=== PATIENT | female | born 1995 | race Caucasian/White ===

== ENCOUNTER 2022-10-02 16:08 | Outpatient (RCR) | payer OTHER, SELFPAY ==
[2022-10-02 16:40] LABS: HCG Quantitative 113 mIU/mL
== END 2022-11-05 16:03 | disposition home or self-care (01) ==
LOC: LAB 16:08
PROVIDERS: PCP Obstetrics & Gynecology; Visit Provider Obstetrics & Gynecology
DX: O03.9 Complete or unspecified spontaneous abortion without complication (principal)
CPT/HCPCS: 36415; 84702

== ENCOUNTER 2023-02-27 09:31 | Outpatient (OUT) | payer OTHER, SELFPAY ==
--- NOTE | 2023-02-27 09:33 | US_ITS ---
[address] [address] Patient Name: JAYDEN BRIONES MRN: [id number] date: 1995 Sex: F Assigned Patient Location: Current Patient Location: Accession/Order Number: [id number] Exam Date: 02/27/2023 09:32 Report Date: 02/27/2023 15:40 At the request of: SARAN ALVAREZ Procedure: US OB transvaginal EXAMINATION: US OB transvaginal HISTORY: MISSED MENSES COMPARISON: No relevant comparison available. FINDINGS: GESTATIONAL SAC: Present and normal appearing. YOLK SAC: Present and normal appearing. POLE: Present and normal appearing. CARDIAC: Present. UTERUS: Normal size and appearance. OVARIES: Right: Corpus lutein cyst. Left: Normal. CERVIX: 5.9 cm in length and closed. CUL-DE-SAC: Normal. OTHER: None. AGE BY LMP: 8 weeks 5 days ANJU BY LMP: 10/04/2023 AGE BY US CRL: 9 weeks 0 days ANJU BY US CRL: 10/02/2023 US/US OB transvaginal IMPRESSION: 1. Single live intrauterine . Electronically authenticated by: JOHNNIE RESTREPO Date: 02/27/2023 15:40
== END 2023-02-27 09:32 | disposition home or self-care (01) ==
LOC: US 09:31
PROVIDERS: PCP Obstetrics & Gynecology; Visit Provider Obstetrics & Gynecology
DX: Z34.91 Encounter for supervision of normal pregnancy, unspecified, first trimester (principal); N92.6 Irregular menstruation, unspecified; Z3A.09 9 weeks gestation of pregnancy
CPT/HCPCS: 76817

== ENCOUNTER 2023-03-09 16:21 | Outpatient (OUT) | payer OTHER, SELFPAY ==
[2023-03-09 16:51] LABS: Basophils Absolute Auto 0.1 10^3/uL (0.0-0.1); Basophils Percent Auto 0.4 % (0.2-2.0); Eosinophils Absolute Auto 0.2 10^3/uL (0.0-0.7); Eosinophils Percent Auto 1.6 % (0.9-7.0); Hematocrit 37.6 % (36.0-48.0); Immature Granulocytes Abs Auto 0.04 10^3/uL (0.00-0.03); Immature Granulocytes Pct Auto 0.3 % (0.0-0.5); Lymphocytes Absolute Auto 2.9 10^3/uL (1.2-3.8); Lymphocytes Percent Auto 21.5 % (20.5-60.0); Mean Corpuscular HGB Conc 34.6 g/dL (29.9-35.2); Mean Corpuscular Hemoglobin 31.6 pg (26.7-34.0); Mean Corpuscular Volume 91.3 fL (81.0-99.0); Mean Platelet Volume 10.1 fL (9.5-13.5); Monocytes Absolute Auto 0.8 10^3/uL (0.3-0.8); Monocytes Percent Auto 5.9 % (1.7-12.0); Neutrophils Absolute Auto 9.4 10^3/uL (1.4-6.5); Neutrophils Percent Auto 70.3 % (43.0-75.0); Platelet Count 253 10^3/uL (150-450); Red Blood Count 4.12 10^6/uL (4.20-5.40); Red Cell Distribution Width 12.5 % (11.0-15.0); White Blood Count 13.3 10^3/uL (4.0-11.0)
[2023-03-09 17:48] LABS: Thyroid Stimulating Hormone 0.621 uIU/mL (0.358-3.740)
[2023-03-09 18:42] LABS: Estimated Average Glucose 100 mg/dL; Glycohemoglobin A1C 5.1 % (4.5-6.2)
[2023-03-11 06:11] LABS: HBsAg Screen Negative (Negative); HCV Ab Non Reactive (Non Reactive); HIV Ab/p24 Ag Screen Non Reactive (Non Reactive); Rubella Antibodies, IgG 1.33 index (Immune >0.99)
[2023-03-11 12:09] LABS: Rapid Plasma Reagin, Quant Non Reactive titer (NonRea<1:1)
== END 2023-03-09 16:22 | disposition home or self-care (01) ==
LOC: LAB 16:21
PROVIDERS: PCP Obstetrics & Gynecology; Visit Provider Obstetrics & Gynecology
DX: N92.6 Irregular menstruation, unspecified (principal)
CPT/HCPCS: 36415; 83036; 84443; 85025; 86592; 86762; 86803; 86850; 86900; 86901; 87086; 87340; 87389

== ENCOUNTER 2023-04-28 20:03 | Outpatient (REF) | payer OTHER, SELFPAY ==
[2023-05-05 10:10] LABS: Age Gdln ACOG Testing Note (.); IGP, rfx Aptima HPV ASCU Note (.)
== END 2023-04-28 20:04 | disposition home or self-care (01) ==
LOC: LAB 20:03
PROVIDERS: PCP Obstetrics & Gynecology; Visit Provider Obstetrics & Gynecology
DX: Z01.419 Encounter for gynecological examination (general) (routine) without abnormal findings (principal)
CPT/HCPCS: G0145

== ENCOUNTER 2023-05-01 13:57 | Outpatient (OUT) | payer OTHER, SELFPAY ==
--- OUTSIDE RECORDS SUMMARY | 2023-05-01 13:59 | XMS_ITS | CCD ---
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 Role Phone Kalyan Haynes Unavailable Inoa Farida Unavailable KIM ., DR NOONAN Admitting Unavailable KIM ., DR NOONAN Attending Unavailable KMI ., DR NOONAN Consulting Unavailable GIRVIN, DR BIGGS Primary Care Unavailable HAY ., DR KING Admitting Unavailable HAY ., DR KING Attending Unavailable HAY ., DR KING Consulting Unavailable GIRMIREYA, DR BIGGS Primary Care Unavailable KIM ., DR NOONAN Admitting Unavailable GIRVIN, DR BIGGS Primary Care Unavailable KIM ., DR NOONAN Attending Unavailable KIM ., DR NOONAN Consulting Unavailable KIM ., DR NOONAN Attending Unavailable KIM ., DR NOONAN Consulting Unavailable GIRMIREYA, DR BIGGS Primary Care Unavailable KIM ., DR NOONAN Admitting Unavailable KIM ., DR NOONAN Attending Unavailable KIM ., DR NOONAN Consulting Unavailable ERIKA, DR BIGGS Primary Care Unavailable KIM ., DR NOONAN Admitting Unavailable KIM ., DR NOONAN Admitting Unavailable PRINTER, DR BIGGS Consulting Unavailable KIM ., DR NOONAN Attending Unavailable GIRVIN, DR BIGGS Primary Care Unavailable KIM ., DR NOONAN Consulting Unavailable REQUEST, NONE LISTED Consulting Unavaila ble KIM ., DR NOONAN Admitting Unavailable KIM ., DR NOONAN Attending Unavailable ERIKA, DR BIGGS Primary Care Unavailable KIM ., DR NOONAN Consulting Unavailable ZIEBER, DR JOHNNIE Wood Consulting Unavailable MITCHEL, NONE LISTED Consulting Unavaila ble KIM ., DR NOONAN Admitting Unavailable KIM ., DR NOONAN Consulting Unavailable KIM ., DR NOONAN Attending Unavailable GIRVIN, DR BIGGS Primary Care Unavailable KIM, SARAN Attending Unavailable SANJANA RAMIREZ Attending Unavailable SARAN ALVAREZ Attending Unavailable Allergies Allergy Classification Reported Allergen(s) Allergy Type Date of Onset Reaction(s) Facility (3 sources) Amoxicillin Drug Allergy rash [facility] Other (1 source) Amoxicillin Drug Allergy 03-08-2020 [facility] Repository Medications Current Medications Medication Drug Class(es) Dates Sig (Normalized) Sig (Original) Docusate (3 sources) Colace Active Iron (3 sources) Iron Active polysaccharide iron complex 150 mg oral capsule (3 sources) Start: 03-24-2017 take 1 capsule by mouth every twenty-four hours Ferrex 150 150 MG 1 capsule Orally Once a day Mar, Active Pre-Tyler (3 sources) Pre-Tyler Active Completed/Discontinued Medications Medication Drug Class(es) Dates Sig (Normalized) Sig (Original) Calcium (3 sources) Phosphate Binder, Calcium Calciu m + D Not-Taking Problems Active Problems Problem Classification Problem Date Documented Da te Episodic/Chronic Deficiency and other anemia (3 sources) Anemia due to blood loss; Translations: [Iron deficiency anemia secondary to blood loss (chronic)] Chronic Menstrual disorders (5 sources) Irregular menstruation, unspecified; Translations: [IRREGULAR MENSTRUATION UNSPECIFIED] Onset: 09-10-2022 Chronic Other and delivery including normal (1 source) Encounter for supervision of normal , unspecified, first trimester; Translations: [ENC SUP NORMAL PREG UNS FIRST TRI] Onset: 09-25-2022 Episodic Residual codes; unclassified (1 source) 9 weeks gestation of ; Translations: [9 WEEKS GESTATION OF ] Onset: 09-25-2022 Episodic Past or Other Problems Problem Classification Problem Date Documented Da te Episodic/Chronic Hemorrhage during ; abruptio placenta; placenta previa (3 sources) Hemorrhage in early , unspecified; Translations: [HEMORRHAGE EARLY UNS] Onset: 03-01-2022 Episodic Immunizations and screening for infectious disease (1 source) Contact with and (suspected) exposure to other viral communicable diseases; Translations: [Contact with and (suspected) exposure to other viral communicable diseases Z20.828] Onset: 02-14-2021 Resolved: 02-14-2021 Episodic Other nervous system disorders (3 sources) Loss of taste; Translations: [Parageusia] Episodic Other nervous system disorders (1 source) Parageusia; Translations: [Loss of taste R43.2] Onset: 02-14-2021 Resolved: 02-14-2021 Episodic Other upper respiratory infections (1 source) Acute upper respiratory infection, unspecified; Translations: [Viral upper respiratory illness J06.9] Onset: 02-14-2021 Resolved: 02-14-2021 Episodic Residual codes; unclassified (1 source) Pain, unspecified; Translations: [Body aches R52] Onset: 02-14-2021 Resolved: 02-14-2021 Episodic Spontaneous (4 sources) Complete or unspecified spontaneous without complication; Translations: [COMPLETE/UNS SPONT AB W/O COMP] Onset: 05-13-2022 Episodic Results Test Name Value Interpretation Reference Range Facil ity US PREG TVon 09-11-2022 US PREG TV EXAMINATION: US PREG TV HISTORY: viability COMPARISON: Ultrasound procedure transvaginal 09/04/2022 FINDINGS: GESTATIONAL SAC: Present YOLK SAC: Present POLE: Present CARDIAC: Absent UTERUS: Normal size and appearance. OVARIES: Right: Normal. Left: Normal. CERVIX: 5.7 cm in length and closed. CUL-DE-SAC: Normal. OTHER: None. AGE BY LMP: 9 weeks 4 days ANJU BY LMP: 04/12/2023 AGE BY US CRL: 6 weeks 3 days ANJU BY US CRL: 05/04/2022 IMPRESSION: 1. Early intrauterine with no detectable heartbeat or growth since prior study 7 days ago. Electronically authenticated by: JOHNNIE RESTREPO Date: 2022-09-11 15:59 Normal [facility] US PREG TVon 09-04-2022 US PREG TV EXAMINATION: US PREG TV HISTORY: Missed period COMPARISON: 10/02/2020 FINDINGS: [place] intrauterine gestation Gestational sac: 2.26 cm, 6 weeks 6 days CRL: 4.9 mm, 6 weeks 1 day Yolk sac: 5.1 mm cardiac activity: Not visualized Cervix: Closed, 4.2 cm The uterus is normal, anteverted, anteflexed The ovaries are normal in appearance. Right corpus luteal cyst Clinical age: 8 weeks 4 days Clinical ANJU: 04/12/2023 Ultrasound age: 6 weeks 1 day Ultrasound ANJU: 04/29/2023 IMPRESSION: [place] intrauterine gestation. No cardiac activity, possibly related to early gestation. Continued surveillance recommended Electronically authenticated by: KALYAN BACK Date: 2022-09-04 17:37 Normal [facility] PREG QUANT HCGon 05-13-2022 HCG QUANT 6 mIU/mL Normal [facility] Comment on above: Performed By: #### P REGQNT #### [facility] [address] [place] [address] Dr. Arash Frazier HCG RANGE SEE BELOW Normal [facility] Comment on above: Result Comment: 5-50 0.2-1 WEEK 50-500 1-2 WEEKS 100-5,000 2-3 WEEKS 500-10,000 3-4 WEEKS 1,000-50,000 4-5 WEEKS 10,000-100,000 5-6 WEEKS 15,000-200,000 6-8 WEEKS 10,000-100,000 2-3 MONTHS Performed By: #### P REGQNT #### [facility] [address] [place] [address] Dr. Arash Frazier PREG QUANT HCGon 05-02-2022 HCG QUANT 23 mIU/mL Normal [facility] Comment on above: Performed By: #### P REGQNT #### [facility] [address] [place] [address] Dr. Arash Frazier HCG RANGE SEE BELOW Normal [facility] Comment on above: Result Comment: 5-50 0.2-1 WEEK 50-500 1-2 WEEKS 100-5,000 2-3 WEEKS 500-10,000 3-4 WEEKS 1,000-50,000 4-5 WEEKS 10,000-100,000 5-6 WEEKS 15,000-200,000 6-8 WEEKS 10,000-100,000 2-3 MONTHS Performed By: #### P REGQNT #### [facility] [address] [place] [address] Dr. Arash Frazier PREG QUANT HCGon 04-21-2022 HCG QUANT 85 mIU/mL Normal [facility] Comment on above: Performed By: #### P REGQNT #### [facility] [address] [place] [address] Dr. Arash Frazier HCG RANGE SEE BELOW Normal [facility] Comment on above: Result Comment: 5-50 0.2-1 WEEK 50-500 1-2 WEEKS 100-5,000 2-3 WEEKS 500-10,000 3-4 WEEKS 1,000-50,000 4-5 WEEKS 10,000-100,000 5-6 WEEKS 15,000-200,000 6-8 WEEKS 10,000-100,000 2-3 MONTHS Performed By: #### P REGQNT #### [facility] [address] [place] [address] Dr. Arash Frazier PREG QUANT HCGon 04-14-2022 HCG QUANT 197 mIU/mL Normal [facility] Comment on above: Performed By: #### P REGQNT #### [facility] [address] [place] [address] Dr. Arash Frazier HCG RANGE SEE BELOW Normal [facility] Comment on above: Result Comment: 5-50 0.2-1 WEEK 50-500 1-2 WEEKS 100-5,000 2-3 WEEKS 500-10,000 3-4 WEEKS 1,000-50,000 4-5 WEEKS 10,000-100,000 5-6 WEEKS 15,000-200,000 6-8 WEEKS 10,000-100,000 2-3 MONTHS Performed By: #### P REGQNT #### [facility] [address] [place] [address] Dr. Arash Frazier PREG QUANT HCGon 04-08-2022 HCG QUANT 269 mIU/mL Normal [facility] Comment on above: Performed By: #### P REGQNT #### [facility] [address] [place] [address] Dr. Arash Frazier HCG RANGE SEE BELOW Normal [facility] Comment on above: Result Comment: 5-50 0.2-1 WEEK 50-500 1-2 WEEKS 100-5,000 2-3 WEEKS 500-10,000 3-4 WEEKS 1,000-50,000 4-5 WEEKS 10,000-100,000 5-6 WEEKS 15,000-200,000 6-8 WEEKS 10,000-100,000 2-3 MONTHS Performed By: #### P REGQNT #### [facility] [address] [place] [address] Dr. Arash Frazier PREG QUANT HCGon 03-31-2022 HCG QUANT 192 mIU/mL Normal [facility] Comment on above: Performed By: #### P REGQNT #### [facility] [address] [place] [address] Dr. Arash Frazier HCG RANGE SEE BELOW Normal [facility] Comment on above: Result Comment: 5-50 0.2-1 WEEK 50-500 1-2 WEEKS 100-5,000 2-3 WEEKS 500-10,000 3-4 WEEKS 1,000-50,000 4-5 WEEKS 10,000-100,000 5-6 WEEKS 15,000-200,000 6-8 WEEKS 10,000-100,000 2-3 MONTHS Performed By: #### P REGQNT #### [facility] [address] [place] [address] Dr. Arash Frazier PREG QUANT HCGon 03-25-2022 HCG QUANT 115 mIU/mL Normal [facility] Comment on above: Performed By: #### P REGQNT #### [facility] [address] [place] [address] Dr. Arash Frazier HCG RANGE SEE BELOW Normal [facility] Comment on above: Result Comment: 5-50 0.2-1 WEEK 50-500 1-2 WEEKS 100-5,000 2-3 WEEKS 500-10,000 3-4 WEEKS 1,000-50,000 4-5 WEEKS 10,000-100,000 5-6 WEEKS 15,000-200,000 6-8 WEEKS 10,000-100,000 2-3 MONTHS Performed By: #### P REGQNT #### [facility] [address] [place] [address] Dr. Arash Frazier PREG QUANT HCGon 03-18-2022 HCG QUANT 41 mIU/mL Normal [facility] Comment on above: Performed By: #### P REGQNT #### [facility] [address] [place] [address] Dr. Arash Frazier HCG RANGE SEE BELOW Normal [facility] Comment on above: Result Comment: 5-50 0.2-1 WEEK 50-500 1-2 WEEKS 100-5,000 2-3 WEEKS 500-10,000 3-4 WEEKS 1,000-50,000 4-5 WEEKS 10,000-100,000 5-6 WEEKS 15,000-200,000 6-8 WEEKS 10,000-100,000 2-3 MONTHS Performed By: #### P REGQNT #### [facility] [address] [place] [address] Dr. Arash Frazier TYPE AND SCREENon 03-18-2022 TYPE AND SCREEN Negative Normal [facility] Comment on above: Performed By: #### P REGQNT #### [facility] [address] [place] [address] Dr. Arash Frazier CBC AUTO DIFFon 03-01-2022 BASO # 0.1 103/ul Normal 0.0-0.1 [facility] Comment on above: Performed By: #### C BC #### [facility] [address] [place] [address] Dr. Arash Frazier Basophils/100 WBC (Bld) 0.8 % Normal 0.2-2.0 [facility] Comment on above: Performed By: #### C BC #### [facility] [address] [place] [address] Dr. Arash Frazier EO # 0.2 103/ul Normal 0.0-0.7 [facility] Comment on above: Performed By: #### C BC #### [facility] [address] [place] [address] Dr. Arash Frazier Eosinophils/100 WBC (Bld) 2.0 % Normal 0.9-7.0 [facility] Comment on above: Performed By: #### C BC #### [facility] [address] [place] [address] Dr. Arash Frazier Erythrocyte distribution width (RBC) [Ratio] 13.0 % Normal 11.0-15.0 [facility] Comment on above: Performed By: #### C BC #### [facility] [address] [place] [address] Dr. Arash Frazier Hematocrit (Bld) [Volume fraction] 39.6 % Normal 36.0-48.0 [facility] Comment on above: Performed By: #### C BC #### [facility] [address] [place] [address] Dr. Arash Frazier Hemoglobin (Bld) [Mass/Vol] 12.9 g/dL Normal 12.0-16.0 [facility] Comment on above: Performed By: #### C BC #### [facility] [address] [place] [address] Dr. Arash Frazier IG # 0.03 10e3/ul Normal 0.00-0.03 [facility] Comment on above: Performed By: #### C BC #### [facility] [address] [place] [address] Dr. Arash Frazier IG % 0.3 % Normal 0.0-0.5 [facility] Comment on above: Performed By: #### C BC #### [facility] [address] [place] [address] Dr. Arash Frazier LYMPH # 2.4 103/ul Normal 1.2-3.8 [facility] Comment on above: Performed By: #### C BC #### [facility] [address] [place] [address] Dr. Arash Frazier Lymphocytes/100 WBC (Bld) 20.5 % Normal 20.5-60.0 [facility] Comment on above: Performed By: #### C BC #### [facility] [address] [place] [address] Dr. Arash Frazier MANUAL DIFF REQ NO Normal [facility] Comment on above: Performed By: #### C BC #### [facility] [address] [place] [address] Dr. Arash Frazier MCH (RBC) [Entitic mass] 29.5 pg Normal 26.7-34.0 [facility] Comment on above: Performed By: #### C BC #### [facility] [address] [place] [address] Dr. Arash Frazier MCHC (RBC) [Mass/Vol] 32.6 g/dL Normal 29.9-35.2 [facility] Comment on above: Performed By: #### C BC #### [facility] [address] [address] [address] Arash Frazier MCV (RBC) [Entitic vol] 90.6 fL Normal 81.0-99.0 [facility] Comment on above: Performed By: #### C BC #### [facility] [address] [address] [address] Arash Frazier MONO # 0.7 103/ul Normal 0.3-0.8 [facility] Comment on above: Performed By: #### C BC #### [facility] [address] [place] [address] Dr. Arash Frazier Monocytes/100 WBC (Bld) 5.9 % Normal 1.7-12.0 [facility] Comment on above: Performed By: #### C BC #### [facility] [address] [place] [address] Dr. Arash Frazier NEUT # 8.2 103/ul Critically high 1.4-6.5 [facility] Comment on above: Performed By: #### C BC #### [facility] [address] [place] [address] Dr. Arash Frazier Neutrophils/100 WBC (Bld) 70.5 % Normal 43.0-75.0 [facility] Comment on above: Performed By: #### C BC #### [facility] [address] [place] [address] Dr. Arash Frazier Platelet mean volume (Bld) [Entitic vol] 10.1 fL Normal 9.5-13.5 [facility] Comment on above: Performed By: #### C BC #### [facility] [address] [place] [address] Dr. Arash Frazier PLT 217 103/ul Normal 150-450 [facility] Comment on above: Performed By: #### C BC #### [facility] [address] [place] [address] Dr. Arash Frazier RBC 4.37 106/ul Normal 4.20-5.40 [facility] Comment on above: Performed By: #### C BC #### [facility] [address] [place] [address] Dr. Arash Frazier WBC 11.7 103/ul Critically high 4.0-11.0 [facility] Comment on above: Performed By: #### C BC #### [facility] [address] [place] [address] Dr. Arash Frazier PREG QUANT HCGon 03-01-2022 HCG QUANT 19 mIU/mL Normal [facility] Comment on above: Performed By: #### P REGQNT #### [facility] [address] [place] [address] Dr. Arash Frazier HCG RANGE SEE BELOW Normal [facility] Comment on above: Result Comment: 5-50 0.2-1 WEEK 50-500 1-2 WEEKS 100-5,000 2-3 WEEKS 500-10,000 3-4 WEEKS 1,000-50,000 4-5 WEEKS 10,000-100,000 5-6 WEEKS 15,000-200,000 6-8 WEEKS 10,000-100,000 2-3 MONTHS Performed By: #### P REGQNT #### [facility] [address] [place] [address] Dr. Arash Frazier PROF 14(COMP METB)on 022 Albumin [Mass/Vol] 3.8 g/dL Normal 3.4-5.0 [facility] Comment on above: Performed By: #### C MP #### [facility] [address] [place] [address] Dr. Arash Frazier Albumin/Globulin [Mass ratio] 1.0 {ratio} Normal [facility] Comment on above: Performed By: #### C MP #### [facility] [address] [place] [address] Dr. Arash Frazier ALP [Catalytic activity/Vol] 69 U/L Normal 46-116 [facility] Comment on above: Performed By: #### C MP #### [facility] [address] [place] [address] Dr. Arash Frazier ALT [Catalytic activity/Vol] 21 U/L Normal 14-59 [facility] Comment on above: Performed By: #### C MP #### [facility] [address] [place] [address] Dr. Arash Frazier Anion gap [Moles/Vol] 11.6 mmol/L Normal [facility] Comment on above: Performed By: #### C MP #### [facility] [address] [address] [address] Arash Frazier AST [Catalytic activity/Vol] 13 U/L Critically low 15-37 [facility] Comment on above: Performed By: #### C MP #### [facility] [address] [address] [address] Arash Frazier Bilirubin [Mass/Vol] 0.2 mg/dL Normal 0.2-1.0 [facility] Comment on above: Performed By: #### C MP #### [facility] [address] [address] [address] Arash Frzaier Calcium [Mass/Vol] 8.8 mg/dL Normal 8.5-10.1 [facility] Comment on above: Performed By: #### C MP #### [facility] [address] [address] [address] Arash Frazier Chloride [Moles/Vol] 106 mmol/L Normal 98-107 [facility] Comment on above: Performed By: #### C MP #### [facility] [address] [address] [address] Arash Frazier CO2 [Moles/Vol] 28.7 mmol/L Normal 21.0-32.0 [facility] Comment on above: Performed By: #### C MP #### [facility] [address] [address] [address] Arash Frazier Creatinine [Mass/Vol] 0.75 mg/dL Normal 0.55-1.02 [facility] Comment on above: Performed By: #### C MP #### [facility] [address] [address] [address] Arash Frazier EGFR-AF NEPALESE >60 Normal >=60 [facility] Comment on above: Performed By: #### C MP #### [facility] [address] [address] [address] Arash Frazier EGFR-NON AF NEPALESE >60 Normal >=60 [facility] Comment on above: Performed By: #### C MP #### [facility] [address] [address] [address] Arash Frazier Globulin (S) [Mass/Vol] 3.7 g/dL Normal [facility] Comment on above: Performed By: #### C MP #### [facility] [address] [address] [address] Arash Frazier Glucose [Mass/Vol] 102 mg/dL Normal 74-106 [facility] Comment on above: Performed By: #### C MP #### [facility] [address] [address] [address] Arash Frazier Potassium [Moles/Vol] 4.3 mmol/L Normal 3.5-5.1 [facility] Comment on above: Performed By: #### C MP #### [facility] [address] [address] [address] Arash Frazier Protein [Mass/Vol] 7.5 g/dL Normal 6.4-8.2 [facility] Comment on above: Performed By: #### C MP #### [facility] [address] [address] [address] Arash Frazier Sodium [Moles/Vol] 142 mmol/L Normal 136-145 [facility] Comment on above: Performed By: #### C MP #### [facility] [address] [address] [address] Arash Frazier Urea nitrogen [Mass/Vol] 12.0 mg/dL Normal 7.0-18.0 [facility] Comment on above: Performed By: #### C MP #### [facility] [address] [address] [address] Arash Frazier Urea nitrogen/Creatinine [Mass ratio] 16.0 mg/mg Normal [facility] Comment on above: Performed By: #### C MP #### [facility] [address] [address] [address] Arash Frazier PROTIMEon 03-01-2022 INR Coag (PPP) [Relative time] 0.95 {INR} Normal [facility] Comment on above: Performed By: #### P TT, PT #### [facility] [address] [place], [place] [address] Dr. Arash Frazier INR GUIDELINES SEE BELOW Normal [facility] Comment on above: Result Comment: MABLE RED INR: 2.0 - 3.0 CONDITIONS NOT LISTED BELOW 2.5 - 3.5 FOR PROSTHETIC HEART VALVE REPLACEMENT 2.5 - 3.5 RECURRENT THROMBOSIS Performed By: #### P TT, PT #### [facility] [address] [address] [address] Arash Frazier PT Coag (PPP) [Time] 10.3 s Normal 9.0-11.6 [facility] Comment on above: Performed By: #### P TT, PT #### [facility] [address] [address] [address] Arash Frazier PTTon 03-01-2022 aPTT Coag (Bld) [Time] 29.9 s Normal 22.3-36.2 [facility] Comment on above: Performed By: #### P TT, PT #### [facility] [address] [address] [address] Arash Frazier Vital Signs Date Time Vital Sign Value Performing Clinician Osbaldo anton 02-14-2021 13:30-0400 Body height 172.72 cm Farida Iona Other [facility] Other Encounters Encounter Date Encounter Type Care Provider Facility Start: 04-28-2023 End: 04-28-2023 ambulatory SARAN ALVAREZ Not Available Start: 04-13-2023 End: 04-13-2023 ambulatory SANJANA RAMIREZ Not Available Start: 03-31-2023 End: 03-31-2023 ambulatory SARAN ALVAREZ Not Available Start: 09-11-2022 End: 09-12-[address] SARAN ALVAREZ . Facility: Start: 09-04-2022 End: 09-05-[address] SARAN ALVAREZ . Facility: Start: 05-13-2022 End: 06-03-[address] SARAN ALVAREZ . Facility: Start: 04-08-2022 End: 05-04-[address] SARAN ALVAREZ . Facility:[facility] Start: 03-31-2022 End: 04-01-[address] SARAN ALVAREZ . Facility:[facility] Start: 03-25-2022 End: 03-26-[address] SARAN ALVAREZ . Facility:[facility] Start: 03-18-2022 End: 03-19-[address] SARAN ALVAREZ . Facility:[facility] Start: 03-01-2022 End: 03-01-[address] FERNANDO FINK . Facility:[facility] Start: 02-18-2021 Telephone encounter Kalyan Haynes [facility] Start: 02-14-2021 (URG) Urgent Care Visit Farida rogers [facility] Start: 02-14-2021 Telephone encounter Kalyan Haynes [facility] Payers Date Payer Category Payer Unknown [id number] 1995 Unknown [id number] 2.16.84 0.1.702901.3.579.2.593 1997 Unknown [id number] 2.16.84 0.1.023990.3.579.2.593 1997 Unknown [id number] 2.16.84 0.1.483524.3.579.2.593 1997 Unknown [id number] 2.16.84 0.1.175561.3.579.2.593 1997 Unknown [id number] 2.16.84 0.1.867780.3.579.2.593 1997 Unknown [id number] 2.16.84 0.1.238649.3.579.2.593 1997 Unknown [id number] 2.16.84 0.1.228549.3.579.2.593 1997 Unknown [id number] 2..840 .1.976584.3.579.2.1259 1997 Unknown [id number] 2.16.840 .1.747852.3.579.2.1259 1997 Unknown [id number] 2.16.840 .1.546121.3.579.2.1259 1959 Unknown [id number] 2. 16.840.1.787977.19 Social History Date Type Detail Facility Unknown if ever smoked [facility] Other Sex Assigned At Sex Assigned At Bir th [facility] Other Evaluation note 02-14-2021 Note Date & Type Note Facility 02-14-2021 Evaluation note Encounter Date Diagnosis Assessment Notes Feb, Body aches (ICD-10 - R52) Feb, Loss of taste (ICD-10 - R43.2) [facility] Other Evaluation note 02-14-2021 Note Date & Type Note Facility 02-14-2021 Evaluation note Encounter Date Diagnosis Assessment Notes Feb, Contact with and (suspected) exposure to other viral communicable diseases (ICD-10 - Z20.828) Feb, Viral upper respiratory illness (ICD-10 - J06.9) Drink plenty fluids, get plenty of rest. Follow-up with your family physician to consider a PCR Covid test. Tylenol Motrin for aches pains or fevers. Feb, Other Additional time spent conducting pre-visit phone call, screening for symptoms, instructions on social distancing, application and removal of PPE, and cleaning of examination room, equipment and supplies was preformed. Patient education given for testing methodology and results. Patient care instructions given in writting by [facility] document. [facility] Other History general Narrative - Reported 08-18-2016 Note Date & Type Note Facility 08-18-2016 History general N arrative - Reported Type Medical History Varicella Vaccine 2010 Surgical History lt wrist pin [facility] Surgical History rt ankle fixation [facility] Surgical History removed external fixator 10/2016 Surgical History removed pin from left wrist 10/03 017 Surgical History wisdom teeth extract Hospitalization History see above [facility] Other Evaluation note Note Date & Type Note Facility Evaluation note No Information [facility] [employer] Other Summary Purpose Family History No Family History Records FoundNo Family History Records Found Advance Directives No Advanced Directives Records FoundNo Advanced Directives Records Found Additional Source Comments REASON FOR VISIT (unrecogniz ed section and content) clinical/testing request#15 DUT[place] SE[place], HEADACHE, NASAL CONGESTION, LOSS TASTE AND SMELL, BODYACHES, SORE THROATclinical INFORMATION SOURCE (unrecogn ized section and content) DATE CREATED AUTHOR 10/11/2022 [facility] DATE CREATED AUTHOR AUTHOR'S ORGANIZ ATION 04/30/2023 [facility] [employer] FOR RECORDS PERTAINING TO PATIENTS WHO ARE OR HAVE BEEN ENROLLED IN A CHEMICAL DEPENDENCY/SUBSTANCEABUSE PROGRAM, SOME INFORMATION MAY BE OMITTED. This clinical summary was aggregated from multiple sources. Caution should be exercised in using it in the provision of clinical care. This summary normalizes information from multiple sources, and as a consequence, information in this document may materially change the coding, format and clinical context of patient data. In addition, data may be omitted in some cases. CLINICAL DECISIONS SHOULD BE BASED ON THE PRIMARY CLINICAL RECORDS. [facility] [employer] [facility]. provides no warranty or guarantee of the accuracy or completeness of information in this document.
[2023-05-03 02:08] LABS: AFP Value 31.2 ng/mL (.); Gest. Age on Collection Date 17.7 weeks (.); Insulin Dep Diabetes No (.); OSBR Risk 1 IN 10000 (.); Results Report (.)
== END 2023-05-01 13:58 | disposition home or self-care (01) ==
LOC: LAB 13:57
PROVIDERS: PCP Obstetrics & Gynecology; Visit Provider Obstetrics & Gynecology
DX: Z34.92 Encounter for supervision of normal pregnancy, unspecified, second trimester (principal)
CPT/HCPCS: 36415; 82105

== ENCOUNTER 2023-05-19 09:22 | Outpatient (OUT) | payer OTHER, SELFPAY ==
--- NOTE | 2023-05-19 09:25 | US_ITS ---
[address] [address] Patient Name: JAYDEN BRIONES MRN: [id number] date: 1995 Sex: F Assigned Patient Location: US Current Patient Location: US Accession/Order Number: [id number] Exam Date: 05/19/2023 09:30 Report Date: 05/19/2023 12:03 At the request of: SARAN ALVAREZ Procedure: US OB anatomy EXAMINATION: US OB anatomy, US OB cervical length HISTORY: screening, , for anatomic survey Z36.89 COMPARISON: No relevant comparison available. TECHNIQUE: Transabdominal sonographic examination was performed for obstetrical and evaluation. FINDINGS: Number: 1 Heart Rate: 152.5 bpm H.B. /min Amniotic Fluid Volume: Subjectively normal Placental Location: Anterior. Grade 0. Placental edge 4.2 cm from the internal os. Areas of anechoic echogenicity measuring up to 5.9 cm, venous lakes favored Cervix Length: 5.1 cm, closed Normal anatomy: Lateral ventricles, cerebellum, posterior fossa, nose, lips, orbits, four-chamber heart, RVOT, LVOT, diaphragm, stomach, kidneys, abdominal cord insertion, bladder, umbilical arteries, three-vessel cord, extremities Suboptimal visualization: Spine Other: Nuchal cord noted. BIOMETRY: BPD: 4.7 cm 20 weeks 2 days , 49% HC: 17.1 cm 19 weeks 5 days, 18% AC: 16.4 cm 21 weeks 3 days, 81% FL: 3.4 cm 20 weeks 6 days , 61% EFW:391.9 grams; 14 ounces, 83% FL/AC: 20.9 FL/BPD: 72.9 HC/AC: 1.0 GESTATIONAL AGE: Age by EDC: 20 weeks 2 days Age by current US: 20 weeks 4 days ANJU by current US: 10/02/2023 ANJU by EDC: 10/04/2023 US/US OB anatomy IMPRESSION: Suboptimal visualization of the spine Nuchal cord Closed cervix measuring 5.1 cm in length *Reference: [employer] Practice Guideline for the performance of Obstetric Ultrasound Examinations, February 01, 2007. Electronically authenticated by: KALYAN BACK Date: 05/19/2023 12:03
--- NOTE | 2023-05-19 09:25 | US_ITS ---
[address] [address] Patient Name: JAYDEN BRIONES MRN: [id number] date: 1995 Sex: F Assigned Patient Location: US Current Patient Location: US Accession/Order Number: [id number] Exam Date: 05/19/2023 09:30 Report Date: 05/19/2023 12:03 At the request of: SARAN ALVAREZ Procedure: US OB cervical length EXAMINATION: US OB anatomy, US OB cervical length HISTORY: screening, , for anatomic survey Z36.89 COMPARISON: No relevant comparison available. TECHNIQUE: Transabdominal sonographic examination was performed for obstetrical and evaluation. FINDINGS: Number: 1 Heart Rate: 152.5 bpm H.B. /min Amniotic Fluid Volume: Subjectively normal Placental Location: Anterior. Grade 0. Placental edge 4.2 cm from the internal os. Areas of anechoic echogenicity measuring up to 5.9 cm, venous lakes favored Cervix Length: 5.1 cm, closed Normal anatomy: Lateral ventricles, cerebellum, posterior fossa, nose, lips, orbits, four-chamber heart, RVOT, LVOT, diaphragm, stomach, kidneys, abdominal cord insertion, bladder, umbilical arteries, three-vessel cord, extremities Suboptimal visualization: Spine Other: Nuchal cord noted. BIOMETRY: BPD: 4.7 cm 20 weeks 2 days , 49% HC: 17.1 cm 19 weeks 5 days, 18% AC: 16.4 cm 21 weeks 3 days, 81% FL: 3.4 cm 20 weeks 6 days , 61% EFW:391.9 grams; 14 ounces, 83% FL/AC: 20.9 FL/BPD: 72.9 HC/AC: 1.0 GESTATIONAL AGE: Age by EDC: 20 weeks 2 days Age by current US: 20 weeks 4 days ANJU by current US: 10/02/2023 ANJU by EDC: 10/04/2023 US/US OB cervical length IMPRESSION: Suboptimal visualization of the spine Nuchal cord Closed cervix measuring 5.1 cm in length *Reference: [employer] Practice Guideline for the performance of Obstetric Ultrasound Examinations, February 01, 2007. Electronically authenticated by: KALYAN BACK Date: 05/19/2023 12:03
--- OUTSIDE RECORDS SUMMARY | 2023-05-19 09:31 | XMS_ITS | CCD ---
Author Name Unknown Address [address] [place] [address] Organization [facility] Care Team Providers Care Property Assessment Monitor Name Role Phone Kalyan Haynes Unavailable Iona Farida Unavailable KIM ., DR NOONAN Admitting Unavailable KIM ., DR NOONAN Attending Unavailable KIM ., DR NOONAN Consulting Unavailable GIRMIREYA, DR BIGGS Primary Care Unavailable HAY ., [...] Unavailable KIM ., DR NOONAN Admitting Unavailable SAMMAMISH, DR BIGGS Consulting Unavailable KIM ., DR NOONAN Attending Unavailable GIRVIN, DR BIGGS Primary Care Unavailable KIM ., DR NOONAN Consulting Unavailable REQUEST, NONE LISTED Consulting Unavaila ble KIM ., DR NOONAN Admitting Unavailable KIM ., DR NOONAN Attending Unavailable GIRMIREYA, DR BIGGS Primary Care Unavailable KIM ., DR NOONAN Consulting Unavailable ZIEBER, DR JOHNNIE Wood Consulting Unavailable MITCHEL, NONE LISTED Consulting Unavaila ble KIM ., DR NOONAN Admitting Unavailable KIM ., DR NOONAN Consulting Unavailable KIM ., DR NOONAN Attending Unavailable GIRVIN, DR BIGGS Primary Care Unavailable KIM, SARAN Attending Unavailable JAMES, SANJANA Attending Unavailable SARAN ALVAREZ Attending Unavailable Allergies Allergy Classification Reported Allergen(s) Allergy Type Date of Onset Reaction(s) Facility (3 sources) Amoxicillin Drug Allergy rash [facility] Other (1 source) Amoxicillin Drug Allergy 03-08-2020 [facility] Repository Medications Current Medications Medication Drug [...] RESTREPO Date: 2022-09-11 15:59 Normal [facility] US PREG TVon 09-04-2022 US PREG [...] KALYAN BACK Date: 2022-09-04 17:37 Normal [facility] PREG QUANT HCGon 05-13-2022 HCG QUANT 6 mIU/mL Normal [facility] Comment on above: Performed By: #### P REGQNT #### [facility] [address] [place] [address] Dr. Arash Frazier HCG RANGE SEE BELOW Normal [facility] Comment on above: Result Comment: 5-50 0.2-1 WEEK 50-500 1-2 WEEKS 100-5,000 2-3 WEEKS 500-10,000 3-4 WEEKS 1,000-50,000 4-5 WEEKS 10,000-100,000 5-6 WEEKS 15,000-200,000 6-8 WEEKS 10,000-100,000 2-3 MONTHS Performed By: #### P REGQNT #### [facility] [address] [place] [address] Dr. Arash Frazier PREG QUANT HCGon 05-02-2022 HCG QUANT 23 mIU/mL Normal [facility] Comment on above: Performed By: #### P REGQNT #### [facility] [address] [place] [address] Dr. Arash Frazier HCG RANGE SEE BELOW Normal [facility] Comment on above: Result Comment: 5-50 0.2-1 WEEK 50-500 1-2 WEEKS 100-5,000 2-3 WEEKS 500-10,000 3-4 WEEKS 1,000-50,000 4-5 WEEKS 10,000-100,000 5-6 WEEKS 15,000-200,000 6-8 WEEKS 10,000-100,000 2-3 MONTHS Performed By: #### P REGQNT #### [facility] [address] [place] [address] Dr. Arash Frazier PREG QUANT HCGon 04-21-2022 HCG QUANT 85 mIU/mL Normal [facility] Comment on above: Performed By: #### P REGQNT #### [facility] [address] [place] [address] Dr. Arash Frazier HCG RANGE SEE BELOW Normal [facility] Comment on above: Result Comment: 5-50 0.2-1 WEEK 50-500 1-2 WEEKS 100-5,000 2-3 WEEKS 500-10,000 3-4 WEEKS 1,000-50,000 4-5 WEEKS 10,000-100,000 5-6 WEEKS 15,000-200,000 6-8 WEEKS 10,000-100,000 2-3 MONTHS Performed By: #### P REGQNT #### [facility] [address] [place] [address] Dr. Arash Frazier PREG QUANT HCGon 04-14-2022 HCG QUANT 197 mIU/mL Normal [facility] Comment on above: Performed By: #### P REGQNT #### [facility] [address] [place] [address] Dr. Arash Frazier HCG RANGE SEE BELOW Normal [facility] Comment on above: Result Comment: 5-50 0.2-1 WEEK 50-500 1-2 WEEKS 100-5,000 2-3 WEEKS 500-10,000 3-4 WEEKS 1,000-50,000 4-5 WEEKS 10,000-100,000 5-6 WEEKS 15,000-200,000 6-8 WEEKS 10,000-100,000 2-3 MONTHS Performed By: #### P REGQNT #### [facility] [address] [place] [address] Dr. Arash Frazier PREG QUANT HCGon 04-08-2022 HCG QUANT 269 mIU/mL Normal [facility] Comment on above: Performed By: #### P REGQNT #### [facility] [address] [place] [address] Dr. Arash Frazier HCG RANGE SEE BELOW Normal [facility] Comment on above: Result Comment: 5-50 0.2-1 WEEK 50-500 1-2 WEEKS 100-5,000 2-3 WEEKS 500-10,000 3-4 WEEKS 1,000-50,000 4-5 WEEKS 10,000-100,000 5-6 WEEKS 15,000-200,000 6-8 WEEKS 10,000-100,000 2-3 MONTHS Performed By: #### P REGQNT #### [facility] [address] [place] [address] Dr. Arash Frazier PREG QUANT HCGon 03-31-2022 HCG QUANT 192 mIU/mL Normal [facility] Comment on above: Performed By: #### P REGQNT #### [facility] [address] [place] [address] Dr. Arash Frazier HCG RANGE SEE BELOW Normal [facility] Comment on above: Result Comment: 5-50 0.2-1 WEEK 50-500 1-2 WEEKS 100-5,000 2-3 WEEKS 500-10,000 3-4 WEEKS 1,000-50,000 4-5 WEEKS 10,000-100,000 5-6 WEEKS 15,000-200,000 6-8 WEEKS 10,000-100,000 2-3 MONTHS Performed By: #### P REGQNT #### [facility] [address] [place] [address] Dr. Arash Frazier PREG QUANT HCGon 03-25-2022 HCG QUANT 115 mIU/mL Normal [facility] Comment on above: Performed By: #### P REGQNT #### [facility] [address] [place] [address] Dr. Arash Frazier HCG RANGE SEE BELOW Normal [facility] Comment on above: Result Comment: 5-50 0.2-1 WEEK 50-500 1-2 WEEKS 100-5,000 2-3 WEEKS 500-10,000 3-4 WEEKS 1,000-50,000 4-5 WEEKS 10,000-100,000 5-6 WEEKS 15,000-200,000 6-8 WEEKS 10,000-100,000 2-3 MONTHS Performed By: #### P REGQNT #### [facility] [address] [place] [address] Dr. Arash Frazier PREG QUANT HCGon 03-18-2022 HCG QUANT 41 mIU/mL Normal [facility] Comment on above: Performed By: #### P REGQNT #### [facility] [address] [place] [address] Dr. Arash Frazier HCG RANGE SEE BELOW Normal [facility] Comment on above: Result Comment: 5-50 0.2-1 WEEK 50-500 1-2 WEEKS 100-5,000 2-3 WEEKS 500-10,000 3-4 WEEKS 1,000-50,000 4-5 WEEKS 10,000-100,000 5-6 WEEKS 15,000-200,000 6-8 WEEKS 10,000-100,000 2-3 MONTHS Performed By: #### P REGQNT #### [facility] [address] [place] [address] Dr. Arash Frazier TYPE AND SCREENon 03-18-2022 TYPE AND SCREEN Negative Normal [facility] Comment on above: Performed By: #### P REGQNT #### [facility] [address] [place] [address] Dr. Arash Frazier CBC AUTO DIFFon 03-01-2022 BASO # 0.1 103/ul Normal 0.0-0.1 [facility] Comment on above: Performed By: #### C BC #### [facility] [address] [place] [address] Dr. Arash Frazier Basophils/100 WBC (Bld) 0.8 % Normal 0.2-2.0 [facility] Comment on above: Performed By: #### C BC #### [facility] [address] [place] [address] Dr. Arash Frazier EO # 0.2 103/ul Normal 0.0-0.7 [facility] Comment on above: Performed By: #### C BC #### [facility] [address] [place] [address] Dr. Arash Frazier Eosinophils/100 WBC (Bld) 2.0 % Normal 0.9-7.0 [facility] Comment on above: Performed By: #### C BC #### [facility] [address] [place] [address] Dr. Arash Frazier Erythrocyte distribution width (RBC) [Ratio] 13.0 % Normal 11.0-15.0 [facility] Comment on above: Performed By: #### C BC #### [facility] [address] [place] [address] Dr. Arash Frazier Hematocrit (Bld) [Volume fraction] 39.6 % Normal 36.0-48.0 [facility] Comment on above: Performed By: #### C BC #### [facility] [address] [place] [address] Dr. Arash Frazier Hemoglobin (Bld) [Mass/Vol] 12.9 g/dL Normal 12.0-16.0 [facility] Comment on above: Performed By: #### C BC #### [facility] [address] [place] [address] Dr. Arash Frazier IG # 0.03 10e3/ul Normal 0.00-0.03 [facility] Comment on above: Performed By: #### C BC #### [facility] [address] [place] [address] Dr. Arash Frazier IG % 0.3 % Normal 0.0-0.5 [facility] Comment on above: Performed By: #### C BC #### [facility] [address] [place] [address] Dr. Arash Frazier LYMPH # 2.4 103/ul Normal 1.2-3.8 [facility] Comment on above: Performed By: #### C BC #### [facility] [address] [place] [address] Dr. Arash Frazier Lymphocytes/100 WBC (Bld) 20.5 % Normal 20.5-60.0 [facility] Comment on above: Performed By: #### C BC #### [facility] [address] [place] [address] Dr. Arash Frazier MANUAL DIFF REQ NO Normal [facility] Comment on above: Performed By: #### C BC #### [facility] [address] [place] [address] Dr. Arash Frazier MCH (RBC) [Entitic mass] 29.5 pg Normal 26.7-34.0 [facility] Comment on above: Performed By: #### C BC #### [facility] [address] [place] [address] Dr. Arash Frazier MCHC (RBC) [Mass/Vol] 32.6 g/dL Normal 29.9-35.2 [facility] Comment on above: Performed By: #### C BC #### [facility] [id number] Arash Frazier MCV (RBC) [Entitic vol] 90.6 fL Normal 81.0-99.0 [facility] Comment on above: Performed By: #### C BC #### [facility] [address] [address] [address] Arash Frazier MONO # 0.7 103/ul Normal 0.3-0.8 [facility] Comment on above: Performed By: #### C BC #### [facility] [address] [address] [address] Arash Frazier Monocytes/100 WBC (Bld) 5.9 % Normal 1.7-12.0 [facility] Comment on above: Performed By: #### C BC #### [facility] [address] [place] [address] Dr. Arash Frazier NEUT # 8.2 103/ul Critically high 1.4-6.5 [facility] Comment on above: Performed By: #### C BC #### [facility] [address] [place] [address] Dr. Arash Frazier Neutrophils/100 WBC (Bld) 70.5 % Normal 43.0-75.0 [facility] Comment on above: Performed By: #### C BC #### [facility] [address] [place] [address] Dr. Arash Frazier Platelet mean volume (Bld) [Entitic vol] 10.1 fL Normal 9.5-13.5 [facility] Comment on above: Performed By: #### C BC #### [facility] [address] [place] [address] Dr. Arash Frazier PLT 217 103/ul Normal 150-450 [facility] Comment on above: Performed By: #### C BC #### [facility] [address] [place] [address] Dr. Arash Frazier RBC 4.37 106/ul Normal 4.20-5.40 [facility] Comment on above: Performed By: #### C BC #### [facility] [address] [place] [address] Dr. Arash Frazier WBC 11.7 103/ul Critically high 4.0-11.0 [facility] Comment on above: Performed By: #### C BC #### [facility] [address] [place] [address] Dr. Arash Frazier PREG QUANT HCGon 03-01-2022 HCG QUANT 19 mIU/mL Normal [facility] Comment on above: Performed By: #### P REGQNT #### [facility] [address] [place] [address] Dr. Arash Frazier HCG RANGE SEE BELOW Normal [facility] Comment on above: Result Comment: 5-50 0.2-1 WEEK 50-500 1-2 WEEKS 100-5,000 2-3 WEEKS 500-10,000 3-4 WEEKS 1,000-50,000 4-5 WEEKS 10,000-100,000 5-6 WEEKS 15,000-200,000 6-8 WEEKS 10,000-100,000 2-3 MONTHS Performed By: #### P REGQNT #### [facility] [address] [place] [address] Dr. Arash Frazier PROF 14(COMP METB)on 022 Albumin [Mass/Vol] 3.8 g/dL Normal 3.4-5.0 [facility] Comment on above: Performed By: #### C MP #### [facility] [address] [place] [address] Dr. Arash Frazier Albumin/Globulin [Mass ratio] 1.0 {ratio} Normal [facility] Comment on above: Performed By: #### C MP #### [facility] [address] [place] [address] Dr. Arash Frazier ALP [Catalytic activity/Vol] 69 U/L Normal 46-116 [facility] Comment on above: Performed By: #### C MP #### [facility] [address] [place] [address] Dr. Arash Frazier ALT [Catalytic activity/Vol] 21 U/L Normal 14-59 [facility] Comment on above: Performed By: #### C MP #### [facility] [address] [place] [address] Dr. Arash Frazier Anion gap [Moles/Vol] 11.6 mmol/L Normal [facility] Comment on above: Performed By: #### C MP #### [facility] [address] [address] [address] Arash Frazier AST [Catalytic activity/Vol] 13 U/L Critically low 15-37 [facility] Comment on above: Performed By: #### C MP #### [facility] [address] [address] [address] Arash Frazier Bilirubin [Mass/Vol] 0.2 mg/dL Normal 0.2-1.0 [facility] Comment on above: Performed By: #### C MP #### [facility] [address] [address] [address] Arash Frazier Calcium [Mass/Vol] 8.8 mg/dL Normal 8.5-10.1 [facility] Comment on above: Performed By: #### C MP #### [facility] [address] [address] [address] Arash Frazier Chloride [Moles/Vol] 106 mmol/L Normal 98-107 [facility] Comment on above: Performed By: #### C MP #### [facility] [address] [address] [address] Arash Frazier CO2 [Moles/Vol] 28.7 mmol/L Normal 21.0-32.0 [facility] Comment on above: Performed By: #### C MP #### [facility] [address] [address] [address] Arash Frazier Creatinine [Mass/Vol] 0.75 mg/dL Normal 0.55-1.02 [facility] Comment on above: Performed By: #### C MP #### [facility] [address] [address] [address] Arash Frazier EGFR-AF LUXEMBOURGER >60 Normal >=60 [facility] Comment on above: Performed By: #### C MP #### [facility] [address] [address] [address] Arash Frazier EGFR-NON AF LUXEMBOURGER >60 Normal >=60 [facility] Comment on above: Performed By: #### C MP #### [facility] [address] [address] [address] Arash Frazier Globulin (S) [Mass/Vol] 3.7 g/dL Normal [facility] Comment on above: Performed By: #### C MP #### [facility] [address] [address] [address] Arash Frazier Glucose [Mass/Vol] 102 mg/dL Normal 74-106 [facility] Comment on above: Performed By: #### C MP #### [facility] [address] [address] [address] Arash Frazier Potassium [Moles/Vol] 4.3 mmol/L Normal 3.5-5.1 [facility] Comment on above: Performed By: #### C MP #### [facility] [address] [address] [address] Arash Frazier Protein [Mass/Vol] 7.5 g/dL Normal 6.4-8.2 [facility] Comment on above: Performed By: #### C MP #### [facility] [address] [address] [address] Arash Frazier Sodium [Moles/Vol] 142 mmol/L Normal 136-145 [facility] Comment on above: Performed By: #### C MP #### [facility] [address] [address] [address] Arash Frazier Urea nitrogen [Mass/Vol] 12.0 mg/dL Normal 7.0-18.0 [facility] Comment on above: Performed By: #### C MP #### [facility] [address] [address] [address] Arash Frazier Urea nitrogen/Creatinine [Mass ratio] 16.0 mg/mg Normal [facility] Comment on above: Performed By: #### C MP #### [facility] [address] [address] [address] Arash Frazier PROTIMEon 03-01-2022 INR Coag (PPP) [Relative time] 0.95 {INR} Normal [facility] Comment on above: Performed By: #### P TT, PT #### [facility] [address] [place], [place] [address] Dr. Arash Frazier INR GUIDELINES SEE BELOW Normal [facility] Comment on above: Result Comment: MABLE RED INR: 2.0 - 3.0 CONDITIONS NOT LISTED BELOW 2.5 - 3.5 FOR PROSTHETIC HEART VALVE REPLACEMENT 2.5 - 3.5 RECURRENT THROMBOSIS Performed By: #### P TT, PT #### [facility] [address] [address] [address] Arash Frazier PT Coag (PPP) [Time] 10.3 s Normal 9.0-11.6 [facility] Comment on above: Performed By: #### P TT, PT #### [facility] [address] [address] [address] Aarsh Frazier PTTon 03-01-2022 aPTT Coag (Bld) [Time] 29.9 s Normal 22.3-36.2 [facility] Comment on above: Performed By: #### P TT, PT #### [facility] [address] [address] [address] Arash Frazier Vital Signs Date Time Vital Sign Value Performing Clinician Osbaldo anton 02-14-2021 13:30-0400 Body height 172.72 cm Farida Iona Other [facility] Other Encounters Encounter Date Encounter Type Care [...] Facility:H1 Start: 02-18-2021 Telephone encounter Kalyan Haynes [facility] Start: 02-14-2021 (URG) Urgent Care Visit Farida rogers [facility] Ur[facility] Start: 02-14-2021 Telephone encounter Kalyan Haynes [facility] Payers Date Payer Category Payer Unknown [id number] 2.16.84 [id number] 1997 Unknown [id number] 2.16.84 [id number] 1997 Unknown [id number] 2.16.84 [id number] 1997 Unknown [id number] 2.16.84 [id number] 1997 Unknown [id number] 2.16.84 [id number] 1997 Unknown [id number] 2.16.84 [id number] 1997 Unknown [id number] 2.16.84 [id number] 1997 Unknown [id number] 2.16.84 [id number] 1997 Unknown [id number] 2..840 .[id number] 1997 Unknown [id number] 2.16.840 .[id number] 1997 Unknown [id number] 2.16.840 .[id number] 1959 Unknown [id number] 2. [id number] Social History Date Type Detail Facility Unknown if ever smoked [facility] Other Sex Assigned At Sex Assigned At Bir th [facility] Other Evaluation note 02-14-2021 Note Date & Type Note Facility 02-14-2021 Evaluation note Encounter Date Diagnosis Assessment Notes Feb, Body aches (ICD-10 - R52) Feb, Loss of taste (ICD-10 - R43.2) [facility] Other Evaluation note 02-14-2021 Note Date & [...] care instructions given in writting by [facility] Care At Home document. [facility] Other History general Narrative - Reported 08-18-2016 [...] wisdom teeth extract Hospitalization History see above [facility] Other Evaluation note Note Date & Type Note Facility Evaluation note No Information [facility] [employer] Other Summary Purpose Family History No Family [...] DATE CREATED AUTHOR AUTHOR'S ORGANIZ ATION 04/30/2023 [facility] FOR RECORDS PERTAINING TO PATIENTS WHO ARE [...] BE BASED ON THE PRIMARY CLINICAL RECORDS. [facility] [employer] [facility]. provides no warranty or guarantee of the accuracy or completeness of information in this document.
== END 2023-05-19 09:23 | disposition home or self-care (01) ==
LOC: US 09:22
PROVIDERS: PCP Obstetrics & Gynecology; Visit Provider Obstetrics & Gynecology
DX: Z36.89 Encounter for other specified antenatal screening (principal); Z3A.20 20 weeks gestation of pregnancy
CPT/HCPCS: 76805; 76817

== ENCOUNTER 2023-06-22 10:49 | Outpatient (OUT) | payer OTHER, SELFPAY ==
--- NOTE | 2023-06-22 10:53 | US_ITS ---
The [address] [address] Patient Name: JAYDEN BRIONES MRN: [id number] date: 1995 Sex: F Assigned Patient Location: LAB Current Patient Location: Accession/Order Number: [id number] Exam Date: 06/22/2023 11:00 Report Date: 06/22/2023 12:14 At the request of: SARAN ALVAREZ Procedure: US OB incomplete anatomy EXAM: US OB incomplete anatomy HISTORY: encounter for follow up ultrasound of anatomy Z36.2 COMPARISON: Ultrasound OB anatomy 05/19/2023 TECHNIQUE: Transabdominal ultrasound FINDINGS: Presentation: Cephalic Heart rate: 150 bpm Anatomy: spine; no appreciable abnormality. GA: 25 weeks 1 day ANJU: 10/04/2023 US/US OB incomplete anatomy IMPRESSION: 1. Single live intrauterine . 2. Slightly limited evaluation of spine due to positioning, however evaluation is felt to be adequate with no appreciable abnormality. Electronically authenticated by: JOHNNIE RESTREPO Date: 06/22/2023 12:14
--- OUTSIDE RECORDS SUMMARY | 2023-06-22 10:53 | XMS_ITS | CCD ---
Author Name Unknown Address [address] [place] [address] Organization [facility] Care Team Providers Care Director Of Training Name Role Phone Kalyan Haynes Unavailable Iona [...] Unavailable KIM ., DR NOONAN Consulting Unavailable GIRVIN, DR BIGGS Primary Care Unavailable KIM ., DR NOONAN Admitting Unavailable KIM ., DR NOONAN Attending Unavailable KIM ., DR NOONAN Consulting Unavailable ERIKA, DR BIGGS Primary Care Unavailable KIM ., DR NOONAN Admitting Unavailable KIM ., DR NOONAN Admitting Unavailable [place], DR BIGGS Consulting Unavailable KIM ., DR [...] Unavailable GIRVIN, DR BIGGS Primary Care Unavailable SANJANA RAMIREZ Attending Unavailable KIM, SARAN Attending Unavailable SANJANA RAMIREZ Attending Unavailable SARAN ALVAREZ Attending Unavailable Allergies Allergy Classification Reported Allergen(s) Allergy Type Date of Onset Reaction(s) Facility (3 sources) Amoxicillin Drug Allergy rash [facility] Other (1 source) Amoxicillin Drug Allergy 03-08-2020 [facility] Repository Medications Current Medications Medication Drug Class(es) Dates Sig (Normalized) Sig (Original) Docusate (3 sources) Colace Active Iron (3 sources) Iron Active polysaccharide iron complex 150 mg oral capsule (3 sources) Start: 03-24-2017 take 1 capsule by mouth every twenty-four hours Ferrex 150 150 MG 1 capsule Orally Once a day Mar, Active Pre- (3 sources) Pre-Tyler Active Completed/Discontinued Medications Medication [...] by: JOHNNIE RESTREPO Date: 2022-09-11 15:59 Normal [facility] US PREG TVon 09-04-2022 US PREG [...] KALYAN BACK Date: 2022-09-04 17:37 Normal [facility] PREG QUANT HCGon 05-13-2022 HCG QUANT 6 mIU/mL Normal [facility] Comment on above: Performed By: #### P REGQNT #### [facility] Laboratory [address] [place] [address] Dr. Arash Frazier HCG RANGE SEE BELOW Normal [facility] Comment on above: Result Comment: 5-50 0.2-1 WEEK 50-500 1-2 WEEKS 100-5,000 2-3 WEEKS 500-10,000 3-4 WEEKS 1,000-50,000 4-5 WEEKS 10,000-100,000 5-6 WEEKS 15,000-200,000 6-8 WEEKS 10,000-100,000 2-3 MONTHS Performed By: #### P REGQNT #### [facility] Laboratory [address] [place] [address] Dr. Arash Frazier PREG QUANT HCGon 05-02-2022 HCG QUANT 23 mIU/mL Normal [facility] Comment on above: Performed By: #### P REGQNT #### [facility] Laboratory [address] [place] [address] Dr. Arash Frazier HCG RANGE SEE BELOW Normal [facility] Comment on above: Result Comment: 5-50 0.2-1 WEEK 50-500 1-2 WEEKS 100-5,000 2-3 WEEKS 500-10,000 3-4 WEEKS 1,000-50,000 4-5 WEEKS 10,000-100,000 5-6 WEEKS 15,000-200,000 6-8 WEEKS 10,000-100,000 2-3 MONTHS Performed By: #### P REGQNT #### [facility] Laboratory [address] [place] [address] Dr. Arash Frazier PREG QUANT HCGon 04-21-2022 HCG QUANT 85 mIU/mL Normal [facility] Comment on above: Performed By: #### P REGQNT #### [facility] Laboratory [address] [place] [address] Dr. Arash Frazier HCG RANGE SEE BELOW Normal [facility] Comment on above: Result Comment: 5-50 0.2-1 WEEK 50-500 1-2 WEEKS 100-5,000 2-3 WEEKS 500-10,000 3-4 WEEKS 1,000-50,000 4-5 WEEKS 10,000-100,000 5-6 WEEKS 15,000-200,000 6-8 WEEKS 10,000-100,000 2-3 MONTHS Performed By: #### P REGQNT #### [facility] Laboratory [address] [place] [address] Dr. Arash Frazier PREG QUANT HCGon 04-14-2022 HCG QUANT 197 mIU/mL Normal [facility] Comment on above: Performed By: #### P REGQNT #### [facility] Laboratory [address] [place] [address] Dr. Arash Frazier HCG RANGE SEE BELOW Normal [facility] Comment on above: Result Comment: 5-50 0.2-1 WEEK 50-500 1-2 WEEKS 100-5,000 2-3 WEEKS 500-10,000 3-4 WEEKS 1,000-50,000 4-5 WEEKS 10,000-100,000 5-6 WEEKS 15,000-200,000 6-8 WEEKS 10,000-100,000 2-3 MONTHS Performed By: #### P REGQNT #### [facility] [address] [place] [address] Dr. Arash Frazier PREG QUANT HCGon 04-08-2022 HCG QUANT 269 mIU/mL Normal [facility] Comment on above: Performed By: #### P REGQNT #### [facility] Laboratory [address] [place] [address] Dr. Arash Frazier HCG RANGE SEE BELOW Normal [facility] Comment on above: Result Comment: 5-50 0.2-1 WEEK 50-500 1-2 WEEKS 100-5,000 2-3 WEEKS 500-10,000 3-4 WEEKS 1,000-50,000 4-5 WEEKS 10,000-100,000 5-6 WEEKS 15,000-200,000 6-8 WEEKS 10,000-100,000 2-3 MONTHS Performed By: #### P REGQNT #### [facility] Laboratory [address] [place], [place] [id number] Dr. Arash Frazier PREG QUANT HCGon 03-31-2022 HCG QUANT 192 mIU/mL Normal [facility] Comment on above: Performed By: #### P REGQNT #### [facility] Laboratory [address] [place] [address] Dr. Arash Frazier HCG RANGE SEE BELOW Normal [facility] Comment on above: Result Comment: 5-50 0.2-1 WEEK 50-500 1-2 WEEKS 100-5,000 2-3 WEEKS 500-10,000 3-4 WEEKS 1,000-50,000 4-5 WEEKS 10,000-100,000 5-6 WEEKS 15,000-200,000 6-8 WEEKS 10,000-100,000 2-3 MONTHS Performed By: #### P REGQNT #### [facility] Laboratory [address] [place] [address] Dr. Arash Frazier PREG QUANT HCGon 03-25-2022 HCG QUANT 115 mIU/mL Normal [facility] Comment on above: Performed By: #### P REGQNT #### [facility] Laboratory [address] [place] [address] Dr. Arash Frazier HCG RANGE SEE BELOW Normal [facility] Comment on above: Result Comment: 5-50 0.2-1 WEEK 50-500 1-2 WEEKS 100-5,000 2-3 WEEKS 500-10,000 3-4 WEEKS 1,000-50,000 4-5 WEEKS 10,000-100,000 5-6 WEEKS 15,000-200,000 6-8 WEEKS 10,000-100,000 2-3 MONTHS Performed By: #### P REGQNT #### [facility] [address] [place] [address] Dr. Arash Frazier PREG QUANT HCGon 03-18-2022 HCG QUANT 41 mIU/mL Normal [facility] Comment on above: Performed By: #### P REGQNT #### [facility] Laboratory [address] [place] [address] Dr. Arash Frazier HCG RANGE SEE BELOW Normal [facility] Comment on above: Result Comment: 5-50 0.2-1 WEEK 50-500 1-2 WEEKS 100-5,000 2-3 WEEKS 500-10,000 3-4 WEEKS 1,000-50,000 4-5 WEEKS 10,000-100,000 5-6 WEEKS 15,000-200,000 6-8 WEEKS 10,000-100,000 2-3 MONTHS Performed By: #### P REGQNT #### [facility] Laboratory [address] [place] [address] Dr. Arash Frazier TYPE AND SCREENon 03-18-2022 TYPE AND SCREEN Negative Normal [facility] Comment on above: Performed By: #### P REGQNT #### [facility] Laboratory [address] [place] [address] Dr. Arash Frazier CBC AUTO DIFFon 03-01-2022 BASO # 0.1 103/ul Normal 0.0-0.1 [facility] Comment on above: Performed By: #### C BC #### [facility] Laboratory [address] [place] [address] Dr. Arash Frazier Basophils/100 WBC (Bld) 0.8 % Normal 0.2-2.0 [facility] Comment on above: Performed By: #### C BC #### [facility] [address] [place] [address] Dr. Arash Frazier EO # 0.2 103/ul Normal 0.0-0.7 [facility] Comment on above: Performed By: #### C BC #### [facility] [address] [place] [address] Dr. Arash Frazier Eosinophils/100 WBC (Bld) 2.0 % Normal 0.9-7.0 [facility] Comment on above: Performed By: #### C BC #### [facility] [address] [place] [address] Dr. Arash Frazier Erythrocyte distribution width (RBC) [Ratio] 13.0 % Normal 11.0-15.0 [facility] Comment on above: Performed By: #### C BC #### [facility] [address] [place] [address] Dr. Arash Frazier Hematocrit (Bld) [Volume fraction] 39.6 % Normal 36.0-48.0 [facility] Comment on above: Performed By: #### C BC #### [facility] Laboratory [address] [place] [address] Dr. Arash Frazier Hemoglobin (Bld) [Mass/Vol] 12.9 g/dL Normal 12.0-16.0 [facility] Comment on above: Performed By: #### C BC #### [facility] Laboratory [address] [place] [address] Dr. Arash Frazier IG # 0.03 10e3/ul Normal 0.00-0.03 [facility] Comment on above: Performed By: #### C BC #### [facility] Laboratory [address] [place] [address] Dr. Arash Frazier IG % 0.3 % Normal 0.0-0.5 [facility] Comment on above: Performed By: #### C BC #### [facility] Laboratory [address] [place] [address] Dr. Arash Frazier LYMPH # 2.4 103/ul Normal 1.2-3.8 [facility] Comment on above: Performed By: #### C BC #### [facility] Laboratory [address] [place] [address] Dr. Arash Frazier Lymphocytes/100 WBC (Bld) 20.5 % Normal 20.5-60.0 [facility] Comment on above: Performed By: #### C BC #### [facility] Laboratory [address] [place] [address] Dr. Arash Frazier MANUAL DIFF REQ NO Normal [facility] Comment on above: Performed By: #### C BC #### [facility] Laboratory [address] [place] [address] Dr. Arash Frazier MCH (RBC) [Entitic mass] 29.5 pg Normal 26.7-34.0 [facility] Comment on above: Performed By: #### C BC #### [facility] Laboratory [address] [place] [address] Dr. Arash Frazier MCHC (RBC) [Mass/Vol] 32.6 g/dL Normal 29.9-35.2 [facility] Comment on above: Performed By: #### C BC #### [facility] Laboratory [address] [address] [address] Arash Frazier MCV (RBC) [Entitic vol] 90.6 fL Normal 81.0-99.0 [facility] Comment on above: Performed By: #### C BC #### [facility] [address] [address] [address] Arash Frazier MONO # 0.7 103/ul Normal 0.3-0.8 [facility] Comment on above: Performed By: #### C BC #### [facility] [address] [address] [address] Arash Frazier Monocytes/100 WBC (Bld) 5.9 % Normal 1.7-12.0 [facility] Comment on above: Performed By: #### C BC #### [facility] Laboratory [address] [place] [address] Dr. Arash Frazier NEUT # 8.2 103/ul Critically high 1.4-6.5 [facility] Comment on above: Performed By: #### C BC #### [facility] [address] [place] [address] Dr. Arash Frazier Neutrophils/100 WBC (Bld) 70.5 % Normal 43.0-75.0 [facility] Comment on above: Performed By: #### C BC #### [facility] [address] [place] [address] Dr. Arash Frazier Platelet mean volume (Bld) [Entitic vol] 10.1 fL Normal 9.5-13.5 [facility] Comment on above: Performed By: #### C BC #### [facility] [address] [place] [address] Dr. Arash Frazier PLT 217 103/ul Normal 150-450 [facility] Comment on above: Performed By: #### C BC #### [facility] Laboratory [address] [place] [address] Dr. Arash Frazier RBC 4.37 106/ul Normal 4.20-5.40 [facility] Comment on above: Performed By: #### C BC #### [facility] Laboratory [address] [place], [place] [id number] Dr. Arash Frazier WBC 11.7 103/ul Critically high 4.0-11.0 [facility] Comment on above: Performed By: #### C BC #### [facility] Laboratory [address] [place] [address] Dr. Arash Frazier PREG QUANT HCGon 03-01-2022 HCG QUANT 19 mIU/mL Normal [facility] Comment on above: Performed By: #### P REGQNT #### [facility] Laboratory [address] [place] [address] Dr. Arash Frazier HCG RANGE SEE BELOW Normal [facility] Comment on above: Result Comment: 5-50 0.2-1 WEEK 50-500 1-2 WEEKS 100-5,000 2-3 WEEKS 500-10,000 3-4 WEEKS 1,000-50,000 4-5 WEEKS 10,000-100,000 5-6 WEEKS 15,000-200,000 6-8 WEEKS 10,000-100,000 2-3 MONTHS Performed By: #### P REGQNT #### [facility] Laboratory [address] [place] [address] Dr. Arash Frazier PROF 14(COMP METB)on 022 Albumin [Mass/Vol] 3.8 g/dL Normal 3.4-5.0 [facility] Comment on above: Performed By: #### C MP #### [facility] Laboratory [address] [place] [address] Dr. Arash Frazier Albumin/Globulin [Mass ratio] 1.0 {ratio} Normal [facility] Comment on above: Performed By: #### C MP #### [facility] Laboratory [address] [place] [address] Dr. Arash Frazier ALP [Catalytic activity/Vol] 69 U/L Normal 46-116 [facility] Comment on above: Performed By: #### C MP #### [facility] Laboratory [address] [place] [address] Dr. Arash Frazier ALT [Catalytic activity/Vol] 21 U/L Normal 14-59 [facility] Comment on above: Performed By: #### C MP #### [facility] Laboratory [address] [address] [address] Arash Frazier Anion gap [Moles/Vol] 11.6 mmol/L Normal [facility] Comment on above: Performed By: #### C MP #### [facility] Laboratory [address] [address] [address] Arash Frazier AST [Catalytic activity/Vol] 13 U/L Critically low 15-37 [facility] Comment on above: Performed By: #### C MP #### [facility] Laboratory [address] [address] [address] Arash Frazier Bilirubin [Mass/Vol] 0.2 mg/dL Normal 0.2-1.0 [facility] Comment on above: Performed By: #### C MP #### [facility] [address] [address] [address] Arash Frazier Calcium [Mass/Vol] 8.8 mg/dL Normal 8.5-10.1 [facility] Comment on above: Performed By: #### C MP #### [facility] Laboratory [address] [place] [address] Dr. Arash Frazier Chloride [Moles/Vol] 106 mmol/L Normal 98-107 [facility] Comment on above: Performed By: #### C MP #### [facility] [address] [address] [address] Arash Frazier CO2 [Moles/Vol] 28.7 mmol/L Normal 21.0-32.0 [facility] Comment on above: Performed By: #### C MP #### [facility] [address] [address] [address] Arash Frazier Creatinine [Mass/Vol] 0.75 mg/dL Normal 0.55-1.02 [facility] Comment on above: Performed By: #### C MP #### [facility] Laboratory [address] [address] [address] Arash Frazier EGFR-AF JAMAICAN >60 Normal >=60 [facility] Comment on above: Performed By: #### C MP #### [facility] [address] [address] [address] Arash Frazier EGFR-NON AF J[place]ICAN >60 Normal >=60 [facility] Comment on above: Performed By: #### C MP #### [facility] [address] [address] [address] Arash Frazier Globulin (S) [Mass/Vol] 3.7 g/dL Normal [facility] Comment on above: Performed By: #### C MP #### [facility] [address] [address] [address] Arash Frazier Glucose [Mass/Vol] 102 mg/dL Normal 74-106 [facility] Comment on above: Performed By: #### C MP #### [facility] [address] [address] [address] Arash Frazier Potassium [Moles/Vol] 4.3 mmol/L Normal 3.5-5.1 [facility] Comment on above: Performed By: #### C MP #### [facility] Laboratory [address] [place] [address] Dr. Arash Frazier Protein [Mass/Vol] 7.5 g/dL Normal 6.4-8.2 [facility] Comment on above: Performed By: #### C MP #### [facility] [address] [address] [address] Arash Frazier Sodium [Moles/Vol] 142 mmol/L Normal 136-145 [facility] Comment on above: Performed By: #### C MP #### [facility] [address] [address] [address] Arash Frazier Urea nitrogen [Mass/Vol] 12.0 mg/dL Normal 7.0-18.0 [facility] Comment on above: Performed By: #### C MP #### [facility] [address] [address] [address] Arash Frazier Urea nitrogen/Creatinine [Mass ratio] 16.0 mg/mg Normal [facility] Comment on above: Performed By: #### C MP #### [facility] [address] [address] [address] Arash Frazier PROTIMEon 03-01-2022 INR Coag (PPP) [Relative time] 0.95 {INR} Normal [facility] Comment on above: Performed By: #### P TT, PT #### [facility] Laboratory [address] [address] [address] Arash Frazier INR GUIDELINES SEE BELOW Normal [facility] Comment on above: Result Comment: MABLE RED INR: 2.0 - 3.0 CONDITIONS NOT LISTED BELOW 2.5 - 3.5 FOR PROSTHETIC HEART VALVE REPLACEMENT 2.5 - 3.5 RECURRENT THROMBOSIS Performed By: #### P TT, PT #### [facility] [address] [address] [address] Arash Frazier PT Coag (PPP) [Time] 10.3 s Normal 9.0-11.6 [facility] Comment on above: Performed By: #### P TT, PT #### [facility] Laboratory [address] [place] [address] Dr. Arash Frazier PTTon 03-01-2022 aPTT Coag (Bld) [Time] 29.9 s Normal 22.3-36.2 [facility] Comment on above: Performed By: #### P TT, PT #### [facility] Laboratory [address] [place] [address] Dr. Arash Frazier Vital Signs Date Time Vital Sign Value Performing Clinician Osbaldo anton 02-14-2021 13:30-0400 Body height 172.72 cm Farida Monson Other [facility] Other Encounters Encounter Date Encounter Type Care Provider Facility Start: 05-26-2023 End: 05-26-2023 ambulatory SANJANA RAMIREZ Not Available Start: 04-28-2023 End: 04-28-2023 ambulatory SARAN ALVAREZ Not Available Start: 04-13-2023 End: 04-13-2023 ambulatory SANJANA RAMIREZ Not Available Start: 03-31-2023 End: 03-31-2023 ambulatory SARAN ALVAREZ Not Available Start: 09-11-2022 End: 09-12-[address] SARAN ALVAREZ . Facility: Start: 09-04-2022 End: 09-05-[address] SARAN ALVAREZ . Facility:[facility] Start: 05-13-2022 End: 06-03-[address] SARAN ALVAREZ . Facility:[facility] Start: 04-08-2022 End: 05-04-[address] SARAN ALVAREZ . Facility:[facility] Start: 03-31-2022 End: 04-01-[address] SARAN ALVAREZ . Facility:[facility] Start: 03-25-2022 End: 03-26-[address] SARAN ALVAREZ . Facility:[facility] Start: 03-18-2022 End: 03-19-[address] SARAN ALVAREZ . Facility:[facility] Start: 03-01-2022 End: 03-01-[address] FERNANDO FINK . Facility:[facility] Start: 02-18-2021 Telephone encounter Kalyan Haynes [facility] Start: 02-14-2021 (URG) Urgent Care Visit Farida rogers [facility] Start: 02-14-2021 Telephone encounter Kalyan Haynes [facility] Payers Date Payer Category Payer Unknown [id number] 2.16.84 [id number] 1997 Unknown [id number] 2.16.84 [id number] 1997 Unknown [id number] 2.16.84 [id number] 1997 Unknown [id number] 2.16.84 [id number] 1997 Unknown [id number] 2.16.84 [id number] 1997 Unknown [id number] 2.16.84 [id number] 1997 Unknown [id number] 2.16.84 [id number] 1997 Unknown [id number] 2.16.84 [id number] 1997 Unknown [id number] 2.16.84 [id number] 1997 Unknown [id number] 2.16.840 .[id number] 1997 Unknown [id number] 2.16.840 .[id number] 1997 Unknown [id number] 2.16.840 .[id number] 1959 Unknown [id number] 2. [id number] Social History Date Type Detail Facility Unknown if ever smoked [facility] Other Sex Assigned At Sex Assigned At Bir th [facility] Other Evaluation note 02-14-2021 Note Date & Type Note Facility 02-14-2021 Evaluation note Encounter Date Diagnosis Assessment Notes Feb, Body aches (ICD-10 - R52) Feb, Loss of taste (ICD-10 - R43.2) [facility] Other Evaluation note 02-14-2021 Note Date & [...] Patient care instructions given in writting by [facility] Care At Home document. [facility] [facility] [facility] [employer] Other History general Narrative - Reported 08-18-2016 Note Date & Type Note Facility 08-18-2016 History general N arrative - Reported Type Medical History Varicella Vaccine 2011 Surgical History lt wrist pin [facility] Surgical History removed external fixator 10/2016 Surgical History removed pin from left wrist 10/03 017 Surgical History wisdom teeth extract Hospitalization History see above [facility] [employer] Other Evaluation note Note Date & Type Note Facility Evaluation note No Information [facility] [employer] Other Summary Purpose Family History No Family [...] pital DATE CREATED AUTHOR AUTHOR'S ORGANIZ ATION 05/27/2023 [facility] EPIC FOR RECORDS PERTAINING [...] BE BASED ON THE PRIMARY CLINICAL RECORDS. [facility]. provides no warranty or guarantee of the accuracy or completeness of information in this document.
== END 2023-06-22 10:50 | disposition home or self-care (01) ==
LOC: US 10:49
PROVIDERS: PCP Obstetrics & Gynecology; Visit Provider Obstetrics & Gynecology
DX: Z36.2 Encounter for other antenatal screening follow-up (principal); Z13.1 Encounter for screening for diabetes mellitus; Z3A.25 25 weeks gestation of pregnancy
CPT/HCPCS: 36415; 76815; 82950; 85025

== ENCOUNTER 2023-06-22 10:58 | Outpatient (OUT) | payer OTHER, SELFPAY ==
[2023-06-22 12:09] LABS: Glucose 1 Hour 97 mg/dL (<130)
[2023-06-22 12:26] LABS: Basophils Absolute Auto 0.1 10^3/uL (0.0-0.1); Basophils Percent Auto 0.7 % (0.2-2.0); Eosinophils Absolute Auto 0.4 10^3/uL (0.0-0.7); Eosinophils Percent Auto 3.4 % (0.9-7.0); Hematocrit 35.7 % (36.0-48.0); Hemoglobin 11.5 g/dL (12.0-16.0); Immature Granulocytes Abs Auto 0.05 10^3/uL (0.00-0.03); Immature Granulocytes Pct Auto 0.5 % (0.0-0.5); Lymphocytes Absolute Auto 2.1 10^3/uL (1.2-3.8); Mean Corpuscular HGB Conc 32.2 g/dL (29.9-35.2); Mean Corpuscular Hemoglobin 31.6 pg (26.7-34.0); Mean Corpuscular Volume 98.1 fL (81.0-99.0); Mean Platelet Volume 10.1 fL (9.5-13.5); Monocytes Absolute Auto 0.8 10^3/uL (0.3-0.8); Monocytes Percent Auto 7.5 % (1.7-12.0); Neutrophils Absolute Auto 6.8 10^3/uL (1.4-6.5); Neutrophils Percent Auto 66.9 % (43.0-75.0); Platelet Count 222 10^3/uL (150-450); Red Blood Count 3.64 10^6/uL (4.20-5.40); Red Cell Distribution Width 13.4 % (11.0-15.0); White Blood Count 10.2 10^3/uL (4.0-11.0)
== END 2023-06-22 10:59 | disposition home or self-care (01) ==
PROVIDERS: PCP Obstetrics & Gynecology; Visit Provider Physician Assistant
DX: Z13.1 Encounter for screening for diabetes mellitus (principal)
CPT/HCPCS: 36415; 82950; 85025

== ENCOUNTER 2023-08-03 07:28 | Outpatient (RCR) | payer OTHER, SELFPAY ==
[2023-08-03] MEDS: RHO(D) IMMUNE GLOBULIN 1,500 UNIT SYRINGE 1500 UNIT IM (15:01)
[2023-08-03 15:12] VITALS: BP 151/86; PULSE 69; TEMP 35.7; O2SAT 98
--- NOTE | 2023-08-03 15:14 | PC.NURSE ---
1455: Pt. to [facility] amb for Rhogam injection. Seated in recliner.Blood type verified. VSS. Relays having injection in past without c/o. Pt. medicated with Rhogam 1500IU IM to left GM. Trace bleeding to site, bandaid applied. 1510: Pt. without c/o. No new bleeding from injection site. D/c'd amb. to home.
== END 2023-09-01 10:39 | disposition home or self-care (01) ==
LOC: LAB 07:28
PROVIDERS: PCP Obstetrics & Gynecology; Visit Provider Obstetrics & Gynecology
DX: O26.893 Other specified pregnancy related conditions, third trimester (principal); Z67.91 Unspecified blood type, Rh negative; Z3A.00 Weeks of gestation of pregnancy not specified
CPT/HCPCS: 36415; 86850; 86900; 86901; 96372; J2790

== ENCOUNTER 2023-08-04 09:34 | Outpatient (REF) | payer OTHER, SELFPAY | END 2023-08-04 09:35 | disposition home or self-care (01) | LOC: LAB 09:34 | PROVIDERS: Visit Provider Obstetrics & Gynecology | DX: O47.03 False labor before 37 completed weeks of gestation, third trimester (principal); Z3A.31 31 weeks gestation of pregnancy; D22.5 Melanocytic nevi of trunk; D22.4 Melanocytic nevi of scalp and neck | CPT/HCPCS: 88305 ==

== ENCOUNTER 2023-08-04 12:34 | Observation (INO) | payer OTHER, SELFPAY ==
[2023-08-04 12:50] VITALS: BP 136/71; PULSE 83
[2023-08-04 13:17] LABS: Bilirubin Urine NEGATIVE (NEGATIVE); Blood Urine NEGATIVE (NEGATIVE); Clarity Urine CLEAR (CLEAR); Color Urine YELLOW (YELLOW); Glucose Urine UA NEGATIVE (NEGATIVE); Ketones Urine NEGATIVE (NEGATIVE); Leukocyte Esterase Urine NEGATIVE (NEGATIVE); Nitrite Urine NEGATIVE (NEGATIVE); Protein Urine TRACE mg/dL (NEG/TRACE); Specific Gravity Urine 1.025 (1.005-1.025); Urobilinogen Urine 0.2 EU/dL (0.2-1.0); pH Urine 6.5 (5.0-9.0)
[2023-08-04 13:21] LABS: Urine Microscopic Indicated NO
--- NOTE | 2023-08-04 13:30 | US_ITS ---
[address] [address] Patient Name: JAYDEN BRIONES MRN: [id number] date: 1995 Sex: F Assigned Patient Location: [facility] Current Patient Location: Accession/Order Number: [id number] Exam Date: 08/04/2023 13:30 Report Date: 08/04/2023 14:17 At the request of: SARAN ALVAREZ Procedure: US OB cervical length Obstetrical ultrasound, limited CLINICAL: Jonnathan camara TECHNIQUE: Transvaginal obstetrical ultrasound was performed. FINDINGS: Comparison to 06/22/2023 There is a single living intrauterine fetus in vertex presentation and longitudinal lie, with heart rate of 173 beats per minute. The placenta is in location, without previa. Functional cervical length is 6.5 cm measured transvaginally. Small area of cervical funneling with funnel width of 1.2 cm and funnel length of approximately 0.9 cm. US/US OB cervical length IMPRESSION: 1. Single intrauterine fetus in vertex presentation with heart rate of 173 beats per minute. 2. Functional cervical length of 6.5 cm. Measured transvaginally Small area of cervical funneling with funnel width of 1.2 cm and funnel length of approximately 0.9 cm. Electronically authenticated by: JANICE QURESHI Date: 08/04/2023 14:17
== END 2023-08-04 14:02 | disposition home or self-care (01) ==
LOC: FBC 12:38
PROVIDERS: Admitting Provider Obstetrics & Gynecology; Visit Provider Obstetrics & Gynecology
DX: O47.03 False labor before 37 completed weeks of gestation, third trimester (principal); Z3A.31 31 weeks gestation of pregnancy
CPT/HCPCS: 59025; 76817; 81003; 88305; G0378; G0379

== ENCOUNTER 2023-09-01 11:59 | Observation (INO) | payer OTHER, SELFPAY ==
--- OUTSIDE RECORDS SUMMARY | 2023-09-01 12:16 | XMS_ITS | CCD ---
[facility] Team Providers Care Pet Ambassador Name Role Phone Klayan Haynes Unavailable Iona Farida Unavailable KIM ., [...] Unavailable KIM ., DR NOONAN Admitting Unavailable CARLISLE, DR BIGGS Consulting Unavailable KIM ., DR NOONAN Attending Unavailable GIRVIN, DR BIGGS Primary Care Unavailable KIM ., DR NOONAN Consulting Unavailable REQUEST, DR BILLS LISTED Consulting Unavaila ble KIM ., DR NOONAN Admitting Unavailable KIM ., DR NOONAN Attending Unavailable ERIKA, DR BIGGS Primary Care Unavailable KIM ., DR NOONAN Consulting Unavailable ZIEBER, DR JOHNNIE Wood Consulting Unavailable DR SANJU GRULLON LISTED Consulting Unavaila ble KIM ., DR NOONAN Admitting Unavailable KIM ., DR NOONAN Consulting Unavailable KIM ., DR NOONAN Attending Unavailable ERIKA, DR BIGGS Primary Care Unavailable Erika, DO Biggs Primary Care Provider Saran Alvarez Attending Provider Kim, Saran Admitting Unavailable Kim, Saran Attending Unavailable Kalyan Haynes Primary Care Unavailable JAMES, SANJANA Attending Unavailable KIM, SARAN Attending Unavailable JAMES, SANJANA Attending Unavailable KIM, SARAN Attending Unavailable KIM, SARAN Attending Unavailable JAMES, SANJANA Attending Unavailable KIM, SARAN Attending Unavailable JAMES, SANJANA Attending Unavailable KIM, SARAN Attending Unavailable Allergies Allergy Classification Reported Allergen(s) Allergy Type Date of Onset Reaction(s) Facility (3 sources) Amoxicillin Drug Allergy rash [facility] Other (1 source) Amoxicillin Drug Allergy 03-08-2020 [facility] Repository (1 source) Amoxicillin Drug Allergy 02-14-2021 [facility] Repository Medications Current Medications Medication Drug Class(es) [...] Name Value Interpretation Reference Range Facil ity Sy 08-04-2023 L Specimen: [id number] Received: 08/05/23 Status: MICHAEL Schaefer Num: [id number] Spec Type: Surgical Subm Dr: Saran Alvarez Tissues: A Skin-Other than Cyst, tag, debridement or plastic repair (RT POST NECK) B Skin-Other than Cyst, tag, debridement or plastic repair (RT BREAST 9:00) C Skin-Other than Cyst, tag, debridement or plastic repair (RT BREAST 8:00) D Skin-Other than Cyst, tag, debridement or plastic repair (RT FLANK) Procedures: HE/4, Gross/Micro L4/4 Age/ Patient Sex Location Account Attending Physician Mercy Briones 27/F [facility] [id number] Saran Alvarez SPEC NUM: [id number] RECD: 08/05/23 STATUS: MICHAEL SCHAEFER NUM: [id number] LOPEZ: 08/04/23- SUBM DR: Saran Alvarez ENTERED: 08/05/[address] [facility] [address]: Augustus,Lab SPEC TYPE: Surgical DEPT: ANTHONY ASCENCIO ORDERED: HE/4, Gross/Micro L4/4 ORDERED: HE/4, Gross/Micro L4/4 Pathological Diagnosis A, skin, right posterior neck, shave biopsy: -Benign compound melanocytic nevus with evidence of maturation, and the mildly superimposed seborrheic keratosis of the reticulated type, without obvious atypia -Incidental marked colonizations of dermatophyte spores at epidermal surface -Free margin is present in at least 1 adequately oriented fragment of section B, skin, right breast at the 9:00, shave biopsy: -Benign compound melanocytic nevus similar to part A specimen with associated maturation -All margins are negative in the plane of sections examined -No feature or evidence of fungal colonization C, skin, right breast at 8:00, shave biopsy: -Benign compound melanocytic nevus, similar to previous 2 parts, with associated maturation, but also with congenital features observed -The margins are adequate in at least 1 fragment of section without tangential embedment effect D, skin, right flank, shave biopsy: -Benign compound melanocytic nevus (mostly intradermal component) with evidence of maturation and congenital features, also are probably minimally transected at the base of the excision Specimen: [id number] Received: 08/05/23 Status: MICHAEL Schaefer Num: [id number] Spec Type: Surgical Subm Dr: Saran Alvarez Tissues: A Skin-Other than Cyst, tag, debridement or plastic repair (RT POST NECK) B Skin-Other than Cyst, tag, debridement or plastic repair (RT BREAST 9:00) C Skin-Other than Cyst, tag, debridement or plastic repair (RT BREAST 8:00) D Skin-Other than Cyst, tag, debridement or plastic repair (RT FLANK) Procedures: HE/4, Gross/Micro L4/4 Patient: Mercy Briones Nina [id number] (Continued) Specimen: [id number] Received: 08/05/23 (Continued) Signed (signature on file) Anabell Frazier MD 08/08/23 1834 Specimen: [id number] Received: 08/05/23 Status: MICHAEL Schaefer Num: [id number] Spec Type: Surgical Subm Dr: Saran Alvarez Tissues: A Skin-Other than Cyst, tag, debridement or plastic repair (RT POST NECK) B Skin-Other than Cyst, tag, debridement or plastic repair (RT BREAST 9:00) C Skin-Other than Cyst, tag, debridement or plastic repair (RT BREAST 8:00) D Skin-Other than Cyst, tag, debridement or plastic repair (RT FLANK) Procedures: HE/4, Gross/Micro L4/4 Patient: Mercy Briones [id number] (Continued) Specimen: [id number] Received: 08/05/23-044 (Continued) Clinical Information Skin moles removed Gross Description A, received in formalin with patient name and date of , labeled as right posterior neck lesion, is a nodular skin fragment with roughened surface measuring about 7 x 6 x 3 mm. Totally submitted in cassette A1 in bisection. B, received in formalin with patient name and date of , labeled as right breast at 9:00, is a nodular skin fragment measuring about 9 x 7 x 5 mm. A roughened bulging nodule of about 6 mm is present on the skin surface. Entirely submitted in cassette B1 in tri- sections. C, received in formalin with patient name and date of , labeled as right breast at 8:00, is 1 small nodular skin fragment with dark roughened surface, measuring about 5 x 3 x 2 mm. Totally submitted in cassette C1 in bisection. D, received in formalin with patient name and date of , labeled as right flank, is 1 nodular skin fragment with roughened surface measuring about 7 x 3.5 x 2 mm. Totally submitted in cassette D1 in bisection. CPT Codes 88 (more content not included)... Normal [facility] US PREG TVon 09-11-2022 US PREG TV [...] by: JOHNNIE RESTREPO Date: 2022-09-11 15:59 Normal [facility] US PREG TVon 09-04-2022 US PREG [...] KALYAN BACK Date: 2022-09-04 17:37 Normal [facility] PREG QUANT HCGon 05-13-2022 HCG QUANT 6 mIU/mL Normal [facility] Comment on above: Performed By: #### P REGQNT #### [facility] [address] [place] [address] Dr. Arash Frazier HCG RANGE SEE BELOW Normal [facility] Comment on above: Result Comment: 5-50 0.2-1 WEEK 50-500 1-2 WEEKS 100-5,000 2-3 WEEKS 500-10,000 3-4 WEEKS 1,000-50,000 4-5 WEEKS 10,000-100,000 5-6 WEEKS 15,000-200,000 6-8 WEEKS 10,000-100,000 2-3 MONTHS Performed By: #### P REGQNT #### [facility] [address] [place] [address] Dr. Arash Frazier PREG QUANT HCGon 05-02-2022 HCG QUANT 23 mIU/mL Normal [facility] Comment on above: Performed By: #### P REGQNT #### [facility] [address] [place] [address] Dr. Arash Frazier HCG RANGE SEE BELOW Normal [facility] Comment on above: Result Comment: 5-50 0.2-1 WEEK 50-500 1-2 WEEKS 100-5,000 2-3 WEEKS 500-10,000 3-4 WEEKS 1,000-50,000 4-5 WEEKS 10,000-100,000 5-6 WEEKS 15,000-200,000 6-8 WEEKS 10,000-100,000 2-3 MONTHS Performed By: #### P REGQNT #### [facility] [address] [place] [address] Dr. Arash Frazier PREG QUANT HCGon 04-21-2022 HCG QUANT 85 mIU/mL Normal [facility] Comment on above: Performed By: #### P REGQNT #### [facility] [address] [place] [address] Dr. Arash Frazier HCG RANGE SEE BELOW Normal [facility] Comment on above: Result Comment: 5-50 0.2-1 WEEK 50-500 1-2 WEEKS 100-5,000 2-3 WEEKS 500-10,000 3-4 WEEKS 1,000-50,000 4-5 WEEKS 10,000-100,000 5-6 WEEKS 15,000-200,000 6-8 WEEKS 10,000-100,000 2-3 MONTHS Performed By: #### P REGQNT #### [facility] [address] [place] [address] Dr. Arash Frazier PREG QUANT HCGon 04-14-2022 HCG QUANT 197 mIU/mL Normal [facility] Comment on above: Performed By: #### P REGQNT #### [facility] [address] [place] [address] Dr. Arash Frazier HCG RANGE SEE BELOW Normal [facility] Comment on above: Result Comment: 5-50 0.2-1 WEEK 50-500 1-2 WEEKS 100-5,000 2-3 WEEKS 500-10,000 3-4 WEEKS 1,000-50,000 4-5 WEEKS 10,000-100,000 5-6 WEEKS 15,000-200,000 6-8 WEEKS 10,000-100,000 2-3 MONTHS Performed By: #### P REGQNT #### [facility] [address] [place] [address] Dr. Arash Frazier PREG QUANT HCGon 04-08-2022 HCG QUANT 269 mIU/mL Normal [facility] Comment on above: Performed By: #### P REGQNT #### [facility] [address] [place] [address] Dr. Arash Frazier HCG RANGE SEE BELOW Normal [facility] Comment on above: Result Comment: 5-50 0.2-1 WEEK 50-500 1-2 WEEKS 100-5,000 2-3 WEEKS 500-10,000 3-4 WEEKS 1,000-50,000 4-5 WEEKS 10,000-100,000 5-6 WEEKS 15,000-200,000 6-8 WEEKS 10,000-100,000 2-3 MONTHS Performed By: #### P REGQNT #### [facility] [address] [place] [address] Dr. Arash Frazier PREG QUANT HCGon 03-31-2022 HCG QUANT 192 mIU/mL Normal [facility] Comment on above: Performed By: #### P REGQNT #### [facility] [address] [place] [address] Dr. Arash Frazier HCG RANGE SEE BELOW Normal [facility] Comment on above: Result Comment: 5-50 0.2-1 WEEK 50-500 1-2 WEEKS 100-5,000 2-3 WEEKS 500-10,000 3-4 WEEKS 1,000-50,000 4-5 WEEKS 10,000-100,000 5-6 WEEKS 15,000-200,000 6-8 WEEKS 10,000-100,000 2-3 MONTHS Performed By: #### P REGQNT #### [facility] [address] [place] [address] Dr. Arash Frazier PREG QUANT HCGon 03-25-2022 HCG QUANT 115 mIU/mL Normal [facility] Comment on above: Performed By: #### P REGQNT #### [facility] [address] [place] [address] Dr. Arash Frazier HCG RANGE SEE BELOW Normal [facility] Comment on above: Result Comment: 5-50 0.2-1 WEEK 50-500 1-2 WEEKS 100-5,000 2-3 WEEKS 500-10,000 3-4 WEEKS 1,000-50,000 4-5 WEEKS 10,000-100,000 5-6 WEEKS 15,000-200,000 6-8 WEEKS 10,000-100,000 2-3 MONTHS Performed By: #### P REGQNT #### [facility] [address] [place] [address] Dr. Arash Frazier PREG QUANT HCGon 03-18-2022 HCG QUANT 41 mIU/mL Normal [facility] Comment on above: Performed By: #### P REGQNT #### [facility] [address] [place] [address] Dr. Arash Frazier HCG RANGE SEE BELOW Normal [facility] Comment on above: Result Comment: 5-50 0.2-1 WEEK 50-500 1-2 WEEKS 100-5,000 2-3 WEEKS 500-10,000 3-4 WEEKS 1,000-50,000 4-5 WEEKS 10,000-100,000 5-6 WEEKS 15,000-200,000 6-8 WEEKS 10,000-100,000 2-3 MONTHS Performed By: #### P REGQNT #### [facility] [address] [place] [address] Dr. Arash Frazier TYPE AND SCREENon 03-18-2022 TYPE AND SCREEN Negative Normal [facility] Comment on above: Performed By: #### P REGQNT #### [facility] [address] [place] [address] Dr. Arash Frazier CBC AUTO DIFFon 03-01-2022 BASO # 0.1 103/ul Normal 0.0-0.1 [facility] Comment on above: Performed By: #### C BC #### [facility] [address] [place] [address] Dr. Arash Frazier Basophils/100 WBC (Bld) 0.8 % Normal 0.2-2.0 [facility] Comment on above: Performed By: #### C BC #### [facility] [address] [place] [address] Dr. Arash Frazier EO # 0.2 103/ul Normal 0.0-0.7 [facility] Comment on above: Performed By: #### C BC #### [facility] [address] [place] [address] Dr. Arash Frazier Eosinophils/100 WBC (Bld) 2.0 % Normal 0.9-7.0 [facility] Comment on above: Performed By: #### C BC #### [facility] [address] [place] [address] Dr. Arash Frazier Erythrocyte distribution width (RBC) [Ratio] 13.0 % Normal 11.0-15.0 [facility] Comment on above: Performed By: #### C BC #### [facility] [address] [place] [address] Dr. Arash Frazier Hematocrit (Bld) [Volume fraction] 39.6 % Normal 36.0-48.0 [facility] Comment on above: Performed By: #### C BC #### [facility] [address] [place] [address] Dr. Arash Frazier Hemoglobin (Bld) [Mass/Vol] 12.9 g/dL Normal 12.0-16.0 [facility] Comment on above: Performed By: #### C BC #### [facility] [address] [place] [address] Dr. Arash Frazier IG # 0.03 10e3/ul Normal 0.00-0.03 [facility] Comment on above: Performed By: #### C BC #### [facility] [address] [place] [address] Dr. Arash Frazier IG % 0.3 % Normal 0.0-0.5 [facility] Comment on above: Performed By: #### C BC #### [facility] [address] [place] [address] Dr. Arash Frazier LYMPH # 2.4 103/ul Normal 1.2-3.8 [facility] Comment on above: Performed By: #### C BC #### [facility] [address] [address] [address] Arash Frazier Lymphocytes/100 WBC (Bld) 20.5 % Normal 20.5-60.0 [facility] Comment on above: Performed By: #### C BC #### [facility] [address] [address] [address] Arash Frazier MANUAL DIFF REQ NO Normal [facility] Comment on above: Performed By: #### C BC #### [facility] [address] [place] [address] Dr. Arash Frazier MCH (RBC) [Entitic mass] 29.5 pg Normal 26.7-34.0 [facility] Comment on above: Performed By: #### C BC #### [facility] [address] [place] [address] Dr. Arash Frazier MCHC (RBC) [Mass/Vol] 32.6 g/dL Normal 29.9-35.2 [facility] Comment on above: Performed By: #### C BC #### [facility] [address] [place] [address] Dr. Arash Frazier MCV (RBC) [Entitic vol] 90.6 fL Normal 81.0-99.0 [facility] Comment on above: Performed By: #### C BC #### [facility] [address] [place] [address] Dr. Arash Frazier MONO # 0.7 103/ul Normal 0.3-0.8 [facility] Comment on above: Performed By: #### C BC #### [facility] [address] [place] [address] Dr. Arash Frazier Monocytes/100 WBC (Bld) 5.9 % Normal 1.7-12.0 [facility] Comment on above: Performed By: #### C BC #### [facility] [address] [place] [address] Dr. Arash Frazier NEUT # 8.2 103/ul Critically high 1.4-6.5 [facility] Comment on above: Performed By: #### C BC #### [facility] [address] [place] [address] Dr. Arash Frazier Neutrophils/100 WBC (Bld) 70.5 % Normal 43.0-75.0 [facility] Comment on above: Performed By: #### C BC #### [facility] [address] [place] [address] Dr. Arash Frazier Platelet mean volume (Bld) [Entitic vol] 10.1 fL Normal 9.5-13.5 [facility] Comment on above: Performed By: #### C BC #### [facility] [address] [place] [address] Dr. Arash Frazier PLT 217 103/ul Normal 150-450 [facility] Comment on above: Performed By: #### C BC #### [facility] [address] [place] [address] Dr. Arash Frazier RBC 4.37 106/ul Normal 4.20-5.40 [facility] Comment on above: Performed By: #### C BC #### [facility] [address] [place] [address] Dr. Arash Frazier WBC 11.7 103/ul Critically high 4.0-11.0 [facility] Comment on above: Performed By: #### C BC #### [facility] [address] [place] [address] Dr. Arash Frazier PREG QUANT HCGon 03-01-2022 HCG QUANT 19 mIU/mL Normal [facility] Comment on above: Performed By: #### P REGQNT #### [facility] [address] [place] [address] Dr. Arash Frazier HCG RANGE SEE BELOW Normal [facility] Comment on above: Result Comment: 5-50 0.2-1 WEEK 50-500 1-2 WEEKS 100-5,000 2-3 WEEKS 500-10,000 3-4 WEEKS 1,000-50,000 4-5 WEEKS 10,000-100,000 5-6 WEEKS 15,000-200,000 6-8 WEEKS 10,000-100,000 2-3 MONTHS Performed By: #### P REGQNT #### [facility] [address] [place] [address] Dr. Arash Frazier PROF 14(COMP METB)on 022 Albumin [Mass/Vol] 3.8 g/dL Normal 3.4-5.0 [facility] Comment on above: Performed By: #### C MP #### [facility] [address] [place] [address] Dr. Arash Frazier Albumin/Globulin [Mass ratio] 1.0 {ratio} Normal [facility] Comment on above: Performed By: #### C MP #### [facility] [address] [place] [address] Dr. Arash Frazier ALP [Catalytic activity/Vol] 69 U/L Normal 46-116 [facility] Comment on above: Performed By: #### C MP #### [facility] [address] [place] [address] Dr. Arash Frazier ALT [Catalytic activity/Vol] 21 U/L Normal 14-59 [facility] Comment on above: Performed By: #### C MP #### [facility] [address] [place] [address] Dr. Arash Frazier Anion gap [Moles/Vol] 11.6 mmol/L Normal [facility] Comment on above: Performed By: #### C MP #### [facility] [address] [place] [address] Dr. Arash Frazier AST [Catalytic activity/Vol] 13 U/L Critically low 15-37 [facility] Comment on above: Performed By: #### C MP #### [facility] [address] [place] [address] Dr. Arash Frazier Bilirubin [Mass/Vol] 0.2 mg/dL Normal 0.2-1.0 [facility] Comment on above: Performed By: #### C MP #### [facility] [address] [place] [address] Dr. Arash Frazier Calcium [Mass/Vol] 8.8 mg/dL Normal 8.5-10.1 [facility] Comment on above: Performed By: #### C MP #### [facility] [address] [place] [address] Dr. Arash Frazier Chloride [Moles/Vol] 106 mmol/L Normal 98-107 [facility] Comment on above: Performed By: #### C MP #### [facility] [address] [address] [address] Arash Frazier CO2 [Moles/Vol] 28.7 mmol/L Normal 21.0-32.0 [facility] Comment on above: Performed By: #### C MP #### [facility] [address] [address] [address] Arash Frazier Creatinine [Mass/Vol] 0.75 mg/dL Normal 0.55-1.02 [facility] Comment on above: Performed By: #### C MP #### [facility] [address] [place] [address] Dr. Arash Frazier EGFR-AF MAURITANIAN >60 Normal >=60 [facility] Comment on above: Performed By: #### C MP #### [facility] [address] [address] [address] Arash Frazier EGFR-NON AF MAURITANIAN >60 Normal >=60 [facility] Comment on above: Performed By: #### C MP #### [facility] [address] [place] [address] Dr. Arash Frazier Globulin (S) [Mass/Vol] 3.7 g/dL Normal [facility] Comment on above: Performed By: #### C MP #### [facility] [address] [place] [address] Dr. Arash Frazier Glucose [Mass/Vol] 102 mg/dL Normal 74-106 [facility] Comment on above: Performed By: #### C MP #### [facility] [address] [place] [address] Dr. Arash Frazier Potassium [Moles/Vol] 4.3 mmol/L Normal 3.5-5.1 [facility] Comment on above: Performed By: #### C MP #### [facility] [address] [place] [address] Dr. Arash Frazier Protein [Mass/Vol] 7.5 g/dL Normal 6.4-8.2 [facility] Comment on above: Performed By: #### C MP #### [facility] [address] [place] [address] Dr. Arash Frazier Sodium [Moles/Vol] 142 mmol/L Normal 136-145 [facility] Comment on above: Performed By: #### C MP #### [facility] [address] [place] [address] Dr. Arash Frazier Urea nitrogen [Mass/Vol] 12.0 mg/dL Normal 7.0-18.0 [facility] Comment on above: Performed By: #### C MP #### [facility] [address] [place] [address] Dr. Arash rFazier Urea nitrogen/Creatinine [Mass ratio] 16.0 mg/mg Normal [facility] Comment on above: Performed By: #### C MP #### [facility] [address] [place] [address] Dr. Arash Frazier PROTIMEon 03-01-2022 INR Coag (PPP) [Relative time] 0.95 {INR} Normal [facility] Comment on above: Performed By: #### P TT, PT #### [facility] [address] [place] [address] Dr. Arash Frazier INR GUIDELINES SEE BELOW Normal [facility] Comment on above: Result Comment: MABLE RED INR: 2.0 - 3.0 CONDITIONS NOT LISTED BELOW 2.5 - 3.5 FOR PROSTHETIC HEART VALVE REPLACEMENT 2.5 - 3.5 RECURRENT THROMBOSIS Performed By: #### P TT, PT #### [facility] [address] [place] [address] Dr. Arash Frazier PT Coag (PPP) [Time] 10.3 s Normal 9.0-11.6 [facility] Comment on above: Performed By: #### P TT, PT #### [facility] [address] [place] [address] Dr. Arash Frazier PTTon 03-01-2022 aPTT Coag (Bld) [Time] 29.9 s Normal 22.3-36.2 [facility] Comment on above: Performed By: #### P TT, PT #### [facility] [address] [address] [address] Arash Frazier Vital Signs Date Time Vital Sign Value Performing Clinician Osbaldo anton 02-14-2021 13:30-0400 Body height 172.72 cm Fariad Monson Other [facility] Other Encounters Encounter Date Encounter Type Care Provider Facility Start: 08-18-2023 End: 08-18-2023 ambulatory SANJANA JAMES Not Available Start: 08-11-2023 End: 08-11-2023 ambulatory SARAN KIM Not Available Start: 08-04-2023 End: 08-04-2023 ambulatory Saran Kim Facility:[facility] Start: 08-04-2023 End: 08-04-2023 Departed Referred DO Kalyan Haynes Work Phone: [facility] Start: 08-04-2023 End: 08-04-2023 ambulatory DO Kalyan Haynes Work Phone: [facility] Work Phone: Start: 07-22-2023 End: 07-22-2023 ambulatory SANJANA JAMES Not Available Start: 06-23-2023 End: 06-23-2023 ambulatory SARAN KIM Not Available Start: 05-26-2023 End: 05-26-2023 ambulatory SANJANA JAMES Not Available Start: 04-28-2023 End: 04-28-2023 ambulatory SARAN KIM Not Available Start: 04-13-2023 End: 04-13-2023 ambulatory SANJANA JAMES Not Available Start: 03-31-2023 End: 03-31-2023 ambulatory SARAN KIM Not Available Start: 09-11-2022 End: 09-12-2022 ambulatory [...] Facility:[facility] Start: 02-18-2021 Telephone encounter Kalyan Haynes [facility] Family Medicine [place] Start: 02-14-2021 (URG) Urgent Care Visit Farida rogers [facility] [place] Start: 02-14-2021 Telephone encounter Kalyan Haynes [facility] Payers Date Payer Category Payer Self-pay 2012 Private Health Insurance [facility] [id number] 1997 Unknown [id number] 2.16840.1.884693.3.579.2. 593 1997 Unknown [id number] 2.16840.1.866297.3.579.2 1997 Unknown [id number] 216840.1.949487.3.579.2 593 1997 Unknown [id number] 2.16840.1.838204.3.579.2. 59 1997 Unknown [id number] 2.16840.1.597048.3.579.2. 59 1997 Unknown [id number] 2.16840.1.747029.3.579.2. 59 1997 Unknown [id number] 2.16840.1.016398.3.579.2. 593 1997 Unknown [id number] 216840.1.356388.3.579.2 59 1997 Unknown [id number] 2.16.840.1.511927.3.579.2. 1258 1997 Unknown [id number] 2.16.840.1.669544.3.579.2. 1258 1997 Unknown [id number] 2.16.840.1.036134.3.579.2. 1258 1997 Unknown [id number] 2.16.840.1.176904.3.579.2. 1258 1997 Unknown [id number] 2.16.840.1.212943.3.579.2. 1258 1997 Unknown [id number] 2.16.840.1.410840.3.579.2. 1258 1997 Unknown [id number] 2.16.840.1.456715.3.579.2. 1258 1997 Unknown [id number] 2.16.840.1.487707.3.579.2. 1258 1997 Unknown [id number] 2.16.840.1.393122.3.579.2. 1258 1959 Unknown [id number] 2.16.840.1.341166.19 Unknown Laine [place] [id number] Unknown [id number] 2.16.840.1.477843.3.579.2. 531 Social History Date Type Detail Facility Unknown if ever smoked [facility] Other Sex Assigned At Sex Assigned At Bir th [facility] Other Start: 02-14-2021 Tobacco smoking status NHIS Never smoked tobacco (finding) [facility] Start: 1995 Sex Assigned At Female F [facility] Evaluation note 02-14-2021 Note Date & Type Note Facility 02-14-2021 Evaluation note Encounter Date Diagnosis Assessment Notes Feb, Body aches (ICD-10 - R52) Feb, Loss of taste (ICD-10 - R43.2) [facility] Other Evaluation note 02-14-2021 Note Date & [...] Patient care instructions given in writting by [facility] [place] [facility] document. [facility] Other History general Narrative - Reported 08-18-2016 Note Date & Type Note Facility 08-18-2016 History general N arrative - Reported Type Medical History Varicella Vaccine 2010 Surgical History lt wrist pin [facility] [employer] 7 Surgical History rt ankle fixation [facility] Surgical History removed external fixator 10/2016 Surgical History removed pin from left wrist 10/03 017 Surgical History wisdom teeth extract Hospitalization History see above [facility] Other Evaluation note Note Date & Type Note Facility Evaluation note No Information [facility] Other Evaluation note Note Date & Type Note Facility Evaluation note No assessment information availa [facility] Work Phone: Summary Purpose Family History No Family History Records Found Relationship Condition Age at Onset Recorded Date/T radha grandparent Unknown Diabetes mellitus Unknown grandparent Malignant neoplasm of breast Unknown Unknown Advance Directives No Advanced Directives Records FoundNo Advanced Directives Records FoundNo Advanced Directives Records Found Additional Source Comments REASON FOR VISIT (unrecogniz ed section and content) clinical/testing request#15 DUT[place] SEVEN, HEADACHE, NASAL CONGESTION, LOSS TASTE AND SMELL, BODYACHES, SORE THROATclinical INFORMATION SOURCE (unrecogn ized section and content) DATE CREATED AUTHOR 10/11/2022 [facility] DATE CREATED AUTHOR AUTHOR'S ORGANIZ ATION 08/08/2023 [facility] DATE CREATED AUTHOR AUTHOR'S ORGANIZ ATION 08/19/[address] [facility] [employer] Care Teams (unrecognized sec tion and content) Team Status: Active Member Role Status Dates Kalyan Haynes DO Primary Care Provider Active Team Status: Inactive Member Role Status Dates Kalyan Haynes DO Primary Care Provider Active S tart: August 04, 2023 End: August 04, 2023 Saran Alvarez Attending Provider Active Start: Ap 2023 End: August 04, 2023 Goals (unrecognized section and content) Goals may be documented in a n alternate section FOR RECORDS PERTAINING TO PATIENTS WHO ARE [...] BE BASED ON THE PRIMARY CLINICAL RECORDS. [employer] provides no warranty or guarantee of the accuracy or completeness of information in this document.
[2023-09-01 12:40] VITALS: BP 128/69; PULSE 91
[2023-09-01 12:52] LABS: Amnisure NEGATIVE (NEGATIVE)
[2023-09-01 15:24] VITALS: BP 128/57; PULSE 88
[2023-09-01 16:06] LABS: Amnisure NEGATIVE (NEGATIVE)
--- NOTE | 2023-09-01 16:35 | US_ITS ---
The [address] [address] Patient Name: JAYDEN BRIONES MRN: [id number] date: 1995 Sex: F Assigned Patient Location: [facility] Current Patient Location: Accession/Order Number: [id number] Exam Date: 09/01/2023 16:40 Report Date: 09/01/2023 17:59 At the request of: SARAN ALVAREZ Procedure: US OB amniotic fluid vol US PELVIS: OB Greater than 14 weeks HISTORY: 27 year old G 5 P 1 AB 3 female presents for US evaluation with concern for ruptured membranes. LMP: Not provided in the notes/history on order. TECHNIQUE: Ultrasound performed of the pelvis using static images with ewing scale, M-mode and color doppler. This exam is performed in the emergency room setting to evaluate viability. 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 COMPARISON: None. FINDINGS: Summary: Number of Fetuses: Singlefetus in cephalic position. Placenta: Anterior with an echoic area that measures 1.5 x 2.2 x 2.5 cm heart: 144 bpm. VARUN: Q1: 4.3 cm Q2: 3.6 cm Q3: 4.7 cm Q4: 5.4 cm Total VARUN: 18 cm. (Normal 8-18 cm)* Largest pocket: 5cm (less than 8 cm) US/US OB amniotic fluid vol IMPRESSION: 1. Viable [place] fetus IUP 2. Anterior placenta with a placental ramírez. 3. Total VARUN: 18 cm in the Normal range. Electronically authenticated by: NELI DEVI Date: 09/01/2023 17:59
== END 2023-09-01 17:30 | disposition home or self-care (01) ==
PROVIDERS: Admitting Provider Obstetrics & Gynecology; Visit Provider Obstetrics & Gynecology
DX: Z03.71 Encounter for suspected problem with amniotic cavity and membrane ruled out (principal); Z3A.35 35 weeks gestation of pregnancy
CPT/HCPCS: 76815; 84112; 86850; 86900; 86901; G0378; G0379

== ENCOUNTER 2023-09-08 20:41 | Outpatient (REF) | payer OTHER, SELFPAY ==
--- OUTSIDE RECORDS SUMMARY | 2023-09-08 20:51 | XMS_ITS | CCD ---
Author Organization [facility] Care Team Providers Care Mail Sorter Name Role Phone Kalyan Haynes Unavailable Iona [...] Unavailable KIM ., DR NOONAN Admitting Unavailable VIPER, DR BIGGS Consulting Unavailable KIM ., DR [...] Unavailable Erika, DO Biggs Primary Care Provider [phone] Saran Alvarez Attending Provider Kim, Saran Admitting Unavailable Kim, Saran Attending Unavailable Kalyan Haynes Primary Care Unavailable JAMES, SANJANA Attending Unavailable KIM, SARAN Attending Unavailable JAMES, SANJANA Attending Unavailable KIM, SARAN Attending Unavailable KIM, SARAN Attending Unavailable JAMES, SANJANA Attending Unavailable KIM, SARAN Attending Unavailable JAMES, SANJANA Attending Unavailable KIM, SARAN Attending Unavailable KIM, SARAN Attending Unavailable Allergies Allergy Classification Reported Allergen(s) Allergy Type Date of Onset Reaction(s) Facility (3 sources) Amoxicillin Drug Allergy rash [facility] [employer] Other (1 source) Amoxicillin Drug Allergy 03-08-2020 [facility] Repository (1 source) Amoxicillin Drug Allergy 02-14-2021 [facility] Repository Medications Current Medications Medication Drug Class(es) Dates Sig (Normalized) Sig (Original) Docusate (3 sources) Colace Active Iron (3 sources) Iron Active polysaccharide iron complex 150 mg oral capsule (3 sources) Start: 03-24-2017 take 1 capsule by mouth every twenty-four hours Ferrex 150 150 MG 1 capsule Orally Once a day Mar, Active Pre- (3 sources) Pre- Active Completed/Discontinued Medications Medication Drug Class(es) Dates [...] Range Facil ity Sy 08-04-2023 L Specimen: [id number] Received: 08/05/23 Status: MICHAEL Schaefer Num: [id number] Spec Type: Surgical Subm Dr: Saran Alvarez [...] Account Attending Physician Mercy Briones 27/F LABELL [id number] Saran Alvarez SPEC NUM: [id number] RECD: 08/05/23 STATUS: MICHAEL SCHAEFER NUM: [id number] LOPEZ: 08/04/23- SUBM DR: Saran Alvarez ENTERED: 08/05/23 [facility] DR: Moriarty,Lab SPEC TYPE: Surgical DEPT: ANTHONY ASCENCIO ORDERED: [...] at the base of the excision Specimen: [id number] Received: 08/05/23 Status: DEEPMary Schaefer Num: [id number] Spec Type: Surgical Subm Dr: Saran Alvarez Tissues: A Skin-Other than Cyst, tag, debridement or plastic repair (RT POST NECK) B Skin-Other than Cyst, tag, debridement or plastic repair (RT BREAST 9:00) C Skin-Other than Cyst, tag, debridement or plastic repair (RT BREAST 8:00) D Skin-Other than Cyst, tag, debridement or plastic repair (RT FLANK) Procedures: HE/4, Gross/Micro L4/4 Patient: Mercy Briones [id number] (Continued) Specimen: [id number] Received: 08/05/23 (Continued) Signed (signature on file) Anabell Frazier MD 08/08/23 1834 Specimen: [id number] Received: 08/05/23 Status: MICHAEL Schaefer Num: [id number] Spec Type: Surgical Subm Dr: Saran Alvarez Tissues: A Skin-Other than Cyst, tag, debridement or plastic repair (RT POST NECK) B Skin-Other than Cyst, tag, debridement or plastic repair (RT BREAST 9:00) C Skin-Other than Cyst, tag, debridement or plastic repair (RT BREAST 8:00) D Skin-Other than Cyst, tag, debridement or plastic repair (RT FLANK) Procedures: HE/4, Gross/Micro L4/4 Patient: Mercy Briones [id number] (Continued) Specimen: [id number] Received: 08/05/23-1351 (Continued) Clinical Information Skin moles removed Gross [...] CPT Codes 88 (more content not included)... [facility] US PREG TVon 09-11-2022 US PREG TV [...] JOHNNIE RESTREPO Date: 2022-09-11 15:59 Normal [facility] US PREG TVon 09-04-2022 US PREG TV [...] KALYAN BACK Date: 2022-09-04 17:37 Normal [facility] PREG QUANT HCGon 05-13-2022 HCG QUANT 6 mIU/mL Normal [facility] Comment on above: Performed By: #### P REGQNT #### [facility] [address] [place] [address] Dr. Arash Frazier HCG RANGE SEE BELOW Normal [facility] Comment on above: Result Comment: 5-50 0.2-1 WEEK 50-500 1-2 WEEKS 100-5,000 2-3 WEEKS 500-10,000 3-4 WEEKS 1,000-50,000 4-5 WEEKS 10,000-100,000 5-6 WEEKS 15,000-200,000 6-8 WEEKS 10,000-100,000 2-3 MONTHS Performed By: #### P REGQNT #### [facility] [address] [place] [address] Dr. Arash Frazier PREG QUANT HCGon 05-02-2022 HCG QUANT 23 mIU/mL Normal [facility] Comment on above: Performed By: #### P REGQNT #### [facility] [address] [place] [address] Dr. Arash Frazier HCG RANGE SEE BELOW Normal [facility] Comment on above: Result Comment: 5-50 0.2-1 WEEK 50-500 1-2 WEEKS 100-5,000 2-3 WEEKS 500-10,000 3-4 WEEKS 1,000-50,000 4-5 WEEKS 10,000-100,000 5-6 WEEKS 15,000-200,000 6-8 WEEKS 10,000-100,000 2-3 MONTHS Performed By: #### P REGQNT #### [facility] [address] [place] [address] Dr. Arash Frazier PREG QUANT HCGon 04-21-2022 HCG QUANT 85 mIU/mL Normal [facility] Comment on above: Performed By: #### P REGQNT #### [facility] [address] [place] [address] Dr. Arash Frazier HCG RANGE SEE BELOW Normal [facility] Comment on above: Result Comment: 5-50 0.2-1 WEEK 50-500 1-2 WEEKS 100-5,000 2-3 WEEKS 500-10,000 3-4 WEEKS 1,000-50,000 4-5 WEEKS 10,000-100,000 5-6 WEEKS 15,000-200,000 6-8 WEEKS 10,000-100,000 2-3 MONTHS Performed By: #### P REGQNT #### [facility] [address] [place] [address] Dr. Arash Frazire PREG QUANT HCGon 04-14-2022 HCG QUANT 197 mIU/mL Normal [facility] Comment on above: Performed By: #### P REGQNT #### [facility] [address] [place] [address] Dr. Arash Frazier HCG RANGE SEE BELOW Normal [facility] Comment on above: Result Comment: 5-50 0.2-1 WEEK 50-500 1-2 WEEKS 100-5,000 2-3 WEEKS 500-10,000 3-4 WEEKS 1,000-50,000 4-5 WEEKS 10,000-100,000 5-6 WEEKS 15,000-200,000 6-8 WEEKS 10,000-100,000 2-3 MONTHS Performed By: #### P REGQNT #### [facility] [address] [place] [address] Dr. Arash Frazier PREG QUANT HCGon 04-08-2022 HCG QUANT 269 mIU/mL Normal [facility] Comment on above: Performed By: #### P REGQNT #### [facility] [address] [place] [address] Dr. Arash Frazier HCG RANGE SEE BELOW Normal [facility] Comment on above: Result Comment: 5-50 0.2-1 WEEK 50-500 1-2 WEEKS 100-5,000 2-3 WEEKS 500-10,000 3-4 WEEKS 1,000-50,000 4-5 WEEKS 10,000-100,000 5-6 WEEKS 15,000-200,000 6-8 WEEKS 10,000-100,000 2-3 MONTHS Performed By: #### P REGQNT #### [facility] [address] [place] [address] Dr. Arash Frazier PREG QUANT HCGon 03-31-2022 HCG QUANT 192 mIU/mL Normal [facility] Comment on above: Performed By: #### P REGQNT #### [facility] [address] [place] [address] Dr. Arash Frazier HCG RANGE SEE BELOW Normal [facility] Comment on above: Result Comment: 5-50 0.2-1 WEEK 50-500 1-2 WEEKS 100-5,000 2-3 WEEKS 500-10,000 3-4 WEEKS 1,000-50,000 4-5 WEEKS 10,000-100,000 5-6 WEEKS 15,000-200,000 6-8 WEEKS 10,000-100,000 2-3 MONTHS Performed By: #### P REGQNT #### [facility] [address] [place] [address] Dr. Arash Frazier PREG QUANT HCGon 03-25-2022 HCG QUANT 115 mIU/mL Normal [facility] Comment on above: Performed By: #### P REGQNT #### [facility] [address] [place] [address] Dr. Arash Frazier HCG RANGE SEE BELOW Normal [facility] Comment on above: Result Comment: 5-50 0.2-1 WEEK 50-500 1-2 WEEKS 100-5,000 2-3 WEEKS 500-10,000 3-4 WEEKS 1,000-50,000 4-5 WEEKS 10,000-100,000 5-6 WEEKS 15,000-200,000 6-8 WEEKS 10,000-100,000 2-3 MONTHS Performed By: #### P REGQNT #### [facility] [address] [place] [address] Dr. Arash Frazier PREG QUANT HCGon 03-18-2022 HCG QUANT 41 mIU/mL Normal [facility] Comment on above: Performed By: #### P REGQNT #### [facility] [address] [place] [address] Dr. Arash Frazier HCG RANGE SEE BELOW Normal [facility] Comment on above: Result Comment: 5-50 0.2-1 WEEK 50-500 1-2 WEEKS 100-5,000 2-3 WEEKS 500-10,000 3-4 WEEKS 1,000-50,000 4-5 WEEKS 10,000-100,000 5-6 WEEKS 15,000-200,000 6-8 WEEKS 10,000-100,000 2-3 MONTHS Performed By: #### P REGQNT #### [facility] [address] [place] [address] Dr. Arash Frazier TYPE AND SCREENon 03-18-2022 TYPE AND SCREEN Negative Normal [facility] Comment on above: Performed By: #### P REGQNT #### [facility] [address] [place] [address] Dr. Arash Frazier CBC AUTO DIFFon 03-01-2022 BASO # 0.1 103/ul Normal 0.0-0.1 [facility] Comment on above: Performed By: #### C BC #### [facility] [address] [place] [address] Dr. Arash Frazier Basophils/100 WBC (Bld) 0.8 % Normal 0.2-2.0 [facility] Comment on above: Performed By: #### C BC #### [facility] [address] [place] [address] Dr. Arash Frazier EO # 0.2 103/ul Normal 0.0-0.7 [facility] Comment on above: Performed By: #### C BC #### [facility] [address] [place] [address] Dr. Arash Frazier Eosinophils/100 WBC (Bld) 2.0 % Normal 0.9-7.0 [facility] Comment on above: Performed By: #### C BC #### [facility] [address] [place] [address] Dr. Arash Frazier Erythrocyte distribution width (RBC) [Ratio] 13.0 % Normal 11.0-15.0 [facility] Comment on above: Performed By: #### C BC #### [facility] [address] [place] [address] Dr. Arash Frazier Hematocrit (Bld) [Volume fraction] 39.6 % Normal 36.0-48.0 [facility] Comment on above: Performed By: #### C BC #### [facility] [address] [place] [address] Dr. Arash Frazier Hemoglobin (Bld) [Mass/Vol] 12.9 g/dL Normal 12.0-16.0 [facility] Comment on above: Performed By: #### C BC #### [facility] [address] [place] [address] Dr. Arash Frazier IG # 0.03 10e3/ul Normal 0.00-0.03 [facility] Comment on above: Performed By: #### C BC #### [facility] [address] [place] [address] Dr. Arash Frazier IG % 0.3 % Normal 0.0-0.5 [facility] Comment on above: Performed By: #### C BC #### [facility] [address] [place] [address] Dr. Arash Frazier LYMPH # 2.4 103/ul Normal 1.2-3.8 [facility] Comment on above: Performed By: #### C BC #### [facility] [address] [place] [address] Dr. Arash Frazier Lymphocytes/100 WBC (Bld) 20.5 % Normal 20.5-60.0 [facility] Comment on above: Performed By: #### C BC #### [facility] [address] [place] [address] Dr. Arash Frazier MANUAL DIFF REQ NO Normal [facility] Comment on above: Performed By: #### C BC #### [facility] [address] [place] [address] Dr. Arash Frazier MCH (RBC) [Entitic mass] 29.5 pg Normal 26.7-34.0 [facility] Comment on above: Performed By: #### C BC #### [facility] [address] [place] [address] Dr. Arash Frazier MCHC (RBC) [Mass/Vol] 32.6 g/dL Normal 29.9-35.2 [facility] Comment on above: Performed By: #### C BC #### [facility] [address] [place] [address] Dr. Arash Frazier MCV (RBC) [Entitic vol] 90.6 fL Normal 81.0-99.0 [facility] Comment on above: Performed By: #### C BC #### [facility] [address] [place] [address] Dr. Arash Frazier MONO # 0.7 103/ul Normal 0.3-0.8 [facility] Comment on above: Performed By: #### C BC #### [facility] [address] [place] [address] Dr. Arash Frazier Monocytes/100 WBC (Bld) 5.9 % Normal 1.7-12.0 [facility] Comment on above: Performed By: #### C BC #### [facility] [address] [place] [address] Dr. Arash Frazier NEUT # 8.2 103/ul Critically high 1.4-6.5 [facility] Comment on above: Performed By: #### C BC #### [facility] [address] [place] [address] Dr. Arash Frazier Neutrophils/100 WBC (Bld) 70.5 % Normal 43.0-75.0 [facility] Comment on above: Performed By: #### C BC #### [facility] [address] [place] [address] Dr. Arash Frazier Platelet mean volume (Bld) [Entitic vol] 10.1 fL Normal 9.5-13.5 [facility] Comment on above: Performed By: #### C BC #### [facility] [address] [place] [address] Dr. Arash Frazier PLT 217 103/ul Normal 150-450 [facility] Comment on above: Performed By: #### C BC #### [facility] [address] [place] [address] Dr. Arash Frazier RBC 4.37 106/ul Normal 4.20-5.40 [facility] Comment on above: Performed By: #### C BC #### [facility] [address] [place] [address] Dr. Arash Frazier WBC 11.7 103/ul Critically high 4.0-11.0 [facility] Comment on above: Performed By: #### C BC #### [facility] [address] [place] [address] Dr. Arash Frazier PREG QUANT HCGon 03-01-2022 HCG QUANT 19 mIU/mL Normal [facility] Comment on above: Performed By: #### P REGQNT #### [facility] [address] [place] [address] Dr. Arash Frazier HCG RANGE SEE BELOW Normal [facility] Comment on above: Result Comment: 5-50 0.2-1 WEEK 50-500 1-2 WEEKS 100-5,000 2-3 WEEKS 500-10,000 3-4 WEEKS 1,000-50,000 4-5 WEEKS 10,000-100,000 5-6 WEEKS 15,000-200,000 6-8 WEEKS 10,000-100,000 2-3 MONTHS Performed By: #### P REGQNT #### [facility] [address] [place] [address] Dr. Arash Frazier PROF 14(COMP METB)on 022 Albumin [Mass/Vol] 3.8 g/dL Normal 3.4-5.0 [facility] Comment on above: Performed By: #### C MP #### [facility] [address] [place] [address] Dr. Arash Frazier Albumin/Globulin [Mass ratio] 1.0 {ratio} Normal [facility] Comment on above: Performed By: #### C MP #### [facility] [address] [place] [address] Dr. Arash Frazier ALP [Catalytic activity/Vol] 69 U/L Normal 46-116 [facility] Comment on above: Performed By: #### C MP #### [facility] [address] [place] [address] Dr. Arash Frazier ALT [Catalytic activity/Vol] 21 U/L Normal 14-59 [facility] Comment on above: Performed By: #### C MP #### [facility] [address] [place] [address] Dr. Arash Frazier Anion gap [Moles/Vol] 11.6 mmol/L Normal [facility] Comment on above: Performed By: #### C MP #### [facility] [address] [place] [address] Dr. Arash Frazier AST [Catalytic activity/Vol] 13 U/L Critically low 15-37 [facility] Comment on above: Performed By: #### C MP #### [facility] [address] [place] [address] Dr. Arash Frazier Bilirubin [Mass/Vol] 0.2 mg/dL Normal 0.2-1.0 [facility] Comment on above: Performed By: #### C MP #### [facility] [address] [place] [address] Dr. Arash Frazier Calcium [Mass/Vol] 8.8 mg/dL Normal 8.5-10.1 [facility] Comment on above: Performed By: #### C MP #### [facility] [address] [address] [address] Arash Frazier Chloride [Moles/Vol] 106 mmol/L Normal 98-107 [facility] Comment on above: Performed By: #### C MP #### [facility] [address] [address] [address] Arash Frazier CO2 [Moles/Vol] 28.7 mmol/L Normal 21.0-32.0 [facility] Comment on above: Performed By: #### C MP #### [facility] [address] [place] [address] Dr. Arash Frazier Creatinine [Mass/Vol] 0.75 mg/dL Normal 0.55-1.02 [facility] Comment on above: Performed By: #### C MP #### [facility] [address] [place] [address] Dr. Arash Frazier EGFR-AF TUNISIAN >60 Normal >=60 [facility] Comment on above: Performed By: #### C MP #### [facility] [address] [address] [address] Arash Frazier EGFR-NON AF TUNISIAN >60 Normal >=60 [facility] Comment on above: Performed By: #### C MP #### [facility] [address] [address] [address] Arash Frazier Globulin (S) [Mass/Vol] 3.7 g/dL Normal [facility] Comment on above: Performed By: #### C MP #### [facility] [address] [address] [address] Arash Frazier Glucose [Mass/Vol] 102 mg/dL Normal 74-106 [facility] Comment on above: Performed By: #### C MP #### [facility] [address] [address] [address] Arash Frazier Potassium [Moles/Vol] 4.3 mmol/L Normal 3.5-5.1 [facility] Comment on above: Performed By: #### C MP #### [facility] [address] [address] [address] Arash Frazier Protein [Mass/Vol] 7.5 g/dL Normal 6.4-8.2 [facility] Comment on above: Performed By: #### C MP #### [facility] [address] [place] [address] Dr. Arash Frazier Sodium [Moles/Vol] 142 mmol/L Normal 136-145 [facility] Comment on above: Performed By: #### C MP #### [facility] [address] [place] [address] Dr. Arash Frazier Urea nitrogen [Mass/Vol] 12.0 mg/dL Normal 7.0-18.0 [facility] Comment on above: Performed By: #### C MP #### [facility] [address] [place] [address] Dr. Arash Frazier Urea nitrogen/Creatinine [Mass ratio] 16.0 mg/mg Normal [facility] Comment on above: Performed By: #### C MP #### [facility] [address] [place] [address] Dr. Arash Frazier PROTIMEon 03-01-2022 INR Coag (PPP) [Relative time] 0.95 {INR} Normal [facility] Comment on above: Performed By: #### P TT, PT #### [facility] [address] [place] [address] Dr. Arash Frazier INR GUIDELINES SEE BELOW Normal [facility] Comment on above: Result Comment: MABLE RED INR: 2.0 - 3.0 CONDITIONS NOT LISTED BELOW 2.5 - 3.5 FOR PROSTHETIC HEART VALVE REPLACEMENT 2.5 - 3.5 RECURRENT THROMBOSIS Performed By: #### P TT, PT #### [facility] [address] [place] [address] Dr. Arash Frazier PT Coag (PPP) [Time] 10.3 s Normal 9.0-11.6 [facility] Comment on above: Performed By: #### P TT, PT #### [facility] [address] [place] [address] Dr. Arash Frazier PTTon 03-01-2022 aPTT Coag (Bld) [Time] 29.9 s Normal 22.3-36.2 [facility] Comment on above: Performed By: #### P TT, PT #### [facility] [address] [address] [address] Arash Frazier Vital Signs Date Time Vital Sign Value Performing Clinician Osbaldo anton 02-14-2021 13:30-0400 Body height 172.72 cm Farida Monson Other Cast[facility] O-CODES Other Encounters Encounter Date Encounter Type Care Provider Facility Start: 2023 End: 2023 ambulatory SARAN KIM Not Available Start: 08-18-2023 End: 08-18-2023 ambulatory SANJANA JAMES Not Available Start: 08-11-2023 End: 08-11-2023 ambulatory SARAN KIM Not Available Start: 08-04-2023 End: 08-04-2023 ambulatory Sarna Kim Facility:[facility] Start: 08-04-2023 End: 08-04-2023 Departed Referred DO Kalyan Haynes Work Phone: [facility] Start: 08-04-2023 End: 08-04-2023 ambulatory DO Kalyan Haynes Work Phone: [facility] Work Phone: Start: 07-22-2023 End: 07-22-2023 [...] End: 09-12-[address] SARAN ALVAREZ . Facility:[facility] Start: 09-04-2022 End: 09-05-[address] SARAN [...] Facility:[facility] Start: 02-18-2021 Telephone encounter Kalyan Haynes [facility] Start: 02-14-2021 (URG) Urgent Care Visit Farida rogers [facility] Start: 02-14-2021 Telephone encounter Kalyan Haynes [facility] Payers Date Payer Category Payer Self-pay 2012 Private Health Insurance [facility] [id number] 1997 Unknown [id number] 1997 Unknown [id number] [id number] 1997 Unknown [id number] 1997 Unknown [id number] 1997 Unknown [id number] 1997 Unknown [id number] [id number]. 1997 Unknown [id number] 1997 Unknown [id number] 2.16.840.1.677416.3.579.2. 593 1997 Unknown [id number] 2.16.840.1.609733.3.579.2. 9 1997 Unknown [id number] 2.16.840.1.503016.3.579.2. 1258 1997 Unknown [id number] 2.16.840.1.118769.3.579.2. 1258 1997 Unknown [id number] 2.16.840.1.293942.3.579.2. 1258 1997 Unknown [id number] 2.16.840.1.011962.3.579.2. 1258 1997 Unknown [id number] 2.16.840.1.513463.3.579.2. 1258 1997 Unknown [id number] 2.16.840.1.623920.3.579.2. 1258 1997 Unknown [id number] 2.16.840.1.678037.3.579.2. 1258 1997 Unknown [id number] 2.16.840.1.375602.3.579.2. 1258 1997 Unknown [id number] 2.16.840.1.528604.3.579.2. 9 1959 Unknown [id number] 2.16.840.1.169672.19 Unknown Laine BC/ [id number] Unknown [id number] Social History Date Type Detail Facility Unknown if ever smoked [facility] Other Sex Assigned At Sex Assigned At Bir th [facility] Other Start: 02-14-2021 Tobacco smoking status NHIS Never smoked tobacco (finding) [facility] Start: 1995 Sex Assigned At Female F [facility] Evaluation note 02-14-2021 Note Date & Type Note Facility 02-14-2021 Evaluation note Encounter Date Diagnosis Assessment Notes Feb, Body aches (ICD-10 - R52) Feb, Loss of taste (ICD-10 - R43.2) [facility] Other Evaluation note 02-14-2021 Note Date & [...] Patient care instructions given in writting by [facility] document. [facility] Other History general Narrative - Reported 08-18-2016 Note Date & Type Note Facility 08-18-2016 History general N arrative - Reported Type Medical History Varicella Vaccine 2010 Surgical History lt wrist pin [facility] Surgical History rt ankle fixation [facility] Surgical History removed external fixator 10/2016 Surgical History removed pin from left wrist 10/03 017 Surgical History wisdom teeth extract Hospitalization History see above [facility] Other Evaluation note Note Date & Type Note Facility Evaluation note No Information Prepared Response Other Evaluation note Note Date & Type Note Facility Evaluation note No assessment information availa [facility] Work Phone: Summary Purpose Family History No [...] DATE CREATED AUTHOR AUTHOR'S ORGANIZ ATION 08/08/2023 [facility] DATE CREATED AUTHOR AUTHOR'S ORGANIZ ATION 09/02/2023 [facility] EPIC Care Teams (unrecognized [...] BE BASED ON THE PRIMARY CLINICAL RECORDS. [facility] [employer] [facility]. provides no warranty or guarantee of the accuracy or completeness of information in this document.
== END 2023-09-08 20:42 | disposition home or self-care (01) ==
LOC: LAB 20:41
PROVIDERS: Visit Provider Obstetrics & Gynecology
DX: Z34.93 Encounter for supervision of normal pregnancy, unspecified, third trimester (principal)
CPT/HCPCS: 87081

== ENCOUNTER 2023-09-10 17:02 | Outpatient (OUT) | payer OTHER, SELFPAY ==
--- NOTE | 2023-09-10 17:04 | US_ITS ---
[address] [address] Patient Name: JAYDEN BRIONES MRN: [id number] date: 1995 Sex: F Assigned Patient Location: Current Patient Location: Accession/Order Number: [id number] Exam Date: 09/10/2023 17:07 Report Date: 09/11/2023 07:26 At the request of: SARAN ALVAREZ Procedure: US OB growth EXAMINATION: US OB growth HISTORY: Excessive growth affecting management of COMPARISON: Ultrasound OB anatomy 05/19/2023 FINDINGS: Heart Rate: 139.2 bpm Number: 1.0 Position: CEPHALIC Amniotic Fluid Volume: 23.9 cm (95th percentile is 24.9 cm). Maximum Vertical Pocket: 9.2 cm BIOMETRY: BPD: 8.9 cm cm; 36 weeks 0 days; 46% HC: 33.3 cmcm; 38 weeks 1 days ; 59% AC: 33.7 cm cm; 37 weeks 4 days; 86% FL: 7.0 cm cm; 36 weeks 1 days; 36% EFW: 3117.4 grams; 69% FL/AC: 20.9 FL/BPD: 79.2 HC/AC: 1.0 GESTATIONAL AGE: Age by EDC: 36 weeks 4 days ANJU by EDC: 10/04/2023 Age by US: 37 weeks 0 days ANJU by US: 10/01/2023 US/US OB growth IMPRESSION: 1. Single live intrauterine with growth detailed above. 2. Amniotic fluid volume approaches upper limits of normal. Electronically authenticated by: JOHNNIE RESTREPO Date: 09/11/2023 07:26
== END 2023-09-10 17:03 | disposition home or self-care (01) ==
LOC: US 17:02
PROVIDERS: Visit Provider Obstetrics & Gynecology
DX: O36.63X0 Maternal care for excessive fetal growth, third trimester, not applicable or unspecified (principal); Z3A.37 37 weeks gestation of pregnancy
CPT/HCPCS: 76816

== ENCOUNTER 2023-10-06 00:06 | Inpatient (IN) | payer OTHER, SELFPAY ==
[2023-10-06] VITALS (42 sets, daily range): BP systolic 107–161; BP diastolic 51–118; PULSE 74–111; TEMP 36.7–37
--- OUTSIDE RECORDS SUMMARY | 2023-10-06 00:10 | XMS_ITS | CCD ---
Author Organization [facility] CliniSyor Care Team Providers Care Intensive Care Unit Nurse Name Role Phone Kalyan Haynes Unavailable IonaFarida dailey Unavailable KIM ., DR NOONAN Admitting Unavailable [...] Unavailable KIM ., DR NOONAN Consulting Unavailable KMI ., DR NOONAN Attending Unavailable KIM ., DR NOONAN Consulting Unavailable GIRVIN, DR BIGGS Primary Care Unavailable KIM ., DR NOONAN Admitting Unavailable KIM ., DR NOONAN Attending Unavailable KIM ., DR NOONAN Consulting Unavailable GIRVIN, DR BIGGS Primary Care Unavailable KIM ., DR NOONAN Admitting Unavailable KIM ., DR NOONAN Admitting Unavailable [place], DR BIGGS Consulting Unavailable KIM ., DR [...] Unavailable Erika, DO Biggs Primary Care Provider Kim, Saran Attending Provider Kim, Saran Admitting Unavailable Kim, Saran Attending Unavailable Kalyan Haynes Primary Care Unavailable JAMES, SANJANA Attending Unavailable KIM, SARAN Attending Unavailable JAMES, SANJANA Attending Unavailable KIM, SARAN Attending Unavailable KIM, SARAN Attending Unavailable JAMES, SANJANA Attending Unavailable KIM, SARAN Attending Unavailable JAMES, SANJANA Attending Unavailable KIM, SARAN Attending Unavailable KIM, SARAN Attending Unavailable KIM, SARAN Attending Unavailable KIM, SARAN Attending Unavailable KIM, SARAN Attending Unavailable KIM, SARAN Attending Unavailable Allergies Allergy Classification Reported Allergen(s) Allergy Type Date of Onset Reaction(s) Facility (3 sources) Amoxicillin Drug Allergy [facility] [employer] Other (1 source) Amoxicillin Drug Allergy 03-08-2020 [facility] Repository (1 source) Amoxicillin Drug Allergy 02-14-2021 [facility] Repository Medications Current Medications Medication Drug Class(es) Dates Sig (Normalized) Sig (Original) Docusate (3 sources) Colace Active Iron (3 sources) Iron Active polysaccharide iron complex 150 mg oral capsule (3 sources) Start: 03-24-2017 take 1 capsule by mouth every twenty-four hours Ferrex 150 150 MG 1 capsule Orally Once a day Mar, Active Pre-Tyler (3 sources) Pre- Active Completed/Discontinued Medications Medication [...] Test Name Value Interpretation Reference Range Facil ollie Dan 08-04-2023 L Specimen: [id number] Received: 08/05/23 Status: MICHAEL Schaefer Num: [id number] Spec Type: Surgical Subm Dr: Saran Alvarez [...] Account Attending Physician Mercy Briones 27/F LABELL [id number] Saran Alvarez SPEC NUM: [id number] RECD: 08/05/23 STATUS: MICHAEL SCHAEFER NUM: [id number] LOPEZ: 08/04/23- SUBM DR: Saran Alvarez ENTERED: 08/05/23 [facility] DR: Augustus,Lab SPEC TYPE: Surgical DEPT: ANTHONY [...] at the base of the excision Specimen: [id number] Received: 08/05/23 Status: MICHAEL Schaefer Num: [id number] Spec Type: Surgical Subm : Saran Alvarez Tissues: A Skin-Other than Cyst, tag, debridement or plastic repair (RT POST NECK) B Skin-Other than Cyst, tag, debridement or plastic repair (RT BREAST 9:00) C Skin-Other than Cyst, tag, debridement or plastic repair (RT BREAST 8:00) D Skin-Other than Cyst, tag, debridement or plastic repair (RT FLANK) Procedures: GUNNAR/Niles, Juliocesar/Bennett L4/4 Patient: BrittanyMercy R [id number] (Continued) Specimen: [id number] Received: 08/05/23 (Continued) Signed (signature on file) Anabell Frazier MD 08/08/23 1834 Specimen: [id number] Received: 08/05/23 Status: MICHAEL Schaefer Num: [id number] Spec Type: Surgical Subm Dr: Saran Alvarez Tissues: A Skin-Other than Cyst, tag, debridement or plastic repair (RT POST NECK) B Skin-Other than Cyst, tag, debridement or plastic repair (RT BREAST 9:00) C Skin-Other than Cyst, tag, debridement or plastic repair (RT BREAST 8:00) D Skin-Other than Cyst, tag, debridement or plastic repair (RT FLANK) Procedures: HE/4, Gross/Micro L4/4 Patient: Mercy Briones Nina [id number] (Continued) Specimen: [id number] Received: 08/05/23-135 (Continued) Clinical Information Skin moles removed Gross [...] CPT Codes 88 (more content not included)... [facility] US PREG TVon 09-11-2022 US PREG [...] JOHNNIE RESTREPO Date: 2022-09-11 15:59 Normal [facility] US PREG TVon 09-04-2022 US PREG [...] KALYAN BACK Date: 2022-09-04 17:37 Normal [facility] PREG QUANT HCGon 05-13-2022 HCG QUANT 6 mIU/mL Normal [facility] Comment on above: Performed By: #### P REGQNT #### [facility] [address] [place] [address] Dr. Arash Frazier HCG RANGE SEE BELOW Normal [facility] Comment on above: Result Comment: 5-50 0.2-1 WEEK 50-500 1-2 WEEKS 100-5,000 2-3 WEEKS 500-10,000 3-4 WEEKS 1,000-50,000 4-5 WEEKS 10,000-100,000 5-6 WEEKS 15,000-200,000 6-8 WEEKS 10,000-100,000 2-3 MONTHS Performed By: #### P REGQNT #### [facility] [address] [place] [address] Dr. Arash Frazier PREG QUANT HCGon 05-02-2022 HCG QUANT 23 mIU/mL Normal [facility] Comment on above: Performed By: #### P REGQNT #### [facility] [address] [place] [address] Dr. Arash Frazier HCG RANGE SEE BELOW Normal [facility] Comment on above: Result Comment: 5-50 0.2-1 WEEK 50-500 1-2 WEEKS 100-5,000 2-3 WEEKS 500-10,000 3-4 WEEKS 1,000-50,000 4-5 WEEKS 10,000-100,000 5-6 WEEKS 15,000-200,000 6-8 WEEKS 10,000-100,000 2-3 MONTHS Performed By: #### P REGQNT #### [facility] [address] [place] [address] Dr. Arash Frazier PREG QUANT HCGon 04-21-2022 HCG QUANT 85 mIU/mL Normal [facility] Comment on above: Performed By: #### P REGQNT #### [facility] [address] [place] [address] Dr. Arash Frazier HCG RANGE SEE BELOW Normal [facility] Comment on above: Result Comment: 5-50 0.2-1 WEEK 50-500 1-2 WEEKS 100-5,000 2-3 WEEKS 500-10,000 3-4 WEEKS 1,000-50,000 4-5 WEEKS 10,000-100,000 5-6 WEEKS 15,000-200,000 6-8 WEEKS 10,000-100,000 2-3 MONTHS Performed By: #### P REGQNT #### [facility] [address] [place] [address] Dr. Arash Frazier PREG QUANT HCGon 04-14-2022 HCG QUANT 197 mIU/mL Normal [facility] Comment on above: Performed By: #### P REGQNT #### [facility] [address] [place] [address] Dr. Arash Frazier HCG RANGE SEE BELOW Normal [facility] Comment on above: Result Comment: 5-50 0.2-1 WEEK 50-500 1-2 WEEKS 100-5,000 2-3 WEEKS 500-10,000 3-4 WEEKS 1,000-50,000 4-5 WEEKS 10,000-100,000 5-6 WEEKS 15,000-200,000 6-8 WEEKS 10,000-100,000 2-3 MONTHS Performed By: #### P REGQNT #### [facility] [address] [place] [address] Dr. Arash Frazier PREG QUANT HCGon 04-08-2022 HCG QUANT 269 mIU/mL Normal [facility] Comment on above: Performed By: #### P REGQNT #### [facility] [address] [place] [address] Dr. Arash Frazier HCG RANGE SEE BELOW [facility] Comment on above: Result Comment: 5-50 0.2-1 WEEK 50-500 1-2 WEEKS 100-5,000 2-3 WEEKS 500-10,000 3-4 WEEKS 1,000-50,000 4-5 WEEKS 10,000-100,000 5-6 WEEKS 15,000-200,000 6-8 WEEKS 10,000-100,000 2-3 MONTHS Performed By: #### P REGQNT #### [facility] [address] [place] [address] Dr. Arash Frazier PREG QUANT HCGon 03-31-2022 HCG QUANT 192 mIU/mL Normal [facility] Comment on above: Performed By: #### P REGQNT #### [facility] [address] [place] [address] Dr. Arash Frazier HCG RANGE SEE BELOW Normal [facility] Comment on above: Result Comment: 5-50 0.2-1 WEEK 50-500 1-2 WEEKS 100-5,000 2-3 WEEKS 500-10,000 3-4 WEEKS 1,000-50,000 4-5 WEEKS 10,000-100,000 5-6 WEEKS 15,000-200,000 6-8 WEEKS 10,000-100,000 2-3 MONTHS Performed By: #### P REGQNT #### [facility] [address] [place] [address] Dr. Arash Frazier PREG QUANT HCGon 03-25-2022 HCG QUANT 115 mIU/mL Normal [facility] Comment on above: Performed By: #### P REGQNT #### [facility] [address] [place] [address] Dr. Arash Frazier HCG RANGE SEE BELOW Normal [facility] Comment on above: Result Comment: 5-50 0.2-1 WEEK 50-500 1-2 WEEKS 100-5,000 2-3 WEEKS 500-10,000 3-4 WEEKS 1,000-50,000 4-5 WEEKS 10,000-100,000 5-6 WEEKS 15,000-200,000 6-8 WEEKS 10,000-100,000 2-3 MONTHS Performed By: #### P REGQNT #### [facility] [address] [place] [address] Dr. Arash Frazier PREG QUANT HCGon 03-18-2022 HCG QUANT 41 mIU/mL Normal [facility] Comment on above: Performed By: #### P REGQNT #### [facility] [address] [place] [address] Dr. Arash Frazier HCG RANGE SEE BELOW Normal [facility] Comment on above: Result Comment: 5-50 0.2-1 WEEK 50-500 1-2 WEEKS 100-5,000 2-3 WEEKS 500-10,000 3-4 WEEKS 1,000-50,000 4-5 WEEKS 10,000-100,000 5-6 WEEKS 15,000-200,000 6-8 WEEKS 10,000-100,000 2-3 MONTHS Performed By: #### P REGQNT #### [facility] [address] [place] [address] Dr. Arash Frazier TYPE AND SCREENon 03-18-2022 TYPE AND SCREEN Negative Normal [facility] Comment on above: Performed By: #### P REGQNT #### [facility] [address] [place] [address] Dr. Arash Frazier CBC AUTO DIFFon 03-01-2022 BASO # 0.1 103/ul Normal 0.0-0.1 [facility] Comment on above: Performed By: #### C BC #### [facility] [address] [address] [address] Arash Frazier Basophils/100 WBC (Bld) 0.8 % Normal 0.2-2.0 [facility] Comment on above: Performed By: #### C BC #### [facility] [address] [place] [address] Dr. Arash Frazier EO # 0.2 103/ul Normal 0.0-0.7 [facility] Comment on above: Performed By: #### C BC #### [facility] [address] [place] [address] Dr. Arash Frazier Eosinophils/100 WBC (Bld) 2.0 % Normal 0.9-7.0 [facility] Comment on above: Performed By: #### C BC #### [facility] [address] [place] [address] Dr. Arash Frazier Erythrocyte distribution width (RBC) [Ratio] 13.0 % Normal 11.0-15.0 [facility] Comment on above: Performed By: #### C BC #### [facility] [address] [place] [address] Dr. Arash Frazier Hematocrit (Bld) [Volume fraction] 39.6 % Normal 36.0-48.0 [facility] Comment on above: Performed By: #### C BC #### [facility] [address] [place] [address] Dr. Arash Frazier Hemoglobin (Bld) [Mass/Vol] 12.9 g/dL Normal 12.0-16.0 [facility] Comment on above: Performed By: #### C BC #### [facility] [address] [place] [address] Dr. Arash Frazier IG # 0.03 10e3/ul Normal 0.00-0.03 [facility] Comment on above: Performed By: #### C BC #### [facility] [address] [place] [address] Dr. Arash Frazier IG % 0.3 % Normal 0.0-0.5 [facility] Comment on above: Performed By: #### C BC #### [facility] [address] [place] [address] Dr. Arash Frazier LYMPH # 2.4 103/ul Normal 1.2-3.8 [facility] Comment on above: Performed By: #### C BC #### [facility] [address] [place] [address] Dr. Arash Frazier Lymphocytes/100 WBC (Bld) 20.5 % Normal 20.5-60.0 [facility] Comment on above: Performed By: #### C BC #### [facility] [address] [place] [address] Dr. Arash Frazier MANUAL DIFF REQ NO Normal [facility] Comment on above: Performed By: #### C BC #### [facility] [address] [place] [address] Dr. Arash Frazier MCH (RBC) [Entitic mass] 29.5 pg Normal 26.7-34.0 [facility] Comment on above: Performed By: #### C BC #### [facility] [address] [place] [address] Dr. Arash Frazier MCHC (RBC) [Mass/Vol] 32.6 g/dL Normal 29.9-35.2 [facility] Comment on above: Performed By: #### C BC #### [facility] [address] [place] [address] Dr. Arash Frazier MCV (RBC) [Entitic vol] 90.6 fL Normal 81.0-99.0 [facility] Comment on above: Performed By: #### C BC #### [facility] [address] [place] [address] Dr. Arash Frazier MONO # 0.7 103/ul Normal 0.3-0.8 [facility] Comment on above: Performed By: #### C BC #### [facility] [address] [place] [address] Dr. Arash Frazier Monocytes/100 WBC (Bld) 5.9 % Normal 1.7-12.0 [facility] Comment on above: Performed By: #### C BC #### [facility] [address] [place] [address] Dr. Arash Frazier NEUT # 8.2 103/ul Critically high 1.4-6.5 [facility] Comment on above: Performed By: #### C BC #### [facility] [address] [place] [address] Dr. Arash Frazier Neutrophils/100 WBC (Bld) 70.5 % Normal 43.0-75.0 [facility] Comment on above: Performed By: #### C BC #### [facility] [address] [place] [address] Dr. Arash Frazier Platelet mean volume (Bld) [Entitic vol] 10.1 fL Normal 9.5-13.5 [facility] Comment on above: Performed By: #### C BC #### [facility] [address] [place] [address] Dr. Arash Frazier PLT 217 103/ul Normal 150-450 [facility] Comment on above: Performed By: #### C BC #### [facility] [address] [place] [address] Dr. Arash Frazier RBC 4.37 106/ul Normal 4.20-5.40 [facility] Comment on above: Performed By: #### C BC #### [facility] [address] [place] [address] Dr. Arash Frazier WBC 11.7 103/ul Critically high 4.0-11.0 [facility] Comment on above: Performed By: #### C BC #### [facility] [address] [place] [address] Dr. Arash Frazier PREG QUANT HCGon 03-01-2022 HCG QUANT 19 mIU/mL Normal [facility] Comment on above: Performed By: #### P REGQNT #### [facility] [address] [place] [address] Dr. Arash Frazier HCG RANGE SEE BELOW Normal [facility] Comment on above: Result Comment: 5-50 0.2-1 WEEK 50-500 1-2 WEEKS 100-5,000 2-3 WEEKS 500-10,000 3-4 WEEKS 1,000-50,000 4-5 WEEKS 10,000-100,000 5-6 WEEKS 15,000-200,000 6-8 WEEKS 10,000-100,000 2-3 MONTHS Performed By: #### P REGQNT #### [facility] [address] [place] [address] Dr. Arash Frazier PROF 14(COMP METB)on 022 Albumin [Mass/Vol] 3.8 g/dL Normal 3.4-5.0 [facility] Comment on above: Performed By: #### C MP #### [facility] [address] [place] [address] Dr. Arash Frazier Albumin/Globulin [Mass ratio] 1.0 {ratio} Normal [facility] Comment on above: Performed By: #### C MP #### [facility] [address] [place] [address] Dr. Arash Frazier ALP [Catalytic activity/Vol] 69 U/L Normal 46-116 [facility] Comment on above: Performed By: #### C MP #### [facility] [address] [place] [address] Dr. Arash Frazier ALT [Catalytic activity/Vol] 21 U/L Normal 14-59 [facility] Comment on above: Performed By: #### C MP #### [facility] [address] [place] [address] Dr. Arash Frazier Anion gap [Moles/Vol] 11.6 mmol/L Normal [facility] Comment on above: Performed By: #### C MP #### [facility] [address] [place] [address] Dr. Arash Frazier AST [Catalytic activity/Vol] 13 U/L Critically low 15-37 [facility] Comment on above: Performed By: #### C MP #### [facility] [address] [place] [address] Dr. Arash Frazier Bilirubin [Mass/Vol] 0.2 mg/dL Normal 0.2-1.0 [facility] Comment on above: Performed By: #### C MP #### [facility] [address] [place] [address] Dr. Arash Frazier Calcium [Mass/Vol] 8.8 mg/dL Normal 8.5-10.1 [facility] Comment on above: Performed By: #### C MP #### [facility] [address] [place] [address] Dr. Arash Frazier Chloride [Moles/Vol] 106 mmol/L Normal 98-107 [facility] Comment on above: Performed By: #### C MP #### [facility] [address] [address] [address] Arash Frazier CO2 [Moles/Vol] 28.7 mmol/L Normal 21.0-32.0 [facility] Comment on above: Performed By: #### C MP #### [facility] [address] [place] [address] Dr. Arash Frazier Creatinine [Mass/Vol] 0.75 mg/dL Normal 0.55-1.02 [facility] Comment on above: Performed By: #### C MP #### [facility] [address] [place] [address] Dr. Arash Frazier EGFR-AF CHINESE >60 Normal >=60 [facility] Comment on above: Performed By: #### C MP #### [facility] [address] [place] [address] Dr. Arash Frazier EGFR-NON AF CHINESE >60 Normal >=60 [facility] Comment on above: Performed By: #### C MP #### [facility] [address] [place] [address] Dr. Arash Frazier Globulin (S) [Mass/Vol] 3.7 g/dL Normal [facility] Comment on above: Performed By: #### C MP #### [facility] [address] [place] [address] Dr. Arash Frazier Glucose [Mass/Vol] 102 mg/dL Normal 74-106 [facility] Comment on above: Performed By: #### C MP #### [facility] [address] [place] [address] Dr. Arash Frazier Potassium [Moles/Vol] 4.3 mmol/L Normal 3.5-5.1 [facility] Comment on above: Performed By: #### C MP #### [facility] [address] [address] [address] Arash Frazier Protein [Mass/Vol] 7.5 g/dL Normal 6.4-8.2 [facility] Comment on above: Performed By: #### C MP #### [facility] [address] [place] [address] Dr. Arash Frazier Sodium [Moles/Vol] 142 mmol/L Normal 136-145 [facility] Comment on above: Performed By: #### C MP #### [facility] [address] [place] [address] Dr. Arash Frazier Urea nitrogen [Mass/Vol] 12.0 mg/dL Normal 7.0-18.0 [facility] Comment on above: Performed By: #### C MP #### [facility] [address] [place] [address] Dr. Arash Frazier Urea nitrogen/Creatinine [Mass ratio] 16.0 mg/mg Normal [facility] Comment on above: Performed By: #### C MP #### [facility] [address] [place] [address] Dr. Arash Frazier PROTIMEon 03-01-2022 INR Coag (PPP) [Relative time] 0.95 {INR} Normal [facility] Comment on above: Performed By: #### P TT, PT #### [facility] [address] [place] [address] Dr. Arash Frazier INR GUIDELINES SEE BELOW Normal [facility] Comment on above: Result Comment: MABLE RED INR: 2.0 - 3.0 CONDITIONS NOT LISTED BELOW 2.5 - 3.5 FOR PROSTHETIC HEART VALVE REPLACEMENT 2.5 - 3.5 RECURRENT THROMBOSIS Performed By: #### P TT, PT #### [facility] [address] [place] [address] Dr. Arash Frazier PT Coag (PPP) [Time] 10.3 s Normal 9.0-11.6 [facility] Comment on above: Performed By: #### P TT, PT #### [facility] [address] [place] [address] Dr. Arash Frazier PTTon 03-01-2022 aPTT Coag (Bld) [Time] 29.9 s Normal 22.3-36.2 [facility] Comment on above: Performed By: #### P TT, PT #### [facility] [address] [address] [address] Arash Frazier Vital Signs Date Time Vital Sign Value Performing Clinician Faci lity 02-14-2021 13:30-0400 Body height 172.72 cm Farida Monson Other [employer] Other Encounters Encounter Date Encounter Type Care Provider Facility Start: 09-30-2023 End: 09-30-2023 ambulatory SARAN KIM Not Available Start: 09-22-2023 End: 09-22-2023 ambulatory SARAN KIM Not Available Start: 09-15-2023 End: 09-15-2023 ambulatory SARAN KIM Not Available Start: 09-08-2023 End: 09-08-2023 ambulatory SARAN KIM Not Available Start: 2023 End: 2023 ambulatory SARAN KIM Not Available Start: 08-18-2023 End: 08-18-2023 ambulatory SANJANA JAMES Not Available Start: 08-11-2023 End: 08-11-2023 ambulatory SARAN KIM Not Available Start: 08-04-2023 End: 08-04-2023 ambulatory Saran Ikm Facility:[facility] Start: 08-04-2023 End: 08-04-2023 Departed Referred DO Kalyan Haynes Work Phone: [facility] Start: 08-04-2023 End: 08-04-2023 ambulatory DO Kalyan Haynes Work Phone: [facility] Work Phone: Start: 07-22-2023 End: 07-22-2023 [...] Facility:[facility] Start: 02-18-2021 Telephone encounter Kalyan Haynes [facility] Start: 02-14-2021 (URG) Urgent Care Visit Farida rogers [facility] Start: 02-14-2021 Telephone encounter Kalyan Haynes [facility] Payers Date Payer Category Payer Self-pay 2012 Private Health Insurance [facility] [id number] 1997 Unknown [id number] 06.19.840.1.365450.3.579.2. 593 1997 Unknown [id number] 06.19.840.1.239582.3.579.2. 593 1997 Unknown [id number] 06.19.840.1.441206.3.579.2. 593 1997 Unknown [id number] 2.16.840.1.046471.3.579.2. 593 1997 Unknown [id number] 2.16.840.1.339567.3.579.2. 593 1997 Unknown [id number] 2.16.840.1.065481.3.579.2. 593 1997 Unknown [id number] 2.16.840.1.973355.3.579.2. 59 1997 Unknown [id number] 2.16.840.1.770945.3.579.2. 59 1997 Unknown [id number] 2.16.840.1.438321.3.579.2. 1258 1997 Unknown [id number] 2.16.840.1.373637.3.579.2. 1258 1997 Unknown [id number] 2.16.840.1.072353.3.579.2. 1258 1997 Unknown [id number] 2.16.840.1.165152.3.579.2. 1258 1997 Unknown [id number] 2.16.840.1.712920.3.579.2. 1258 1997 Unknown [id number] 2.16.840.1.355290.3.579.2. 1258 1997 Unknown [id number] 2.16.840.1.239620.3.579.2. 1258 1997 Unknown [id number] 2.16.840.1.984443.3.579.2. 1258 1997 Unknown [id number] 2.16.840.1.634082.3.579.2. 1258 1997 Unknown [id number] 2.16.840.1.282933.3.579.2. 1258 1997 Unknown [id number] 2.16.840.1.953647.3.579.2. 1258 1997 Unknown [id number] 2.16.840.1.502268.3.579.2. 1259 1997 Unknown [id number] 2.16.840.1.081046.3.579.2. 9 1997 Unknown [id number] 2.16.840.1.340342.3.579.2. 1259 1959 Unknown [id number] 2.16.840.1.033313.19 Unknown Laine BC/BS [id number] Unknown [id number] Social History Date Type Detail Facility Unknown if ever smoked [facility] Other Sex Assigned At Sex Assigned At Bir th [facility] Other Start: 02-14-2021 Tobacco smoking status NHIS Never smoked tobacco (finding) [facility] Start: 1995 Sex Assigned At Female F [facility] Evaluation note 02-14-2021 Note Date & Type Note Facility 02-14-2021 Evaluation note Encounter Date Diagnosis Assessment Notes Feb, Body aches (ICD-10 - R52) Feb, Loss of taste (ICD-10 - R43.2) [facility] Other Evaluation note 02-14-2021 Note Date & [...] Patient care instructions given in writting by [facility] At Home document. [facility] Other History general Narrative - Reported 08-18-2016 Note Date & Type Note Facility 08-18-2016 History general N arrative - Reported Type Medical History Varicella Vaccine 2010 Surgical History lt wrist pin [facility] Surgical History rt ankle fixation [facility] Surgical History removed external fixator 10/2016 Surgical History removed pin from left wrist 10/03 017 Surgical History wisdom teeth extract Hospitalization History see above [facility] Other Evaluation note Note Date & Type Note Facility Evaluation note No Information [facility] Other Evaluation note Note Date & Type Note Facility Evaluation note No assessment information availa [facility] Work Phone: Summary Purpose Family History No [...] content) DATE CREATED AUTHOR 10/11/2022 [facility] DATE CREATED AUTHOR AUTHOR'S ORGANIZ ATION 08/08/2023 [facility] DATE CREATED AUTHOR AUTHOR'S ORGANIZ ATION 10/01/[address] [facility] EPIC Care Teams (unrecognized [...] BE BASED ON THE PRIMARY CLINICAL RECORDS. [facility] provides no warranty or guarantee of the accuracy or completeness of information in this document.
[2023-10-06] MEDS: 0.9 % SODIUM CHLORIDE 1,000 ML 125 ML IV (00:50)
[2023-10-06 01:08] LABS: Hematocrit 33.8 % (36.0-48.0); Mean Corpuscular HGB Conc 32.5 g/dL (29.9-35.2); Mean Corpuscular Hemoglobin 30.1 pg (26.7-34.0); Mean Corpuscular Volume 92.3 fL (81.0-99.0); Platelet Count 200 10^3/uL (150-450); Red Blood Count 3.66 10^6/uL (4.20-5.40); Red Cell Distribution Width 14.1 % (11.0-15.0); White Blood Count 11.6 10^3/uL (4.0-11.0)
[2023-10-06 01:10] LABS: Bilirubin Urine NEGATIVE (NEGATIVE); Blood Urine NEGATIVE (NEGATIVE); Clarity Urine CLEAR (CLEAR); Color Urine LT. YELLOW (YELLOW); Glucose Urine UA NEGATIVE (NEGATIVE); Ketones Urine NEGATIVE (NEGATIVE); Leukocyte Esterase Urine NEGATIVE (NEGATIVE); Nitrite Urine NEGATIVE (NEGATIVE); Protein Urine NEGATIVE (NEG/TRACE); Urobilinogen Urine 0.2 EU/dL (0.2-1.0); pH Urine 6.5 (5.0-9.0)
[2023-10-06 01:11] LABS: Urine Microscopic Indicated NO
[2023-10-06] MEDS: 0.9 % SODIUM CHLORIDE 1,000 ML 1000 ML IV (01:21)
[2023-10-06 01:24] LABS: Amphetamine Screen Urine NEGATIVE (NEGATIVE); Barbiturates Screen Urine NEGATIVE (NEGATIVE); Benzodiazepines Screen Urine NEGATIVE (NEGATIVE); Buprenorphine Screen Urine NEGATIVE (NEGATIVE); Cannabinoid Screen Urine NEGATIVE (NEGATIVE); Cocaine Screen Urine NEGATIVE (NEGATIVE); Methadone Screen Urine NEGATIVE (NEGATIVE); Methamphetamines Screen Urine NEGATIVE (NEGATIVE); Opiate Screen Urine NEGATIVE (NEGATIVE); Oxycodone Screen Urine NEGATIVE (NEGATIVE); Phencyclidine Screen Urine NEGATIVE (NEGATIVE); Tricyclic Antidepressant Urine NEGATIVE (NEGATIVE)
[2023-10-06] MEDS: ROPIVACAINE HCL/PF 400 MG/200 ML PREMIX 6 MG EPIDURAL (02:19)
--- NOTE | 2023-10-06 07:26 | PM.OBPRCVD ---
Procedure Intrapartal events: None Induction method: none Delivery augmentation: rupture of membranes Delivery monitor: external FHT and external uterine Route of delivery: Episiotomy Description: none L&D Laceration Description: periurethral - 1st degree Delivery repair: Vicryl Estimated blood loss (mL): 200 Anesthesia type: Epidural Disposition: floor Infant Delivery date: 10/06/23 Gender: female presentation: vertex Placental delivery description: Spontaneous and Normal Configuration cord description: 3 Vessels
[2023-10-06] MEDS: ACETAMINOPHEN 325 MG TABLET 650 MG PO (07:54)
[2023-10-06] MEDS: BENZOCAINE/MENTHOL 85 GRAM SPRAY BOTTLE 1 APPLIC TOPICAL (07:54)
[2023-10-06] MEDS: IBUPROFEN 600 MG TABLET PO ×2 (07:54→18:08)
[2023-10-06] MEDS: GLYCERIN/WITCH HAZEL PADS 1 PAD TOPICAL (07:54)
[2023-10-06] MEDS: OXYTOCIN/0.9 % SODIUM CHLORIDE 20 UNITS/1,000 ML PLAST..BAG 125 UNIT IV (08:02)
[2023-10-07 01:12] VITALS: TEMP 37.1
[2023-10-07 01:21] VITALS: BP 132/65; PULSE 93
[2023-10-07 05:31] LABS: Basophils Absolute Auto 0.1 10^3/uL (0.0-0.1); Basophils Percent Auto 0.6 % (0.2-2.0); Eosinophils Absolute Auto 0.2 10^3/uL (0.0-0.7); Eosinophils Percent Auto 1.4 % (0.9-7.0); Hematocrit 28.9 % (36.0-48.0); Hemoglobin 9.2 g/dL (12.0-16.0); Immature Granulocytes Abs Auto 0.11 10^3/uL (0.00-0.03); Immature Granulocytes Pct Auto 0.9 % (0.0-0.5); Lymphocytes Absolute Auto 3.2 10^3/uL (1.2-3.8); Lymphocytes Percent Auto 25.2 % (20.5-60.0); Mean Corpuscular HGB Conc 31.8 g/dL (29.9-35.2); Mean Corpuscular Hemoglobin 29.8 pg (26.7-34.0); Mean Corpuscular Volume 93.5 fL (81.0-99.0); Mean Platelet Volume 11.1 fL (9.5-13.5); Monocytes Percent Auto 7.6 % (1.7-12.0); Neutrophils Absolute Auto 8.1 10^3/uL (1.4-6.5); Neutrophils Percent Auto 64.3 % (43.0-75.0); Platelet Count 171 10^3/uL (150-450); Red Blood Count 3.09 10^6/uL (4.20-5.40); Red Cell Distribution Width 14.6 % (11.0-15.0); White Blood Count 12.6 10^3/uL (4.0-11.0)
--- NOTE | 2023-10-07 07:39 | P.OBPN_ITS ---
OB - PN: Subj Subjective Patient comments: no complaints and pain well controlled [place] status: doing well Exam Constitutional Vital Signs, click to edit/add: Last Vital Signs Temp 98.8 F 10/07/23 01:12 Pulse 93 H 10/07/23 01:21 Resp 18 10/07/23 01:12 BP 132/65 10/07/23 01:21 O2 Del Method Room Air 10/07/23 01:12 Documenting provider has reviewed patient's vital signs: yes Common normals: no apparent distress Respiratory Common normals: normal respiratory effort and clear to auscultation bilaterally Cardio Common normals: regular rate and regular rhythm GI Common normals: Normal to inspection, nondistended, normoactive bowel sounds present Extremity Common normals: no clubbing, cyanosis or edema and no calf tenderness Results Labs Labs: Short CBC 10/07/23 Range/Units 05:09 WBC 12.6 H (4.0-11.0) 10^3/uL Hgb 9.2 L (12.0-16.0) g/dL Hct 28.9 L (36.0-48.0) % Plt Count 171 (150-450) 10^3/uL OB - PN: A/P Plan - Vaginal Delivery day: 1 Plan: routine care, discharge home and follow up 6 weeks Time Spent with Patient Time: Total time spent is greater than 50% in coordination of care (as documented) at patient's floor/unit and/or counseling patient: Total time spent with greater than 50% in coordination of care (as documented) at patient's floor/unit and/or counseling patient: less than 15 minutes
[2023-10-07 08:00] VITALS: BP 137/69; PULSE 95
[2023-10-07] MEDS: IBUPROFEN 600 MG TABLET PO (08:11)
[2023-10-07] MEDS: DOCUSATE SODIUM 100 MG CAPSULE PO (08:11)
[2023-10-07 08:17] VITALS: TEMP 36.7
[2023-10-07] MEDS: RHO(D) IMMUNE GLOBULIN 1,500 UNIT SYRINGE 1500 UNIT IM (09:12)
== END 2023-10-07 12:50 | disposition home or self-care (01) | DRG 807 ==
PROVIDERS: Admitting Provider Obstetrics & Gynecology; Visit Provider Obstetrics & Gynecology
DX: O70.0 First degree perineal laceration during delivery (principal); Z37.0 Single live birth; O26.893 Other specified pregnancy related conditions, third trimester; Z67.41 Type O blood, Rh negative; Z3A.40 40 weeks gestation of pregnancy
CPT/HCPCS: 36415; 51702; 59050; 59410; 80307; 81003; 85025; 85027; 85461; 86850; 86900; 86901; 96372; 96374; J2790

== ENCOUNTER 2023-12-15 14:05 | Outpatient (OUT) | payer OTHER, SELFPAY ==
--- NOTE | 2023-12-15 | XR_ITS ---
The [address] [address] Patient Name: JAYDEN BRIONES MRN: [id number] date: 1995 Sex: F Assigned Patient Location: Current Patient Location: Accession/Order Number: [id number] Exam Date: 12/15/2023 14:05 Report Date: 12/17/2023 13:43 At the request of: EDWIGE WILSON Procedure: XR foot RT min 3V PROCEDURE: XR foot RT min 3V, XR ankle RT min 3V HISTORY: RIGHT FOOT PAIN COMPARISON: None. FINDINGS: BONES:Evidence of remote fracture and healing involving the medial malleolus and the calcaneus. No acute fracture, dislocation, bone lesion. No significant degenerative joint disease. SOFT TISSUES:No visible soft tissue swelling. EFFUSION:None visible. OTHER: Negative. XR/XR foot RT min 3V IMPRESSION: 1. Evidence of remote fractures and healing. 2. No suspicious findings to account for patient's symptoms. Electronically authenticated by: JOHNNIE RESTREPO Date: 12/17/2023 13:43
--- NOTE | 2023-12-15 | XR_ITS ---
The [address] [address] Patient Name: JAYDEN BRIONES MRN: [id number] date: 1995 Sex: F Assigned Patient Location: Current Patient Location: Accession/Order Number: [id number] Exam Date: 12/15/2023 14:05 Report Date: 12/17/2023 13:43 At the request of: EDWIGE WILSON Procedure: XR ankle RT min 3V PROCEDURE: XR foot RT min 3V, XR ankle RT min 3V HISTORY: RIGHT FOOT PAIN COMPARISON: None. FINDINGS: BONES:Evidence of remote fracture and healing involving the medial malleolus and the calcaneus. No acute fracture, dislocation, bone lesion. No significant degenerative joint disease. SOFT TISSUES:No visible soft tissue swelling. EFFUSION:None visible. OTHER: Negative. XR/XR ankle RT min 3V IMPRESSION: 1. Evidence of remote fractures and healing. 2. No suspicious findings to account for patient's symptoms. Electronically authenticated by: JOHNNIE RESTREPO Date: 12/17/2023 13:43
--- OUTSIDE RECORDS SUMMARY | 2023-12-15 14:19 | XMS_ITS | CCD ---
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 Role Phone Kalyan Haynes Unavailable IonaFarida Unavailable KIM ., DR NOONAN Admitting Unavailable [...] Unavailable KIM ., DR NOONAN Admitting Unavailable [place], DR BIGGS Consulting Unavailable KIM ., DR [...] Unavailable GIRMIREYA, DR BIGGS Primary Care Unavailable Ivy, DO Biggs Primary Care Provider [phone] Kim, Saran Attending Provider Kim, Saran Admitting Unavailable Kim, Saran Attending Unavailable Kalyan Haynes Primary Care Unavailable JAMES, SANJANA Attending Unavailable KIM, SARAN Attending Unavailable JAMES, SANJANA Attending Unavailable KIM, SARAN Attending Unavailable KIM, SARAN Attending Unavailable JAMES, SANJANA Attending Unavailable KIM, SARAN Attending Unavailable JAMES, SANJANA Attending Unavailable KIM, SARAN Attending Unavailable KIM, SARAN Attending Unavailable KIM, SRAAN Attending Unavailable KIM, SARAN Attending Unavailable KIM, SARAN Attending Unavailable KIM, SARAN Attending Unavailable KIM, SARAN Attending Unavailable Allergies Allergy Classification Reported Allergen(s) Allergy Type Date of Onset Reaction(s) Facility (3 sources) Amoxicillin Drug Allergy [facility] Other (1 source) Amoxicillin Drug Allergy 03-08-2020 [facility] Repository (1 source) Amoxicillin Drug Allergy 02-14-2021 [facility] Repository Medications Current Medications Medication Drug Class(es) [...] Range Facil ollie Dan 08-04-2023 L Specimen: [id number] Received: 08/05/23 Status: MICHAEL Schaefer Num: [id number] Spec Type: Surgical Subm Dr: Saran Alvarez [...] Sex Location Account Attending Physician Mercy Briones 27/ LABELL [id number] Saran Alvarez SPEC NUM: [id number] RECD: 08/05/23 STATUS: MICHAEL WADEKevin NUM: [id number] LOPEZ: 08/04/23- SUBM DR: Saran Alvarez ENTERED: 08/05/23 [facility] DR: Augustus,Lab SPEC TYPE: Surgical DEPT: ANTHONY [...] at the base of the excision Specimen: [id number] Received: 08/05/23 Status: MICHAEL Olive Num: [id number] Spec Type: Surgical Subm Dr: Saran Alvarez Tissues: A Skin-Other than Cyst, tag, debridement or plastic repair (RT POST NECK) B Skin-Other than Cyst, tag, debridement or plastic repair (RT BREAST 9:00) C Skin-Other than Cyst, tag, debridement or plastic repair (RT BREAST 8:00) D Skin-Other than Cyst, tag, debridement or plastic repair (RT FLANK) Procedures: GUNNAR/Niles, Juliocesar/Bennett L4/4 Patient: Mercy Briones [id number] (Continued) Specimen: [id number] Received: 08/05/23 (Continued) Signed (signature on file) Anabell Frazier MD 08/08/23 1834 Specimen: [id number] Received: 08/05/23 Status: MICHAEL Schaefer Num: [id number] Spec Type: Surgical Subm Dr: Saran Alvarez Tissues: A Skin-Other than Cyst, tag, debridement or plastic repair (RT POST NECK) B Skin-Other than Cyst, tag, debridement or plastic repair (RT BREAST 9:00) C Skin-Other than Cyst, tag, debridement or plastic repair (RT BREAST 8:00) D Skin-Other than Cyst, tag, debridement or plastic repair (RT FLANK) Procedures: HE/4, Gross/Micro L4/4 Patient: Mercy Briones [id number] (Continued) Specimen: [id number] Received: 08/05/23135 (Continued) Clinical Information Skin moles removed Gross [...] CPT Codes 88 (more content not included)... [facility] US PREG TVon 09-11-2022 US PREG [...] JOHNNIE RESTREPO Date: 2022-09-11 15:59 Normal [facility] US PREG TVon 09-04-2022 US PREG [...] KALYAN BACK Date: 2022-09-04 17:37 Normal [facility] PREG QUANT HCGon 05-13-2022 HCG QUANT 6 mIU/mL Normal [facility] Comment on above: Performed By: #### P REGQNT #### [facility] [address] [place] [address] Dr. Arash Frazier HCG RANGE SEE BELOW Normal [facility] Comment on above: Result Comment: 5-50 0.2-1 WEEK 50-500 1-2 WEEKS 100-5,000 2-3 WEEKS 500-10,000 3-4 WEEKS 1,000-50,000 4-5 WEEKS 10,000-100,000 5-6 WEEKS 15,000-200,000 6-8 WEEKS 10,000-100,000 2-3 MONTHS Performed By: #### P REGQNT #### [facility] [address] [place] [address] Dr. Arash Frazier PREG QUANT HCGon 05-02-2022 HCG QUANT 23 mIU/mL Normal [facility] Comment on above: Performed By: #### P REGQNT #### [facility] [address] [place] [address] Dr. Arash Frazier HCG RANGE SEE BELOW Normal [facility] Comment on above: Result Comment: 5-50 0.2-1 WEEK 50-500 1-2 WEEKS 100-5,000 2-3 WEEKS 500-10,000 3-4 WEEKS 1,000-50,000 4-5 WEEKS 10,000-100,000 5-6 WEEKS 15,000-200,000 6-8 WEEKS 10,000-100,000 2-3 MONTHS Performed By: #### P REGQNT #### [facility] [address] [place] [address] Dr. Arash Frazier PREG QUANT HCGon 04-21-2022 HCG QUANT 85 mIU/mL Normal [facility] Comment on above: Performed By: #### P REGQNT #### [facility] [address] [place] [address] Dr. Arash Frazier HCG RANGE SEE BELOW Normal [facility] Comment on above: Result Comment: 5-50 0.2-1 WEEK 50-500 1-2 WEEKS 100-5,000 2-3 WEEKS 500-10,000 3-4 WEEKS 1,000-50,000 4-5 WEEKS 10,000-100,000 5-6 WEEKS 15,000-200,000 6-8 WEEKS 10,000-100,000 2-3 MONTHS Performed By: #### P REGQNT #### [facility] [address] [place] [address] Dr. Arash Frazier PREG QUANT HCGon 04-14-2022 HCG QUANT 197 mIU/mL Normal [facility] Comment on above: Performed By: #### P REGQNT #### [facility] [address] [place] [address] Dr. Arash Frazier HCG RANGE SEE BELOW Normal [facility] Comment on above: Result Comment: 5-50 0.2-1 WEEK 50-500 1-2 WEEKS 100-5,000 2-3 WEEKS 500-10,000 3-4 WEEKS 1,000-50,000 4-5 WEEKS 10,000-100,000 5-6 WEEKS 15,000-200,000 6-8 WEEKS 10,000-100,000 2-3 MONTHS Performed By: #### P REGQNT #### [facility] [address] [place] [address] Dr. Arash Frazier PREG QUANT HCGon 04-08-2022 HCG QUANT 269 mIU/mL Normal [facility] Comment on above: Performed By: #### P REGQNT #### [facility] [address] [place] [address] Dr. Arash Frazier HCG RANGE SEE BELOW Normal [facility] Comment on above: Result Comment: 5-50 0.2-1 WEEK 50-500 1-2 WEEKS 100-5,000 2-3 WEEKS 500-10,000 3-4 WEEKS 1,000-50,000 4-5 WEEKS 10,000-100,000 5-6 WEEKS 15,000-200,000 6-8 WEEKS 10,000-100,000 2-3 MONTHS Performed By: #### P REGQNT #### [facility] [address] [place] [address] Dr. Arash Frazier PREG QUANT HCGon 03-31-2022 HCG QUANT 192 mIU/mL Normal [facility] Comment on above: Performed By: #### P REGQNT #### [facility] [address] [place] [address] Dr. Arash Frazier HCG RANGE SEE BELOW Normal [facility] Comment on above: Result Comment: 5-50 0.2-1 WEEK 50-500 1-2 WEEKS 100-5,000 2-3 WEEKS 500-10,000 3-4 WEEKS 1,000-50,000 4-5 WEEKS 10,000-100,000 5-6 WEEKS 15,000-200,000 6-8 WEEKS 10,000-100,000 2-3 MONTHS Performed By: #### P REGQNT #### [facility] [address] [place] [address] Dr. Arash Frazier PREG QUANT HCGon 03-25-2022 HCG QUANT 115 mIU/mL Normal [facility] Comment on above: Performed By: #### P REGQNT #### [facility] [address] [place] [address] Dr. Arash Frazier HCG RANGE SEE BELOW Normal [facility] Comment on above: Result Comment: 5-50 0.2-1 WEEK 50-500 1-2 WEEKS 100-5,000 2-3 WEEKS 500-10,000 3-4 WEEKS 1,000-50,000 4-5 WEEKS 10,000-100,000 5-6 WEEKS 15,000-200,000 6-8 WEEKS 10,000-100,000 2-3 MONTHS Performed By: #### P REGQNT #### [facility] [address] [place] [address] Dr. Arash Frazier PREG QUANT HCGon 03-18-2022 HCG QUANT 41 mIU/mL Normal [facility] Comment on above: Performed By: #### P REGQNT #### [facility] [address] [place] [address] Dr. Arash Frazier HCG RANGE SEE BELOW Normal [facility] Comment on above: Result Comment: 5-50 0.2-1 WEEK 50-500 1-2 WEEKS 100-5,000 2-3 WEEKS 500-10,000 3-4 WEEKS 1,000-50,000 4-5 WEEKS 10,000-100,000 5-6 WEEKS 15,000-200,000 6-8 WEEKS 10,000-100,000 2-3 MONTHS Performed By: #### P REGQNT #### [facility] [address] [place] [address] Dr. Arash Frazier TYPE AND SCREENon 03-18-2022 TYPE AND SCREEN Negative Normal [facility] Comment on above: Performed By: #### P REGQNT #### [facility] [address] [place] [address] Dr. Arash Frazier CBC AUTO DIFFon 03-01-2022 BASO # 0.1 103/ul Normal 0.0-0.1 [facility] Comment on above: Performed By: #### C BC #### [facility] [address] [place] [address] Dr. Arash Frazier Basophils/100 WBC (Bld) 0.8 % Normal 0.2-2.0 [facility] Comment on above: Performed By: #### C BC #### [facility] [address] [place] [address] Dr. Arash Frazier EO # 0.2 103/ul Normal 0.0-0.7 [facility] Comment on above: Performed By: #### C BC #### [facility] [address] [place] [address] Dr. Arash Frazier Eosinophils/100 WBC (Bld) 2.0 % Normal 0.9-7.0 [facility] Comment on above: Performed By: #### C BC #### [facility] [address] [place] [address] Dr. Arash Frazier Erythrocyte distribution width (RBC) [Ratio] 13.0 % Normal 11.0-15.0 [facility] Comment on above: Performed By: #### C BC #### [facility] [address] [place] [address] Dr. Arash Frazier Hematocrit (Bld) [Volume fraction] 39.6 % Normal 36.0-48.0 [facility] Comment on above: Performed By: #### C BC #### [facility] [address] [place] [address] Dr. Arash Frazier Hemoglobin (Bld) [Mass/Vol] 12.9 g/dL Normal 12.0-16.0 [facility] Comment on above: Performed By: #### C BC #### [facility] [address] [place] [address] Dr. Arash Frazier IG # 0.03 10e3/ul Normal 0.00-0.03 [facility] Comment on above: Performed By: #### C BC #### [facility] [address] [place] [address] Dr. Arash Frazier IG % 0.3 % Normal 0.0-0.5 [facility] Comment on above: Performed By: #### C BC #### [facility] [address] [place] [address] Dr. Arash Frazier LYMPH # 2.4 103/ul Normal 1.2-3.8 [facility] Comment on above: Performed By: #### C BC #### [facility] [address] [place] [address] Dr. Arash Frazier Lymphocytes/100 WBC (Bld) 20.5 % Normal 20.5-60.0 [facility] Comment on above: Performed By: #### C BC #### [facility] [address] [place] [address] Dr. Arash Frazier MANUAL DIFF REQ NO Normal [facility] Comment on above: Performed By: #### C BC #### [facility] [address] [place] [address] Dr. Arash Frazier MCH (RBC) [Entitic mass] 29.5 pg Normal 26.7-34.0 [facility] Comment on above: Performed By: #### C BC #### [facility] [address] [place] [address] Dr. Arash Frazier MCHC (RBC) [Mass/Vol] 32.6 g/dL Normal 29.9-35.2 [facility] Comment on above: Performed By: #### C BC #### [facility] [address] [place] [address] Dr. Arash Frazier MCV (RBC) [Entitic vol] 90.6 fL Normal 81.0-99.0 [facility] Comment on above: Performed By: #### C BC #### [facility] [address] [place] [address] Dr. Arash Frazier MONO # 0.7 103/ul Normal 0.3-0.8 [facility] Comment on above: Performed By: #### C BC #### [facility] [address] [place] [address] Dr. Arash Frazier Monocytes/100 WBC (Bld) 5.9 % Normal 1.7-12.0 [facility] Comment on above: Performed By: #### C BC #### [facility] [address] [address] [address] Arash Frazier NEUT # 8.2 103/ul Critically high 1.4-6.[address] [facility] Comment on above: Performed By: #### C BC #### [facility] [address] [place] [address] Dr. Arash Frazier Neutrophils/100 WBC (Bld) 70.5 % Normal 43.0-75.0 [facility] Comment on above: Performed By: #### C BC #### [facility] [address] [place] [address] Dr. Arash Frazier Platelet mean volume (Bld) [Entitic vol] 10.1 fL Normal 9.5-13.5 [facility] Comment on above: Performed By: #### C BC #### [facility] [address] [place] [address] Dr. Arash Frazier PLT 217 103/ul Normal 150-450 [facility] Comment on above: Performed By: #### C BC #### [facility] [address] [place] [address] Dr. Arash Frazier RBC 4.37 106/ul Normal 4.20-5.40 [facility] Comment on above: Performed By: #### C BC #### [facility] [address] [place] [address] Dr. Arash Frazier WBC 11.7 103/ul Critically high 4.0-11.0 [facility] Comment on above: Performed By: #### C BC #### [facility] [address] [place] [address] Dr. Arash Frazier PREG QUANT HCGon 03-01-2022 HCG QUANT 19 mIU/mL Normal [facility] Comment on above: Performed By: #### P REGQNT #### [facility] [address] [place] [address] Dr. Arash Frazier HCG RANGE SEE BELOW Normal [facility] Comment on above: Result Comment: 5-50 0.2-1 WEEK 50-500 1-2 WEEKS 100-5,000 2-3 WEEKS 500-10,000 3-4 WEEKS 1,000-50,000 4-5 WEEKS 10,000-100,000 5-6 WEEKS 15,000-200,000 6-8 WEEKS 10,000-100,000 2-3 MONTHS Performed By: #### P REGQNT #### [facility] [address] [place] [address] Dr. Arash Frazier PROF 14(COMP METB)on 03-01- 022 Albumin [Mass/Vol] 3.8 g/dL Normal 3.4-5.0 [facility] Comment on above: Performed By: #### C MP #### [facility] [address] [place] [address] Dr. Arash Frazier Albumin/Globulin [Mass ratio] 1.0 {ratio} Normal [facility] Comment on above: Performed By: #### C MP #### [facility] [address] [place] [address] Dr. Arash Frazier ALP [Catalytic activity/Vol] 69 U/L Normal 46-116 [facility] Comment on above: Performed By: #### C MP #### [facility] [address] [place] [address] Dr. Arash Frazier ALT [Catalytic activity/Vol] 21 U/L Normal 14-59 [facility] Comment on above: Performed By: #### C MP #### [facility] [address] [place] [address] Dr. Arash Frazier Anion gap [Moles/Vol] 11.6 mmol/L Normal [facility] Comment on above: Performed By: #### C MP #### [facility] [address] [place] [address] Dr. Arash Frazier AST [Catalytic activity/Vol] 13 U/L Critically low 15-37 [facility] Comment on above: Performed By: #### C MP #### [facility] [address] [place] [address] Dr. Arash Frazier Bilirubin [Mass/Vol] 0.2 mg/dL Normal 0.2-1.0 [facility] Comment on above: Performed By: #### C MP #### [facility] [address] [place] [address] Dr. Arash Frazier Calcium [Mass/Vol] 8.8 mg/dL Normal 8.5-10.1 [facility] Comment on above: Performed By: #### C MP #### [facility] [address] [place] [address] Dr. Arash Frazier Chloride [Moles/Vol] 106 mmol/L Normal 98-107 [facility] Comment on above: Performed By: #### C MP #### [facility] [address] [address] [address] Arash Frazier CO2 [Moles/Vol] 28.7 mmol/L Normal 21.0-32.0 [facility] Comment on above: Performed By: #### C MP #### [facility] [address] [place] [address] Dr. Arash Frazier Creatinine [Mass/Vol] 0.75 mg/dL Normal 0.55-1.02 [facility] Comment on above: Performed By: #### C MP #### [facility] [address] [place] [address] Dr. Arash Frazier EGFR-AF ESTONIAN >60 Normal >=60 [facility] Comment on above: Performed By: #### C MP #### [facility] [address] [place] [address] Dr. Arash Frazier EGFR-NON AF ESTONIAN >60 Normal >=60 [facility] Comment on above: Performed By: #### C MP #### [facility] [address] [place] [address] Dr. Arash Frazier Globulin (S) [Mass/Vol] 3.7 g/dL Normal [facility] Comment on above: Performed By: #### C MP #### [facility] [address] [place] [address] Dr. Arash Frazier Glucose [Mass/Vol] 102 mg/dL Normal 74-106 [facility] Comment on above: Performed By: #### C MP #### [facility] [address] [place] [address] Dr. Arash Frazier Potassium [Moles/Vol] 4.3 mmol/L Normal 3.5-5.1 [facility] Comment on above: Performed By: #### C MP #### [facility] [address] [address] [address] Arash Frazier Protein [Mass/Vol] 7.5 g/dL Normal 6.4-8.2 [facility] Comment on above: Performed By: #### C MP #### [facility] [address] [address] [address] Arash Frazier Sodium [Moles/Vol] 142 mmol/L Normal 136-145 [facility] Comment on above: Performed By: #### C MP #### [facility] [address] [address] [address] Arash Frazier Urea nitrogen [Mass/Vol] 12.0 mg/dL Normal 7.0-18.0 [facility] Comment on above: Performed By: #### C MP #### [facility] [address] [place] [address] Dr. Arash Frazier Urea nitrogen/Creatinine [Mass ratio] 16.0 mg/mg Normal [facility] Comment on above: Performed By: #### C MP #### [facility] [address] [place] [address] Dr. Arash Frazier PROTIMEon 03-01-2022 INR Coag (PPP) [Relative time] 0.95 {INR} Normal [facility] Comment on above: Performed By: #### P TT, PT #### [facility] [address] [place] [address] Dr. Arash Frazier INR GUIDELINES SEE BELOW Normal [facility] Comment on above: Result Comment: MABLE RED INR: 2.0 - 3.0 CONDITIONS NOT LISTED BELOW 2.5 - 3.5 FOR PROSTHETIC HEART VALVE REPLACEMENT 2.5 - 3.5 RECURRENT THROMBOSIS Performed By: #### P TT, PT #### [facility] [address] [place] [address] Dr. Arash Frazier PT Coag (PPP) [Time] 10.3 s Normal 9.0-11.6 [facility] Comment on above: Performed By: #### P TT, PT #### [facility] [address] [place] [address] Dr. Arash Frazier PTTon 03-01-2022 aPTT Coag (Bld) [Time] 29.9 s Normal 22.3-36.2 [facility] Comment on above: Performed By: #### P TT, PT #### [facility] [address] [address] [address] Arash Frazier Vital Signs Date Time Vital Sign Value Performing Clinician Faci lity 02-14-2021 13:30-0400 Body height 172.72 cm Farida Monson Other [facility] Other Encounters Encounter Date Encounter Type Care Provider Facility Start: 11-18-2023 End: 11-18-2023 ambulatory SARAN KIM Not Available Start: 09-30-2023 End: 09-30-2023 ambulatory SARAN KIM Not Available Start: 09-22-2023 End: 09-22-2023 ambulatory SARAN KIM Not Available Start: 09-15-2023 End: 09-15-2023 ambulatory SARAN KIM Not Available Start: 09-08-2023 End: 09-08-2023 ambulatory SARAN KIM Not Available Start: 2023 End: 2023 ambulatory SARAN KIM Not Available Start: 08-18-2023 End: 08-18-2023 ambulatory SANJANA RAMIREZ Not Available Start: 08-11-2023 End: 08-11-2023 ambulatory SARAN KIM Not Available Start: 08-04-2023 End: 08-04-2023 ambulatory Saran Kim Facility:[facility] Start: 08-04-2023 End: 08-04-2023 ambulatory DO Kalyan Haynes Work Phone: [facility] Work Phone: Start: 08-04-2023 End: 08-04-2023 Departed Referred DO Kalyan Haynes Work Phone: [facility] Start: 08-04-2023 End: 08-04-2023 ambulatory SARAN KIM Not Available Start: 07-22-2023 End: 07-22-2023 ambulatory SANJANA RAMIREZ Not Available Start: 06-23-2023 End: 06-23-2023 ambulatory SARAN KIM Not Available Start: 05-26-2023 End: 05-26-2023 ambulatory SANJANA RAMIREZ [...] Facility:[facility] Start: 02-18-2021 Telephone encounter Kalyan Haynes [facility] [place] Start: 02-14-2021 (URG) Urgent Care Visit Farida rogers [facility] [place] Start: 02-14-2021 Telephone encounter Kalyan Haynes [facility] [place] Payers Date Payer Category Payer Self-pay 2012 Private Health Insurance [facility] [id number] 1997 Unknown [id number] 2.16.840.1.921995.3.579.2. 593 1997 Unknown [id number] 2.16.840.1.270375.3.579.2. 593 1997 Unknown [id number] 2.16.840.1.774841.3.579.2. 593 1997 Unknown [id number] 2.16.840.1.875213.3.579.2. 593 1997 Unknown [id number] 2.16.840.1.017775.3.579.2. 593 1997 Unknown [id number] 2.16.840.1.301187.3.579.2. 593 1997 Unknown [id number] 2.16.840.1.368272.3.579.2. 593 1997 Unknown [id number] 2.16.840.1.532970.3.579.2. 59 1997 Unknown [id number] 2.16.840.1.197367.3.579.2. 1258 1997 Unknown [id number] 2.16.840.1.369824.3.579.2. 1258 1997 Unknown [id number] 2.16.840.1.535999.3.579.2. 1258 1997 Unknown [id number] 2.16.840.1.026578.3.579.2. 1258 1997 Unknown [id number] 2.16.840.1.588392.3.579.2. 1258 1997 Unknown [id number] 2.16.840.1.429855.3.579.2. 1258 1997 Unknown [id number] 2.16.840.1.127825.3.579.2. 1258 1997 Unknown [id number] 2.16.840.1.655147.3.579.2. 1258 1997 Unknown [id number] 2.16.840.1.150707.3.579.2. 1258 1997 Unknown [id number] 2.16.840.1.711983.3.579.2. 1258 1997 Unknown [id number] 2.16.840.1.913596.3.579.2. 1258 1997 Unknown [id number] 2.16.840.1.549803.3.579.2. 1258 1997 Unknown [id number] 2.16.840.1.947868.3.579.2. 1258 1997 Unknown [id number] 2.16.840.1.324128.3.579.2. 1258 1997 Unknown [id number] 2.16.840.1.063050.3.579.2. 1258 1959 Unknown [id number] 2.16.840.1.573904.19 Unknown Laine [place]/STEF[place]O [id number] Unknown [id number] 2.16.840.1.093692.3.579.2. 531 Social History Date Type Detail Facility Unknown if ever smoked [facility] Other Sex Assigned At Sex Assigned At Bir th [facility] Other Start: 02-14-2021 Tobacco smoking status NHIS Never smoked tobacco (finding) [facility] Start: 1997 Sex Assigned At Female F [facility] Evaluation note 02-14-2021 Note Date & Type Note Facility 02-14-2021 Evaluation note Encounter Date Diagnosis Assessment Notes Feb, Body aches (ICD-10 - R52) Feb, Loss of taste (ICD-10 - R43.2) [facility] Other Evaluation note 02-14-2021 Note Date & [...] Tylenol Motrin for aches pains or fevers. 14 Feb, 2021 Other Additional time spent conducting pre-visit phone call, screening for symptoms, instructions on social distancing, application and removal of PPE, and cleaning of examination room, equipment and supplies was preformed. Patient education given for testing methodology and results. Patient care instructions given in writting by [facility] Home document. [facility] Other History general Narrative - Reported 08-18-2016 Note Date & Type Note Facility 08-18-2016 History general N arrative - Reported Type Medical History Varicella Vaccine 2010 Surgical History lt wrist pin [email or web address] [email or web address] History removed external fixator 10/2016 Surgical History removed pin from left wrist 10/03 017 Surgical History wisdom teeth extract Hospitalization History see above [employer] Other Evaluation note Note Date & Type Note Facility Evaluation note No Information [employer] Other Evaluation note Note Date & Type Note Facility Evaluation note No assessment information availa [facility] Work Phone: Summary Purpose Family History [...] section and content) DATE CREATED AUTHOR 10/11/2022 Shruthi jeong DATE CREATED AUTHOR AUTHOR'S ORGANIZ ATION 08/08/2023 [facility] DATE CREATED AUTHOR AUTHOR'S ORGANIZ ATION 11/22/2023 [facility] EPIC Care Teams (unrecognized sec [...] BE BASED ON THE PRIMARY CLINICAL RECORDS. [facility] [employer] provides no warranty or guarantee of the accuracy or completeness of information in this document.
== END 2023-12-15 14:06 | disposition home or self-care (01) ==
LOC: EC 14:05
PROVIDERS: Visit Provider Podiatrist Foot & Ankle Surgery
DX: M25.571 Pain in right ankle and joints of right foot (principal)
CPT/HCPCS: 73610; 73630

== ENCOUNTER 2023-12-18 13:47 | Outpatient (OUT) | payer OTHER, SELFPAY ==
--- NOTE | 2023-12-18 13:49 | CT_ITS ---
[address] [address] Patient Name: JAYDEN BRIONES MRN: [id number] date: 1995 Sex: F Assigned Patient Location: CT Current Patient Location: Accession/Order Number: [id number] Exam Date: 12/18/2023 13:56 Report Date: 12/22/2023 07:24 At the request of: MERLY RICCI Procedure: CT ankle RT wo con EXAMINATION: CT ankle RT wo con HISTORY: Post Traumatic Arthritis Right Ankle COMPARISON: 12/15/2023 TECHNIQUE: Multi-planar CT images were created without IV contrast. Dose reduction techniques were achieved by using automated exposure control and/or adjustment of mA and/or kV according to patient size and/or use of iterative reconstruction technique. FINDINGS: BONES: No acute fracture or dislocation. Moderate to severe degenerative changes of the hindfoot with remote anterior calcaneal fracture and nonunion. 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 Remote traumatic fractures of the medial and lateral malleolus. The ankle mortise appears intact without asymmetry. Chronic fracture along the lateral margin of the talus, coronal image 75. Joint space narrowing and subchondral cystic changes are observed. SOFT TISSUES: Negative. No visible soft tissue swelling. EFFUSION: None visible. OTHER: Negative. 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
--- OUTSIDE RECORDS SUMMARY | 2023-12-18 13:51 | XMS_ITS | CCD ---
Author Organization [facility] Team Providers Care House Designer Name Role Phone Kalyan Haynes Unavailable IonaFarida [...] Unavailable KIM ., DR NOONAN Admitting Unavailable POWNAL, DR BIGGS Consulting Unavailable KIM ., DR [...] Unavailable Ivy, DO Biggs Primary Care Provider Kim, Saran [...] Reaction(s) Facility (3 sources) Amoxicillin Drug Allergy [facility] Data Symmetry Other (1 source) Amoxicillin Drug Allergy 03-08-2020 [facility] Repository (1 source) Amoxicillin Drug Allergy 02-14-2021 [facility] Repository Medications Current [...] Range Facil ollie Dan 08-04-2023 L Specimen: [id number] Received: 08/05/23 Status: MICHAEL Schaefer Num: [id number] Spec Type: Surgical Subm Dr: Saran Alvarez [...] Account Attending Physician Mercy Briones 25/ LABELL [id number] Saran Alvarez SPEC NUM: [id number] RECD: 08/05/23 STATUS: MICHAEL WADEKevin NUM: [id number] LOPEZ: 08/04/23- SUBM DR: Saran Alvarez ENTERED: 08/05/23 [facility] DR: Augustus,Lab SPEC TYPE: Surgical DEPT: ANTHONY [...] at the base of the excision Specimen: [id number] Received: 08/05/23 Status: MICHAEL Olive Num: [id number] Spec Type: Surgical Subm Dr: Saran Alvarez Tissues: A Skin-Other than Cyst, tag, debridement or plastic repair (RT POST NECK) B Skin-Other than Cyst, tag, debridement or plastic repair (RT BREAST 9:00) C Skin-Other than Cyst, tag, debridement or plastic repair (RT BREAST 8:00) D Skin-Other than Cyst, tag, debridement or plastic repair (RT FLANK) Procedures: GUNNAR/Niles, Juliocesar/Bennett L4/4 Patient: Mercy Briones [id number] (Continued) Specimen: [id number] Received: 08/05/23 (Continued) Signed (signature on file) Anabell Frazier MD 08/08/23 1834 Specimen: [id number] Received: 08/05/23 Status: MICHAEL Schaefer Num: [id number] Spec Type: Surgical Subm Dr: Saran Alvarez Tissues: A Skin-Other than Cyst, tag, debridement or plastic repair (RT POST NECK) B Skin-Other than Cyst, tag, debridement or plastic repair (RT BREAST 9:00) C Skin-Other than Cyst, tag, debridement or plastic repair (RT BREAST 8:00) D Skin-Other than Cyst, tag, debridement or plastic repair (RT FLANK) Procedures: HE/4, Gross/Micro L4/4 Patient: Mercy Briones [id number] (Continued) Specimen: [id number] Received: 08/05/23135 (Continued) Clinical Information Skin moles [...] CPT Codes 88 (more content not included)... [facility] US PREG TVon 09-11-2022 US PREG [...] JOHNNIE RESTREPO Date: 2022-09-11 15:59 Normal [facility] US PREG TVon 09-04-2022 US PREG TV [...] Normal [facility] PREG QUANT HCGon 05-13-2022 HCG QUANT 6 mIU/mL Normal [facility] Comment on above: Performed By: #### P REGQNT #### [facility] Laboratory [address] [place] [address] Dr. Arash Frazier HCG RANGE SEE BELOW Normal [facility] Comment on above: Result Comment: 5-50 0.2-1 WEEK 50-500 1-2 WEEKS 100-5,000 2-3 WEEKS 500-10,000 3-4 WEEKS 1,000-50,000 4-5 WEEKS 10,000-100,000 5-6 WEEKS 15,000-200,000 6-8 WEEKS 10,000-100,000 2-3 MONTHS Performed By: #### P REGQNT #### [facility] [address] [place] [address] Dr. Arash Frazier PREG QUANT HCGon 05-02-2022 HCG QUANT 23 mIU/mL Normal [facility] Comment on above: Performed By: #### P REGQNT #### [facility] [address] [place] [address] Dr. Arash Frazier HCG RANGE SEE BELOW Normal [facility] Comment on above: Result Comment: 5-50 0.2-1 WEEK 50-500 1-2 WEEKS 100-5,000 2-3 WEEKS 500-10,000 3-4 WEEKS 1,000-50,000 4-5 WEEKS 10,000-100,000 5-6 WEEKS 15,000-200,000 6-8 WEEKS 10,000-100,000 2-3 MONTHS Performed By: #### P REGQNT #### [facility] [address] [place] [address] Dr. Arash Frazier PREG QUANT HCGon 04-21-2022 HCG QUANT 85 mIU/mL Normal [facility] Comment on above: Performed By: #### P REGQNT #### [facility] [address] [place] [address] Dr. Arash Frazier HCG RANGE SEE BELOW Normal [facility] Comment on above: Result Comment: 5-50 0.2-1 WEEK 50-500 1-2 WEEKS 100-5,000 2-3 WEEKS 500-10,000 3-4 WEEKS 1,000-50,000 4-5 WEEKS 10,000-100,000 5-6 WEEKS 15,000-200,000 6-8 WEEKS 10,000-100,000 2-3 MONTHS Performed By: #### P REGQNT #### [facility] [address] [place] [address] Dr. Arash Frazier PREG QUANT HCGon 04-14-2022 HCG QUANT 197 mIU/mL Normal [facility] Comment on above: Performed By: #### P REGQNT #### [facility] [address] [place] [address] Dr. Arash Frazier HCG RANGE SEE BELOW Normal [facility] Comment on above: Result Comment: 5-50 0.2-1 WEEK 50-500 1-2 WEEKS 100-5,000 2-3 WEEKS 500-10,000 3-4 WEEKS 1,000-50,000 4-5 WEEKS 10,000-100,000 5-6 WEEKS 15,000-200,000 6-8 WEEKS 10,000-100,000 2-3 MONTHS Performed By: #### P REGQNT #### [facility] [address] [place] [address] Dr. Arash Frazier PREG QUANT HCGon 04-08-2022 HCG QUANT 269 mIU/mL Normal [facility] Comment on above: Performed By: #### P REGQNT #### [facility] [address] [place] [address] Dr. Arash Frazier HCG RANGE SEE BELOW Normal [facility] Comment on above: Result Comment: 5-50 0.2-1 WEEK 50-500 1-2 WEEKS 100-5,000 2-3 WEEKS 500-10,000 3-4 WEEKS 1,000-50,000 4-5 WEEKS 10,000-100,000 5-6 WEEKS 15,000-200,000 6-8 WEEKS 10,000-100,000 2-3 MONTHS Performed By: #### P REGQNT #### [facility] [address] [place] [address] Dr. Arash Frazier PREG QUANT HCGon 03-31-2022 HCG QUANT 192 mIU/mL Normal [facility] Comment on above: Performed By: #### P REGQNT #### [facility] [address] [place] [address] Dr. Arash Frazier HCG RANGE SEE BELOW Normal [facility] Comment on above: Result Comment: 5-50 0.2-1 WEEK 50-500 1-2 WEEKS 100-5,000 2-3 WEEKS 500-10,000 3-4 WEEKS 1,000-50,000 4-5 WEEKS 10,000-100,000 5-6 WEEKS 15,000-200,000 6-8 WEEKS 10,000-100,000 2-3 MONTHS Performed By: #### P REGQNT #### [facility] [address] [place] [address] Dr. Arash Frazier PREG QUANT HCGon 03-25-2022 HCG QUANT 115 mIU/mL Normal [facility] Comment on above: Performed By: #### P REGQNT #### [facility] [address] [place] [address] Dr. Arash Frazier HCG RANGE SEE BELOW Normal [facility] Comment on above: Result Comment: 5-50 0.2-1 WEEK 50-500 1-2 WEEKS 100-5,000 2-3 WEEKS 500-10,000 3-4 WEEKS 1,000-50,000 4-5 WEEKS 10,000-100,000 5-6 WEEKS 15,000-200,000 6-8 WEEKS 10,000-100,000 2-3 MONTHS Performed By: #### P REGQNT #### [facility] [address] [place] [address] Dr. Arash Frazier PREG QUANT HCGon 03-18-2022 HCG QUANT 41 mIU/mL Normal [facility] Comment on above: Performed By: #### P REGQNT #### [facility] [address] [place] [address] Dr. Arash Frazier HCG RANGE SEE BELOW Normal [facility] Comment on above: Result Comment: 5-50 0.2-1 WEEK 50-500 1-2 WEEKS 100-5,000 2-3 WEEKS 500-10,000 3-4 WEEKS 1,000-50,000 4-5 WEEKS 10,000-100,000 5-6 WEEKS 15,000-200,000 6-8 WEEKS 10,000-100,000 2-3 MONTHS Performed By: #### P REGQNT #### [facility] [address] [place] [address] Dr. Arash Frazier TYPE AND SCREENon 03-18-2022 TYPE AND SCREEN Negative Normal [facility] Comment on above: Performed By: #### P REGQNT #### [facility] [address] [place] [address] Dr. Arash Frazier CBC AUTO DIFFon 03-01-2022 BASO # 0.1 103/ul Normal 0.0-0.1 [facility] Comment on above: Performed By: #### C BC #### [facility] [address] [place] [address] Dr. Arash Frazier Basophils/100 WBC (Bld) 0.8 % Normal 0.2-2.0 [facility] Comment on above: Performed By: #### C BC #### [facility] [address] [place] [address] Dr. Arash Frazier EO # 0.2 103/ul Normal 0.0-0.7 [facility] Comment on above: Performed By: #### C BC #### [facility] [address] [place] [address] Dr. Arash Frazier Eosinophils/100 WBC (Bld) 2.0 % Normal 0.9-7.0 [facility] Comment on above: Performed By: #### C BC #### [facility] [address] [place] [address] Dr. Arash Frazier Erythrocyte distribution width (RBC) [Ratio] 13.0 % Normal 11.0-15.0 [facility] Comment on above: Performed By: #### C BC #### [facility] [address] [place] [address] Dr. Arash Frazier Hematocrit (Bld) [Volume fraction] 39.6 % Normal 36.0-48.0 [facility] Comment on above: Performed By: #### C BC #### [facility] [address] [place] [address] Dr. Arash Frazier Hemoglobin (Bld) [Mass/Vol] 12.9 g/dL Normal 12.0-16.0 [facility] Comment on above: Performed By: #### C BC #### [facility] [address] [place] [address] Dr. Arash Frazier IG # 0.03 10e3/ul Normal 0.00-0.03 [facility] Comment on above: Performed By: #### C BC #### [facility] [address] [place] [address] Dr. Arash Frazier IG % 0.3 % Normal 0.0-0.5 [facility] Comment on above: Performed By: #### C BC #### [facility] [address] [place] [address] Dr. Arash Frazier LYMPH # 2.4 103/ul Normal 1.2-3.8 [facility] Comment on above: Performed By: #### C BC #### [facility] [address] [place] [address] Dr. Arash Frazier Lymphocytes/100 WBC (Bld) 20.5 % Normal 20.5-60.0 [facility] Comment on above: Performed By: #### C BC #### [facility] [address] [place] [address] Dr. Arash Frazier MANUAL DIFF REQ NO Normal [facility] Comment on above: Performed By: #### C BC #### [facility] [address] [place] [address] Dr. Arash Frazier MCH (RBC) [Entitic mass] 29.5 pg Normal 26.7-34.0 [facility] Comment on above: Performed By: #### C BC #### [facility] [address] [place] [address] Dr. Arash Frazier MCHC (RBC) [Mass/Vol] 32.6 g/dL Normal 29.9-35.2 [facility] Comment on above: Performed By: #### C BC #### [facility] [address] [place] [address] Dr. Arash Frazier MCV (RBC) [Entitic vol] 90.6 fL Normal 81.0-99.0 [facility] Comment on above: Performed By: #### C BC #### [facility] [address] [place] [address] Dr. Arash Frazier MONO # 0.7 103/ul Normal 0.3-0.8 [facility] Comment on above: Performed By: #### C BC #### [facility] [address] [place] [address] Dr. Arash Frazier Monocytes/100 WBC (Bld) 5.9 % Normal 1.7-12.0 [facility] Comment on above: Performed By: #### C BC #### [facility] [address] [address] [address] Arash Frazier NEUT # 8.2 103/ul Critically high 1.4-6.5 [facility] Comment on above: Performed By: #### C BC #### [facility] [address] [place] [address] Dr. Arash Frazier Neutrophils/100 WBC (Bld) 70.5 % Normal 43.0-75.0 [facility] Comment on above: Performed By: #### C BC #### [facility] [address] [place] [address] Dr. Arash Frazier Platelet mean volume (Bld) [Entitic vol] 10.1 fL Normal 9.5-13.5 [facility] Comment on above: Performed By: #### C BC #### [facility] [address] [place] [address] Dr. Arash Frazier PLT 217 103/ul Normal 150-450 [facility] Comment on above: Performed By: #### C BC #### [facility] [address] [place] [address] Dr. Arash Frazier RBC 4.37 106/ul Normal 4.20-5.40 [facility] Comment on above: Performed By: #### C BC #### [facility] [address] [place] [address] Dr. Arash Frazier WBC 11.7 103/ul Critically high 4.0-11.[address] [facility] Comment on above: Performed By: #### C BC #### [facility] [address] [place] [address] Dr. Arash Frazier PREG QUANT HCGon 03-01-2022 HCG QUANT 19 mIU/mL Normal [facility] Comment on above: Performed By: #### P REGQNT #### [facility] [address] [place] [address] Dr. Arash Frazier HCG RANGE SEE BELOW Normal [facility] Comment on above: Result Comment: 5-50 0.2-1 WEEK 50-500 1-2 WEEKS 100-5,000 2-3 WEEKS 500-10,000 3-4 WEEKS 1,000-50,000 4-5 WEEKS 10,000-100,000 5-6 WEEKS 15,000-200,000 6-8 WEEKS 10,000-100,000 2-3 MONTHS Performed By: #### P REGQNT #### [facility] [address] [place] [address] Dr. Arash Frazier PROF 14(COMP METB)on 03-01- 022 Albumin [Mass/Vol] 3.8 g/dL Normal 3.4-5.0 [facility] Comment on above: Performed By: #### C MP #### [facility] [address] [place] [address] Dr. Arash Frazier Albumin/Globulin [Mass ratio] 1.0 {ratio} Normal [facility] Comment on above: Performed By: #### C MP #### [facility] [address] [place] [address] Dr. Arash Frazier ALP [Catalytic activity/Vol] 69 U/L Normal 46-116 [facility] Comment on above: Performed By: #### C MP #### [facility] [address] [place] [address] Dr. Arash Frazier ALT [Catalytic activity/Vol] 21 U/L Normal 14-59 [facility] Comment on above: Performed By: #### C MP #### [facility] [address] [place] [address] Dr. Arash Frazier Anion gap [Moles/Vol] 11.6 mmol/L Normal [facility] Comment on above: Performed By: #### C MP #### [facility] [address] [place] [address] Dr. Arash Frazier AST [Catalytic activity/Vol] 13 U/L Critically low 15-37 [facility] Comment on above: Performed By: #### C MP #### [facility] [address] [place] [address] Dr. Arash Frazier Bilirubin [Mass/Vol] 0.2 mg/dL Normal 0.2-1.0 [facility] Comment on above: Performed By: #### C MP #### [facility] [address] [place] [address] Dr. Arash Frazier Calcium [Mass/Vol] 8.8 mg/dL Normal 8.5-10.[address] [facility] Comment on above: Performed By: #### C MP #### [facility] [address] [place] [address] Dr. Arash Frazier Chloride [Moles/Vol] 106 mmol/L Normal 98-107 [facility] Comment on above: Performed By: #### C MP #### [facility] [address] [address] [address] Arash Frazier CO2 [Moles/Vol] 28.7 mmol/L Normal 21.0-32.[address] [facility] Comment on above: Performed By: #### C MP #### [facility] [address] [place] [address] Dr. Arash Frazier Creatinine [Mass/Vol] 0.75 mg/dL Normal 0.55-1.02 [facility] Comment on above: Performed By: #### C MP #### [facility] [address] [place] [address] Dr. Arash Frazier EGFR-AF KENYAN >60 Normal >=[address] [facility] Comment on above: Performed By: #### C MP #### [facility] [address] [place] [address] Dr. Arash Frazier EGFR-NON AF KENYAN >60 Normal >=60 [facility] Comment on above: Performed By: #### C MP #### [facility] [address] [place] [address] Dr. Arash Frazier Globulin (S) [Mass/Vol] 3.7 g/dL Normal [facility] Comment on above: Performed By: #### C MP #### [facility] [address] [place] [address] Dr. Arash Frazier Glucose [Mass/Vol] 102 mg/dL Normal 74-[address] [facility] Comment on above: Performed By: #### C MP #### [facility] [address] [place] [address] Dr. Arash Frazier Potassium [Moles/Vol] 4.3 mmol/L Normal 3.5-5.1 [facility] Comment on above: Performed By: #### C MP #### [facility] [address] [address] [address] Arash Frazier Protein [Mass/Vol] 7.5 g/dL Normal 6.4-8.2 [facility] Comment on above: Performed By: #### C MP #### [facility] [address] [address] [address] Arash Frazier Sodium [Moles/Vol] 142 mmol/L Normal 136-145 [facility] Comment on above: Performed By: #### C MP #### [facility] [address] [address] [address] Arash Frazier Urea nitrogen [Mass/Vol] 12.0 mg/dL Normal 7.0-18.0 [facility] Comment on above: Performed By: #### C MP #### [facility] [address] [place] [address] Dr. Arash Frazier Urea nitrogen/Creatinine [Mass ratio] 16.0 mg/mg Normal [facility] Comment on above: Performed By: #### C MP #### [facility] [address] [place] [address] Dr. Arash Frazier PROTIMEon 03-01-2022 INR Coag (PPP) [Relative time] 0.95 {INR} Normal [facility] Comment on above: Performed By: #### P TT, PT #### [facility] [address] [place] [address] Dr. Arash Frazier INR GUIDELINES SEE BELOW Normal [facility] Comment on above: Result Comment: MABLE RED INR: 2.0 - 3.0 CONDITIONS NOT LISTED BELOW 2.5 - 3.5 FOR PROSTHETIC HEART VALVE REPLACEMENT 2.5 - 3.5 RECURRENT THROMBOSIS Performed By: #### P TT, PT #### [facility] [address] [place] [address] Dr. Arash Frazier PT Coag (PPP) [Time] 10.3 s Normal 9.0-11.6 [facility] Comment on above: Performed By: #### P TT, PT #### [facility] [address] [place] [address] Dr. Arash Frazier PTTon 03-01-2022 aPTT Coag (Bld) [Time] 29.9 s Normal 22.3-36.2 [facility] Comment on above: Performed By: #### P TT, PT #### [facility] [address] [address] [address] Arash Frazier Vital Signs Date Time Vital Sign Value Performing Clinician Faci lity 02-14-2021 13:30-0400 Body height 172.72 cm Farida Monson Other [facility] Other Encounters Encounter Date Encounter Type Care [...] Start: 08-04-2023 End: 08-04-2023 ambulatory Saran Kim Facility:[facility] Start: 08-04-2023 End: 08-04-2023 ambulatory DO Kalyan Haynes Work Phone: [facility] Work Phone: Start: 08-04-2023 End: 08-04-2023 Departed Referred DO Kalyan Haynes Work Phone: [facility] Start: 08-04-2023 End: 08-04-2023 ambulatory SARAN [...] Facility:[facility] Start: 02-18-2021 Telephone encounter Kalyan Haynes [facility] Start: 02-14-2021 (URG) Urgent Care Visit Farida rogers [facility] Start: 02-14-2021 Telephone encounter Kalyan Haynes [facility] Payers Date Payer Category Payer Self-pay 2012 Private Health Insurance [facility] [id number] 1997 Unknown [id number] 2.16.840.1.481817.3.579.2. 593 1997 Unknown [id number] 2.16.840.1.094639.3.579.2. 593 1997 Unknown [id number] 2.16.840.1.423968.3.579.2. 593 1997 Unknown [id number] 2.16.840.1.596790.3.579.2. 593 1997 Unknown [id number] 2.16.840.1.875311.3.579.2. 593 1997 Unknown [id number] 2.16.840.1.693253.3.579.2. 593 1997 Unknown [id number] 2.16.840.1.427665.3.579.2. 593 1997 Unknown [id number] 2.16.840.1.554325.3.579.2. 59 1997 Unknown [id number] 2.16.840.1.404110.3.579.2. 1258 1997 Unknown [id number] 2.16.840.1.783248.3.579.2. 1258 1997 Unknown [id number] 2.16.840.1.654966.3.579.2. 1258 1997 Unknown [id number] 2.16.840.1.869754.3.579.2. 1258 1997 Unknown [id number] 2.16.840.1.244389.3.579.2. 1258 1997 Unknown [id number] 2.16.840.1.918582.3.579.2. 1258 1997 Unknown [id number] 2.16.840.1.216202.3.579.2. 1258 1997 Unknown [id number] 2.16.840.1.258753.3.579.2. 1258 1997 Unknown [id number] 2.16.840.1.998489.3.579.2. 1258 1997 Unknown [id number] 2.16.840.1.595677.3.579.2. 1258 1997 Unknown [id number] 2.16.840.1.086417.3.579.2. 1258 1997 Unknown [id number] 2.16.840.1.446599.3.579.2. 1258 1997 Unknown [id number] 2.16.840.1.169669.3.579.2. 1258 1997 Unknown [id number] 2.16.840.1.003872.3.579.2. 1258 1997 Unknown [id number] 2.16.840.1.460872.3.579.2. 1258 1959 Unknown [id number] 2.16.840.1.314379.19 Unknown Laine C[place]/STEFANO [id number] Unknown [id number] 2.16.840.1.176336.3.579.2. 531 Social History Date Type Detail Facility Unknown if ever smoked [facility] Other Sex Assigned At Sex Assigned At Bir th [facility] Other Start: 02-14-2021 Tobacco smoking status NHIS Never smoked tobacco (finding) [facility] Start: 1995 Sex Assigned At Female F [facility] Evaluation note 02-14-2021 Note Date & Type Note Facility 02-14-2021 Evaluation note Encounter Date Diagnosis Assessment Notes Feb, Body aches (ICD-10 - R52) Feb, Loss of taste (ICD-10 - R43.2) [facility] Other Evaluation note 02-14-2021 Note Date & [...] Patient care instructions given in writting by [facility] document. [facility] Other History general Narrative - Reported 08-18-2016 Note Date & Type Note Facility 08-18-2016 History general N arrative - Reported Type Medical History Varicella Vaccine 2010 [facility] removed external fixator 10/2016 Surgical History removed pin from left wrist 10/03 017 Surgical History wisdom teeth extract Hospitalization History see above [facility] Other Evaluation note Note Date & Type Note Facility Evaluation note No Information [employer] Other Evaluation note Note Date & Type Note Facility Evaluation note No assessment information availa [facility] Work Phone: Summary Purpose Family History [...] DATE CREATED AUTHOR AUTHOR'S ORGANIZ ATION 08/08/2023 [facility] DATE CREATED AUTHOR AUTHOR'S ORGANIZ ATION 11/22/2023 [facility] EP[employer] Care Teams (unrecognized sec [...] BE BASED ON THE PRIMARY CLINICAL RECORDS. [facility] [employer] provides no warranty or guarantee of the accuracy or completeness of information in this document.
== END 2023-12-18 13:48 | disposition home or self-care (01) ==
LOC: CT 13:47
PROVIDERS: Visit Provider Physician Assistant
DX: M19.171 Post-traumatic osteoarthritis, right ankle and foot (principal)
CPT/HCPCS: 73700

== ENCOUNTER 2024-03-02 16:11 | Outpatient (RCR) | payer OTHER, SELFPAY | END 2024-03-04 13:43 | disposition home or self-care (01) | LOC: PT 16:11 | PROVIDERS: PCP Family Medicine; Visit Provider Podiatrist Foot & Ankle Surgery | DX: Z98.890 Other specified postprocedural states (principal) | CPT/HCPCS: 97162 ==

== ENCOUNTER 2024-03-08 09:57 | Outpatient (OUT) | payer OTHER, SELFPAY ==
--- OUTSIDE RECORDS SUMMARY | 2024-03-08 10:10 | XMS_ITS | CCD ---
Author Organization 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 Name Role Phone Kalyan Haynes Unavailable IonaFarida [...] Unavailable KIM ., DR NOONAN Admitting Unavailable MURRIETA, DR BIGGS Consulting Unavailable KIM ., DR [...] Unavailable Ivy, DO Biggs Primary Care Provider [phone] Kim, Saran Attending Provider [phone] Kim, Saran Admitting Unavailable Kim, Saran Attending [...] Reaction(s) Facility (3 sources) Amoxicillin Drug Allergy [facility] [place] Other (1 source) Amoxicillin Drug Allergy 03-08-2020 [facility] Repository (1 source) Amoxicillin Drug Allergy 02-14-2021 [facility] Repository Medications Current Medications Medication [...] Range Facil ollie Dan 08-04-2023 L Specimen: [id number] Received: 08/05/23 Status: MICHAEL Schaefer Num: [id number] Spec Type: Surgical Subm Dr: Saran Alvarez [...] Account Attending Physician Mercy Briones 25/ LABELL [id number] Saran Alvarez SPEC NUM: [id number] RECD: 08/05/23 STATUS: MICHAEL WADEKevin NUM: [id number] LOPEZ: 08/04/23- SUBM DR: Saran Alvarez ENTERED: 08/05/[address] [facility] [address]: Augustus,Lab SPEC TYPE: Surgical DEPT: [...] at the base of the excision Specimen: [id number] Received: 08/05/23 Status: MICHAEL Olive Num: [id number] Spec Type: Surgical Subm Dr: Saran Alvarez Tissues: A Skin-Other than Cyst, tag, debridement or plastic repair (RT POST NECK) B Skin-Other than Cyst, tag, debridement or plastic repair (RT BREAST 9:00) C Skin-Other than Cyst, tag, debridement or plastic repair (RT BREAST 8:00) D Skin-Other than Cyst, tag, debridement or plastic repair (RT FLANK) Procedures: GUNNAR/Niles, Juliocesar/Bennett L4/4 Patient: Mercy Briones [id number] (Continued) Specimen: [id number] Received: 08/05/23 (Continued) Signed (signature on file) Anabell Frazier MD 08/08/23 1834 Specimen: [id number] Received: 08/05/23 Status: MICHAEL Schaefer Num: [id number] Spec Type: Surgical Subm Dr: Saran Alvarez Tissues: A Skin-Other than Cyst, tag, debridement or plastic repair (RT POST NECK) B Skin-Other than Cyst, tag, debridement or plastic repair (RT BREAST 9:00) C Skin-Other than Cyst, tag, debridement or plastic repair (RT BREAST 8:00) D Skin-Other than Cyst, tag, debridement or plastic repair (RT FLANK) Procedures: HE/4, Gross/Micro L4/4 Patient: Mercy Briones [id number] (Continued) Specimen: [id number] Received: 08/05/23135 (Continued) Clinical Information Skin moles [...] CPT Codes 88 (more content not included)... [facility] US PREG TVon 09-11-2022 US PREG [...] JOHNNIE RESTREPO Date: 2022-09-11 15:59 Normal [facility] US PREG TVon 09-04-2022 US PREG [...] Date: 2022-09-04 17:37 Normal [facility] PREG QUANT HCGon 05-13-2022 HCG QUANT 6 mIU/mL Normal [facility] Comment on above: Performed By: #### P REGQNT #### [facility] [address] [place] [address] Dr. Arash Frazier HCG RANGE SEE BELOW Normal [facility] Comment on above: Result Comment: 5-50 0.2-1 WEEK 50-500 1-2 WEEKS 100-5,000 2-3 WEEKS 500-10,000 3-4 WEEKS 1,000-50,000 4-5 WEEKS 10,000-100,000 5-6 WEEKS 15,000-200,000 6-8 WEEKS 10,000-100,000 2-3 MONTHS Performed By: #### P REGQNT #### [facility] [address] [place] [address] Dr. Arash Frazier PREG QUANT HCGon 05-02-2022 HCG QUANT 23 mIU/mL Normal [facility] Comment on above: Performed By: #### P REGQNT #### [facility] [address] [place] [address] Dr. Arash Frazier HCG RANGE SEE BELOW Normal [facility] Comment on above: Result Comment: 5-50 0.2-1 WEEK 50-500 1-2 WEEKS 100-5,000 2-3 WEEKS 500-10,000 3-4 WEEKS 1,000-50,000 4-5 WEEKS 10,000-100,000 5-6 WEEKS 15,000-200,000 6-8 WEEKS 10,000-100,000 2-3 MONTHS Performed By: #### P REGQNT #### [facility] [address] [place] [address] Dr. Arash Frazier PREG QUANT HCGon 04-21-2022 HCG QUANT 85 mIU/mL Normal [facility] Comment on above: Performed By: #### P REGQNT #### [facility] [address] [place] [address] Dr. Arash Frazier HCG RANGE SEE BELOW Normal [facility] Comment on above: Result Comment: 5-50 0.2-1 WEEK 50-500 1-2 WEEKS 100-5,000 2-3 WEEKS 500-10,000 3-4 WEEKS 1,000-50,000 4-5 WEEKS 10,000-100,000 5-6 WEEKS 15,000-200,000 6-8 WEEKS 10,000-100,000 2-3 MONTHS Performed By: #### P REGQNT #### [facility] [address] [place] [address] Dr. Arash Frazier PREG QUANT HCGon 04-14-2022 HCG QUANT 197 mIU/mL Normal [facility] Comment on above: Performed By: #### P REGQNT #### [facility] [address] [place] [address] Dr. Arash Frazier HCG RANGE SEE BELOW Normal [facility] Comment on above: Result Comment: 5-50 0.2-1 WEEK 50-500 1-2 WEEKS 100-5,000 2-3 WEEKS 500-10,000 3-4 WEEKS 1,000-50,000 4-5 WEEKS 10,000-100,000 5-6 WEEKS 15,000-200,000 6-8 WEEKS 10,000-100,000 2-3 MONTHS Performed By: #### P REGQNT #### [facility] [address] [place] [address] Dr. Arash Frazier PREG QUANT HCGon 04-08-2022 HCG QUANT 269 mIU/mL Normal [facility] Comment on above: Performed By: #### P REGQNT #### [facility] [address] [place] [address] Dr. Arash Frazier HCG RANGE SEE BELOW Normal [facility] Comment on above: Result Comment: 5-50 0.2-1 WEEK 50-500 1-2 WEEKS 100-5,000 2-3 WEEKS 500-10,000 3-4 WEEKS 1,000-50,000 4-5 WEEKS 10,000-100,000 5-6 WEEKS 15,000-200,000 6-8 WEEKS 10,000-100,000 2-3 MONTHS Performed By: #### P REGQNT #### [facility] [address] [place] [address] Dr. Arash Frazier PREG QUANT HCGon 03-31-2022 HCG QUANT 192 mIU/mL Normal [facility] Comment on above: Performed By: #### P REGQNT #### [facility] [address] [place] [address] Dr. Arash Frazier HCG RANGE SEE BELOW Normal [facility] Comment on above: Result Comment: 5-50 0.2-1 WEEK 50-500 1-2 WEEKS 100-5,000 2-3 WEEKS 500-10,000 3-4 WEEKS 1,000-50,000 4-5 WEEKS 10,000-100,000 5-6 WEEKS 15,000-200,000 6-8 WEEKS 10,000-100,000 2-3 MONTHS Performed By: #### P REGQNT #### [facility] [address] [place] [address] Dr. Arash Frazier PREG QUANT HCGon 03-25-2022 HCG QUANT 115 mIU/mL Normal [facility] Comment on above: Performed By: #### P REGQNT #### [facility] [address] [place] [address] Dr. Arash Frazier HCG RANGE SEE BELOW Normal [facility] Comment on above: Result Comment: 5-50 0.2-1 WEEK 50-500 1-2 WEEKS 100-5,000 2-3 WEEKS 500-10,000 3-4 WEEKS 1,000-50,000 4-5 WEEKS 10,000-100,000 5-6 WEEKS 15,000-200,000 6-8 WEEKS 10,000-100,000 2-3 MONTHS Performed By: #### P REGQNT #### [facility] [address] [place] [address] Dr. Arash Frazier PREG QUANT HCGon 03-18-2022 HCG QUANT 41 mIU/mL Normal [facility] Comment on above: Performed By: #### P REGQNT #### [facility] [address] [place] [address] Dr. Arash Frazier HCG RANGE SEE BELOW Normal [facility] Comment on above: Result Comment: 5-50 0.2-1 WEEK 50-500 1-2 WEEKS 100-5,000 2-3 WEEKS 500-10,000 3-4 WEEKS 1,000-50,000 4-5 WEEKS 10,000-100,000 5-6 WEEKS 15,000-200,000 6-8 WEEKS 10,000-100,000 2-3 MONTHS Performed By: #### P REGQNT #### [facility] [address] [place] [address] Dr. Arash Frazier TYPE AND SCREENon 03-18-2022 TYPE AND SCREEN Negative Normal [facility] Comment on above: Performed By: #### P REGQNT #### [facility] [address] [place] [address] Dr. Arash Frazier CBC AUTO DIFFon 03-01-2022 BASO # 0.1 103/ul Normal 0.0-0.1 [facility] Comment on above: Performed By: #### C BC #### [facility] [address] [place] [address] Dr. Arash Frazier Basophils/100 WBC (Bld) 0.8 % Normal 0.2-2.0 [facility] Comment on above: Performed By: #### C BC #### [facility] [address] [place] [address] Dr. Arash Frazier EO # 0.2 103/ul Normal 0.0-0.7 [facility] Comment on above: Performed By: #### C BC #### [facility] [address] [place] [address] Dr. Arash Frazier Eosinophils/100 WBC (Bld) 2.0 % Normal 0.9-7.0 [facility] Comment on above: Performed By: #### C BC #### [facility] [address] [place] [address] Dr. Arash Frazier Erythrocyte distribution width (RBC) [Ratio] 13.0 % Normal 11.0-15.0 [facility] Comment on above: Performed By: #### C BC #### [facility] [address] [place] [address] Dr. Arash Frazier Hematocrit (Bld) [Volume fraction] 39.6 % Normal 36.0-48.0 [facility] Comment on above: Performed By: #### C BC #### [facility] [address] [place] [address] Dr. Arash Frazier Hemoglobin (Bld) [Mass/Vol] 12.9 g/dL Normal 12.0-16.0 [facility] Comment on above: Performed By: #### C BC #### [facility] [address] [place] [address] Dr. Arash Frazier IG # 0.03 10e3/ul Normal 0.00-0.03 [facility] Comment on above: Performed By: #### C BC #### [facility] [address] [place] [address] Dr. Arash Frazier IG % 0.3 % Normal 0.0-0.5 [facility] Comment on above: Performed By: #### C BC #### [facility] [address] [place] [address] Dr. Arash Frazier LYMPH # 2.4 103/ul Normal 1.2-3.8 [facility] Comment on above: Performed By: #### C BC #### [facility] [address] [place] [address] Dr. Arash Frazier Lymphocytes/100 WBC (Bld) 20.5 % Normal 20.5-60.0 [facility] Comment on above: Performed By: #### C BC #### [facility] [address] [place] [address] Dr. Arash Frazier MANUAL DIFF REQ NO Normal [facility] Comment on above: Performed By: #### C BC #### [facility] [address] [place] [address] Dr. Arash Frazier MCH (RBC) [Entitic mass] 29.5 pg Normal 26.7-34.0 [facility] Comment on above: Performed By: #### C BC #### [facility] [address] [place] [address] Dr. Arash Frazier MCHC (RBC) [Mass/Vol] 32.6 g/dL Normal 29.9-35.2 [facility] Comment on above: Performed By: #### C BC #### [facility] [address] [place] [address] Dr. Arash Frazier MCV (RBC) [Entitic vol] 90.6 fL Normal 81.0-99.0 [facility] Comment on above: Performed By: #### C BC #### [facility] [address] [place] [address] Dr. Arash Frazier MONO # 0.7 103/ul Normal 0.3-0.8 [facility] Comment on above: Performed By: #### C BC #### [facility] [address] [place] [address] Dr. Arash Frazier Monocytes/100 WBC (Bld) 5.9 % Normal 1.7-12.0 [facility] Comment on above: Performed By: #### C BC #### [facility] [address] [address] [address] Arash Frazier NEUT # 8.2 103/ul Critically high 1.4-6.5 [facility] Comment on above: Performed By: #### C BC #### [facility] [address] [place] [address] Dr. Arash Frazier Neutrophils/100 WBC (Bld) 70.5 % Normal 43.0-75.0 [facility] Comment on above: Performed By: #### C BC #### [facility] [address] [place] [address] Dr. Arash Frazier Platelet mean volume (Bld) [Entitic vol] 10.1 fL Normal 9.5-13.5 [facility] Comment on above: Performed By: #### C BC #### [facility] [address] [place] [address] Dr. Arash Frazier PLT 217 103/ul Normal 150-450 [facility] Comment on above: Performed By: #### C BC #### [facility] [address] [place] [address] Dr. Arash Frazier RBC 4.37 106/ul Normal 4.20-5.40 [facility] Comment on above: Performed By: #### C BC #### [facility] [address] [place] [address] Dr. Arash Frazier WBC 11.7 103/ul Critically high 4.0-11.0 [facility] Comment on above: Performed By: #### C BC #### [facility] [address] [place] [address] Dr. Arash Frazier PREG QUANT HCGon 03-01-2022 HCG QUANT 19 mIU/mL Normal [facility] Comment on above: Performed By: #### P REGQNT #### [facility] [address] [place] [address] Dr. Arash Frazier HCG RANGE SEE BELOW Normal [facility] Comment on above: Result Comment: 5-50 0.2-1 WEEK 50-500 1-2 WEEKS 100-5,000 2-3 WEEKS 500-10,000 3-4 WEEKS 1,000-50,000 4-5 WEEKS 10,000-100,000 5-6 WEEKS 15,000-200,000 6-8 WEEKS 10,000-100,000 2-3 MONTHS Performed By: #### P REGQNT #### [facility] [address] [place] [address] Dr. Arash Frazier PROF 14(COMP METB)on 03-01- 022 Albumin [Mass/Vol] 3.8 g/dL Normal 3.4-5.0 [facility] Comment on above: Performed By: #### C MP #### [facility] [address] [place] [address] Dr. Arash Frazier Albumin/Globulin [Mass ratio] 1.0 {ratio} Normal [facility] Comment on above: Performed By: #### C MP #### [facility] [address] [place] [address] Dr. Arash Frazier ALP [Catalytic activity/Vol] 69 U/L Normal 46-116 [facility] Comment on above: Performed By: #### C MP #### [facility] [address] [place] [address] Dr. Arash Frazier ALT [Catalytic activity/Vol] 21 U/L Normal 14-59 [facility] Comment on above: Performed By: #### C MP #### [facility] [address] [place] [address] Dr. Arash Frazier Anion gap [Moles/Vol] 11.6 mmol/L Normal [facility] Comment on above: Performed By: #### C MP #### [facility] [address] [place] [address] Dr. Arash Frazier AST [Catalytic activity/Vol] 13 U/L Critically low 15-37 [facility] Comment on above: Performed By: #### C MP #### [facility] [address] [place] [address] Dr. Arash Frazier Bilirubin [Mass/Vol] 0.2 mg/dL Normal 0.2-1.0 [facility] Comment on above: Performed By: #### C MP #### [facility] [address] [place] [address] Dr. Arash Frazier Calcium [Mass/Vol] 8.8 mg/dL Normal 8.5-10.1 [facility] Comment on above: Performed By: #### C MP #### [facility] [address] [place] [address] Dr. Arash Frazier Chloride [Moles/Vol] 106 mmol/L Normal 98-107 [facility] Comment on above: Performed By: #### C MP #### [facility] [address] [address] [address] Arash Frazier CO2 [Moles/Vol] 28.7 mmol/L Normal 21.0-32.0 [facility] Comment on above: Performed By: #### C MP #### [facility] [address] [place] [address] Dr. Arash Frazier Creatinine [Mass/Vol] 0.75 mg/dL Normal 0.55-1.02 [facility] Comment on above: Performed By: #### C MP #### [facility] [address] [place] [address] Dr. Arash Frazier EGFR-AF MALTESE >60 Normal >=60 [facility] Comment on above: Performed By: #### C MP #### [facility] [address] [place] [address] Dr. Arash Frazier EGFR-NON AF MALTESE >60 Normal >=60 [facility] Comment on above: Performed By: #### C MP #### [facility] [address] [place] [address] Dr. Arash Frazier Globulin (S) [Mass/Vol] 3.7 g/dL Normal [facility] Comment on above: Performed By: #### C MP #### [facility] [address] [place] [address] Dr. Arash Frazier Glucose [Mass/Vol] 102 mg/dL Normal 74-106 [facility] Comment on above: Performed By: #### C MP #### [facility] [address] [place] [address] Dr. Arash Frazier Potassium [Moles/Vol] 4.3 mmol/L Normal 3.5-5.1 [facility] Comment on above: Performed By: #### C MP #### [facility] [address] [address] [address] Arash Frazier Protein [Mass/Vol] 7.5 g/dL Normal 6.4-8.2 [facility] Comment on above: Performed By: #### C MP #### [facility] [address] [address] [address] Arash Frazier Sodium [Moles/Vol] 142 mmol/L Normal 136-145 [facility] Comment on above: Performed By: #### C MP #### [facility] [address] [address] [address] Arash Frazier Urea nitrogen [Mass/Vol] 12.0 mg/dL Normal 7.0-18.0 [facility] Comment on above: Performed By: #### C MP #### [facility] [address] [place] [address] Dr. Arash Frazier Urea nitrogen/Creatinine [Mass ratio] 16.0 mg/mg Normal [facility] Comment on above: Performed By: #### C MP #### [facility] [address] [place] [address] Dr. Arash Frazier PROTIMEon 03-01-2022 INR Coag (PPP) [Relative time] 0.95 {INR} Normal [facility] Comment on above: Performed By: #### P TT, PT #### [facility] [address] [place] [address] Dr. Arash Frazier INR GUIDELINES SEE BELOW Normal [facility] Comment on above: Result Comment: MABLE RED INR: 2.0 - 3.0 CONDITIONS NOT LISTED BELOW 2.5 - 3.5 FOR PROSTHETIC HEART VALVE REPLACEMENT 2.5 - 3.5 RECURRENT THROMBOSIS Performed By: #### P TT, PT #### [facility] [address] [place] [address] Dr. Arash Frazier PT Coag (PPP) [Time] 10.3 s Normal 9.0-11.6 [facility] Comment on above: Performed By: #### P TT, PT #### [facility] [address] [place] [address] Dr. Arash Frazier PTTon 03-01-2022 aPTT Coag (Bld) [Time] 29.9 s Normal 22.3-36.2 [facility] Comment on above: Performed By: #### P TT, PT #### [facility] [address] [address] [address] Arash Frazier Vital Signs Date Time Vital Sign Value Performing Clinician Faci lity 02-14-2021 13:30-0400 Body height 172.72 cm Farida Monson Other [facility] Other Encounters Encounter Date Encounter Type Care Provider Facility Start: 11-18-2023 End: 11-18-2023 ambulatory SARAN KIM Not Available Start: 09-30-2023 End: 09-30-2023 ambulatory SARAN KMI Not Available Start: 09-22-2023 End: 09-22-2023 ambulatory SARAN KIM Not Available Start: 09-15-2023 End: 09-15-2023 ambulatory SARAN KIM Not Available Start: 09-08-2023 End: 09-08-2023 ambulatory SARAN KIM Not Available Start: 2023 End: 2023 ambulatory SARAN KIM Not Available Start: 08-18-2023 End: 08-18-2023 ambulatory SANJANA RAMIREZ Not Available Start: 08-11-2023 End: 08-11-2023 ambulatory SARAN KIM Not Available Start: 08-04-2023 End: 08-04-2023 ambulatory Saran Kim Facility:[facility] Start: 08-04-2023 End: 08-04-2023 ambulatory DO Kalyan Haynes Work Phone: [facility] Work Phone: Start: 08-04-2023 End: 08-04-2023 Departed Referred DO Kalyan Haynes Work Phone: [facility] Start: 08-04-2023 End: 08-04-2023 ambulatory SARAN [...] Start: 02-18-2021 Telephone encounter Kalyan Haynes [facility] [place] Start: 02-14-2021 (URG) Urgent Care Visit Farida rogers [facility] [place] Start: 02-14-2021 Telephone encounter Kalyan Haynes [facility] [place] Payers Date Payer Category Payer Self-pay 2012 Private Health Insurance [facility] [id number] 1997 Unknown [id number] 2.16.840.1.805255.3.579.2. 593 1997 Unknown [id number] 2.16.840.1.962198.3.579.2. 593 1997 Unknown [id number] 2.16.840.1.334308.3.579.2. 593 1997 Unknown [id number] 2.16.840.1.077132.3.579.2. 593 1997 Unknown [id number] 2.16.840.1.012680.3.579.2. 593 1997 Unknown [id number] 2.16.840.1.725678.3.579.2. 593 1997 Unknown [id number] 2.16.840.1.351930.3.579.2. 593 1997 Unknown [id number] 2.16.840.1.350126.3.579.2. 59 1997 Unknown [id number] 2.16.840.1.039269.3.579.2. 1258 1997 Unknown [id number] 2.16.840.1.842230.3.579.2. 1258 1997 Unknown [id number] 2.16.840.1.357476.3.579.2. 1258 1997 Unknown [id number] 2.16.840.1.813097.3.579.2. 1258 1997 Unknown [id number] 2.16.840.1.971325.3.579.2. 1258 1997 Unknown [id number] 2.16.840.1.851616.3.579.2. 1258 1997 Unknown [id number] 2.16.840.1.324466.3.579.2. 1258 1997 Unknown [id number] 2.16.840.1.604082.3.579.2. 1258 1997 Unknown [id number] 2.16.840.1.814283.3.579.2. 1258 1997 Unknown [id number] 2.16.840.1.987741.3.579.2. 1258 1997 Unknown [id number] 2.16.840.1.962356.3.579.2. 1258 1997 Unknown [id number] 2.16.840.1.966968.3.579.2. 1258 1997 Unknown [id number] 2.16.840.1.473584.3.579.2. 1258 1997 Unknown [id number] 2.16.840.1.053516.3.579.2. 1258 1997 Unknown [id number] 2.16.840.1.004316.3.579.2. 1258 1959 Unknown [id number] 2.16.840.1.176064.19 Unknown Laine [place]/STEF[facility] [id number] Unknown [id number] 2.16.840.1.409519.3.579.2. 531 Social History Date Type Detail Facility Unknown if ever smoked [facility] Other Sex Assigned At Sex Assigned At Bir th [facility] Other Start: 02-14-2021 Tobacco smoking status NHIS Never smoked tobacco (finding) [facility] Start: 1995 Sex Assigned At Female [facility] Evaluation note 02-14-2021 Note Date & Type Note Facility 02-14-2021 Evaluation note Encounter Date Diagnosis Assessment Notes Feb, Body aches (ICD-10 - R52) Feb, Loss of taste (ICD-10 - R43.2) [facility] Other Evaluation note 02-14-2021 Note Date & [...] Patient care instructions given in writting by [facility] document. [facility] Other History general Narrative - Reported 08-18-2016 Note Date & Type Note Facility 08-18-2016 History general N arrative - Reported Type Medical History Varicella Vaccine 2010 Surgical History lt wrist pin [facility] removed external fixator 10/2016 Surgical History removed pin from left wrist 10/03 017 Surgical History wisdom teeth extract Hospitalization History see above [facility] Other Evaluation note Note Date & Type Note Facility Evaluation note No Information [employer] Other Evaluation note Note Date & Type Note Facility Evaluation note No assessment information availa [facility] Work Phone: Summary Purpose Family History [...] DATE CREATED AUTHOR AUTHOR'S ORGANIZ ATION 08/08/2023 [facility] DATE CREATED AUTHOR AUTHOR'S ORGANIZ ATION 11/22/2023 [facility] EP[employer] Care Teams (unrecognized [...] PRIMARY CLINICAL RECORDS. [facility] [employer] provides no warranty or guarantee of the accuracy or completeness of information in this document.
[2024-03-08 10:56] LABS: Basophils Absolute Auto 0.1 10^3/uL (0.0-0.1); Basophils Percent Auto 1.1 % (0.2-2.0); Eosinophils Absolute Auto 0.2 10^3/uL (0.0-0.7); Eosinophils Percent Auto 3.1 % (0.9-7.0); Hematocrit 38.4 % (36.0-48.0); Hemoglobin 12.6 g/dL (12.0-16.0); Immature Granulocytes Abs Auto 0.01 10^3/uL (0.00-0.03); Immature Granulocytes Pct Auto 0.1 % (0.0-0.5); Lymphocytes Absolute Auto 2.2 10^3/uL (1.2-3.8); Lymphocytes Percent Auto 30.4 % (20.5-60.0); Mean Corpuscular HGB Conc 32.8 g/dL (29.9-35.2); Mean Corpuscular Hemoglobin 28.4 pg (26.7-34.0); Mean Corpuscular Volume 86.7 fL (81.0-99.0); Mean Platelet Volume 10.4 fL (9.5-13.5); Monocytes Absolute Auto 0.5 10^3/uL (0.3-0.8); Monocytes Percent Auto 7.3 % (1.7-12.0); Neutrophils Absolute Auto 4.3 10^3/uL (1.4-6.5); Platelet Count 221 10^3/uL (150-450); Red Blood Count 4.43 10^6/uL (4.20-5.40); Red Cell Distribution Width 14.1 % (11.0-15.0); White Blood Count 7.4 10^3/uL (4.0-11.0)
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
== END 2024-03-08 09:58 | disposition home or self-care (01) ==
LOC: PST 09:58
PROVIDERS: PCP Family Medicine; Visit Provider Podiatrist Foot & Ankle Surgery
DX: Z01.812 Encounter for preprocedural laboratory examination (principal); M19.171 Post-traumatic osteoarthritis, right ankle and foot; S92.101S Unspecified fracture of right talus, sequela
CPT/HCPCS: 85025; G0463

== ENCOUNTER 2024-03-21 06:08 | Day surgery (SDC) | payer OTHER, SELFPAY ==
[2024-03-08 11:05] VITALS: BP 140/81; PULSE 78; TEMP 36.3; O2SAT 97; BMI 35.5
[2024-03-21] VITALS (12 sets, daily range): BP systolic 110–132; BP diastolic 59–80; PULSE 81–105; TEMP 36.3–37.3; O2SAT 91–100; BMI 35.2
--- NOTE | 2024-03-21 | FL_ITS ---
[address] [address] Patient Name: JAYDEN BRIONES MRN: [id number] date: 1995 Sex: F [facility] Current Patient Location: [facility] Accession/Order Number: [id number] Exam Date: 03/21/2024 09:54 Report Date: 03/23/2024 11:41 At the request of: EDWIGE WILSON Procedure: FL fluoroscopy <1hr NON-READ EXAM: FL fluoroscopy <1hr NON-READ HISTORY: TECHNIQUE: FINDINGS: Please see Operative Report. Electronically authenticated by: RADIOLOGIST NO Date: 03/23/2024 11:41
--- OUTSIDE RECORDS SUMMARY | 2024-03-21 06:10 | XMS_ITS | CCD ---
Author Organization [facility] Team Providers Care Terrazzo Installer Name Role Phone Kalyan Haynes Unavailable IonaFarida [...] Unavailable KIM ., DR NOONAN Admitting Unavailable TIMBO, DR BIGGS Consulting Unavailable KIM ., DR [...] Reaction(s) Facility (3 sources) Amoxicillin Drug Allergy [facility] Other (1 source) Amoxicillin Drug Allergy 03-08-2020 [facility] Repository (1 source) Amoxicillin Drug Allergy 02-14-2021 [facility] Repository Medications Current Medications Medication Drug [...] Range Facil ollie Dan 08-04-2023 L Specimen: [id number] Received: 08/05/23 Status: MICHAEL Schaefer Num: [id number] Spec Type: Surgical Subm Dr: Saran Alvarez [...] Account Attending Physician Mercy Briones 27/ LABELL [id number] Saran Alvarez SPEC NUM: [id number] RECD: 08/05/23 STATUS: MICHAEL WADEKevin NUM: [id number] LOPEZ: 08/04/23- SUBM DR: Saran Alvarez ENTERED: 08/05/23 [facility] DR: Augustus,Lab SPEC TYPE: Surgical DEPT: [...] at the base of the excision Specimen: [id number] Received: 08/05/23 Status: MICHAEL Olive Num: [id number] Spec Type: Surgical Subm Dr: Saran Alvarez Tissues: A Skin-Other than Cyst, tag, debridement or plastic repair (RT POST NECK) B Skin-Other than Cyst, tag, debridement or plastic repair (RT BREAST 9:00) C Skin-Other than Cyst, tag, debridement or plastic repair (RT BREAST 8:00) D Skin-Other than Cyst, tag, debridement or plastic repair (RT FLANK) Procedures: GUNNAR/Niles, Juliocesar/Bennett L4/4 Patient: Mercy Briones [id number] (Continued) Specimen: [id number] Received: 08/05/23 (Continued) Signed (signature on file) Anabell Frazier MD 08/08/23 1834 Specimen: [id number] Received: 08/05/23 Status: MICHAEL Schaefer Num: [id number] Spec Type: Surgical Subm Dr: Saran Alvarez Tissues: A Skin-Other than Cyst, tag, debridement or plastic repair (RT POST NECK) B Skin-Other than Cyst, tag, debridement or plastic repair (RT BREAST 9:00) C Skin-Other than Cyst, tag, debridement or plastic repair (RT BREAST 8:00) D Skin-Other than Cyst, tag, debridement or plastic repair (RT FLANK) Procedures: HE/4, Gross/Micro L4/4 Patient: Mercy Briones [id number] (Continued) Specimen: [id number] Received: 08/05/23135 (Continued) Clinical Information Skin moles [...] CPT Codes 88 (more content not included)... [facility] US PREG TVon 09-11-2022 US PREG [...] JOHNNIE RESTREPO Date: 2022-09-11 15:59 Normal [facility] US PREG TVon 09-04-2022 US PREG [...] KALYAN BACK Date: 2022-09-04 17:37 Normal [facility] PREG QUANT HCGon 05-13-2022 HCG QUANT 6 mIU/mL Normal [facility] Comment on above: Performed By: #### P REGQNT #### [facility] [address] [place] [address] Dr. Arash Frazier HCG RANGE SEE BELOW Normal [facility] Comment on above: Result Comment: 5-50 0.2-1 WEEK 50-500 1-2 WEEKS 100-5,000 2-3 WEEKS 500-10,000 3-4 WEEKS 1,000-50,000 4-5 WEEKS 10,000-100,000 5-6 WEEKS 15,000-200,000 6-8 WEEKS 10,000-100,000 2-3 MONTHS Performed By: #### P REGQNT #### [facility] [address] [place] [address] Dr. Arash Frazier PREG QUANT HCGon 05-02-2022 HCG QUANT 23 mIU/mL Normal [facility] Comment on above: Performed By: #### P REGQNT #### [facility] [address] [place] [address] Dr. Arash Frazier HCG RANGE SEE BELOW Normal [facility] Comment on above: Result Comment: 5-50 0.2-1 WEEK 50-500 1-2 WEEKS 100-5,000 2-3 WEEKS 500-10,000 3-4 WEEKS 1,000-50,000 4-5 WEEKS 10,000-100,000 5-6 WEEKS 15,000-200,000 6-8 WEEKS 10,000-100,000 2-3 MONTHS Performed By: #### P REGQNT #### [facility] [address] [place] [address] Dr. Arash Frazier PREG QUANT HCGon 04-21-2022 HCG QUANT 85 mIU/mL Normal [facility] Comment on above: Performed By: #### P REGQNT #### [facility] [address] [place] [address] Dr. Arash Frazier HCG RANGE SEE BELOW Normal [facility] Comment on above: Result Comment: 5-50 0.2-1 WEEK 50-500 1-2 WEEKS 100-5,000 2-3 WEEKS 500-10,000 3-4 WEEKS 1,000-50,000 4-5 WEEKS 10,000-100,000 5-6 WEEKS 15,000-200,000 6-8 WEEKS 10,000-100,000 2-3 MONTHS Performed By: #### P REGQNT #### [facility] [address] [place] [address] Dr. Arash Frazier PREG QUANT HCGon 04-14-2022 HCG QUANT 197 mIU/mL Normal [facility] Comment on above: Performed By: #### P REGQNT #### [facility] [address] [place] [address] Dr. Arash Frazier HCG RANGE SEE BELOW Normal [facility] Comment on above: Result Comment: 5-50 0.2-1 WEEK 50-500 1-2 WEEKS 100-5,000 2-3 WEEKS 500-10,000 3-4 WEEKS 1,000-50,000 4-5 WEEKS 10,000-100,000 5-6 WEEKS 15,000-200,000 6-8 WEEKS 10,000-100,000 2-3 MONTHS Performed By: #### P REGQNT #### [facility] [address] [place] [address] Dr. Arash Frazier PREG QUANT HCGon 04-08-2022 HCG QUANT 269 mIU/mL Normal [facility] Comment on above: Performed By: #### P REGQNT #### [facility] [address] [place] [address] Dr. Arash Frazier HCG RANGE SEE BELOW Normal [facility] Comment on above: Result Comment: 5-50 0.2-1 WEEK 50-500 1-2 WEEKS 100-5,000 2-3 WEEKS 500-10,000 3-4 WEEKS 1,000-50,000 4-5 WEEKS 10,000-100,000 5-6 WEEKS 15,000-200,000 6-8 WEEKS 10,000-100,000 2-3 MONTHS Performed By: #### P REGQNT #### [facility] [address] [place] [address] Dr. Arash Frazier PREG QUANT HCGon 03-31-2022 HCG QUANT 192 mIU/mL Normal [facility] Comment on above: Performed By: #### P REGQNT #### [facility] [address] [place] [address] Dr. Arash Frazier HCG RANGE SEE BELOW Normal [facility] Comment on above: Result Comment: 5-50 0.2-1 WEEK 50-500 1-2 WEEKS 100-5,000 2-3 WEEKS 500-10,000 3-4 WEEKS 1,000-50,000 4-5 WEEKS 10,000-100,000 5-6 WEEKS 15,000-200,000 6-8 WEEKS 10,000-100,000 2-3 MONTHS Performed By: #### P REGQNT #### [facility] [address] [place] [address] Dr. Arash Frazier PREG QUANT HCGon 03-25-2022 HCG QUANT 115 mIU/mL Normal [facility] Comment on above: Performed By: #### P REGQNT #### [facility] [address] [place] [address] Dr. Arash Frazier HCG RANGE SEE BELOW Normal [facility] Comment on above: Result Comment: 5-50 0.2-1 WEEK 50-500 1-2 WEEKS 100-5,000 2-3 WEEKS 500-10,000 3-4 WEEKS 1,000-50,000 4-5 WEEKS 10,000-100,000 5-6 WEEKS 15,000-200,000 6-8 WEEKS 10,000-100,000 2-3 MONTHS Performed By: #### P REGQNT #### [facility] [address] [place] [address] Dr. Arash Frazier PREG QUANT HCGon 03-18-2022 HCG QUANT 41 mIU/mL Normal [facility] Comment on above: Performed By: #### P REGQNT #### [facility] [address] [place] [address] Dr. Arash Frazier HCG RANGE SEE BELOW Normal [facility] Comment on above: Result Comment: 5-50 0.2-1 WEEK 50-500 1-2 WEEKS 100-5,000 2-3 WEEKS 500-10,000 3-4 WEEKS 1,000-50,000 4-5 WEEKS 10,000-100,000 5-6 WEEKS 15,000-200,000 6-8 WEEKS 10,000-100,000 2-3 MONTHS Performed By: #### P REGQNT #### [facility] [address] [place] [address] Dr. Arash Frazier TYPE AND SCREENon 03-18-2022 TYPE AND SCREEN Negative Normal [facility] Comment on above: Performed By: #### P REGQNT #### [facility] [address] [place] [address] Dr. Arash Frazier CBC AUTO DIFFon 03-01-2022 BASO # 0.1 103/ul Normal 0.0-0.1 [facility] Comment on above: Performed By: #### C BC #### [facility] [address] [place] [address] Dr. Arash Frazier Basophils/100 WBC (Bld) 0.8 % Normal 0.2-2.0 [facility] Comment on above: Performed By: #### C BC #### [facility] [address] [place] [address] Dr. Arash Frazier EO # 0.2 103/ul Normal 0.0-0.7 [facility] Comment on above: Performed By: #### C BC #### [facility] [address] [place] [address] Dr. Arash Frazier Eosinophils/100 WBC (Bld) 2.0 % Normal 0.9-7.0 [facility] Comment on above: Performed By: #### C BC #### [facility] [address] [place] [address] Dr. Arash Frazier Erythrocyte distribution width (RBC) [Ratio] 13.0 % Normal 11.0-15.0 [facility] Comment on above: Performed By: #### C BC #### [facility] [address] [place] [address] Dr. Arash Frazier Hematocrit (Bld) [Volume fraction] 39.6 % Normal 36.0-48.0 [facility] Comment on above: Performed By: #### C BC #### [facility] [address] [place] [address] Dr. Arash Frazier Hemoglobin (Bld) [Mass/Vol] 12.9 g/dL Normal 12.0-16.0 [facility] Comment on above: Performed By: #### C BC #### [facility] [address] [place] [address] Dr. Arash Frazier IG # 0.03 10e3/ul Normal 0.00-0.03 [facility] Comment on above: Performed By: #### C BC #### [facility] [address] [place] [address] Dr. Arash Frazier IG % 0.3 % Normal 0.0-0.5 [facility] Comment on above: Performed By: #### C BC #### [facility] [address] [place] [address] Dr. Arash Frazier LYMPH # 2.4 103/ul Normal 1.2-3.8 [facility] Comment on above: Performed By: #### C BC #### [facility] [address] [place] [address] Dr. Arash Frazier Lymphocytes/100 WBC (Bld) 20.5 % Normal 20.5-60.0 [facility] Comment on above: Performed By: #### C BC #### [facility] [address] [place] [address] Dr. Arash Frazier MANUAL DIFF REQ NO Normal [facility] Comment on above: Performed By: #### C BC #### [facility] [address] [place] [address] Dr. Arash Frazier MCH (RBC) [Entitic mass] 29.5 pg Normal 26.7-34.0 [facility] Comment on above: Performed By: #### C BC #### [facility] [address] [place] [address] Dr. Arash Frazier MCHC (RBC) [Mass/Vol] 32.6 g/dL Normal 29.9-35.2 [facility] Comment on above: Performed By: #### C BC #### [facility] [address] [place] [address] Dr. Arash Frazier MCV (RBC) [Entitic vol] 90.6 fL Normal 81.0-99.0 [facility] Comment on above: Performed By: #### C BC #### [facility] [address] [place] [address] Dr. Arash Frazier MONO # 0.7 103/ul Normal 0.3-0.8 [facility] Comment on above: Performed By: #### C BC #### [facility] [address] [place] [address] Dr. Arash Frazier Monocytes/100 WBC (Bld) 5.9 % Normal 1.7-12.0 [facility] Comment on above: Performed By: #### C BC #### [facility] [address] [address] [address] Arash Frazier NEUT # 8.2 103/ul Critically high 1.4-6.5 [facility] Comment on above: Performed By: #### C BC #### [facility] [address] [place] [address] Dr. Arash Frazier Neutrophils/100 WBC (Bld) 70.5 % Normal 43.0-75.0 [facility] Comment on above: Performed By: #### C BC #### [facility] [address] [place] [address] Dr. Arash Frazier Platelet mean volume (Bld) [Entitic vol] 10.1 fL Normal 9.5-13.5 [facility] Comment on above: Performed By: #### C BC #### [facility] [address] [place] [address] Dr. Arash Frazier PLT 217 103/ul Normal 150-450 [facility] Comment on above: Performed By: #### C BC #### [facility] [address] [place] [address] Dr. Arash Frazier RBC 4.37 106/ul Normal 4.20-5.40 [facility] Comment on above: Performed By: #### C BC #### [facility] [address] [place] [address] Dr. Arash Frazier WBC 11.7 103/ul Critically high 4.0-11.0 [facility] Comment on above: Performed By: #### C BC #### [facility] [address] [place] [address] Dr. Arash Frazier PREG QUANT HCGon 03-01-2022 HCG QUANT 19 mIU/mL Normal [facility] Comment on above: Performed By: #### P REGQNT #### [facility] [address] [place] [address] Dr. Arash Frazier HCG RANGE SEE BELOW Normal [facility] Comment on above: Result Comment: 5-50 0.2-1 WEEK 50-500 1-2 WEEKS 100-5,000 2-3 WEEKS 500-10,000 3-4 WEEKS 1,000-50,000 4-5 WEEKS 10,000-100,000 5-6 WEEKS 15,000-200,000 6-8 WEEKS 10,000-100,000 2-3 MONTHS Performed By: #### P REGQNT #### [facility] [address] [place] [address] Dr. Arash Frazier PROF 14(COMP METB)on 03-01- 022 Albumin [Mass/Vol] 3.8 g/dL Normal 3.4-5.0 [facility] Comment on above: Performed By: #### C MP #### [facility] [address] [place] [address] Dr. Arash Frazier Albumin/Globulin [Mass ratio] 1.0 {ratio} Normal [facility] Comment on above: Performed By: #### C MP #### [facility] [address] [place] [address] Dr. Arash Frazier ALP [Catalytic activity/Vol] 69 U/L Normal 46-116 [facility] Comment on above: Performed By: #### C MP #### [facility] [address] [place] [address] Dr. Arash Frazier ALT [Catalytic activity/Vol] 21 U/L Normal 14-59 [facility] Comment on above: Performed By: #### C MP #### [facility] [address] [place] [address] Dr. Arash Frazier Anion gap [Moles/Vol] 11.6 mmol/L Normal [facility] Comment on above: Performed By: #### C MP #### [facility] [address] [place] [address] Dr. Arash Frazier AST [Catalytic activity/Vol] 13 U/L Critically low 15-37 [facility] Comment on above: Performed By: #### C MP #### [facility] [address] [place] [address] Dr. Arash Frazier Bilirubin [Mass/Vol] 0.2 mg/dL Normal 0.2-1.0 [facility] Comment on above: Performed By: #### C MP #### [facility] [address] [place] [address] Dr. Arash Frazier Calcium [Mass/Vol] 8.8 mg/dL Normal 8.5-10.1 [facility] Comment on above: Performed By: #### C MP #### [facility] [address] [place] [address] Dr. Arash Frazier Chloride [Moles/Vol] 106 mmol/L Normal 98-107 [facility] Comment on above: Performed By: #### C MP #### [facility] [address] [address] [address] Arash Frazier CO2 [Moles/Vol] 28.7 mmol/L Normal 21.0-32.0 [facility] Comment on above: Performed By: #### C MP #### [facility] [address] [place] [address] Dr. Arash Frazier Creatinine [Mass/Vol] 0.75 mg/dL Normal 0.55-1.02 [facility] Comment on above: Performed By: #### C MP #### [facility] [address] [place] [address] Dr. Arash Frazier EGFR-AF MALIAN >60 Normal >=60 [facility] Comment on above: Performed By: #### C MP #### [facility] [address] [place] [address] Dr. Arahs Frazier EGFR-NON AF MALIAN >60 Normal >=60 [facility] Comment on above: Performed By: #### C MP #### [facility] [address] [place] [address] Dr. Arash Frazier Globulin (S) [Mass/Vol] 3.7 g/dL Normal [facility] Comment on above: Performed By: #### C MP #### [facility] [address] [place] [address] Dr. Arash Frazier Glucose [Mass/Vol] 102 mg/dL Normal 74-106 [facility] Comment on above: Performed By: #### C MP #### [facility] [address] [place] [address] Dr. Arash Frazier Potassium [Moles/Vol] 4.3 mmol/L Normal 3.5-5.1 [facility] Comment on above: Performed By: #### C MP #### [facility] [address] [address] [address] Arash Frazier Protein [Mass/Vol] 7.5 g/dL Normal 6.4-8.2 [facility] Comment on above: Performed By: #### C MP #### [facility] [address] [address] [address] Arash Frazier Sodium [Moles/Vol] 142 mmol/L Normal 136-145 [facility] Comment on above: Performed By: #### C MP #### [facility] [address] [address] [address] Arash Frazier Urea nitrogen [Mass/Vol] 12.0 mg/dL Normal 7.0-18.0 [facility] Comment on above: Performed By: #### C MP #### [facility] [address] [place] [address] Dr. Arash Frazier Urea nitrogen/Creatinine [Mass ratio] 16.0 mg/mg Normal [facility] Comment on above: Performed By: #### C MP #### [facility] [address] [place] [address] Dr. Arash Frazier PROTIMEon 03-01-2022 INR Coag (PPP) [Relative time] 0.95 {INR} Normal [facility] Comment on above: Performed By: #### P TT, PT #### [facility] [address] [place] [address] Dr. Arash Frazier INR GUIDELINES SEE BELOW Normal [facility] Comment on above: Result Comment: MABLE RED INR: 2.0 - 3.0 CONDITIONS NOT LISTED BELOW 2.5 - 3.5 FOR PROSTHETIC HEART VALVE REPLACEMENT 2.5 - 3.5 RECURRENT THROMBOSIS Performed By: #### P TT, PT #### [facility] [address] [place] [address] Dr. Arash Frazier PT Coag (PPP) [Time] 10.3 s Normal 9.0-11.6 [facility] Comment on above: Performed By: #### P TT, PT #### [facility] [address] [place] [address] Dr. Arash Frazier PTTon 03-01-2022 aPTT Coag (Bld) [Time] 29.9 s Normal 22.3-36.2 [facility] Comment on above: Performed By: #### P TT, PT #### [facility] [address] [address] [address] Arash Frazier Vital Signs Date Time Vital Sign Value Performing Clinician Faci lity 02-14-2021 13:30-0400 Body height 172.72 cm Farida Monson Other [facility] Other Encounters Encounter Date Encounter Type Care [...] Start: 08-04-2023 End: 08-04-2023 ambulatory Saran Kim Facility:[facility] Start: 08-04-2023 End: 08-04-2023 ambulatory DO Kalyan Haynes Work Phone: [facility] Work Phone: Start: 08-04-2023 End: 08-04-2023 Departed Referred DO Kalyan Haynes Work Phone: [facility] Start: 08-04-2023 End: 08-04-2023 ambulatory SARAN [...] Facility:[facility]1 Start: 02-18-2021 Telephone encounter Kalyan Haynes [facility] [place] Start: 02-14-2021 (URG) Urgent Care Visit Farida rogers [facility] [place] Start: 02-14-2021 Telephone encounter Kalyan Haynes [facility] [place] Payers Date Payer Category Payer Self-pay [address] [facility] [id number] 1997 Unknown [id number] 2.16.840.1.334345.3.579.2. 593 1997 Unknown [id number] 2.16.840.1.320859.3.579.2. 593 1997 Unknown [id number] 2.16.840.1.281477.3.579.2. 593 1997 Unknown [id number] 2.16.840.1.241947.3.579.2. 593 1997 Unknown [id number] 2.16.840.1.768158.3.579.2. 593 1997 Unknown [id number] 2.16.840.1.819021.3.579.2. 593 1997 Unknown [id number] 2.16.840.1.513511.3.579.2. 593 1997 Unknown [id number] 2.16.840.1.247649.3.579.2. 59 1997 Unknown [id number] 2.16.840.1.972173.3.579.2. 1258 1997 Unknown [id number] 2.16.840.1.646783.3.579.2. 1258 1997 Unknown [id number] 2.16.840.1.385828.3.579.2. 1258 1997 Unknown [id number] 2.16.840.1.646052.3.579.2. 1258 1997 Unknown [id number] 2.16.840.1.242558.3.579.2. 1258 1997 Unknown [id number] 2.16.840.1.532232.3.579.2. 1258 1997 Unknown [id number] 2.16.840.1.888212.3.579.2. 1258 1997 Unknown [id number] 2.16.840.1.804694.3.579.2. 1258 1997 Unknown [id number] 2.16.840.1.540801.3.579.2. 1258 1997 Unknown [id number] 2.16.840.1.092208.3.579.2. 1258 1997 Unknown [id number] 2.16.840.1.864722.3.579.2. 1258 1997 Unknown [id number] 2.16.840.1.634205.3.579.2. 1258 1997 Unknown [id number] 2.16.840.1.919975.3.579.2. 1258 1997 Unknown [id number] 2.16.840.1.270286.3.579.2. 1258 1997 Unknown [id number] 2.16.840.1.371789.3.579.2. 1258 1959 Unknown [id number] 2.16.840.1.177454.19 Unknown Laine [place]/STEFANO [id number] Unknown [id number] 2.16.840.1.916110.3.579.2. 531 Social History Date Type Detail Facility Unknown if ever smoked [facility] Other Sex Assigned At Sex Assigned At Bir th [facility] Other Start: 02-14-2021 Tobacco smoking status NHIS Never smoked tobacco (finding) [facility] Start: 1995 Sex Assigned At Female F [facility] Evaluation note 02-14-2021 Note Date & Type Note Facility 02-14-2021 Evaluation note Encounter Date Diagnosis Assessment Notes Feb, Body aches (ICD-10 - R52) Feb, Loss of taste (ICD-10 - R43.2) [facility] Other Evaluation note 02-14-2021 Note Date & [...] Patient care instructions given in writting by [facility] Home document. [facility] Other History general Narrative - Reported 08-18-2016 Note Date & Type Note Facility 08-18-2016 History general N arrative - Reported Type Medical History Varicella Vaccine 2010 Surgical History lt wrist pin [facility] 7 [facility] removed external fixator 10/2016 Surgical History removed pin from left wrist 10/03 017 Surgical History wisdom teeth extract Hospitalization History see above [facility] Other Evaluation note Note Date & Type Note Facility Evaluation note No Information [facility] [employer] Other Evaluation note Note Date & Type Note Facility Evaluation note No assessment information availa [facility] Work Phone: Summary Purpose Family History No [...] DATE CREATED AUTHOR AUTHOR'S ORGANIZ ATION 08/08/2023 [facility] DATE CREATED AUTHOR AUTHOR'S ORGANIZ ATION 11/22/2023 [facility] EPIC Care Teams (unrecognized [...] BE BASED ON THE PRIMARY CLINICAL RECORDS. [facility] [employer] provides no warranty or guarantee of the accuracy or completeness of information in this document.
[2024-03-21 06:15] LABS: Basophils Absolute Auto 0.1 10^3/uL (0.0-0.1); Eosinophils Absolute Auto 0.3 10^3/uL (0.0-0.7); Eosinophils Percent Auto 3.3 % (0.9-7.0); Hematocrit 40.3 % (36.0-48.0); Hemoglobin 13.2 g/dL (12.0-16.0); Immature Granulocytes Abs Auto 0.01 10^3/uL (0.00-0.03); Immature Granulocytes Pct Auto 0.1 % (0.0-0.5); Lymphocytes Absolute Auto 3.2 10^3/uL (1.2-3.8); Lymphocytes Percent Auto 36.7 % (20.5-60.0); Mean Corpuscular HGB Conc 32.8 g/dL (29.9-35.2); Mean Corpuscular Hemoglobin 28.7 pg (26.7-34.0); Mean Corpuscular Volume 87.6 fL (81.0-99.0); Mean Platelet Volume 10.2 fL (9.5-13.5); Monocytes Absolute Auto 0.7 10^3/uL (0.3-0.8); Monocytes Percent Auto 7.9 % (1.7-12.0); Neutrophils Absolute Auto 4.4 10^3/uL (1.4-6.5); Platelet Count 233 10^3/uL (150-450); Red Cell Distribution Width 14.1 % (11.0-15.0); White Blood Count 8.7 10^3/uL (4.0-11.0)
[2024-03-21 06:31] LABS: Glucometer 91 mg/dL (74-106)
[2024-03-21 06:34] LABS: HCG Qualitative NEGATIVE (NEGATIVE); Internal Control Within Normal Limits
[2024-03-21] MEDS: LACTATED RINGER'S SOLUTION 1,000 ML 50 ML IV ×2 (07:21→08:40)
[2024-03-21] MEDS: CLINDAMYCIN PHOSPHATE/D5W 900 MG/50 ML PREMIX 100 MG IV (07:53)
--- NOTE | 2024-03-21 08:04 | PC.NURSE ---
0731 Time out performed 732 cleansed with chloraprep 733 ultrasound to look for injection site 0734 injection began and procedure completed 07
--- NOTE | 2024-03-21 08:08 | XR_ITS ---
The [address] [address] Patient Name: JAYDEN BRIONES MRN: [id number] date: 1995 Sex: F Assigned Patient Location: [facility] Current Patient Location: [facility] Accession/Order Number: [id number] Exam Date: 03/21/2024 10:20 Report Date: 03/24/2024 05:46 At the request of: EDWIGE WILSON Procedure: XR foot RT min 3V PROCEDURE: XR foot RT min 3V HISTORY: STJ DJD COMPARISON: XR foot right 12/15/2023 FINDINGS: BONES:Mechanical fusion of the talocalcaneal joint via 2 screws. No appreciable hardware fracture or bone fracture. SOFT TISSUES:Images were obtained through cast material. Small amount of subcutaneous free air anterior to the ankle and midfoot consistent with recent surgery. EFFUSION:None visible. OTHER: Negative. XR/XR foot RT min 3V IMPRESSION: 1. Postoperative fusion of the talocalcaneal joint. Electronically authenticated by: JOHNNIE RESTREPO Date: 03/24/2024 05:46
--- NOTE | 2024-03-21 08:08 | PC.NURSE ---
0740 second block popliteal began site being cleansed at this time 0742 injection began and completed at 0749
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
[2024-03-21 10:37] LABS: Glucometer 105 mg/dL (74-106)
--- NOTE | 2024-03-21 11:23 | PM.PN ---
Progress Note: Subjective Subjective Interval history: Patient is a 28 y.o who underwent a STJ fusion on the right with Dr. Regan. I am seeing her in the post operative setting. She had a pain block. Pain is currently controlled. No post op nausea or vomiting. She takes no daily medications. She denies any PMH other than recent , has a 5 month old. Exam Narrative Exam Narrative: General: Patient is alert, and oriented to person, place and time with normal affect, proper hygiene Skin: no visible rashes, or ulcers Head: atraumatic, acephalic Eyes: PERRLA, no nystagmus present, conjunctiva clear, no scleral icterus Ears: normal gross auditory acuity Heart: Normal rate and rhythm, no murmurs/rubs/gallops Lungs: no audible wheezes, crackles and normal breath sounds all lung urias Abdomen: Normal audible bowel sounds, no distension, No palpable masses, no organomegaly, no rebound/guarding/ or rigidity Musculoskeletal: right lower ext splint in place Neuro: CN II-X grossly intact Constitutional Vital Signs, click to edit/add: Last Vital Signs Temp 98.1 F 03/21/24 11:00 Pulse 81 03/21/24 11:00 Resp 18 03/21/24 11:00 BP 116/66 03/21/24 11:00 Pulse Ox 94 L 03/21/24 11:00 O2 Del Method Room Air 03/21/24 11:00 Progress Note: Objective Labs Labs: Short CBC 03/21/24 Range/Units 06:12 WBC 8.7 (4.0-11.0) 10^3/uL Hgb 13.2 (12.0-16.0) g/dL Hct 40.3 (36.0-48.0) % Plt Count 233 (150-450) 10^3/uL Progress Note: A&P Assessment and Plan (1) Foot pain: Qualifiers: Laterality: right Qualified Code(s): M79.671 - Pain in right foot (2) Ankle pain: Qualifiers: Chronicity: acute Laterality: right Qualified Code(s): M25.571 - Pain in right ankle and joints of right foot (3) Post-traumatic osteoarthritis, right ankle and foot: (4) Lactating mother: Plan Patient is just in the post operative setting. Her pain block is working well. Transition to oral pain meds once block wears, Advance diet. Lovenox for prophylaxis. NWB on the right, PT order placed. Will follow along with primary surgical team.
[2024-03-21] MEDS: ACETAMINOPHEN 500 MG TABLET 1000 MG PO (14:18)
== END 2024-03-21 17:12 | disposition home or self-care (01) ==
LOC: SURGOUT 08:09 → MS 10:43
PROVIDERS: Anesthesiology; Admitting Provider Family Medicine; PCP Family Medicine; Visit Provider Podiatrist Foot & Ankle Surgery
PROC: (CPT 01480; principal; 2024-03-21 07:30)
DX: M19.171 Post-traumatic osteoarthritis, right ankle and foot (principal); S92.10 Unspecified fracture of talus; S92.001K Unspecified fracture of right calcaneus, subsequent encounter for fracture with nonunion; M25.571 Pain in right ankle and joints of right foot; M79.671 Pain in right foot
CPT/HCPCS: 01480; 28725; 36415; 64445; 64447; 73630; 76000; 82948; 84703; 85025; C1713; J0131; J0736; J1100; J1885; J2250; J2405; J2704; J2795; J3010

== ENCOUNTER 2024-04-12 10:31 | Outpatient (OUT) | payer OTHER, SELFPAY ==
--- NOTE | 2024-04-12 | XR_ITS ---
[address] [address] Patient Name: JAYDEN BRIONES MRN: [id number] date: 1995 Sex: F Assigned Patient Location: [facility] Current Patient Location: Accession/Order Number: [id number] Exam Date: 04/12/2024 10:31 Report Date: 04/13/2024 08:18 At the request of: EDWIGE WILSON Procedure: XR foot RT min 3V PROCEDURE: XR foot RT min 3V COMPARISON: 03/21/2024 HISTORY: RIGHT FOOT PAIN FINDINGS: BONES:Stable posterior calcaneal osteotomy and subtalar fusion with 2 cannulated screws. Partial bony bridging. Moderate degenerative changes of the midfoot with joint space narrowing SOFT TISSUES:Negative. No visible soft tissue swelling. EFFUSION:None visible. OTHER: Negative. XR/XR foot RT min 3V IMPRESSION: Stable subtalar fusion with partial bony bridging Electronically authenticated by: KALYAN BACK Date: 04/13/2024 08:18
== END 2024-04-12 10:32 | disposition home or self-care (01) ==
LOC: RAD 10:31
PROVIDERS: PCP Family Medicine; Visit Provider Podiatrist Foot & Ankle Surgery
DX: M19.171 Post-traumatic osteoarthritis, right ankle and foot (principal); M24.674 Ankylosis, right foot
CPT/HCPCS: 73630

== ENCOUNTER 2024-05-10 08:25 | Outpatient (OUT) | payer OTHER, SELFPAY ==
--- NOTE | 2024-05-10 08:27 | XR_ITS ---
[address] [address] Patient Name: JAYDEN BRIONES MRN: [id number] date: 1995 Sex: F Assigned Patient Location: [facility] Current Patient Location: [facility] Accession/Order Number: [id number] Exam Date: 05/10/2024 08:35 Report Date: 05/10/2024 21:46 At the request of: EDWIGE WILSON Procedure: XR foot RT min 3V EXAM: XR foot RT min 3V HISTORY: Right Foot Pain COMPARISON: 04/12/2024 FINDINGS/IMPRESSION: 1. No acute fracture or dislocation. 2. Mild degeneration of the interphalangeal joints. 3. Osseous fusion at the subtalar joint with fusion screws. No apparent hardware complication. 4. Small ankle joint effusion. 5. Mild degeneration of the mid foot. Electronically authenticated by: LASHONDA MERCHANT Date: 05/10/2024 21:46
== END 2024-05-10 08:26 | disposition home or self-care (01) ==
LOC: RAD 08:25
PROVIDERS: PCP Family Medicine; Visit Provider Podiatrist Foot & Ankle Surgery
DX: M79.671 Pain in right foot (principal); M24.674 Ankylosis, right foot
CPT/HCPCS: 73630

== ENCOUNTER 2024-06-01 08:45 | Outpatient (OUT) | payer OTHER, SELFPAY ==
--- OUTSIDE RECORDS SUMMARY | 2024-06-01 08:52 | XMS_ITS | CCD ---
Author Organization [facility] Team Providers Care Shift Supervisor Rn Name Role Phone Kalyan Haynes Unavailable IonaFarida Unavailable KIM ., DR NOONAN Admitting Unavailable KIM ., DR NOONAN Attending Unavailable KIM ., DR NOONAN Consulting Unavailable GIRVIN, DR BIGSG Primary Care Unavailable HAY ., DR KING [...] Unavailable KIM ., DR NOONAN Admitting Unavailable ENDICOTT, DR BIGGS Consulting Unavailable KIM ., DR [...] Reaction(s) Facility (3 sources) Amoxicillin Drug Allergy [facility] Other (1 source) Amoxicillin Drug Allergy 03-08-2020 [facility] Repository (1 source) Amoxicillin Drug Allergy 02-14-2021 [facility] Repository Medications Current Medications Medication [...] Range Facil ollie Dan 08-04-2023 L Specimen: [id number] Received: 08/05/23 Status: MICHAEL Schaefer Num: [id number] Spec Type: Surgical Subm Dr: Saran Alvarez [...] Account Attending Physician Mercy Briones 25/ LABELL [id number] Saran Alvarez SPEC NUM: [id number] RECD: 08/05/23 STATUS: MICHAEL WADEKevin NUM: [id number] LOPEZ: 08/04/23- SUBM DR: Saran Alvarez ENTERED: 08/05/[address] [facility] [address]: Augustus,Lab SPEC TYPE: Surgical DEPT: [...] at the base of the excision Specimen: [id number] Received: 08/05/23 Status: MICHAEL Olive Num: [id number] Spec Type: Surgical Subm Dr: Saran Alvarez Tissues: A Skin-Other than Cyst, tag, debridement or plastic repair (RT POST NECK) B Skin-Other than Cyst, tag, debridement or plastic repair (RT BREAST 9:00) C Skin-Other than Cyst, tag, debridement or plastic repair (RT BREAST 8:00) D Skin-Other than Cyst, tag, debridement or plastic repair (RT FLANK) Procedures: GUNNAR/Niles, Juliocesar/Bennett L4/4 Patient: Mercy Briones [id number] (Continued) Specimen: [id number] Received: 08/05/23 (Continued) Signed (signature on file) Anabell Frazier MD 08/08/23 1834 Specimen: [id number] Received: 08/05/23 Status: MICHAEL Schaefer Num: [id number] Spec Type: Surgical Subm Dr: Saran Alvarez Tissues: A Skin-Other than Cyst, tag, debridement or plastic repair (RT POST NECK) B Skin-Other than Cyst, tag, debridement or plastic repair (RT BREAST 9:00) C Skin-Other than Cyst, tag, debridement or plastic repair (RT BREAST 8:00) D Skin-Other than Cyst, tag, debridement or plastic repair (RT FLANK) Procedures: HE/4, Gross/Micro L4/4 Patient: Mercy Briones [id number] (Continued) Specimen: [id number] Received: 08/05/23135 (Continued) Clinical Information Skin moles [...] CPT Codes 88 (more content not included)... [facility] US PREG TVon 09-11-2022 US PREG TV [...] JOHNNIE RESTREPO Date: 2022-09-11 15:59 Normal [facility] US PREG TVon 09-04-2022 US PREG [...] KALYAN BACK Date: 2022-09-04 17:37 Normal [facility] PREG QUANT HCGon 05-13-2022 HCG QUANT 6 mIU/mL Normal [facility] Comment on above: Performed By: #### P REGQNT #### [facility] [address] [place] [address] Dr. Arash Frazier HCG RANGE SEE BELOW Normal [facility] Comment on above: Result Comment: 5-50 0.2-1 WEEK 50-500 1-2 WEEKS 100-5,000 2-3 WEEKS 500-10,000 3-4 WEEKS 1,000-50,000 4-5 WEEKS 10,000-100,000 5-6 WEEKS 15,000-200,000 6-8 WEEKS 10,000-100,000 2-3 MONTHS Performed By: #### P REGQNT #### [facility] [address] [place] [address] Dr. Arash Frazier PREG QUANT HCGon 05-02-2022 HCG QUANT 23 mIU/mL Normal [facility] Comment on above: Performed By: #### P REGQNT #### [facility] [address] [place] [address] Dr. Arash Frazier HCG RANGE SEE BELOW Normal [facility] Comment on above: Result Comment: 5-50 0.2-1 WEEK 50-500 1-2 WEEKS 100-5,000 2-3 WEEKS 500-10,000 3-4 WEEKS 1,000-50,000 4-5 WEEKS 10,000-100,000 5-6 WEEKS 15,000-200,000 6-8 WEEKS 10,000-100,000 2-3 MONTHS Performed By: #### P REGQNT #### [facility] [address] [place] [address] Dr. Arash Frazier PREG QUANT HCGon 04-21-2022 HCG QUANT 85 mIU/mL Normal [facility] Comment on above: Performed By: #### P REGQNT #### [facility] [address] [place] [address] Dr. Arash Frazier HCG RANGE SEE BELOW Normal [facility] Comment on above: Result Comment: 5-50 0.2-1 WEEK 50-500 1-2 WEEKS 100-5,000 2-3 WEEKS 500-10,000 3-4 WEEKS 1,000-50,000 4-5 WEEKS 10,000-100,000 5-6 WEEKS 15,000-200,000 6-8 WEEKS 10,000-100,000 2-3 MONTHS Performed By: #### P REGQNT #### [facility] [address] [place] [address] Dr. Arash Frazier PREG QUANT HCGon 04-14-2022 HCG QUANT 197 mIU/mL Normal [facility] Comment on above: Performed By: #### P REGQNT #### [facility] [address] [place] [address] Dr. Arash Frazier HCG RANGE SEE BELOW Normal [facility] Comment on above: Result Comment: 5-50 0.2-1 WEEK 50-500 1-2 WEEKS 100-5,000 2-3 WEEKS 500-10,000 3-4 WEEKS 1,000-50,000 4-5 WEEKS 10,000-100,000 5-6 WEEKS 15,000-200,000 6-8 WEEKS 10,000-100,000 2-3 MONTHS Performed By: #### P REGQNT #### [facility] [address] [place] [address] Dr. Arash Frazier PREG QUANT HCGon 04-08-2022 HCG QUANT 269 mIU/mL Normal [facility] Comment on above: Performed By: #### P REGQNT #### [facility] [address] [place] [address] Dr. Arash Frazier HCG RANGE SEE BELOW Normal [facility] Comment on above: Result Comment: 5-50 0.2-1 WEEK 50-500 1-2 WEEKS 100-5,000 2-3 WEEKS 500-10,000 3-4 WEEKS 1,000-50,000 4-5 WEEKS 10,000-100,000 5-6 WEEKS 15,000-200,000 6-8 WEEKS 10,000-100,000 2-3 MONTHS Performed By: #### P REGQNT #### [facility] [address] [place] [address] Dr. Arash Frazier PREG QUANT HCGon 03-31-2022 HCG QUANT 192 mIU/mL Normal [facility] Comment on above: Performed By: #### P REGQNT #### [facility] [address] [place] [address] Dr. Arash Frazier HCG RANGE SEE BELOW Normal [facility] Comment on above: Result Comment: 5-50 0.2-1 WEEK 50-500 1-2 WEEKS 100-5,000 2-3 WEEKS 500-10,000 3-4 WEEKS 1,000-50,000 4-5 WEEKS 10,000-100,000 5-6 WEEKS 15,000-200,000 6-8 WEEKS 10,000-100,000 2-3 MONTHS Performed By: #### P REGQNT #### [facility] [address] [place] [address] Dr. Arash Frazier PREG QUANT HCGon 03-25-2022 HCG QUANT 115 mIU/mL Normal [facility] Comment on above: Performed By: #### P REGQNT #### [facility] [address] [place] [address] Dr. Arash Frazier HCG RANGE SEE BELOW Normal [facility] Comment on above: Result Comment: 5-50 0.2-1 WEEK 50-500 1-2 WEEKS 100-5,000 2-3 WEEKS 500-10,000 3-4 WEEKS 1,000-50,000 4-5 WEEKS 10,000-100,000 5-6 WEEKS 15,000-200,000 6-8 WEEKS 10,000-100,000 2-3 MONTHS Performed By: #### P REGQNT #### [facility] [address] [place] [address] Dr. Arash Frazier PREG QUANT HCGon 03-18-2022 HCG QUANT 41 mIU/mL Normal [facility] Comment on above: Performed By: #### P REGQNT #### [facility] [address] [place] [address] Dr. Arash Frazier HCG RANGE SEE BELOW Normal [facility] Comment on above: Result Comment: 5-50 0.2-1 WEEK 50-500 1-2 WEEKS 100-5,000 2-3 WEEKS 500-10,000 3-4 WEEKS 1,000-50,000 4-5 WEEKS 10,000-100,000 5-6 WEEKS 15,000-200,000 6-8 WEEKS 10,000-100,000 2-3 MONTHS Performed By: #### P REGQNT #### [facility] [address] [place] [address] Dr. Arash Frazier TYPE AND SCREENon 03-18-2022 TYPE AND SCREEN Negative Normal [facility] Comment on above: Performed By: #### P REGQNT #### [facility] [address] [place] [address] Dr. Arash Frazier CBC AUTO DIFFon 03-01-2022 BASO # 0.1 103/ul Normal 0.0-0.1 [facility] Comment on above: Performed By: #### C BC #### [facility] [address] [place] [address] Dr. Arash Frazier Basophils/100 WBC (Bld) 0.8 % Normal 0.2-2.0 [facility] Comment on above: Performed By: #### C BC #### [facility] [address] [place] [address] Dr. Arash Frazier EO # 0.2 103/ul Normal 0.0-0.7 [facility] Comment on above: Performed By: #### C BC #### [facility] [address] [place] [address] Dr. Arash Frazier Eosinophils/100 WBC (Bld) 2.0 % Normal 0.9-7.0 [facility] Comment on above: Performed By: #### C BC #### [facility] [address] [place] [address] Dr. Arash Frazier Erythrocyte distribution width (RBC) [Ratio] 13.0 % Normal 11.0-15.0 [facility] Comment on above: Performed By: #### C BC #### [facility] [address] [place] [address] Dr. Arash Frazier Hematocrit (Bld) [Volume fraction] 39.6 % Normal 36.0-48.0 [facility] Comment on above: Performed By: #### C BC #### [facility] [address] [place] [address] Dr. Arash Frazier Hemoglobin (Bld) [Mass/Vol] 12.9 g/dL Normal 12.0-16.0 [facility] Comment on above: Performed By: #### C BC #### [facility] [address] [place] [address] Dr. Arash Frazier IG # 0.03 10e3/ul Normal 0.00-0.03 [facility] Comment on above: Performed By: #### C BC #### [facility] [address] [place] [address] Dr. Arash Frazier IG % 0.3 % Normal 0.0-0.5 [facility] Comment on above: Performed By: #### C BC #### [facility] [address] [place] [address] Dr. Arash Frazier LYMPH # 2.4 103/ul Normal 1.2-3.8 [facility] Comment on above: Performed By: #### C BC #### [facility] [address] [place] [address] Dr. Arash Frazier Lymphocytes/100 WBC (Bld) 20.5 % Normal 20.5-60.0 [facility] Comment on above: Performed By: #### C BC #### [facility] [address] [place] [address] Dr. Arash Frazier MANUAL DIFF REQ NO Normal [facility] Comment on above: Performed By: #### C BC #### [facility] [address] [place] [address] Dr. Arash Frazier MCH (RBC) [Entitic mass] 29.5 pg Normal 26.7-34.0 [facility] Comment on above: Performed By: #### C BC #### [facility] [address] [place] [address] Dr. Arash Frazier MCHC (RBC) [Mass/Vol] 32.6 g/dL Normal 29.9-35.2 [facility] Comment on above: Performed By: #### C BC #### [facility] [address] [place] [address] Dr. Arash Frazier MCV (RBC) [Entitic vol] 90.6 fL Normal 81.0-99.0 [facility] Comment on above: Performed By: #### C BC #### [facility] [address] [place] [address] Dr. Arash Frazier MONO # 0.7 103/ul Normal 0.3-0.8 [facility] Comment on above: Performed By: #### C BC #### [facility] [address] [place] [address] Dr. Arash Frazier Monocytes/100 WBC (Bld) 5.9 % Normal 1.7-12.0 [facility] Comment on above: Performed By: #### C BC #### [facility] [address] [address] [address] Arash Frazier NEUT # 8.2 103/ul Critically high 1.4-6.5 [facility] Comment on above: Performed By: #### C BC #### [facility] [address] [place] [address] Dr. Arash Frazier Neutrophils/100 WBC (Bld) 70.5 % Normal 43.0-75.0 [facility] Comment on above: Performed By: #### C BC #### [facility] [address] [place] [address] Dr. Arash Frazier Platelet mean volume (Bld) [Entitic vol] 10.1 fL Normal 9.5-13.5 [facility] Comment on above: Performed By: #### C BC #### [facility] [address] [place] [address] Dr. Arash Frazier PLT 217 103/ul Normal 150-450 [facility] Comment on above: Performed By: #### C BC #### [facility] [address] [place] [address] Dr. Arash Frazier RBC 4.37 106/ul Normal 4.20-5.40 [facility] Comment on above: Performed By: #### C BC #### [facility] [address] [place] [address] Dr. Arash Frazier WBC 11.7 103/ul Critically high 4.0-11.0 [facility] Comment on above: Performed By: #### C BC #### [facility] [address] [place] [address] Dr. Arash Frazier PREG QUANT HCGon 03-01-2022 HCG QUANT 19 mIU/mL Normal [facility] Comment on above: Performed By: #### P REGQNT #### [facility] [address] [place] [address] Dr. Arash Frazier HCG RANGE SEE BELOW Normal [facility] Comment on above: Result Comment: 5-50 0.2-1 WEEK 50-500 1-2 WEEKS 100-5,000 2-3 WEEKS 500-10,000 3-4 WEEKS 1,000-50,000 4-5 WEEKS 10,000-100,000 5-6 WEEKS 15,000-200,000 6-8 WEEKS 10,000-100,000 2-3 MONTHS Performed By: #### P REGQNT #### [facility] [address] [place] [address] Dr. Arash Frazier PROF 14(COMP METB)on 03-01- 022 Albumin [Mass/Vol] 3.8 g/dL Normal 3.4-5.0 [facility] Comment on above: Performed By: #### C MP #### [facility] [address] [place] [address] Dr. Arash Frazier Albumin/Globulin [Mass ratio] 1.0 {ratio} Normal [facility] Comment on above: Performed By: #### C MP #### [facility] [address] [place] [address] Dr. Arash Frazier ALP [Catalytic activity/Vol] 69 U/L Normal 46-116 [facility] Comment on above: Performed By: #### C MP #### [facility] [address] [place] [address] Dr. Arash Frazier ALT [Catalytic activity/Vol] 21 U/L Normal 14-59 [facility] Comment on above: Performed By: #### C MP #### [facility] [address] [place] [address] Dr. Arash Frazier Anion gap [Moles/Vol] 11.6 mmol/L Normal [facility] Comment on above: Performed By: #### C MP #### [facility] [address] [place] [address] Dr. Arash Frazier AST [Catalytic activity/Vol] 13 U/L Critically low 15-37 [facility] Comment on above: Performed By: #### C MP #### [facility] [address] [place] [address] Dr. Arash Frazier Bilirubin [Mass/Vol] 0.2 mg/dL Normal 0.2-1.0 [facility] Comment on above: Performed By: #### C MP #### [facility] [address] [place] [address] Dr. Arash Frazier Calcium [Mass/Vol] 8.8 mg/dL Normal 8.5-10.1 [facility] Comment on above: Performed By: #### C MP #### [facility] [address] [place] [address] Dr. Arash Frazier Chloride [Moles/Vol] 106 mmol/L Normal 98-107 [facility] Comment on above: Performed By: #### C MP #### [facility] [address] [address] [address] Arash Frazier CO2 [Moles/Vol] 28.7 mmol/L Normal 21.0-32.0 [facility] Comment on above: Performed By: #### C MP #### [facility] [address] [place] [address] Dr. Arash Frazier Creatinine [Mass/Vol] 0.75 mg/dL Normal 0.55-1.02 [facility] Comment on above: Performed By: #### C MP #### [facility] [address] [place] [address] Dr. Arash Frazier EGFR-AF MALIAN >60 Normal >=60 [facility] Comment on above: Performed By: #### C MP #### [facility] [address] [place] [address] Dr. Arash Frazier EGFR-NON AF MALIAN >60 Normal >=60 [facility] Comment on above: Performed By: #### C MP #### [facility] [address] [place] [address] Dr. Arash Frazier Globulin (S) [Mass/Vol] 3.7 g/dL Normal [facility] Comment on above: Performed By: #### C MP #### [facility] [address] [place] [address] Dr. Arash Frazier Glucose [Mass/Vol] 102 mg/dL Normal 74-106 [facility] Comment on above: Performed By: #### C MP #### [facility] [address] [place] [address] Dr. Arash Frazier Potassium [Moles/Vol] 4.3 mmol/L Normal 3.5-5.1 [facility] Comment on above: Performed By: #### C MP #### [facility] [address] [address] [address] Arash Frazier Protein [Mass/Vol] 7.5 g/dL Normal 6.4-8.2 [facility] Comment on above: Performed By: #### C MP #### [facility] [address] [address] [address] Arash Frazier Sodium [Moles/Vol] 142 mmol/L Normal 136-145 [facility] Comment on above: Performed By: #### C MP #### [facility] [address] [address] [address] Arash Frazier Urea nitrogen [Mass/Vol] 12.0 mg/dL Normal 7.0-18.0 [facility] Comment on above: Performed By: #### C MP #### [facility] [address] [place] [address] Dr. Arash Frazier Urea nitrogen/Creatinine [Mass ratio] 16.0 mg/mg Normal [facility] Comment on above: Performed By: #### C MP #### [facility] [address] [place] [address] Dr. Arash Frazier PROTIMEon 03-01-2022 INR Coag (PPP) [Relative time] 0.95 {INR} Normal [facility] Comment on above: Performed By: #### P TT, PT #### [facility] [address] [place] [address] Dr. Arash Frazier INR GUIDELINES SEE BELOW Normal [facility] Comment on above: Result Comment: MABLE RED INR: 2.0 - 3.0 CONDITIONS NOT LISTED BELOW 2.5 - 3.5 FOR PROSTHETIC HEART VALVE REPLACEMENT 2.5 - 3.5 RECURRENT THROMBOSIS Performed By: #### P TT, PT #### [facility] [address] [place] [address] Dr. Arash Frazier PT Coag (PPP) [Time] 10.3 s Normal 9.0-11.6 [facility] Comment on above: Performed By: #### P TT, PT #### [facility] [address] [place] [address] Dr. Arash Frazier PTTon 03-01-2022 aPTT Coag (Bld) [Time] 29.9 s Normal 22.3-36.2 [facility] Comment on above: Performed By: #### P TT, PT #### [facility] [address] [address] [address] Arash Frazier Vital Signs Date Time Vital Sign Value Performing Clinician Faci lity 02-14-2021 13:30-0400 Body height 172.72 cm Farida Monson Other [employer] Other Encounters Encounter Date Encounter Type Care [...] Start: 08-04-2023 End: 08-04-2023 ambulatory Saran Kim Facility:[facility] Start: 08-04-2023 End: 08-04-2023 ambulatory DO Kalyan Haynes Work Phone: [facility] Work Phone: Start: 08-04-2023 End: 08-04-2023 Departed Referred DO Kalyan Haynes Work Phone: [facility] Start: 08-04-2023 End: 08-04-2023 ambulatory SARAN [...] Facility:[facility] Start: 02-18-2021 Telephone encounter Kalyan Haynes [facility] [place] Start: 02-14-2021 (URG) Urgent Care Visit Farida rogers [facility] [place] Start: 02-14-2021 Telephone encounter Kalyan Haynes [facility] [place] Payers Date Payer Category Payer Self-pay 2012 Private Health Insurance [facility] [id number] 1997 Unknown [id number] 2.16.840.1.744957.3.579.2. 593 1997 Unknown [id number] 2.16.840.1.096738.3.579.2. 593 1997 Unknown [id number] 2.16.840.1.301124.3.579.2. 593 1997 Unknown [id number] 2.16.840.1.509315.3.579.2. 593 1997 Unknown [id number] 2.16.840.1.903985.3.579.2. 593 1997 Unknown [id number] 2.16.840.1.347784.3.579.2. 593 1997 Unknown [id number] 2.16.840.1.018801.3.579.2. 593 1997 Unknown [id number] 2.16.840.1.518188.3.579.2. 59 1997 Unknown [id number] 2.16.840.1.909796.3.579.2. 1258 1997 Unknown [id number] 2.16.840.1.777910.3.579.2. 1258 1997 Unknown [id number] 2.16.840.1.067437.3.579.2. 1258 1997 Unknown [id number] 2.16.840.1.492052.3.579.2. 1258 1997 Unknown [id number] 2.16.840.1.367361.3.579.2. 1258 1997 Unknown [id number] 2.16.840.1.259137.3.579.2. 1258 1997 Unknown [id number] 2.16.840.1.936581.3.579.2. 1258 1997 Unknown [id number] 2.16.840.1.931818.3.579.2. 1258 1997 Unknown [id number] 2.16.840.1.260396.3.579.2. 1258 1997 Unknown [id number] 2.16.840.1.950591.3.579.2. 1258 1997 Unknown [id number] 2.16.840.1.082975.3.579.2. 1258 1997 Unknown [id number] 2.16.840.1.978671.3.579.2. 1258 1997 Unknown [id number] 2.16.840.1.119831.3.579.2. 1258 1997 Unknown [id number] 2.16.840.1.226984.3.579.2. 1258 1997 Unknown [id number] 2.16.840.1.329579.3.579.2. 1258 1959 Unknown [id number] 2.16.840.1.525516.19 Unknown Laine [place]/STEFANO [id number] Unknown [id number] 2.16.840.1.460904.3.579.2. 531 Social History Date Type Detail Facility Unknown if ever smoked [employer] Other Sex Assigned At Sex Assigned At Bir th [employer] Other Start: 02-14-2021 Tobacco smoking status NHIS Never smoked tobacco (finding) [facility] Start: 1995 Sex Assigned At Female F [facility] Evaluation note 02-14-2021 Note Date & Type Note Facility 02-14-2021 Evaluation note Encounter Date Diagnosis Assessment Notes Feb, Body aches (ICD-10 - R52) Feb, Loss of taste (ICD-10 - R43.2) [employer] Other Evaluation note 02-14-2021 Note Date & [...] care instructions given in writting by [facility] At Home document. [employer] Other History general Narrative - Reported 08-18-2016 Note Date & Type Note Facility 08-18-2016 History general N arrative - Reported Type Medical History Varicella Vaccine 2010 Surgical History lt wrist pin [facility] removed external fixator 10/2016 Surgical History removed pin from left wrist 10/03 017 Surgical History wisdom teeth extract Hospitalization History see above [employer] Other Evaluation note Note Date & Type Note Facility Evaluation note No Information [facility] Other Evaluation note Note Date & Type Note Facility Evaluation note No assessment information availa [facility] Work Phone: Summary Purpose Family History [...] DATE CREATED AUTHOR AUTHOR'S ORGANIZ ATION 08/08/2023 [facility] DATE CREATED AUTHOR AUTHOR'S ORGANIZ ATION 11/22/2023 [facility] EPIC Care Teams (unrecognized sec [...] BE BASED ON THE PRIMARY CLINICAL RECORDS. [facility] [employer] provides no warranty or guarantee of the accuracy or completeness of information in this document.
--- NOTE | 2024-06-01 09:01 | XR_ITS ---
The [place] [id number] Patient Name: JAYDEN BRIONES MRN: [id number] date: 1995 Sex: F Assigned Patient Location: [facility] Current Patient Location: [facility] Accession/Order Number: [id number] Exam Date: 06/01/2024 08:52 Report Date: 06/01/2024 13:50 At the request of: EDWGIE WILSON Procedure: XR foot RT min 3V PROCEDURE: XR foot RT min 3V HISTORY: Right Foot Pain COMPARISON: XR foot right 05/10/2024 FINDINGS: BONES:Mechanical fusion of the talocalcaneal joint via 2 screws; no appreciable hardware fracture loosening. There appears to be osseous fusion of the calcaneus and cuboid. Mild degenerative changes the midfoot. SOFT TISSUES:No visible soft tissue swelling. EFFUSION:None visible. OTHER: Negative. XR/XR foot RT min 3V IMPRESSION: 1. Stable surgical changes without hardware failure or change in alignment. Electronically authenticated by: JOHNNIE RESTREPO Date: 06/01/2024 13:50
== END 2024-06-01 08:46 | disposition home or self-care (01) ==
LOC: RAD 08:45
PROVIDERS: PCP Family Medicine; Visit Provider Podiatrist Foot & Ankle Surgery
DX: M79.671 Pain in right foot (principal); M24.674 Ankylosis, right foot
CPT/HCPCS: 73630

== ENCOUNTER 2024-06-29 08:56 | Outpatient (OUT) | payer OTHER, SELFPAY ==
--- NOTE | 2024-06-29 09:00 | XR_ITS ---
The [address] [address] Patient Name: JAYDEN BRIONES MRN: [id number] date: 1995 Sex: F Assigned Patient Location: [facility] Current Patient Location: [facility] Accession/Order Number: [id number] Exam Date: 06/29/2024 11:03 Report Date: 06/29/2024 11:05 At the request of: EDWIGE WILSON DPM Procedure: XR foot RT min 3V RIGHT FOOT - 4 views COMPARISON: 06/01/2024 CLINICAL DATA: Follow-up talocalcaneal fusion Weightbearing AP, lateral, oblique and tangential calcaneal views were obtained. There is redemonstration of 2 screws fusing the talocalcaneal joints. The hardware and appears of the underlying bones has not changed. Fusion of the calcaneocuboid joint is also suggested. There is no developing fracture or dislocation. There are no significant soft tissue abnormalities. XR/XR foot RT min 3V IMPRESSION: STABLE APPEARANCE OF THE FOOT . Impression dictated by: Betina Angel M.D.06/29/2024 11:05 AM Dictation Location: [place] [address] Electronically authenticated by: [id number] Y Date: 06/29/2024 11:05
--- OUTSIDE RECORDS SUMMARY | 2024-06-29 09:15 | XMS_ITS | CCD ---
Author Organization [facility] [place] [facility] Team Providers Care Engineering Lab Technician Name Role Phone Kalyan Haynes Unavailable IonaFarida Unavailable KIM ., DR NOONNA Admitting Unavailable KIM ., DR NOONAN Attending [...] Unavailable KIM ., DR NOONAN Admitting Unavailable [place], DR BIGGS Consulting Unavailable KIM ., DR [...] Reaction(s) Facility (3 sources) Amoxicillin Drug Allergy [facility] [employer] Other (1 source) Amoxicillin Drug Allergy 03-08-[address] [facility] Repository (1 source) Amoxicillin Drug Allergy 02-14-2021 [facility] Repository Medications Current Medications Medication [...] Range Facil ollie Dan 08-04-2023 L Specimen: [id number] Received: 08/05/23 Status: MICHAEL Schaefer Num: [id number] Spec Type: Surgical Subm Dr: Saran Alvarez [...] Account Attending Physician Mercy Briones 25/ LABELL [id number] Saran Alvarez SPEC NUM: [id number] RECD: 08/05/23 STATUS: MICHAEL WADEKevin NUM: [id number] LOPEZ: 08/04/23- SUBM DR: Saran Alvarez ENTERED: 08/05/23 [facility] DR: Augustus,Lab SPEC TYPE: Surgical DEPT: ANTHONY [...] at the base of the excision Specimen: [id number] Received: 08/05/23 Status: MICHAEL Olive Num: [id number] Spec Type: Surgical Subm Dr: Saran Alvarez Tissues: A Skin-Other than Cyst, tag, debridement or plastic repair (RT POST NECK) B Skin-Other than Cyst, tag, debridement or plastic repair (RT BREAST 9:00) C Skin-Other than Cyst, tag, debridement or plastic repair (RT BREAST 8:00) D Skin-Other than Cyst, tag, debridement or plastic repair (RT FLANK) Procedures: GUNNAR/Niles, Juliocesar/Bennett L4/4 Patient: Mercy Briones [id number] (Continued) Specimen: [id number] Received: 08/05/23 (Continued) Signed (signature on file) Anabell Frazier MD 08/08/23 1834 Specimen: [id number] Received: 08/05/23 Status: MICHAEL Schaefer Num: [id number] Spec Type: Surgical Subm Dr: Saran Alvarez Tissues: A Skin-Other than Cyst, tag, debridement or plastic repair (RT POST NECK) B Skin-Other than Cyst, tag, debridement or plastic repair (RT BREAST 9:00) C Skin-Other than Cyst, tag, debridement or plastic repair (RT BREAST 8:00) D Skin-Other than Cyst, tag, debridement or plastic repair (RT FLANK) Procedures: HE/4, Gross/Micro L4/4 Patient: Mrecy Briones [id number] (Continued) Specimen: [id number] Received: 08/05/23135 (Continued) Clinical Information Skin moles [...] CPT Codes 88 (more content not included)... [facility] US PREG TVon 09-11-2022 US PREG [...] Date: 2022-09-11 15:59 [address] [facility] US PREG TVon 09-04-2022 US PREG [...] Date: 2022-09-04 17:37 Normal [facility] PREG QUANT HCGon 05-13-2022 HCG QUANT 6 mIU/mL Normal [facility] Comment on above: Performed By: #### P REGQNT #### [facility] Laboratory [address] [place] [address] Dr. Arash Frazier HCG RANGE SEE BELOW Normal [facility] Comment on above: Result Comment: 5-50 0.2-1 WEEK 50-500 1-2 WEEKS 100-5,000 2-3 WEEKS 500-10,000 3-4 WEEKS 1,000-50,000 4-5 WEEKS 10,000-100,000 5-6 WEEKS 15,000-200,000 6-8 WEEKS 10,000-100,000 2-3 MONTHS Performed By: #### P REGQNT #### [facility] [address] [place] [address] Dr. Aarsh Frazier PREG QUANT HCGon 05-02-2022 HCG QUANT 23 mIU/mL Normal [facility] Comment on above: Performed By: #### P REGQNT #### [facility] [address] [place] [address] Dr. Arash Frazier HCG RANGE SEE BELOW Normal [facility] Comment on above: Result Comment: 5-50 0.2-1 WEEK 50-500 1-2 WEEKS 100-5,000 2-3 WEEKS 500-10,000 3-4 WEEKS 1,000-50,000 4-5 WEEKS 10,000-100,000 5-6 WEEKS 15,000-200,000 6-8 WEEKS 10,000-100,000 2-3 MONTHS Performed By: #### P REGQNT #### [facility] [address] [place] [address] Dr. Arash Frazier PREG QUANT HCGon 04-21-2022 HCG QUANT 85 mIU/mL Normal [facility] Comment on above: Performed By: #### P REGQNT #### [facility] [address] [place] [address] Dr. Arash Frazier HCG RANGE SEE BELOW Normal [facility] Comment on above: Result Comment: 5-50 0.2-1 WEEK 50-500 1-2 WEEKS 100-5,000 2-3 WEEKS 500-10,000 3-4 WEEKS 1,000-50,000 4-5 WEEKS 10,000-100,000 5-6 WEEKS 15,000-200,000 6-8 WEEKS 10,000-100,000 2-3 MONTHS Performed By: #### P REGQNT #### [facility] [address] [place] [address] Dr. Arash Frazier PREG QUANT HCGon 04-14-2022 HCG QUANT 197 mIU/mL Normal [facility] Comment on above: Performed By: #### P REGQNT #### [facility] [address] [place] [address] Dr. Arash Frazier HCG RANGE SEE BELOW Normal [facility] Comment on above: Result Comment: 5-50 0.2-1 WEEK 50-500 1-2 WEEKS 100-5,000 2-3 WEEKS 500-10,000 3-4 WEEKS 1,000-50,000 4-5 WEEKS 10,000-100,000 5-6 WEEKS 15,000-200,000 6-8 WEEKS 10,000-100,000 2-3 MONTHS Performed By: #### P REGQNT #### [facility] [address] [place] [address] Dr. Arash Frazier PREG QUANT HCGon 04-08-2022 HCG QUANT 269 mIU/mL Normal [facility] Comment on above: Performed By: #### P REGQNT #### [facility] [address] [place] [address] Dr. Arash Frazier HCG RANGE SEE BELOW Normal [facility] Comment on above: Result Comment: 5-50 0.2-1 WEEK 50-500 1-2 WEEKS 100-5,000 2-3 WEEKS 500-10,000 3-4 WEEKS 1,000-50,000 4-5 WEEKS 10,000-100,000 5-6 WEEKS 15,000-200,000 6-8 WEEKS 10,000-100,000 2-3 MONTHS Performed By: #### P REGQNT #### [facility] [address] [place] [address] Dr. Arash Frazier PREG QUANT HCGon 03-31-2022 HCG QUANT 192 mIU/mL Normal [facility] Comment on above: Performed By: #### P REGQNT #### [facility] [address] [place] [address] Dr. Arash Frazier HCG RANGE SEE BELOW Normal [facility] Comment on above: Result Comment: 5-50 0.2-1 WEEK 50-500 1-2 WEEKS 100-5,000 2-3 WEEKS 500-10,000 3-4 WEEKS 1,000-50,000 4-5 WEEKS 10,000-100,000 5-6 WEEKS 15,000-200,000 6-8 WEEKS 10,000-100,000 2-3 MONTHS Performed By: #### P REGQNT #### [facility] [address] [place] [address] Dr. Arash Frazier PREG QUANT HCGon 03-25-2022 HCG QUANT 115 mIU/mL Normal [facility] Comment on above: Performed By: #### P REGQNT #### [facility] [address] [place] [address] Dr. Arash Frazier HCG RANGE SEE BELOW Normal [facility] Comment on above: Result Comment: 5-50 0.2-1 WEEK 50-500 1-2 WEEKS 100-5,000 2-3 WEEKS 500-10,000 3-4 WEEKS 1,000-50,000 4-5 WEEKS 10,000-100,000 5-6 WEEKS 15,000-200,000 6-8 WEEKS 10,000-100,000 2-3 MONTHS Performed By: #### P REGQNT #### [facility] [address] [place] [address] Dr. Arash Frazier PREG QUANT HCGon 03-18-2022 HCG QUANT 41 mIU/mL Normal [facility] Comment on above: Performed By: #### P REGQNT #### [facility] [address] [place] [address] Dr. Arash Frazier HCG RANGE SEE BELOW Normal [facility] Comment on above: Result Comment: 5-50 0.2-1 WEEK 50-500 1-2 WEEKS 100-5,000 2-3 WEEKS 500-10,000 3-4 WEEKS 1,000-50,000 4-5 WEEKS 10,000-100,000 5-6 WEEKS 15,000-200,000 6-8 WEEKS 10,000-100,000 2-3 MONTHS Performed By: #### P REGQNT #### [facility] [address] [place] [address] Dr. rAash Frazier TYPE AND SCREENon 03-18-2022 TYPE AND SCREEN Negative Normal [facility] Comment on above: Performed By: #### P REGQNT #### [facility] [address] [place] [address] Dr. Aarsh Frazier CBC AUTO DIFFon 03-01-2022 BASO # 0.1 103/ul Normal 0.0-0.1 [facility] Comment on above: Performed By: #### C BC #### [facility] [address] [place] [address] Dr. Arash Frazier Basophils/100 WBC (Bld) 0.8 % Normal 0.2-2.0 [facility] Comment on above: Performed By: #### C BC #### [facility] [address] [place] [address] Dr. Arash Frazier EO # 0.2 103/ul Normal 0.0-0.[address] [facility] Comment on above: Performed By: #### C BC #### [facility] [address] [place] [address] Dr. Arash Frazier Eosinophils/100 WBC (Bld) 2.0 % Normal 0.9-7.0 [facility] Comment on above: Performed By: #### C BC #### [facility] [address] [place] [address] Dr. Arash Frazier Erythrocyte distribution width (RBC) [Ratio] 13.0 % Normal 11.0-15.0 [facility] Comment on above: Performed By: #### C BC #### [facility] [address] [place] [address] Dr. Arash Frazier Hematocrit (Bld) [Volume fraction] 39.6 % Normal 36.0-48.0 [facility] Comment on above: Performed By: #### C BC #### [facility] [address] [place] [address] Dr. Arash Frazier Hemoglobin (Bld) [Mass/Vol] 12.9 g/dL Normal 12.0-16.0 [facility] Comment on above: Performed By: #### C BC #### [facility] [address] [place] [address] Dr. Arash Frazier IG # 0.03 10e3/ul Normal 0.00-0.03 [facility] Comment on above: Performed By: #### C BC #### [facility] [address] [place] [address] Dr. Arash Frazier IG % 0.3 % Normal 0.0-0.[address] [facility] Comment on above: Performed By: #### C BC #### [facility] [address] [place] [address] Dr. Arash Frazier LYMPH # 2.4 103/ul Normal 1.2-3.[address] [facility] Comment on above: Performed By: #### C BC #### [facility] [address] [place] [address] Dr. Arash Frazier Lymphocytes/100 WBC (Bld) 20.5 % Normal 20.5-60.0 [facility] Comment on above: Performed By: #### C BC #### [facility] [address] [place] [address] Dr. Arash Frazier MANUAL DIFF REQ NO Normal [facility] Comment on above: Performed By: #### C BC #### [facility] [address] [place] [address] Dr. Arash Frazier MCH (RBC) [Entitic mass] 29.5 pg Normal 26.7-34.0 [facility] Comment on above: Performed By: #### C BC #### [facility] [address] [place] [address] Dr. Arash Frazier MCHC (RBC) [Mass/Vol] 32.6 g/dL Normal 29.9-35.[address] [facility] Comment on above: Performed By: #### C BC #### [facility] [address] [place] [address] Dr. Arash Frazier MCV (RBC) [Entitic vol] 90.6 fL Normal 81.0-99.0 [facility] Comment on above: Performed By: #### C BC #### [facility] [address] [place] [address] Dr. Arash Frazier MONO # 0.7 103/ul Normal 0.3-0.[address] [facility] Comment on above: Performed By: #### C BC #### [facility] [address] [place] [address] Dr. Arash Frazier Monocytes/100 WBC (Bld) 5.9 % Normal 1.7-12.[address] [facility] Comment on above: Performed By: #### C BC #### [facility] [address] [address] [address] Arash Frazier NEUT # 8.2 103/ul Critically high 1.4-6.[address] [facility] Comment on above: Performed By: #### C BC #### [facility] [address] [place] [address] Dr. Arash Frazier Neutrophils/100 WBC (Bld) 70.5 % Normal 43.0-75.0 [facility] Comment on above: Performed By: #### C BC #### [facility] [address] [place] [address] Dr. Arash Frazier Platelet mean volume (Bld) [Entitic vol] 10.1 fL Normal 9.5-13.[address] [facility] Comment on above: Performed By: #### C BC #### [facility] [address] [place] [address] Dr. Arash Frazier PLT 217 103/ul Normal 150-[address] [facility] Comment on above: Performed By: #### C BC #### [facility] [address] [place] [address] Dr. Arash Frazier RBC 4.37 106/ul Normal 4.20-5.[address] [facility] Comment on above: Performed By: #### C BC #### [facility] [address] [place] [address] Dr. Arash Frazier WBC 11.7 103/ul Critically high 4.0-11.0 [facility] Comment on above: Performed By: #### C BC #### [facility] [address] [place] [address] Dr. Arash Frazier PREG QUANT HCGon 03-01-2022 HCG QUANT 19 mIU/mL Normal [facility] Comment on above: Performed By: #### P REGQNT #### [facility] [address] [place] [address] Dr. Arash Frazier HCG RANGE SEE BELOW Normal [facility] Comment on above: Result Comment: 5-50 0.2-1 WEEK 50-500 1-2 WEEKS 100-5,000 2-3 WEEKS 500-10,000 3-4 WEEKS 1,000-50,000 4-5 WEEKS 10,000-100,000 5-6 WEEKS 15,000-200,000 6-8 WEEKS 10,000-100,000 2-3 MONTHS Performed By: #### P REGQNT #### [facility] [address] [place] [address] Dr. Arash Frazier PROF 14(COMP METB)on 03-01- 022 Albumin [Mass/Vol] 3.8 g/dL Normal 3.4-5.0 [facility] Comment on above: Performed By: #### C MP #### [facility] [address] [place] [address] Dr. Arash Frazier Albumin/Globulin [Mass ratio] 1.0 {ratio} Normal [facility] Comment on above: Performed By: #### C MP #### [facility] [address] [place] [address] Dr. Arash Frazier ALP [Catalytic activity/Vol] 69 U/L Normal 46-116 [facility] Comment on above: Performed By: #### C MP #### [facility] [address] [place] [address] Dr. Arash Frazier ALT [Catalytic activity/Vol] 21 U/L Normal 14-59 [facility] Comment on above: Performed By: #### C MP #### [facility] [address] [place] [address] Dr. Arash Frazier Anion gap [Moles/Vol] 11.6 mmol/L Normal [facility] Comment on above: Performed By: #### C MP #### [facility] [address] [place] [address] Dr. Arash Frazier AST [Catalytic activity/Vol] 13 U/L Critically low 15-37 [facility] Comment on above: Performed By: #### C MP #### [facility] [address] [place] [address] Dr. Arash Frazier Bilirubin [Mass/Vol] 0.2 mg/dL Normal 0.2-1.0 [facility] Comment on above: Performed By: #### C MP #### [facility] [address] [place] [address] Dr. Arash Frazier Calcium [Mass/Vol] 8.8 mg/dL Normal 8.5-10.1 [facility] Comment on above: Performed By: #### C MP #### [facility] [address] [place] [address] Dr. Arash Frazier Chloride [Moles/Vol] 106 mmol/L Normal 98-107 [facility] Comment on above: Performed By: #### C MP #### [facility] [address] [address] [address] Arash Frazier CO2 [Moles/Vol] 28.7 mmol/L Normal 21.0-32.0 [facility] Comment on above: Performed By: #### C MP #### [facility] [address] [place] [address] Dr. Arash Frazier Creatinine [Mass/Vol] 0.75 mg/dL Normal 0.55-1.02 [facility] Comment on above: Performed By: #### C MP #### [facility] [address] [place] [address] Dr. Arash Frazier EGFR-AF HONDURAN >60 Normal >=60 [facility] Comment on above: Performed By: #### C MP #### [facility] [address] [place] [address] Dr. Arash Frazier EGFR-NON AF HONDURAN >60 Normal >=60 [facility] Comment on above: Performed By: #### C MP #### [facility] [address] [place] [address] Dr. Arash Frazier Globulin (S) [Mass/Vol] 3.7 g/dL Normal [facility] Comment on above: Performed By: #### C MP #### [facility] [address] [place] [address] Dr. Arash Frazier Glucose [Mass/Vol] 102 mg/dL Normal 74-106 [facility] Comment on above: Performed By: #### C MP #### [facility] [address] [place] [address] Dr. Arash Frazier Potassium [Moles/Vol] 4.3 mmol/L Normal 3.5-5.1 [facility] Comment on above: Performed By: #### C MP #### [facility] [address] [address] [address] Arash Frazier Protein [Mass/Vol] 7.5 g/dL Normal 6.4-8.2 [facility] Comment on above: Performed By: #### C MP #### [facility] [address] [address] [address] Arash Frazier Sodium [Moles/Vol] 142 mmol/L Normal 136-145 [facility] Comment on above: Performed By: #### C MP #### [facility] [address] [address] [address] Arash Frazier Urea nitrogen [Mass/Vol] 12.0 mg/dL Normal 7.0-18.0 [facility] Comment on above: Performed By: #### C MP #### [facility] [address] [place] [address] Dr. Arash Frazier Urea nitrogen/Creatinine [Mass ratio] 16.0 mg/mg Normal [facility] Comment on above: Performed By: #### C MP #### [facility] [address] [place] [address] Dr. Arash Frazier PROTIMEon 03-01-2022 INR Coag (PPP) [Relative time] 0.95 {INR} Normal [facility] Comment on above: Performed By: #### P TT, PT #### [facility] [address] [place] [address] Dr. Arash Frazier INR GUIDELINES SEE BELOW Normal [facility] Comment on above: Result Comment: MABLE RED INR: 2.0 - 3.0 CONDITIONS NOT LISTED BELOW 2.5 - 3.5 FOR PROSTHETIC HEART VALVE REPLACEMENT 2.5 - 3.5 RECURRENT THROMBOSIS Performed By: #### P TT, PT #### [facility] [address] [place] [address] Dr. Arash Frazier PT Coag (PPP) [Time] 10.3 s Normal 9.0-11.6 [facility] Comment on above: Performed By: #### P TT, PT #### [facility] [address] [place] [address] Dr. Arash Frazier PTTon 03-01-2022 aPTT Coag (Bld) [Time] 29.9 s Normal 22.3-36.[address] [facility] Comment on above: Performed By: #### P TT, PT #### [facility] [address] [address] [address] Arash Frazier Vital Signs Date Time Vital Sign Value Performing Clinician Faci lity 02-14-2021 13:30-0400 Body height 172.72 cm Farida Monson Other Sz[facility] Other Encounters Encounter Date Encounter Type Care [...] Start: 08-04-2023 End: 08-04-2023 ambulatory Saran Kim Facility:[facility] Start: 08-04-2023 End: 08-04-2023 ambulatory DO Kalyan Haynes Work Phone: [facility] Work Phone: Start: 08-04-2023 End: 08-04-2023 Departed Referred DO Kalyan Haynes Work Phone: [facility] Start: 08-04-2023 End: 08-04-2023 ambulatory SARAN [...] Facility:[facility] Start: 02-18-2021 Telephone encounter Kalyan Haynes [facility] [place] Start: 02-14-2021 (URG) Urgent Care Visit Farida rogers [facility] [place] Start: 02-14-2021 Telephone encounter Kalyan Haynes [facility] [place] Payers Date Payer Category Payer Self-pay 2012 Private Health Insurance [facility] [id number] 1997 Unknown [id number] 2.16.840.1.935832.3.579.2. 593 1997 Unknown [id number] 2.16.840.1.941226.3.579.2. 593 1997 Unknown [id number] 2.16.840.1.452232.3.579.2. 593 1997 Unknown [id number] 2.16.840.1.946342.3.579.2. 593 1997 Unknown [id number] 2.16.840.1.344428.3.579.2. 593 1997 Unknown [id number] 2.16.840.1.456733.3.579.2. 593 1997 Unknown [id number] 2.16.840.1.158000.3.579.2. 593 1997 Unknown [id number] 2.16.840.1.166184.3.579.2. 59 1997 Unknown [id number] 2.16.840.1.959112.3.579.2. 1258 1997 Unknown [id number] 2.16.840.1.932850.3.579.2. 1258 1997 Unknown [id number] 2.16.840.1.496879.3.579.2. 1258 1997 Unknown [id number] 2.16.840.1.646951.3.579.2. 1258 1997 Unknown [id number] 2.16.840.1.850588.3.579.2. 1258 1997 Unknown [id number] 2.16.840.1.681317.3.579.2. 1258 1997 Unknown [id number] 2.16.840.1.167809.3.579.2. 1258 1997 Unknown [id number] 2.16.840.1.047435.3.579.2. 1258 1997 Unknown [id number] 2.16.840.1.599439.3.579.2. 1258 1997 Unknown [id number] 2.16.840.1.519387.3.579.2. 1258 1997 Unknown [id number] 2.16.840.1.468656.3.579.2. 1258 1997 Unknown [id number] 2.16.840.1.800223.3.579.2. 1258 1997 Unknown [id number] 2.16.840.1.309625.3.579.2. 1258 1997 Unknown [id number] 2.16.840.1.173910.3.579.2. 1258 1997 Unknown [id number] 2.16.840.1.193617.3.579.2. 1258 1959 Unknown [id number] 2.16.840.1.476975.19 Unknown Laine [place]/STEFANO [id number] Unknown [id number] 2.16.840.1.427238.3.579.2. 531 Social History Date Type Detail Facility Unknown if ever smoked Szl Other Sex Assigned At Sex Assigned At Bir th Szl Other Start: 02-14-2021 Tobacco smoking status NHIS Never smoked tobacco (finding) [facility] Start: 1995 Sex Assigned At Female [facility] Evaluation note 02-14-2021 Note Date & Type Note Facility 02-14-2021 Evaluation note Encounter Date Diagnosis Assessment Notes Feb, Body aches (ICD-10 - R52) Feb, Loss of taste (ICD-10 - R43.2) [facility] Other Evaluation note 02-14-2021 Note Date & [...] Patient care instructions given in writting by [facility] document. Szl Other History general Narrative - Reported 08-18-2016 Note Date & Type Note Facility 08-18-2016 History general N arrative - Reported Type Medical History Varicella Vaccine 2010 Surgical History lt wrist pin [facility] removed external fixator 10/2016 Surgical History removed pin from left wrist 10/03 017 Surgical History wisdom teeth extract Hospitalization History see above Sz[facility] Other Evaluation note Note Date & Type Note Facility Evaluation note No Information [place] Other Evaluation note Note Date & Type Note Facility Evaluation note No assessment information availa [facility] Work Phone: Summary Purpose Family History [...] DATE CREATED AUTHOR AUTHOR'S ORGANIZ ATION 08/08/2023 [facility] DATE CREATED AUTHOR AUTHOR'S ORGANIZ ATION 11/22/2023 [facility] EPIC Care Teams (unrecognized sec [...] BE BASED ON THE PRIMARY CLINICAL RECORDS. [facility] [employer] provides no warranty or guarantee of the accuracy or completeness of information in this document.
== END 2024-06-29 08:57 | disposition home or self-care (01) ==
LOC: RAD 08:56
PROVIDERS: PCP Family Medicine; Visit Provider Podiatrist Foot & Ankle Surgery
DX: M25.571 Pain in right ankle and joints of right foot (principal); Z98.890 Other specified postprocedural states
CPT/HCPCS: 73630

== ENCOUNTER 2025-01-25 15:39 | Outpatient (REF) | payer OTHER, SELFPAY ==
--- OUTSIDE RECORDS SUMMARY | 2024-05-10 07:15 | XMS_ITS ---
Author Organization [facility] [place] Address [address] [place] [address] Care Team Providers Care Manager Enterprise Name Role Phone Erik Haynes DO Primary Care Provider Unavailab Danny Grissom Unavailable [phone] REASON FOR VISIT PO #3 Encounters Encounter Location Date Provider Diagnosis [facility] (PODIATRY) [address] [place] [address] [place] [address] 05/10/2024 Danny Regan Right foot pain M79.671 Assessments Encounter Date Diagnosis (ICD Code) Assessment Notes Treatment Notes Treatment Clinical Notes Section Notes 05/10/2024 Right foot pain (ICD-10 - M79.671) Plan Of Treatment Pending Test Test Name Order Date XR Foot RT (3 views) * 05/10/2024 Progress Notes * Belle SOTOeDOB:[birth year] (29 yo F)Acc No.[id number]:05/10/2024 UNLOCKED PROGRESS NOTE Progress Note Patient: Jeaneth RUSSELL [facility] Provider: Mick Regan DPM, MS :1995 A ge:28 Y S ex:Female Date:05/10/2024 Address:[address] [place], [place] [id number] Pcp:Erik Haynes DO Subjective: * Chief Complaints: * 1 . PO #3. * Medical History: Objective: * Vitals: Assessment: * Assessment: 1. R ight foot pain - M79.671 Plan: * Treatment: * * Electronic signature of Ming Regan DPM on 01/25/2025 at 09:25 AM EDT Sign off status: Pending Visit Status: C ANC (Cancelled) * Provider: Mick Regan DPM, MS Date: 0 05/10/2024 Generated for Rajan Barakat/Jorge on: 0 01/25/2025 09:25 AM EDT
--- OUTSIDE RECORDS SUMMARY | 2025-01-25 15:42 | XMS_ITS | Patient Health Record ---
Author Organization [facility] [place] Address [address] [place] [address] Care Team Providers Care Senior Business Development Analyst Name Role Phone Kalyan James DO Primary Care Provider Unavailab Edwieg Grissom Unavailable [phone] Allergies Allergen (clinical drug ingredient) Drug/Non Drug Allergy documented on EMR Reaction Allergy Type Onset Date Status amoxicillin Amoxicillin Unknown Drug Allergy Act kosta Penicillin Unknown Drug Allergy Active Results Component Value Reference Range Notes CBC AUTO DIFF (Not yet revie wed by provider) Interpretation: Performing Lab: Notes/Report: [facility] , White Blood Count 7.4 4.0-11.0 10 3/uL Red Blood Count 4.43 4.20-5.40 10 6/uL Hemoglobin 12.6 12.0-16.0 g/dL Hematocrit 38.4 36.0-48.0 % Mean Corpuscular Volume 86.7 81.0-99.0 fL Mean Corpuscular Hemoglobin 28.4 26.7-34.0 pg Mean Corpuscular HGB Conc 32.8 29.9-35.2 g/dL Red Cell Distribution Width 14.1 11.0-15.0 % Platelet Count 221 150-450 10 3/uL Mean Platelet Volume 10.4 9.5-13.5 fL Neutrophils Percent Auto 58.0 43.0-75.0 % Lymphocytes Percent Auto 30.4 20.5-60.0 % Monocytes Percent Auto 7.3 1.7-12.0 % Eosinophils Percent Auto 3.1 0.9-7.0 % Basophils Percent Auto 1.1 0.2-2.0 % Immature Granulocytes Pct Auto 0.1 0.0-0.5 % Neutrophils Absolute Auto 4.3 1.4-6.5 10 3/uL Lymphocytes Absolute Auto 2.2 1.2-3.8 10 3/uL Monocytes Absolute Auto 0.5 0.3-0.8 10 3/uL Eosinophils Absolute Auto 0.2 0.0-0.7 10 3/uL Basophils Absolute Auto 0.1 0.0-0.1 10 3/uL Immature Granulocytes Abs Auto 0.01 0.00-0.03 10 3/uL Performing Lab: see note ML - [facility] FL fluoroscopy <1hr NON-READ (Not yet reviewed by provider) Interpretation: Performing Lab: Notes/Report: Source Facility: [place] [address] Fluoroscopy Report Signed Patient: MERCY SOTO MR#: [id number] : 1995 Acct:[id number] Age/Sex: 28 / F ADM Date: 03/21/24 Loc: SURGOUT Attending Dr: Edwige Regan D.P.M. Ordering Physician: Edwige Regan D.P.M. Date of Service: 03/21/24 Procedure(s): FL fluoroscopy <1hr NON-READ Accession Number(s): [id number] cc: KALYAN JAMES; Edwige Regan D.P.M. [place] [address] Patient Name: MERCY SOTO MRN: [id number] date: 1995 Sex: F Assigned Patient Location: [facility] Current Patient Location: [facility] Accession/Order Number: [id number] Exam Date: 03/21/2024 09:54 Report Date: 03/23/2024 11:41 At the request of: EDWIGE REGAN Procedure: FL fluoroscopy <1hr NON-READ EXAM: FL fluoroscopy <1hr NON-READ HISTORY: TECHNIQUE: FINDINGS: Please see Operative Report. Electronically authenticated by: SOY ERYEZ Date: 03/23/2024 11:41 Dictated By: MandyRadiologist Signed By: 03/23/24 1144 DD/ 1141 TD/TT: Actuarial Director: XR Foot RT (3 views) * Reviewed date:05/02/2024 01:18:40 PM Interpretation: Performing Lab: Notes/Report: XR foot RT min 3V (Not yet r eviewed by provider) Interpretation: Performing Lab: Notes/Report: Source Facility: [place] [address] XRay Report Signed Patient: MERCY SOTO MR#: [id number] : 1995 Acct:[id number] Age/Sex: 28 / F ADM Date: 06/29/24 Loc: RAD Attending Dr: Edwige Regan D.P.M. Ordering Physician: Edwige Regan D.P.M. Date of Service: 06/29/24 Procedure(s): XR foot RT min 3V Accession Number(s): [id number] cc: KALYAN JAMES; Edwige Regan D.P.M. [place] [address] Patient Name: MERCY SOTO MRN: [id number] date: 1995 Sex: F Assigned Patient Location: [facility] Current Patient Location: [facility] Accession/Order Number: [id number] Exam Date: 06/29/2024 11:03 Report Date: 06/29/2024 11:05 At the request of: EDWIGE REGAN DPJarrett Procedure: XR foot RT min 3V RIGHT FOOT - 4 views COMPARISON: 06/01/2024 CLINICAL DATA: Follow-up talocalcaneal fusion Weightbearing AP, lateral, oblique and tangential calcaneal views were obtained. There is redemonstration of 2 screws fusing the talocalcaneal joints. The hardware and appears of the underlying bones has not changed. Fusion of the calcaneocuboid joint is also suggested. There is no developing fracture or dislocation. There are no significant soft tissue abnormalities. XR/XR foot RT min 3V IMPRESSION: STABLE APPEARANCE OF THE FOOT . Impression dictated by: Betina Angel M.D.06/29/2024 11:05 AM Dictation Location: [place] [address] Electronically authenticated by: [id number] Y Date: 06/29/2024 11:05 Dictated By: Betina Angel M.D. Signed By: 06/29/241107 DD/ 04 TD/TT: Actuarial Director: XR foot RT min 3V (Not yet r eviewed by provider) Interpretation: Performing Lab: Notes/Report: Source Facility: [place] [address] [place] [address] XRay Report Signed Patient: MERCY SOTO MR#: [id number] : 1995 Acct:[id number] Age/Sex: 28 / F ADM Date: 06/01/24 Loc: RAD Attending Dr: Edwige Regan D.P.M. Ordering Physician: Edwige Regan D.P.M. Date of Service: 06/01/24 Procedure(s): XR foot RT min 3V Accession Number(s): [id number] cc: KALYAN JAMES; Edwige Regan D.P.M. [place] [address] Patient Name: MERCY SOTO MRN: [id number] date: 1995 Sex: F Assigned Patient Location: [facility] Current Patient Location: [facility] Accession/Order Number: [id number] Exam Date: 06/01/2024 08:52 Report Date: 06/01/2024 13:50 At the request of: EDWIGE REGAN Procedure: XR foot RT min 3V PROCEDURE: XR foot RT min 3V HISTORY: Right Foot Pain COMPARISON: XR foot right 05/10/2024 FINDINGS: BONES:Mechanical fusion of the talocalcaneal joint via 2 screws; no appreciable hardware fracture loosening. There appears to be osseous fusion of the calcaneus and cuboid. Mild degenerative changes the midfoot. SOFT TISSUES:No visible soft tissue swelling. EFFUSION:None visible. OTHER: Negative. XR/XR foot RT min 3V IMPRESSION: 1. Stable surgical changes without hardware failure or change in alignment. Electronically authenticated by: BULMARO FIGUEROA Date: 06/01/2024 13:50 Dictated By: Bulmaro Figueroa M.D. Signed By: 06/01/241351 DD/ 49 TD/TT: Actuarial Director: XR foot RT min 3V (Not yet r eviewed by provider) Interpretation: Performing Lab: Notes/Report: Source Facility: [place] [address] XRay Report Signed Patient: MERCY SOTO MR#: [id number] : 1995 Acct:[id number] Age/Sex: 28 / F ADM Date: 05/10/24 Loc: RAD Attending Dr: Edwige Regan D.P.M. Ordering Physician: Edwige Regan D.P.M. Date of Service: 05/10/24 Procedure(s): XR foot RT min 3V Accession Number(s): [id number] cc: KALYAN JAMES; Edwige Regan D.P.M. [place] [address] Patient Name: MERCY SOTO MRN: [id number] date: 1995 Sex: F Assigned Patient Location: [facility] Current Patient Location: [facility] Accession/Order Number: [id number] Exam Date: 05/10/2024 08:35 Report Date: 05/10/2024 21:46 At the request of: EDWIGE REGAN Procedure: XR foot RT min 3V EXAM: XR foot RT min 3V HISTORY: Right Foot Pain COMPARISON: 04/12/2024 FINDINGS/IMPRESSION: 1. No acute fracture or dislocation. 2. Mild degeneration of the interphalangeal joints. 3. Osseous fusion at the subtalar joint with fusion screws. No apparent hardware complication. 4. Small ankle joint effusion. 5. Mild degeneration of the mid foot. Electronically authenticated by: JORDY AGRAWAL Date: 05/10/2024 21:46 Dictated By: Jordy Agrawal M.D. Signed By: 05/10/242147 DD/ 45 TD/TT: Actuarial Director: XR foot RT min 3V (Not yet r eviewed by provider) Interpretation: Performing Lab: Notes/Report: Source Facility: [place] [address] XRay Report Signed Patient: MERCY SOTO MR#: [id number] : 1995 Acct:[id number] Age/Sex: 28 / F ADM Date: 04/12/24 Loc: RAD Attending Dr: Edwige Regan D.P.M. Ordering Physician: Edwige Regan D.P.M. Date of Service: 04/12/24 Procedure(s): XR foot RT min 3V Accession Number(s): [id number] cc: KALYAN JAMES; Edwige Regan D.P.M. [place] [address] Patient Name: MERCY SOTO MRN: [id number] date: 1995 Sex: F Assigned Patient Location: [facility] Current Patient Location: Accession/Order Number: [id number] Exam Date: 04/12/2024 10:31 Report Date: 04/13/2024 08:18 At the request of: EDWIGE REGAN Procedure: XR foot RT min 3V PROCEDURE: XR foot RT min 3V COMPARISON: 03/21/2024 HISTORY: RIGHT FOOT PAIN FINDINGS: BONES:Stable posterior calcaneal osteotomy and subtalar fusion with 2 cannulated screws. Partial bony bridging. Moderate degenerative changes of the midfoot with joint space narrowing SOFT TISSUES:Negative. No visible soft tissue swelling. EFFUSION:None visible. OTHER: Negative. XR/XR foot RT min 3V IMPRESSION: Stable subtalar fusion with partial bony bridging Electronically authenticated by: KALYAN BACK Date: 04/13/2024 08:18 Dictated By: Kalyan Back M.D. Signed By: 04/13/24820 DD/ 7 TD/TT: Actuarial Director: XR foot RT min 3V (Not yet r eviewed by provider) Interpretation: Performing Lab: Notes/Report: Source Facility: [address] [place] [address] XRay Report Signed Patient: MERCY SOTO MR#: [id number] : 1995 Acct:[id number] Age/Sex: 28 / F ADM Date: 03/21/24 Loc: SURGOUT Attending Dr: Edwige Regan D.P.M. Ordering Physician: Edwige Regan D.P.M. Date of Service: 03/21/24 Procedure(s): XR foot RT min 3V Accession Number(s): [id number] cc: KALYAN JAMES; Edwige Regan D.P.M. [place] [address] Patient Name: MERCY SOTO MRN: [id number] date: 1995 Sex: F Assigned [facility] Current Patient Location: [facility] Accession/Order Number: [id number] Exam Date: 03/21/2024 10:20 Report Date: 03/24/2024 05:46 At the request of: EDWIGE REGAN Procedure: XR foot RT min 3V PROCEDURE: XR foot RT min 3V HISTORY: STJ DJD COMPARISON: XR foot right 12/15/2023 FINDINGS: BONES:Mechanical fusion of the talocalcaneal joint via 2 screws. No appreciable hardware fracture or bone fracture. SOFT TISSUES:Images were obtained through cast material. Small amount of subcutaneous free air anterior to the ankle and midfoot consistent with recent surgery. EFFUSION:None visible. OTHER: Negative. XR/XR foot RT min 3V IMPRESSION: 1. Postoperative fusion of the talocalcaneal joint. Electronically authenticated by: BULMARO FIGUEROA Date: 03/24/2024 05:46 Dictated By: Bulmaro Figueroa M.D. Signed By: 03/24/24 0549 DD/ 0546 TD/TT: Actuarial Director: Reason For Referral No Information Social History Tobacco Use: Social History Observation Description Date Details (start date - stop date) Never Smoker NA - NA Tobacco Control (Standard) Question Answer Notes Tobacco use: Nonsmoker Problems Problem Type SNOMED Code ICD Code Onset Dates Problem Status W/U Status Risk Notes Problem Localized, secondary osteoarthritis of the ankle and/or foot (136438003) Post-traumatic osteoarthritis, right ankle and foot (M19.171) Active confirmed Problem Acquired deformity of right foot (disorder) (531877310) Other acquired deformities of right foot (M21.6X1) Active confirmed Problem Contracture of joint of right ankle (disorder) (066595742277108) Contracture, right ankle (M24.571) Active confirmed Problem Achilles bursitis (245286978) Achilles tendinitis, right leg (M76.61) Active confirmed Problem Peroneal tendinitis (70768735) Peroneal tendinitis, right leg (M76.71) Active confirmed Problem Late effect of fracture of lower extremities (33838143) Displaced bimalleolar fracture of right lower leg, sequela (S82.841S) Active confirmed Problem 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) Displaced fracture of body of right calcaneus, subsequent encounter for fracture with nonunion (S92.011K) Active confirmed Problem Late effect of fracture of lower extremities (10870862) Displaced fracture of body of right calcaneus, sequela (S92.011S) Active confirmed Problem Nonunion of fracture (012200151) Unspecified fracture of right talus, subsequent encounter for fracture with nonunion (S92.101K) Active confirmed Problem Localized, secondary osteoarthritis of the ankle and/or foot (882495449) Post-traumatic arthritis of right ankle (M19.171) Active confirmed Vital Signs Heart Rate 87 /min 06/29/2024 Temperature 98.2 degrees Fahrenheit 06/01/2024 Respiratory Rate 16 /min 06/29/2024 Oximetry 97 % 06/29/2024 Height 69 in 06/29/2024 Weight 250 lbs 06/29/2024 BMI 36.91 kg/m2 06/29/2024 Encounters Encounter Location Date Provider Diagnosis [facility] (PODIATRY) [address] [place] [address] [place] [address] [facility] oste[facility], right ankle and foot M19.171 ; Displaced fracture of body of right calcaneus, sequela S92.011S ; Displaced bimalleolar fracture of right lower leg, sequela S82.841S ; Achilles tendinitis, right leg M76.61 ; Other acquired deformities of right foot M21.6X1 and Peroneal tendinitis, right leg M76.71 [facility] (PODIATRY) [address] [place] [address] [place] [address] 06/29/2024 Edwige Regan Post-traumatic osteoarthritis, right ankle and foot M19.171 ; Displaced fracture of body of right calcaneus, sequela S92.011S and Pain in right ankle and joints of right foot M25.571 [facility] OUT[facility]IENT [address] [facility] [place] [address] 03/21/2024 Edwige Regan [facility] (PODIATRY) [address] [place] [address] [place] [address] 03/29/2024 Edwige Regan Post-traumatic osteoarthritis, right ankle and foot M19.171 and Displaced fracture of body of right calcaneus, subsequent encounter for fracture with nonunion S92.011K [facility] (PODIATRY) [address] [place] [address] [place] [address] 04/12/2024 Edwige Regan Post-traumatic osteoarthritis, right ankle and foot M19.171 [facility] (PODIATRY) [address] [place] [address] [place] [address] 05/10/2024 Edwige Regan Right foot pain M79.671 and Post-traumatic osteoarthritis, right ankle and foot M19.171 [facility] (PODIATRY) [address] [place] [address] [place] [address] 06/01/2024 Edwige Regan Post-traumatic osteoarthritis, right ankle and foot M19.171 ; Displaced fracture of body of right calcaneus, sequela S92.011S and Right foot pain M79.671 [facility] (PODIATRY) [address] [place] [address] [place] [address] 03/21/2024 Edwige Regan [facility] (PODIATRY) [address] [place] [address] [place] [address] 03/21/2024 Edwige Regan [facility] (PODIATRY) [address] [place] [address] [place] [address] 03/21/2024 Edwige Regan Assessments Encounter Date Diagnosis (ICD Code) Assessment Notes Treatment Notes Treatment Clinical Notes Section Notes 03/29/2024 Post-traumatic osteoarthritis, right ankle and foot (ICD-10 - M19.171) Patient presents for first postoperative visit and she is overall doing well and no longer taking opioids. No evidence of infection or DVT today she should remain nonweightbearing and was placed into a new well-padded short leg cast. She will follow-up in 2 weeks for cast and suture removal as well as simulated weightbearing foot x-rays 03/29/2024 Displaced fracture of body of right calcaneus, subsequent encounter for fracture with nonunion (ICD-10 - S92.011K) 04/12/2024 Post-traumatic osteoarthritis, right ankle and foot (ICD-10 - M19.171) Patient is 3 weeks status post subtalar joint fusion. X-rays show stable fixation with good bony apposition. No evidence of infection or DVT today. Sutures were discontinued. She was placed into a cam boot but should remain nonweightbearing. She may wash her foot while seated in the shower. Follow-up in 3 weeks with weightbearing foot x-rays 05/10/2024 Right foot pain (ICD-10 - M79.671) 05/10/2024 Post-traumatic osteoarthritis, right ankle and foot (ICD-10 - M19.171) Patient is now 7 weeks status post subtalar joint fusion for posttraumatic arthritis from calcaneal fracture. She is doing very well and eager to begin weightbearing which she may begin doing as tolerated in the cam boot and over the next 2 weeks as pain allows she may transition to an ASO ankle brace. I would like for her to follow-up in 3 weeks time with weightbearing views of the foot including calcaneal axial 06/01/2024 Post-traumatic osteoarthritis, right ankle and foot (ICD-10 - M19.171) Patient is status post right subtalar joint fusion performed on 03/21/2024. She is transition normal shoes. She may continue ASO ankle bracing at her discretion. I recommended formal physical therapy and prescription was provided. She will follow-up in a month 6 weeks to see how she is doing with weightbearing foot x-rays. 06/01/2024 Displaced fracture of body of right calcaneus, sequela (ICD-10 - S92.011S) 02/24/2024 Post-traumatic osteoarthritis, right ankle and foot (ICD-10 - M19.171) Patient seen and evaluated. Patient education provided and all questions were answered to her satisfaction and she had many questions regarding her upcoming surgery. I had a long discussion with her regarding her scheduled subtalar and calcaneocuboid fusion and that she will be observation for 1-2 nights for pain control. I also discussed with her the current situation with my employment status and with the hospital being for sale. As of May 08 my employment is at this time will be over with the [facility] which may make postoperative follow-up somewhat difficult but I am hoping that this will be rectified by that time that being said I did offer her multiple times for referral to a reputable foot and ankle surgeon who performs this procedure regularly or to postpone her surgery. At this time she would like to keep surgery scheduled for March 21 but will discuss with family and friends and think about this and will call if there are any updates. 02/24/2024 Displaced fracture of body of right calcaneus, sequela (ICD-10 - S92.011S) 06/29/2024 Post-traumatic osteoarthritis, right ankle and foot (ICD-10 - M19.171) Patient is over 3 months from subtalar joint fusion performed for prior calcaneus fracture. She is very happy with her progress. I have no restrictions for her and she should continue weightbearing activity as pain allows. She may follow-up in 6 months sooner if needed with 3 views of the right foot 06/29/2024 Displaced fracture of body of right calcaneus, sequela (ICD-10 - S92.011S) 06/29/2024 Pain in right ankle and joints of right foot (ICD-10 - M25.571) 02/24/2024 Displaced bimalleolar fracture of right lower leg, sequela (ICD-10 - S82.841S) 06/01/2024 Right foot pain (ICD-10 - M79.671) 02/24/2024 Achilles tendinitis, right leg (ICD-10 - M76.61) 02/24/2024 Other acquired deformities of right foot (ICD-10 - M21.6X1) 02/24/2024 Peroneal tendinitis, right leg (ICD-10 - M76.71) Plan Of Treatment Pending Test Test Name Order Date XR Ankle RT (3 views) * (161) 12/15/2023 XR Foot RT (3 views) * 12/15/2023 XR Foot RT (3 views) * 05/10/2024 XR Foot RT (3 views) * 06/01/2024 XR Foot RT (3 views) * 06/29/2024 CT Ankle RT w/o contrast * (Optional 3D Rendering) 12/15/2023 CBC AUTO DIFF 03/08/2024 CT ANKLE RT WO CON 12/22/2023 XR ankle RT min 3V 12/17/2023 XR foot RT min 3V 12/17/2023 XR foot RT min 3V 03/24/2024 XR foot RT min 3V 04/13/2024 XR foot RT min 3V 05/10/2024 XR foot RT min 3V 06/01/2024 XR foot RT min 3V 06/29/2024 [place] fluoroscopy <1hr NON-READ 03/23/2024 Insurance Providers Payer Name Payer Address Payer Phone Subscriber Number Group Number Insured Name Patient Relationship to Insured Coverage Start Date Coverage End Date MMO [employer] [address] [place] [phone] [id number] Barrett Soto Spouse - patient is the spouse of the insured 4 Medical (General) History Medical History History ICD Code Arthritis Surgical History Surgery Date(Month/Year) external fixator right leg 08/18/16 Right foot subtalar joint fusion 4
--- OUTSIDE RECORDS SUMMARY | 2025-01-25 15:42 | XMS_ITS | Encounter Summary ---
Author Organization [facility] tem Address [id number] [address] [place] [address] Care Team Providers Care Rotary Pump Operator Name Role Phone Erik Haynes DO Primary Care Provider [phone] Encounter Details Date Type Department Care Team (Late st Contact Info) Description 10/10/2020 Orders Only Maternal- Medicine at [facility] [address] [place] [address] External, Scanning Provider Social History Tobacco Use Types Packs/Day Years Used Date Smoking Tobacco: Never Smokeless Tobacco: Never Alcohol Use Standard Drinks/Week Comments Not Currently 0 (1 standard drink = 0.6 oz pur e alcohol) Comments Yes Sex and Gender Information Value Date Recorded Sex Assigned at Not on file Legal Sex Female 11:32 AM EDT Gender Identity Not on file Sexual Orientation Not on file COVID-19 Exposure Response Date Recorded In the last month, have you been in contact with someone who was confirmed or suspected to have Coronavirus / COVID-19? No / Unsure 10/10/2020 10:51 AM EDT documented as of this encounter Plan of Treatment Not on file documented as of this encounter Procedures Procedure Name Priority Date/Time Associated Diagnosis Comments US PREG LMTD 1 OR MORE FETUS Routine 03/08/2020 documented in this encounter Results * Ultrasound limited 1 or more fetus (03/08/2020) Anatomical Region Laterality Modality OB-DIRECTOR MEDICAL AFFAIRS Ultrasound Narrative 03/08/2020 See attached report us Scanning Provider External IMG US ORDERABLES Pancho abe Result - Final documented in this encounter Visit Diagnoses Not on filedocumented in this encounter Care Teams Rotary Pump Operator Relationship Specialty Start Date End Date Erik Haynes DO [address] [place] [address] [place] [address] PCP - General Family Medicine 10/10/20 documented as of this encounter
--- OUTSIDE RECORDS SUMMARY | 2025-01-25 15:42 | XMS_ITS | Encounter Summary ---
Author Organization [facility] tem Address [id number] [address] [place] [address] Care Team Providers Care Sound Effects Supervisor Name Role Phone Erik Haynes DO Primary Care Provider [phone] Encounter Details Date Type Department Care Team (Late st Contact Info) Description 10/09/2020 Orders Only Maternal- Medicine at [facility] [address] [place] [address] External, Scanning Provider Social History Tobacco Use Types Packs/Day Years Used Date Smoking Tobacco: Never Alcohol Use Standard Drinks/Week Comments [...] PREG LMTD 1 OR MORE FETUS Routine 10/02/2020 US PREG LMTD 1 OR MORE FETUS Routine 08/30/2020 PROTEIN, URINE, 24 HOUR Routine 07/03/2020 COMPREHENSIVE METABOLIC PANEL Routine 07/03/2020 US PREG LMTD 1 OR MORE FETUS Routine 06/07/2020 documented in this encounter Results * Ultrasound limited 1 or more fetus (10/02/2020) Anatomical Region Laterality Modality OB-NUT STEAMER Ultrasound Narrative 10/02/2020 see attached report us Scanning Provider External IMG US ORDERABLES Pancho abe Result - Final * Ultrasound limited 1 or more fetus (08/30/2020) Anatomical Region Laterality Modality OB-NUT STEAMER Ultrasound Narrative 08/30/2020 see attached report us Scanning Provider External IMG US ORDERABLES Pancho abe Result - Final * Protein, urine, 24 hour (07/03/2020) Urine volume 1,850 MANUALL Y TRANSCRIBED RESULTS Comment:see attached report Urine creatinine 103.84 MANUALLY TRANSCRIBED RESULTS Comment:see attached report Creatinine, 24H Ur 1,713.36 MANUALLY TRANSCRIBED RESULTS Comment:see attached report Urine protein 13.1 MANUAL LY TRANSCRIBED RESULTS Comment:see attached report Total Protein, urine, 24 hour 216.2 MANUALLY TRANSCRIBED RESULTS Comment:see attached report us Scanning Provider External URINE ORDERABLES Edit ed Result - Final Performing Organization Address [facility] de Phone Number MANUALLY TRANSCRIBED RESULTS * Comprehensive metabolic panel (07/03/2020) External Alt Sgpt 11 MANUALLY TRANSCRIBED RESULTS Comment:see attached report External Ast 12 MANUALL Y TRANSCRIBED RESULTS Comment:see attached report External Blood Urea Nitrogen Bun 10.0 MANUALLY TRANSCRIBED RESULTS Comment:see attached report LDH 180 MANUALLY TRANSCRIBED RESULTS Comment:see attached report Uric acid 3.1 MANUALLY TRANSCRIBED RESULTS Comment:see attached report us Scanning Provider External LAB BLOOD ORDERABLES Edited Result - Final Performing Organization Address [facility] de Phone Number MANUALLY TRANSCRIBED RESULTS * Ultrasound limited 1 or more fetus (06/07/2020) Anatomical Region Laterality Modality OB-NUT STEAMER Ultrasound Narrative 06/07/2020 see attached report us Scanning Provider External IMG US ORDERABLES Pancho abe Result - Final documented in this encounter Visit Diagnoses Not on filedocumented in this encounter Care Teams Sound Effects Supervisor Relationship Specialty Start Date End Date Erik Haynes DO [address] [address] [place] [address] PCP - General Family Medicine 10/10/20 documented as of this encounter
--- OUTSIDE RECORDS SUMMARY | 2025-01-25 15:42 | XMS_ITS | Clinical Summary ---
Author Organization [employer] tem Address [id number] [address] [place] [address] Care Team Providers Care Sys Dir Name Role Phone Erik Haynes DO Primary Care Provider [phone] Allergies Active Allergy Reactions Criticality Noted Date Comments Amoxicillin Rash Low 10/09/2020 Medications aspirin 81 mg Take 81 mg by mouth daily. 09/27/2020 Active PRO FE 180 mg iron capsule Take 1 capsule by mouth daily. 09/14/2020 Active vit calc,iron,folic ( VITAMIN ORAL) Take by mouth. Active Active Problems No known active problems Family History Medical History Relation Name Comments Gout Brother 1 Kidney disease Brother 2 No Known Problems Father Diabetes Maternal Grandfather Heart disease Mother Depression Paternal Aunt Cancer Paternal Grandmother No Known Problems Sister 1 Cervical cancer Sister 2 Relation Name Status Comments Brother 1 Brother 2 Father Maternal Grandfather Mother Paternal Aunt Paternal Grandmother Sister 1 Sister 2 Social History Tobacco Use Types Packs/Day Years Used Date Smoking Tobacco: Never Smokeless Tobacco: Never Alcohol Use Standard Drinks/Week Comments Not Currently 0 (1 standard drink = 0.6 oz pur e alcohol) Comments No Sex and Gender Information Value Date Recorded Sex Assigned at Not on file Legal Sex Female 11:32 AM EDT Gender Identity Not on file Sexual Orientation Not on file Last Filed Vital Signs Vital Sign Reading Time Taken Comments Blood Pressure 130/69 10/10/2020 11:34 AM EDT Pulse 87 10/10/2020 11:34 AM EDT Temperature - - Respiratory Rate - - Oxygen Saturation - - Inhaled Oxygen Concentration - - Weight 114.8 kg (253 lb 1.4 oz) 021 11:34 AM EDT Height 175.3 cm (5' 9 ) 10/10/2020 11:3 4 AM EDT Body Mass Index 37.37 10/10/2020 11:34 AM EDT Plan of Treatment Health Maintenance Due Date Last Done Comments Depression Screening 2009 Tobacco Screening 2009 Adult BMI Screening 09/02/2015 DTaP,Tdap and Td Vaccines (1 - Tdap) 2016 Pap Smear 2018 Influenza Vaccine 01/02/2025 Medical Devices Not on file Insurance [employer] Care Teams Sys Dir Relationship Specialty Start Date End Date Erik Haynes DO [address] [place] [address] [place] [address] PCP - General Family Medicine 10/10/20
--- OUTSIDE RECORDS SUMMARY | 2025-01-25 15:46 | XMS_ITS | CCD ---
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 Name Role Phone Kalyan Haynes Unavailable Farida Monson Unavailable KIM ., DR NOONAN Admitting Unavailable [...] Unavailable KIM ., DR NOONAN Admitting Unavailable [place], DR BIGGS Consulting Unavailable KIM ., DR [...] Primary Care Provider Saran Alvarez Attending Provider Saran Alvarez Admitting Unavailable Saran Alvarez Attending Unavailable Kalyan Haynes Primary Care Unavailable Kalyan Haynes MD Primary Care Provider LASHAWN RAMIREZ Attending Unavailable SARAN ALVAREZ Attending Unavailable Allergies Allergy Classification Reported Allergen(s) Allergy Type Date of Onset Reaction(s) Facility (9 sources) Amoxicillin Drug Allergy 1 rash [facility] Work Phone: (1 source) Amoxicillin Drug Allergy 0 [facility] Repository (1 source) Amoxicillin Drug Allergy [address] [facility] Repository (6 sources) Penicillin G Drug Allergy 3 Unknown [facility] Healthcare (6 sources) Penicillins Propensity to adverse reactions 3 [facility] Medications Current Medications Medication Drug Class(es) Dates [...] Active Problems Problem Classification Problem Date Documented Date Episodic/Chronic Deficiency and other anemia (3 sources) Anemia due to blood loss; Translations: [Iron deficiency anemia secondary to blood loss (chronic)] Chronic Menstrual disorders (5 sources) Irregular menstruation, unspecified; Translations: [IRREGULAR MENSTRUATION UNSPECIFIED] Onset: 09-10-2022 Chronic Other female genital disorders (2 sources) Burning sensation of vagina; Translations: [Other specified conditions associated with female genital organs and menstrual cycle] 11-08-2024 Episodic Other female genital disorders (2 sources) Vaginal irritation; Translations: [Other specified noninflammatory disorders of vagina] 11-08-2024 Episodic Other and delivery including normal (1 source) [...] Name Value Interpretation Reference Range Facil ity RECURRENT VAGINITIS (HTRX)on 11-09-2024 ATOPOBIUM VAGINAE 0 [facility] ATOPOBIUM VAGINAE Not detected [facility] BVAB 2,3 (BACTERIAL VAGINOSIS ASSOCIATED BACTERIA 2, 3); MOBILUNCUS SPP 0 [facility] BVAB 2,3 (BACTERIAL VAGINOSIS ASSOCIATED BACTERIA 2, 3); MOBILUNCUS SPP Not detected [facility] LIBAN ALBICANS, PARAPSILOSIS, TROPICALIS 29.664 Abnormal [facility] LIBAN ALBICANS, PARAPSILOSIS, TROPICALIS Detected Abnormal [facility] LIBAN GLABRATA 0 [facility] LIBAN GLABRATA Not detected [facility] LIB[facility] KRUSEI [facility] LIBAN KRUSEI Not detected [facility] CHLAMYDIA TRACHOMATIS 0 [facility] CHLAMYDIA TRACHOMATIS Not detected [facility] GARDNERELLA VAGINALIS 20.553 Abnormal [facility] GARDNERELLA VAGINALIS Detected Abnormal [facility] Interpretation and review of laboratory results Abnormal [facility] MEGASPHAERA (TYPES 1, 2) 0 [facility] MEGASPHAERA (TYPES 1, 2) Not detected [facility] MYCOPLASMA GENITALIUM 0 [facility] MYCOPLASMA GENITALIUM Not detected [facility] NEISSERIA GONORRHOEAE 0 [facility] NEISSERIA GONORRHOEAE Not detected [facility] TRICHOMONAS VAGINALIS 0 [facility] TRICHOMONAS VAGINALIS Not detected [facility] 08-04-2023 L Specimen: [id number] Received: 08/05/23 Status: MICHAEL Schaefer Num: [id number] Spec Type: Surgical Subm Dr: Saran Alvarez [...] Patient Sex Location Account Attending Physician Mercy Soto 27/F LABELL [id number] Saran Alvarez SPEC NUM: [id number] RECD: 08/05/23 STATUS: MICHAEL SCHAEFER NUM: [id number] LOPEZ: 08/04/23- SUBM DR: Saran Alvarez ENTERED: 08/05/23 [facility] DR: Augustus,Lab SPEC TYPE: Surgical [...] at the base of the excision Specimen: [id number] Received: 08/05/23 Status: MICHAEL Schaefer Num: [id number] Spec Type: Surgical Subm Dr: Saran Alvarez Tissues: A Skin-Other than Cyst, tag, debridement or plastic repair (RT POST NECK) B Skin-Other than Cyst, tag, debridement or plastic repair (RT BREAST 9:00) C Skin-Other than Cyst, tag, debridement or plastic repair (RT BREAST 8:00) D Skin-Other than Cyst, tag, debridement or plastic repair (RT FLANK) Procedures: HE/4, Gross/Micro L4/4 Patient: Mercy Soto [id number] ([facility]) Specimen: [id number] Received: 08/05/23 (Continued) Signed (signatur e on file) Anabell Frazier MD 08/08/23 1834 Specimen: [id number] Received: 08/05/23 Status: MICHAEL Schaefer Num: [id number] Spec Type: Surgical Subm Dr: Saran Alvarez Tissues: A Skin-Other than Cyst, tag, debridement or plastic repair (RT POST NECK) B Skin-Other than Cyst, tag, debridement or plastic repair (RT BREAST 9:00) C Skin-Other than Cyst, tag, debridement or plastic repair (RT BREAST 8:00) D Skin-Other than Cyst, tag, debridement or plastic repair (RT FLANK) Procedures: HE/4, Gross/Bennett L4/4 Patient: Mercy Soto [id number] (Continued) Specimen: [id number] Received: 08/05/23-1350 (Continued) Clinical Information Skin moles removed Gross [...] Codes 88 (more content not included)... Normal [facility] US PREG TVon 09-11-2022 US PREG [...] by: JOHNNIE RESTREPO Date: 2022-09-11 15:59 Normal [facility] US PREG TVon 09-04-2022 US PREG [...] Normal [facility] PREG QUANT HCGon 05-13-2022 HCG QUANT 6 mIU/mL Normal [facility] Comment on above: Performed By: #### P REGQNT #### [facility] Laboratory [address] [place] [address] Dr. Arash Frazier HCG RANGE SEE BELOW Normal [facility] Comment on above: Result Comment: 5-50 0.2-1 WEEK 50-500 1-2 WEEKS 100-5,000 2-3 WEEKS 500-10,000 3-4 WEEKS 1,000-50,000 4-5 WEEKS 10,000-100,000 5-6 WEEKS 15,000-200,000 6-8 WEEKS 10,000-100,000 2-3 MONTHS Performed By: #### P REGQNT #### [facility] Laboratory [address] [place] [address] Dr. Arash Frazier PREG QUANT HCGon 05-02-2022 HCG QUANT 23 mIU/mL Normal [facility] Comment on above: Performed By: #### P REGQNT #### [facility] Laboratory [address] [place] [address] Dr. Arash Frazier HCG RANGE SEE BELOW Normal [facility] Comment on above: Result Comment: 5-50 0.2-1 WEEK 50-500 1-2 WEEKS 100-5,000 2-3 WEEKS 500-10,000 3-4 WEEKS 1,000-50,000 4-5 WEEKS 10,000-100,000 5-6 WEEKS 15,000-200,000 6-8 WEEKS 10,000-100,000 2-3 MONTHS Performed By: #### P REGQNT #### [facility] [address] [place] [address] Dr. Arash Frazier PREG QUANT HCGon 04-21-2022 HCG QUANT 85 mIU/mL Normal [facility] Comment on above: Performed By: #### P REGQNT #### [facility] Laboratory [address] [place] [address] Dr. Arash Frazier HCG RANGE SEE BELOW Normal [facility] Comment on above: Result Comment: 5-50 0.2-1 WEEK 50-500 1-2 WEEKS 100-5,000 2-3 WEEKS 500-10,000 3-4 WEEKS 1,000-50,000 4-5 WEEKS 10,000-100,000 5-6 WEEKS 15,000-200,000 6-8 WEEKS 10,000-100,000 2-3 MONTHS Performed By: #### P REGQNT #### [facility] [address] [place] [address] Dr. Arash Frazier PREG QUANT HCGon 04-14-2022 HCG QUANT 197 mIU/mL Normal [facility] Comment on above: Performed By: #### P REGQNT #### [facility] [address] [place] [address] Dr. Arash Frazier HCG RANGE SEE BELOW Normal [facility] Comment on above: Result Comment: 5-50 0.2-1 WEEK 50-500 1-2 WEEKS 100-5,000 2-3 WEEKS 500-10,000 3-4 WEEKS 1,000-50,000 4-5 WEEKS 10,000-100,000 5-6 WEEKS 15,000-200,000 6-8 WEEKS 10,000-100,000 2-3 MONTHS Performed By: #### P REGQNT #### [facility] [address] [place] [address] Dr. Arash Frazier PREG QUANT HCGon 04-08-2022 HCG QUANT 269 mIU/mL Normal [facility] Comment on above: Performed By: #### P REGQNT #### [facility] [address] [place] [address] Dr. Arash Frazier HCG RANGE SEE BELOW Normal [facility] Comment on above: Result Comment: 5-50 0.2-1 WEEK 50-500 1-2 WEEKS 100-5,000 2-3 WEEKS 500-10,000 3-4 WEEKS 1,000-50,000 4-5 WEEKS 10,000-100,000 5-6 WEEKS 15,000-200,000 6-8 WEEKS 10,000-100,000 2-3 MONTHS Performed By: #### P REGQNT #### [facility] [address] [place] [address] Dr. Arash Frazier PREG QUANT HCGon 03-31-2022 HCG QUANT 192 mIU/mL Normal [facility] Comment on above: Performed By: #### P REGQNT #### [facility] [address] [place] [address] Dr. Arash Frazier HCG RANGE SEE BELOW Normal [facility] Comment on above: Result Comment: 5-50 0.2-1 WEEK 50-500 1-2 WEEKS 100-5,000 2-3 WEEKS 500-10,000 3-4 WEEKS 1,000-50,000 4-5 WEEKS 10,000-100,000 5-6 WEEKS 15,000-200,000 6-8 WEEKS 10,000-100,000 2-3 MONTHS Performed By: #### P REGQNT #### [facility] [address] [place] [address] Dr. Arash Frazier PREG QUANT HCGon 03-25-2022 HCG QUANT 115 mIU/mL Normal [facility] Comment on above: Performed By: #### P REGQNT #### [facility] [address] [place] [address] Dr. Arash Frazier HCG RANGE SEE BELOW Normal [facility] Comment on above: Result Comment: 5-50 0.2-1 WEEK 50-500 1-2 WEEKS 100-5,000 2-3 WEEKS 500-10,000 3-4 WEEKS 1,000-50,000 4-5 WEEKS 10,000-100,000 5-6 WEEKS 15,000-200,000 6-8 WEEKS 10,000-100,000 2-3 MONTHS Performed By: #### P REGQNT #### [facility] [address] [place] [address] Dr. Arash Frazier PREG QUANT HCGon 03-18-2022 HCG QUANT 41 mIU/mL Normal [facility] Comment on above: Performed By: #### P REGQNT #### [facility] [address] [place] [address] Dr. Arash Frazier HCG RANGE SEE BELOW Normal [facility] Comment on above: Result Comment: 5-50 0.2-1 WEEK 50-500 1-2 WEEKS 100-5,000 2-3 WEEKS 500-10,000 3-4 WEEKS 1,000-50,000 4-5 WEEKS 10,000-100,000 5-6 WEEKS 15,000-200,000 6-8 WEEKS 10,000-100,000 2-3 MONTHS Performed By: #### P REGQNT #### [facility] [address] [place] [address] Dr. Arash Frazier TYPE AND SCREENon 03-18-2022 TYPE AND SCREEN Negative Normal [facility] Comment on above: Performed By: #### P REGQNT #### [facility] [address] [place] [address] Dr. Arash Frazier CBC AUTO DIFFon 03-01-2022 BASO # 0.1 103/ul Normal 0.0-0.1 [facility] Comment on above: Performed By: #### C BC #### [facility] [address] [place] [address] Dr. Arash Frazier Basophils/100 WBC (Bld) 0.8 % Normal 0.2-2.0 [facility] Comment on above: Performed By: #### C BC #### [facility] [address] [place] [address] Dr. Arash Frazier EO # 0.2 103/ul Normal 0.0-0.7 [facility] Comment on above: Performed By: #### C BC #### [facility] [address] [place] [address] Dr. Arash Frazier Eosinophils/100 WBC (Bld) 2.0 % Normal 0.9-7.0 [facility] Comment on above: Performed By: #### C BC #### [facility] [address] [place] [address] Dr. Arahs Frazier Erythrocyte distribution width (RBC) [Ratio] 13.0 % Normal 11.0-15.0 [facility] Comment on above: Performed By: #### C BC #### [facility] [address] [place] [address] Dr. Arash Frazier Hematocrit (Bld) [Volume fraction] 39.6 % Normal 36.0-48.0 [facility] Comment on above: Performed By: #### C BC #### [facility] [address] [place] [address] Dr. Arash Frazier Hemoglobin (Bld) [Mass/Vol] 12.9 g/dL Normal 12.0-16.0 [facility] Comment on above: Performed By: #### C BC #### [facility] [address] [place] [address] Dr. Arash Frazier IG # 0.03 10e3/ul Normal 0.00-0.03 [facility] Comment on above: Performed By: #### C BC #### [facility] [address] [place] [address] Dr. Arash Frazier IG % 0.3 % Normal 0.0-0.5 [facility] Comment on above: Performed By: #### C BC #### [facility] [address] [place] [address] Dr. Arash Frazier LYMPH # 2.4 103/ul Normal 1.2-3.8 [facility] Comment on above: Performed By: #### C BC #### [facility] [address] [place] [address] Dr. Arash Frazier Lymphocytes/100 WBC (Bld) 20.5 % Normal 20.5-60.0 [facility] Comment on above: Performed By: #### C BC #### [facility] [address] [place] [address] Dr. Arash Frazier MANUAL DIFF REQ NO Normal [facility] Comment on above: Performed By: #### C BC #### [facility] [address] [address] [address] Arash Frazier MCH (RBC) [Entitic mass] 29.5 pg Normal 26.7-34.0 [facility] Comment on above: Performed By: #### C BC #### [facility] [address] [address] [address] Arash Frazier MCHC (RBC) [Mass/Vol] 32.6 g/dL Normal 29.9-35.2 [facility] Comment on above: Performed By: #### C BC #### [facility] [address] [place] [address] Dr. Arash Frazier MCV (RBC) [Entitic vol] 90.6 fL Normal 81.0-99.0 [facility] Comment on above: Performed By: #### C BC #### [facility] [address] [place] [address] Dr. Arash Frazier MONO # 0.7 103/ul Normal 0.3-0.8 [facility] Comment on above: Performed By: #### C BC #### [facility] [address] [place] [address] Dr. Arash Frazier Monocytes/100 WBC (Bld) 5.9 % Normal 1.7-12.0 [facility] Comment on above: Performed By: #### C BC #### [facility] [address] [place] [address] Dr. Arash Frazier NEUT # 8.2 103/ul Critically high 1.4-6.5 [facility] Comment on above: Performed By: #### C BC #### [facility] [address] [place] [address] Dr. Arash Frazier Neutrophils/100 WBC (Bld) 70.5 % Normal 43.0-75.0 [facility] Comment on above: Performed By: #### C BC #### [facility] [address] [place] [address] Dr. Arash Frazier Platelet mean volume (Bld) [Entitic vol] 10.1 fL Normal 9.5-13.5 [facility] Comment on above: Performed By: #### C BC #### [facility] [address] [address] [address] Arash Frazier PLT 217 103/ul Normal 150-450 [facility] Comment on above: Performed By: #### C BC #### [facility] [address] [address] [address] Arash Frazier RBC 4.37 106/ul Normal 4.20-5.40 [facility] Comment on above: Performed By: #### C BC #### [facility] [address] [place] [address] Dr. Arash Frazier WBC 11.7 103/ul Critically high 4.0-11.0 [facility] Comment on above: Performed By: #### C BC #### [facility] [address] [place] [address] Dr. Arash Frazier PREG QUANT HCGon 03-01-2022 HCG QUANT 19 mIU/mL Normal [facility] Comment on above: Performed By: #### P REGQNT #### [facility] [address] [place] [address] Dr. Arash Frazier HCG RANGE SEE BELOW Normal [facility] Comment on above: Result Comment: 5-50 0.2-1 WEEK 50-500 1-2 WEEKS 100-5,000 2-3 WEEKS 500-10,000 3-4 WEEKS 1,000-50,000 4-5 WEEKS 10,000-100,000 5-6 WEEKS 15,000-200,000 6-8 WEEKS 10,000-100,000 2-3 MONTHS Performed By: #### P REGQNT #### [facility] [address] [place] [address] Dr. Arash Frazier PROF 14(COMP METB)on 022 Albumin [Mass/Vol] 3.8 g/dL Normal 3.4-5.0 [facility] Comment on above: Performed By: #### C MP #### [facility] [address] [place] [address] Dr. Arash Frazier Albumin/Globulin [Mass ratio] 1.0 {ratio} Normal [facility] Comment on above: Performed By: #### C MP #### [facility] [address] [address] [address] Arash Frazier ALP [Catalytic activity/Vol] 69 U/L Normal 46-116 [facility] Comment on above: Performed By: #### C MP #### [facility] [address] [address] [address] Arash Frazier ALT [Catalytic activity/Vol] 21 U/L Normal 14-59 [facility] Comment on above: Performed By: #### C MP #### [facility] [address] [address] [address] Arash Frazier Anion gap [Moles/Vol] 11.6 mmol/L Normal [facility] Comment on above: Performed By: #### C MP #### [facility] [address] [place] [address] Dr. Arash Frazier AST [Catalytic activity/Vol] 13 U/L Critically low 15-37 [facility] Comment on above: Performed By: #### C MP #### [facility] [address] [place] [address] Dr. Arash Frazier Bilirubin [Mass/Vol] 0.2 mg/dL Normal 0.2-1.0 [facility] Comment on above: Performed By: #### C MP #### [facility] [address] [place] [address] Dr. Arash Frazier Calcium [Mass/Vol] 8.8 mg/dL Normal 8.5-10.1 [facility] Comment on above: Performed By: #### C MP #### [facility] [address] [place] [address] Dr. Arash Frazier Chloride [Moles/Vol] 106 mmol/L Normal 98-107 [facility] Comment on above: Performed By: #### C MP #### [facility] [address] [place] [address] Dr. Arash Frazier CO2 [Moles/Vol] 28.7 mmol/L Normal 21.0-32.0 [facility] Comment on above: Performed By: #### C MP #### [facility] [address] [address] [address] Arash Frazier Creatinine [Mass/Vol] 0.75 mg/dL Normal 0.55-1.02 [facility] Comment on above: Performed By: #### C MP #### [facility] [address] [address] [address] Arash Frazier EGFR-AF CITIZEN OF [place] >60 Normal >=60 [facility] Comment on above: Performed By: #### C MP #### [facility] [address] [address] [address] Arash Frazier EGFR-NON AF CITIZEN OF [place] >60 Normal >=60 [facility] Comment on above: Performed By: #### C MP #### [facility] [address] [address] [address] Arash Frazier Globulin (S) [Mass/Vol] 3.7 g/dL Normal [facility] Comment on above: Performed By: #### C MP #### [facility] [address] [address] [address] Arash Frazier Glucose [Mass/Vol] 102 mg/dL Normal 74-106 [facility] Comment on above: Performed By: #### C MP #### [facility] [address] [place] [address] Dr. Arash Frazier Potassium [Moles/Vol] 4.3 mmol/L Normal 3.5-5.1 [facility] Comment on above: Performed By: #### C MP #### [facility] [address] [place] [address] Dr. Arash Frazier Protein [Mass/Vol] 7.5 g/dL Normal 6.4-8.2 [facility] Comment on above: Performed By: #### C MP #### [facility] [address] [place] [address] Dr. Arash Frazier Sodium [Moles/Vol] 142 mmol/L Normal 136-145 [facility] Comment on above: Performed By: #### C MP #### [facility] [address] [place] [address] Dr. Arash Frazier Urea nitrogen [Mass/Vol] 12.0 mg/dL Normal 7.0-18.0 [facility] Comment on above: Performed By: #### C MP #### [facility] [address] [place] [address] Dr. Arash Frazier Urea nitrogen/Creatinine [Mass ratio] 16.0 mg/mg Normal [facility] Comment on above: Performed By: #### C MP #### [facility] [address] [place] [address] Dr. Arash Frazier PROTIMEon 03-01-2022 INR Coag (PPP) [Relative time] 0.95 {INR} Normal [facility] Comment on above: Performed By: #### P TT, PT #### [facility] [address] [place] [address] Dr. Arash Frazier INR GUIDELINES SEE BELOW Normal [facility] Comment on above: Result Comment: MABLE RED INR: 2.0 - 3.0 CONDITIONS NOT LISTED BELOW 2.5 - 3.5 FOR PROSTHETIC HEART VALVE REPLACEMENT 2.5 - 3.5 RECURRENT THROMBOSIS Performed By: #### P TT, PT #### [facility] [address] [place] [address] Dr. Arash Frazier PT Coag (PPP) [Time] 10.3 s Normal 9.0-11.6 [facility] Comment on above: Performed By: #### P TT, PT #### [facility] [address] [place] [address] Dr. Arash Frazier PTTon 03-01-2022 aPTT Coag (Bld) [Time] 29.9 s Normal 22.3-36.2 [facility] Comment on above: Performed By: #### P TT, PT #### [facility] [address] [place] [address] Dr. Arash Frazier Vital Signs Date Time Vital Sign Value Performing Clinician Facility 01-25-2025 09:51-0400 Body height 175.3 cm Lashawn IVERSON Work Phone: [facility] 01-25-2025 09:51-0400 Body mass index (BMI) [Ratio] 29.53 kg/m2 Lashawn IVERSON Work Phone: [facility] 01-25-2025 09:51-0400 Body weight 90.72 kg Lashawn IVERSON Work Phone: [facility] 01-25-2025 09:51-0400 Diastolic blood pressure 74 mm[Hg] Lashawn IVERSON Work Phone: [facility] 01-25-2025 09:51-0400 Systolic blood pressure 124 mm[Hg] Lashawn IVERSON Work Phone: [facility] 02-14-2021 13:30-0400 Body height 172.72 cm Farida Monson Other [employer] Other Encounters Encounter Date Encounter Type Care Provider Facility Start: 01-25-2025 End: 01-25-2025 Bamboo flowsheet Lashawn IVERSON Work Phone: [facility] [facility] Start: 01-25-2025 End: 01-25-2025 Bamboo flowsheet Lashawn IVERSON Work Phone: [facility] Start: 01-25-2025 End: 01-25-2025 Patient encounter procedure Lashawn IVERSON Work Phone: [facility] Start: 01-25-2025 End: 01-25-2025 Periodic preventive med est patient 18-39 yrs Lashawn IVERSON [facility] Phone[facility] Comment on above: Well woman exam with routine gynecological exam Start: 11-08-2024 End: 11-08-2024 Bamboo flowsheet Lashawn IVERSON Work Phone: [facility] Start: 11-08-2024 End: 11-09-2024 Bamboo flowsheet Lashawn IVERSON Work Phone: [facility] Start: 11-08-2024 End: 11-09-2024 External Result Encounter Lashawn IVERSON Work Phone: [facility] External Department Unsolicited Start: 11-08-2024 End: 11-08-2024 Office outpatient visit 15 minutes Lashawn IVERSON Work Phone: [facility] Comment on above: Vaginal burning; Vaginal irritation Start: 11-08-2024 End: 11-08-2024 ambulatory LASHAWN RAMIREZ Not Available Start: 11-18-2023 End: 11-18-2023 ambulatory SARAN ALVAREZ Not Available Start: 08-04-2023 End: 08-04-2023 ambulatory Saran Alvarez Facility:[facility] Start: 08-04-2023 End: 08-04-2023 ambulatory DO Kalyan Haynse Work Phone: [facility] Work Phone: Start: 08-04-2023 End: 08-04-2023 Departed Referred DO Kalyan Haynes Work Phone: [facility] Start: 09-11-2022 End: 09-12-[address] SARAN [...] Facility:H1 Start: 02-18-2021 Telephone encounter Kalyan Haynes [facility] Start: 02-14-2021 (URG) Urgent Care Visit Farida rogers [facility] Start: 02-14-2021 Telephone encounter Kalyan Haynes [facility] Procedures Date Procedure Procedure Detail Performing Clinician Start: 11-08-2024 RECURRENT VAGINITIS (HTRX) Lashawn IVERSON Work Phone: Plan of Treatment Date Care Activity Detail Author Start: 01-25-2025 End: 01-25-2025 Patient encounter procedure 01/25/2025 9:30 AM EDT Procedure Visit [facility] [address] [place] [id number] Lashawn Ramirez PA [address] [place], [place] [id number] Arrived [facility] Comment on above: Arrived Start: 12-27-2024 End: 12-27-2024 Patient encounter procedure 12/27/2024 1:20 PM EDT Office Visit [facility] [address] [phone] Saran Alvarez DO [address] [place], [place] [id number] [facility] Start: 11-08-2024 End: 11-08-2024 Patient encounter procedure 11/08/2024 1:40 PM EDT Office Visit [facility] [address] [place] [phone] Lashawn Ramirez PA [address] [place] [address] Arrived [facility] Comment on above: Arrived Cytology Cervical or vaginal smear or scraping study Pap Smear Pathology and Cytology Routine Well woman exam with routine gynecological exam Ordered: 01/25/2025 [facility] Work Phone: Comment on above: Ordered: 01/25/2025 Payers Date Payer Category Payer Self-pay 2022 Private Health Insurance [employer] [id number] 2012 Private Health Insurance [facility] [id number] 1997 Unknown [id number]. 593 1997 Unknown [id number] 2.16.840.1.715526.3.579.2. 593 1997 Unknown [id number] 2.16.840.1.503230.3.579.2. 593 1997 Unknown [id number] 2.16.840.1.964320.3.579.2. 593 1997 Unknown [id number] 2.16.840.1.874580.3.579.2. 593 1997 Unknown [id number] 2.16.840.1.099615.3.579.2. 593 1997 Unknown [id number] 2.16.840.1.121395.3.579.2. 593 1997 Unknown [id number] 2.16.840.1.572450.3.579.2. 593 1997 Unknown [id number] 2.16.840.1.198805.3.579.2. 1259 1997 Unknown [id number] 2.16.840.1.400946.3.579.2. 1259 1959 Unknown [id number] [id number] Unknown [place] [id number] Unknown [id number] [id number]. 531 Social History Date Type Detail Facility Unknown if ever smoked [facility] Other Start: 06-19-2023 End: 01-25-2025 Sex Assigned At [facility] [employer] Other Start: 02-14-2021 End: 03-18-2023 Tobacco smoking status NHIS Never smoked tobacco (finding) [facility] Start: 1995 Sex Assigned At Female F [facility] Start: 03-18-2023 Tobacco use and exposure Smokeless tobacco non-user [facility] Start: 12-27-2023 End: 01-25-2025 Alcoholic beverage intake Lifetime non-drinker (finding) [facility] Start: 06-19-2023 End: 01-25-2025 History of Social function [facility] Start: 1997 Sex assigned at Not on file [facility] History of Present illness Narrative 01-25-2025 ZAYRA Marte - 01/25/2025 9:30 AM EDT Note Date & Type Note Facility 01-25-2025 History of Presen t illness Narrative Reason for Appointment: Patient ID: Mercy Soto is a 29 y.o. female who presents for Gynecologic Exam Patient presents today for Annual Exam. MEDICATIONS No current outpatient medications ALLERGIES Allergies Allergen Reactions Penicillin G Unknown Penicillins Other Reaction(s): Unknown Amoxicillin Rash Other Reaction(s): Unknown PROBLEMS Active Ambulatory Problems Diagnosis Date Noted No Active Ambulatory Problems Resolved Ambulatory Problems Diagnosis Date Noted No Resolved Ambulatory Problems Past Medical History: Diagnosis Date Body mass index (BMI) of 33.0 to 33.9 in adult Encounter for visit ([facility] HISTORY PAST MEDICAL HISTORY SOCIAL HISTORY Past Medical History: Diagnosis Date Body mass index (BMI) of 33.0 to 33.9 in adult Encounter for visit ([facility]) Social History Tobacco Use Smoking status: Never Smokeless tobacco: Never Substance Use Topics Alcohol use: Never Drug use: Never FAMILY HISTORY No family history on file. SURGICAL HISTORY History reviewed. No pertinent surgical history. REVIEW OF SYSTEMS Review of Systems: Review of Systems Constitutional: Negative. HENT: Negative. Eyes: Negative. Respiratory: Negative. Cardiovascular: Negative. Gastrointestinal: Negative. Genitourinary: Negative. Musculoskeletal: Negative. Skin: Negative. Neurological: Negative. All other systems reviewed and are negative. Hematological: Negative. Endocrine: Negative. Allergic/Immunologic: Negative. OBJECTIVE Objective: Physical Exam Constitutional: Appearance: Normal appearance. She is well-developed. Genitourinary: Vulva normal. Right Adnexa: not tender and no mass present. Left Adnexa: not tender and no mass present. No cervical discharge. Breasts: Breasts are soft. Right: Normal. Left: Normal. HENT: Head: Normocephalic. Nose: Nose normal. Mouth/Throat: Mouth: Mucous membranes are moist. Cardiovascular: Rate and Rhythm: Normal rate and regular rhythm. Pulmonary: Effort: Pulmonary effort is normal. Breath sounds: Normal breath sounds. Abdominal: General: Bowel sounds are normal. There is no distension. Palpations: Abdomen is soft. Tenderness: There is no abdominal tenderness. There is no guarding or rebound. Musculoskeletal: General: No swelling. Normal range of motion. Cervical back: Normal range of motion. Right lower leg: No edema. Left lower leg: No edema. Neurological: General: No focal deficit present. Mental Status: She is alert and oriented to person, place, and time. Skin: General: Skin is warm and dry. Psychiatric: Mood and Affect: Mood normal. Behavior: Behavior normal. Vitals and nursing note reviewed. Exam conducted with a ammonium hydroxide operator present. Vitals: Estimated body mass index is 29.53 kg/m as calculated from the following: Height as of this encounter: 5' 9 . Weight as of this encounter: 200 lb. BP: 124/74 Patient's last menstrual period was 12/27/2024. ASSESSMENT & PLAN ICD-10-CM 1. Well woman exam with routine gynecological exam Z01.419 Pap Smear Annual Exam: Patient presents today for an annual exam. Patient states she is doing well and has no complaints. Pap was obtained without difficulty. No orders of the defined types were placed in this encounter. Follow Up: Patient is to return in one year for annual unless needed otherwise. Documented by Sara Richmond MA on behalf of: ZAYRA Marte documented in this encounter [facility] History of Present illness Narrative 11-08-2024 ZAYRA Marte - 11/08/2024 1:40 PM EDT Note Date & Type Note Facility 11-08-2024 History of Presen t illness Narrative Reason for Appointment: Patient ID: Mercy Soto is a 29 y.o. female who presents for vaginal burning/irritation Patient presents today for Acute Visit. MEDICATIONS No current outpatient medications ALLERGIES Allergies Allergen Reactions Penicillin G Unknown Penicillins Amoxicillin Rash Other Reaction(s): Unknown PROBLEMS Active Ambulatory Problems Diagnosis Date Noted No Active Ambulatory Problems Resolved Ambulatory Problems Diagnosis Date Noted No Resolved Ambulatory Problems Past Medical History: Diagnosis Date Body mass index (BMI) of 33.0 to 33.9 in adult Encounter for visit ([facility]) HISTORY PAST MEDICAL HISTORY SOCIAL HISTORY Past Medical History: Diagnosis Date Body mass index (BMI) of 33.0 to 33.9 in adult Encounter for visit ([facility]) Social History Tobacco Use Smoking status: Never Smokeless tobacco: Never Substance Use Topics Alcohol use: Never Drug use: Never FAMILY HISTORY No family history on file. SURGICAL HISTORY No past surgical history on file. REVIEW OF SYSTEMS Review of Systems: Review of Systems Constitutional: Negative. HENT: Negative. Eyes: Negative. Respiratory: Negative. Cardiovascular: Negative. Gastrointestinal: Negative. Genitourinary: Negative. Musculoskeletal: Negative. Skin: Negative. Neurological: Negative. All other systems reviewed and are negative. Hematological: Negative. Endocrine: Negative. Allergic/Immunologic: Negative. OBJECTIVE Objective: Physical Exam Constitutional: Appearance: Normal appearance. She is normal weight. HENT: Head: Normocephalic. Cardiovascular: Rate and Rhythm: Normal rate. Pulses: Normal pulses. Pulmonary: Effort: Pulmonary effort is normal. Breath sounds: Normal breath sounds. Abdominal: Palpations: Abdomen is soft. Musculoskeletal: General: Normal range of motion. Neurological: General: No focal deficit present. Mental Status: She is alert and oriented to person, place, and time. Psychiatric: Mood and Affect: Mood normal. Behavior: Behavior normal. Thought Content: Thought content normal. Judgment: Judgment normal. Vitals and nursing note reviewed. Vitals: Estimated body mass index is 39.75 kg/m as calculated from the following: Height as of 04/10/22: 5' 8 . Weight as of 11/18/23: 261 lb 6.4 oz. BP: No LMP recorded. ASSESSMENT & PLAN ICD-10-CM 1. Vaginal burning N94.89 2. Vaginal irritation N89.8 Patient states she has had one week of vaginal burning and pain with intercourse. Cultures obtained and sent to lab. We will place pt on doxycyline and follow up with results if other medication are necessary. Documented by ZAYRA Marte on behalf of: ZAYRA Marte documented in this encounter [facility] Evaluation note 02-14-2021 Note Date & Type Note Facility 02-14-2021 Evaluation note Encounter Date Diagnosis Assessment Notes Feb, Body aches (ICD-10 - R52) Feb, Loss of taste (ICD-10 - R43.2) [facility] Other Evaluation note 02-14-2021 Note Date & [...] Patient care instructions given in writting by [facility] document. [employer] [facility] Other History general Narrative - Reported 08-18-2016 [...] wisdom teeth extract Hospitalization History see above [facility] [employer] Other Evaluation note Note Date & Type Note Facility Evaluation note No Information [facility] Other Evaluation note Note Date & Type Note Facility Evaluation note No assessment information availbety ochoa [facility] Work Phone: Evaluation note Note Date & Type Note Facility Evaluation note Diagnosis Vaginal burning Other specified symptom associated with female genital organs Vaginal irritation Pruritus of genital organs documented in this encounter [facility] Evaluation note Note Date & Type Note Facility Evaluation note Diagnosis Well woman exam with routine gynecological exam Routine gynecological examination documented in this encounter [facility] Summary Purpose Family History Relationship Condition Age at Onset Recorded Date/T radha grandparent Unknown Diabetes mellitus Unknown grandparent Malignant neoplasm of breast Unknown Unknown Advance Directives No Advanced Directives Records FoundNo Advanced Directives Records FoundNo Advanced Directives Records Found Additional Source Comments REASON FOR VISIT (unrecogniz ed section and content) Reason Comments vaginal burning/irritation Reason Comments Gynecologic Exam INFORMATION SOURCE (unrecogn ized section and content) DATE CREATED AUTHOR 10/11/2022 [facility] DATE CREATED AUTHOR AUTHOR'S ORGANIZ ATION 08/08/2023 [facility] DATE CREATED AUTHOR AUTHOR'S ORGANIZ ATION 11/12/2024 [facility] Care Teams (unrecognized sec tion and content) Team Status: Active Member Role Status Dates Kalyan Haynes DO Primary Care Provider Active Team Status: Inactive Member Role Status Dates Kalyan Haynes DO Primary Care Provider Active S tart: August 04, 2023 End: August 04, 2023 Saran Alvarez Attending Provider Active Start: Ap 2023 End: August 04, 2023 Yard[employer] Control Operator Relationship Specialty Start Date End Date Kalyan Haynes MD [address] [place] [address] [place] [address] PCP - General Family Medicine 09/25/22 [employer] Control Operator Relationship Specialty Start Date End Date Kalyan Haynes MD [address] [place] [address] [place] [address] PCP - General Family Medicine 09/25/22 [employer] Control Operator Relationship Specialty Start Date End Date Kalyan Haynes MD [address] [place] [id number] PCP - General Family Medicine 09/25/22 Goals (unrecognized section and content) Goals may [...] BE BASED ON THE PRIMARY CLINICAL RECORDS. [email or web address] provides no warranty or guarantee of the accuracy or completeness of information in this document.
[2025-01-31 13:08] LABS: Age Gdln ACOG Testing Note (.); IGP, rfx Aptima HPV ASCU Note (.)
== END 2025-01-25 15:40 | disposition home or self-care (01) ==
LOC: LAB 15:39
PROVIDERS: PCP Family Medicine; Visit Provider Physician Assistant
DX: Z01.419 Encounter for gynecological examination (general) (routine) without abnormal findings (principal)
CPT/HCPCS: 88175